=== PATIENT | female | born 1955 | race Caucasian/White ===

== ENCOUNTER 2021-01-21 19:01 | Inpatient (IN) | payer MEDICARE, MEDICAID, SELFPAY ==
[2021-01-21] VITALS (11 sets, daily range): BP systolic 120–163; BP diastolic 56–76; PULSE 72–86; RESP 22; TEMP 36.7; O2SAT 95–99; BMI 39.9; BMI 48.0
[2021-01-21 19:16] LABS: Microscopic, Urine URINE MICROSCOPIC (MICROSCOPIC)
[2021-01-21 19:20] LABS: Basophils # 0.1 K/mm3 (0-0.2); Basophils % 0.6 % (0.1-2.0); Eosinophils # 0.1 K/mm3 (0.0-0.4); Eosinophils % 0.6 % (0.1-12.0); Hematocrit 26.1 % (37.0-47.0); Lymphocytes # 1.5 K/mm3 (0.7-4.5); Lymphocytes % 16.3 % (10-50); Mean Corpuscular HGB Conc 30.7 g/dL (31.8-35.4); Mean Corpuscular Hemoglobin 25.5 pg (27.0-31.2); Mean Platelet Volume 7.2 fl (7.4-10.4); Monocytes # 0.5 K/mm3 (0.1-1.0); Monocytes % 5.4 % (1.7-9.3); Neutrophils # 6.9 K/mm3 (1.8-7.8); Neutrophils % 77.1 % (37.0-80.0); Platelet Count 696 K/mm3 (142-424); Red Blood Count 3.14 M/mm3 (4.20-5.40); White Blood Count 8.9 K/mm3 (4.8-10.8)
[2021-01-21 19:21] LABS: Appearance,Urine CLEAR (Clear); Bilirubin,Urine Negative (Negative); Blood, Urine Negative (Negative); Color,Urine YELLOW (Yellow); Glucose,Urine (UA) Negative (Negative); Ketones,Urine Negative (Negative); Leukocyte Esterase,Urine Negative (Negative); Nitrate,Urine Negative (Negative); PH,Urine 6.5 (5.0-8.5); Protein,Urine Negative (Negative); Urobilinogen,Urine 0.2 EU/dl (0.2)
--- NOTE | 2021-01-21 19:26 | PC.NURSE ---
report of critical h/h to .
[2021-01-21 19:38] LABS: Alanine Aminotransferase 21 U/L (12-78); Albumin Level 4.5 g/dl (3.5-5.0); Albumin/Globulin Ratio 1.7 (1.1-1.8); Alkaline Phosphatase 69 U/L (38-126); Anion Gap 17.1 mEq/L (5-15); Aspartate Amino Transferase 36 U/L (14-36); Bilirubin,Total 0.9 mg/dl (0.2-1.3); Blood Urea Nitrogen 10 mg/dl (7-17); Calcium 8.7 mg/dl (8.4-10.2); Carbon Dioxide 28 mmol/L (22.0-30.0); Creatinine Clearance Estimated 95 mL/min (50-200); Estimated Glomerular Filt Rate 84 ml/min (>60); GFR (African American) 101 ML/MIN (>60); Globulin 2.6 g/dL (1.3-3.2); Glucose 130 mg/dl (74-100); Potassium 4.1 mmoL/L (3.5-5.1); Sodium 120 mmol/L (136-145); Total Protein,Serum 7.1 g/dl (6.3-8.2)
[2021-01-21 19:41] LABS: Chloride 79 mmol/L (98-107)
--- NOTE | 2021-01-21 19:51 | XR_ITS ---
PROCEDURE INFORMATION: Exam: XR Right Shoulder Exam date and time: 01/21/2021 7:51 PM Age: 65 years old Clinical indication: Injury or trauma; Fall; Blunt trauma (contusions or hematomas); Shoulder; Right; Additional info: Fall, hematoma TECHNIQUE: Imaging protocol: XR Right shoulder. Views: 2 or more views. COMPARISON: No relevant prior studies available. FINDINGS: Displaced fracture dislocation of the proximal right humerus with the shaft projecting approximately 3.5 cm medial. Multifocal high-density rounded foci within these overlying soft tissues. AC joint arthrosis. IMPRESSION: Displaced fracture dislocation of the proximal right humerus of unknown chronicity but potentially chronic. Multifocal high-density rounded foci within these overlying soft tissues which may retained foreign bodies. Correlation recommended.
--- NOTE | 2021-01-21 19:51 | XR_ITS ---
PROCEDURE INFORMATION: Exam: XR Right Humerus Exam date and time: 01/21/2021 7:51 PM Age: 65 years old Clinical indication: Injury or trauma; Fall; Blunt trauma (contusions or hematomas); Arm, upper; Right; Additional info: Fall, hematoma TECHNIQUE: Imaging protocol: XR Right humerus. Views: 2 or more views. COMPARISON: No relevant prior studies available. FINDINGS: Bones/joints: Displaced fracture dislocation of the proximal right humerus with the proximal humeral shaft projecting medially approximately 3.5 cm. Soft tissues: Multifocal rounded hyperdense foci projecting over the upper chest and shoulder region. IMPRESSION: 1. Displaced fracture dislocation of the proximal right humerus of unknown chronicity but potentially chronic. 2. Multifocal rounded hyperdense foci projecting over the upper chest and shoulder region which may be retained foreign bodies. Clinical correlation recommended.
--- NOTE | 2021-01-21 19:51 | XR_ITS ---
PROCEDURE INFORMATION: Exam: XR Right Elbow Exam date and time: 01/21/2021 7:51 PM Age: 65 years old Clinical indication: Injury or trauma; Fall; Blunt trauma (contusions or hematomas); Elbow; Right; Additional info: Fall, hematoma TECHNIQUE: Imaging protocol: XR Right elbow. Views: 1 or 2 views. COMPARISON: CR XR SHOULDER RT MIN 2V 01/21/2021 8:05 PM FINDINGS: Bones/joints: Bones appear osteopenic. No visualized fracture or dislocation. Soft tissues: Normal. IMPRESSION: No acute findings.
--- NOTE | 2021-01-21 19:52 | HMH.EDGENADL ---
ED Disposition Clinical Impression: Hyponatremia Hematoma of arm Qualifiers: Encounter type: initial encounter Laterality: right Qualified Code(s): S40.021A - Contusion of right upper arm, initial encounter Anemia Qualifiers: Anemia type: unspecified type Qualified Code(s): D64.9 - Anemia, unspecified Disposition: Still a Patient Condition on Discharge: Good Referrals: Fabiola Moreno [Primary Care Provider] - - Critical Care Critical Care Time: No Attestation: On 01/21/21, the high probability of a clinically significant, sudden or life threatening deterioration of the following system(s) required my full and direct attention, intervention and personal management. The time I documented below is in addition to time spent performing reported procedures but includes the following listed in this critical care notation. Medical Decision Making - Khalif Inquiry Pt receiving controlled substance: No Vital Signs: 01/21/21 18:42 Temperature 98.1 F Temperature Source Oral Pulse Rate [Right] 77 Respiratory Rate 22 Blood Pressure [Right Arm] 154/63 H Blood Pressure Mean [Right Arm] 93 02 Sat by Pulse Oximetry 98 Oxygen Delivery Method Room Air - Lab Data Lab results reviewed: Yes: I reviewed the patient's lab results. Lab Results 01/21/21 18:49: Urine Color Yellow, Urine Appearance Clear, Urine pH 6.5, Ur Specific [place] 1.010, Urine Protein Negative, Urine Glucose (UA) Negative, Urine Ketones Negative, Urine Blood Negative, Urine Nitrate Negative, Urine Bilirubin Negative, Urine Urobilinogen 0.2, Ur Leukocyte Esterase Negative, Urine RBC None, Urine WBC None, Ur Squamous Epith Cells None, Urine Bacteria None 01/21/21 18:49: WBC 8.9, RBC 3.14 L, Hgb 8.0 L, Hct 26.1 L, MCV 83.0, MCH 25.5 L, MCHC 30.7 L, RDW 15.0, Plt Count 696 H, MPV 7.2 L, Neut % (Auto) 77.1, Lymph % (Auto) 16.3, [place] % (Auto) 5.4, Eos % (Auto) 0.6, Baso % (Auto) 0.6, Neut # (Auto) 6.9, Lymph # (Auto) 1.5, [place] # (Auto) 0.5, Eos # (Auto) 0.1, Baso # (Auto) 0.1 08/04/21 18:49: Sodium 120 L, Potassium 4.1, Chloride 79 L, Carbon Dioxide 28, Anion Gap 17.1 H, BUN 10, Creatinine 0.70, Estimated Creat Clear 95, Estimated GFR 84, Est GFR ( Amer) 101, Glucose 130 H, Calcium 8.7, Total Bilirubin 0.9, AST 36, ALT 21, Alkaline Phosphatase 69, Total Protein 7.1, Albumin 4.5, Globulin 2.6, Albumin/Globulin Ratio 1.7 Result diagrams: 01/21/21 18:49 01/21/21 18:49 Orders (Tests/Meds): ED MEDICATIONS Generic Name Dose Route Start Last Admin Trade Name Freq PRN Reason Stop Dose Admin Sodium Chloride 1,000 mls @ 999 mls/hr 01/21/21 19:45 Sod Chlor 0.9% 1000ml Bag IV 01/21/21 20:45 .Q1H1M WILLY ORDERS Category Date Time Status XR elbow RT 2V Stat Exams 01/21/21 19:51 Ordered XR humerus RT Stat Exams 01/21/21 19:51 Ordered XR shoulder RT min 2V Stat Exams 01/21/21 19:51 Ordered Medical Decision Narrative: 65yo F evaluated for hyponatremia. Patient is in no acute distress initial evaluation. Exam is limited both by body habitus and the fact that she is a poor historian. Physical exam is most remarkable for a large, firm, tender to palpate hematoma to the patient's medial upper arm. She reports she fell off the shower chair at the senior care but is uncertain when it happened. She states no x-rays were obtained afterward. Given the size of the hematoma and the fact that she has pain with passive range of motion and palpation, x-rays have been ordered. Have asked for records from [facility]. Sodium is 120, with a mild anion gap of 17. Metabolic panel otherwise unremarkable. H/H is low at 8/26 with no previous study for comparison. Signed over to tandem mill roller. General Adult HPI - General Chief complaint: Recheck/Abnormal Lab/Rx Stated complaint: abnormal labs Time Seen by Provider: 01/21/21 19:45 Mode of Arrival: EMS Limitations: No Limitations Description of Symptoms (Recalled from ER Triage Doc. by
--- NOTE | 2021-01-21 20:16 | XR_ITS ---
PROCEDURE INFORMATION: Exam: XR Chest Exam date and time: 01/21/2021 8:16 PM Age: 65 years old Clinical indication: Injury or trauma; Fall; Blunt trauma (contusions or hematomas); Additional info: SOB TECHNIQUE: Imaging protocol: XR of the chest. Views: 4 or more views. COMPARISON: CR XR HUMERUS RT 01/21/2021 8:07 PM FINDINGS: Lungs: Hazy opacities at bilateral lung bases. Pleural spaces: See above. No pneumothorax. Heart/Mediastinum: Unremarkable. No cardiomegaly. Bones/joints: Displaced fracture dislocation of the proximal right humerus. IMPRESSION: 1. Hazy opacities at bilateral lung bases which can be seen with overlapping soft tissues, layering pleural effusions, and or atelectasis or pneumonia. 2. Displaced fracture dislocation of the proximal right humerus.
--- NOTE | 2021-01-21 20:19 | PC.NURSE ---
pt in radiology at this time
[2021-01-21 20:30] LABS: C-Reactive Protein 13.8 mg/L (0-4)
--- NOTE | 2021-01-21 20:30 | PC.NURSE ---
pt back in room from radiology.
[2021-01-21 20:40] LABS: Erythrocyte Sedimentation Rate 26 mm/hr (0-30)
[2021-01-21 20:44] LABS: Procalcitonin 0.039 ng/mL (0.0-2.0)
[2021-01-21 20:45] LABS: T4 (Thyroxine) 10.2 ug/dl (5.53-11.0)
[2021-01-21 20:59] LABS: Thyroid Stimulating Hormone 3.66 uIU/mL (0.465-4.68)
[2021-01-21 22:49] LABS: Coronavirus 19, PCR Not Detected (NotDetected); Influenza A, PCR Not Detected (NotDetected); Influenza B, PCR Not Detected (NotDetected)
--- NOTE | 2021-01-21 23:25 | PC.NURSE ---
PT ARRIVED TO FLOOR VIA W/C FROM ED W/STAFF AT [id number]
--- NOTE | 2021-01-21 23:55 | PC.NURSE ---
assist x2 to bathroom
[2021-01-22] VITALS (23 sets, daily range): BP systolic 118–180; BP diastolic 50–89; PULSE 63–87; RESP 18–24; TEMP 36.5–36.9; O2SAT 88–100; BMI 48.0
--- NOTE | 2021-01-22 00:45 | PC.NURSE ---
assisted pt up to bathroom at this time
--- NOTE | 2021-01-22 03:37 | PC.NURSE ---
A&OX4. TOLERATING RA WELL. PT HAS HAD NO C/O PAIN/NA/VO SINCE ARRIVAL TO FLOOR. PT DOES WELL AMBULATING WITH X1 ASSIST. PT SLEEPING MAJORITY OF SHIFT. NO C/O THUS FAR. VSS WILL CONTINUE TO MONITOR.
[2021-01-22 06:57] LABS: Chloride 84 mmol/L (98-107); Sodium 119 mmol/L (136-145)
[2021-01-22 06:58] LABS: Potassium 4.7 mmoL/L (3.5-5.1)
[2021-01-22 07:00] LABS: Anion Gap 11.7 mEq/L (5-15); Blood Urea Nitrogen 6 mg/dl (7-17); Calcium 8.4 mg/dl (8.4-10.2); Carbon Dioxide 28 mmol/L (22.0-30.0); Creatinine Clearance Estimated 48 mL/min (50-200); Estimated Glomerular Filt Rate 123 ml/min (>60); GFR (African American) 149 ML/MIN (>60); Glucose 104 mg/dl (74-100)
[2021-01-22 07:01] LABS: Magnesium 1.5 mg/dl (1.6-2.3)
[2021-01-22 07:42] LABS: Basophils # 0.1 K/mm3 (0-0.2); Basophils % 0.9 % (0.1-2.0); Eosinophils # 0.1 K/mm3 (0.0-0.4); Eosinophils % 1.4 % (0.1-12.0); Lymphocytes # 1.3 K/mm3 (0.7-4.5); Lymphocytes % 22.6 % (10-50); Mean Corpuscular HGB Conc 31.3 g/dL (31.8-35.4); Mean Corpuscular Hemoglobin 25.7 pg (27.0-31.2); Monocytes # 0.4 K/mm3 (0.1-1.0); Monocytes % 6.5 % (1.7-9.3); Neutrophils # 4.1 K/mm3 (1.8-7.8); Neutrophils % 68.5 % (37.0-80.0); Platelet Count 610 K/mm3 (142-424); Red Blood Count 2.87 M/mm3 (4.20-5.40); Red Cell Distribution Width 15.1 % (11.5-17.5); White Blood Count 5.9 K/mm3 (4.8-10.8)
[2021-01-22 07:45] LABS: Hematocrit 23.5 % (37.0-47.0); Hemoglobin 7.4 g/dL (12.2-16.2)
--- NOTE | 2021-01-22 07:55 | PC.NURSE ---
Paged Dr. Hutchinson @ [phone], information resources director for Dr. Little in RE to H&H of 7.4 and 23.5. Awaiting return call at this time.
--- NOTE | 2021-01-22 08:08 | HMH.PHAVTE ---
[facility] Pharmacy VTE Monitoring - Patient Demographics Admission date: 01/21/21 Report Date: 01/22/21 Time: 08:08 Allergies/Adverse Reactions: Patient Allergies bupropion Allergy (Verified 01/21/21 18:51) prednisone Allergy (Verified 01/21/21 18:51) rosuvastatin [From Crestor] Allergy (Verified 01/21/21 18:51) Height: 1.65 m Weight: 130.9 kg Patient Problems: Current Active Problems Hyponatremia (Acute) Hematoma of arm (Acute) Anemia (Acute) - VTE Risk Labs: VTE Related Lab Results Hgb 7.4 g/dL (12.2-16.2) L* 01/22/21 07:22 Hct 23.5 % (37.0-47.0) L* 01/22/21 07:22 Plt Count 610 K/mm3 (142-424) H 01/22/21 07:22 BUN 6 mg/dl (7-17) L D 01/22/21 06:28 Creatinine 0.50 mg/dl (0.52-1.04) L D 01/22/21 06:28 Estimated Creat Clear 48 mL/min (50-200) 01/22/21 06:28 VTE Score: 4 VTE Risk Level: Low Risk - Prophylaxis VTE Prophylaxis Ordered?: Yes Types of VTE Prophylaxis: TEDS Knee High Location of Applied Device: Bilateral Lower Extremeties
--- NOTE | 2021-01-22 08:30 | HMH.HP ---
*Admission Date: 01/21/21 *Chief complaint: Headache, right arm pain *History of present illness: 65yo F sent [facility] secondary to hyponatremia. Patient is a poor historian and states her sodium has been low in the past. She reports seeing a watch parts grinder in the past but is uncertain what the report was. She does not know any additional work-up that has been completed. She is uncertain what her baseline sodium level is. Her only complaint currently is headache. She is uncertain how long the headache has been going on. She denies any abdominal pain, nausea/vomiting/diarrhea. Denies any fever. Patient is in no acute distress initial evaluation. Exam is limited both by body habitus and the fact that she is a poor historian. Physical exam is most remarkable for a large, firm, tender to palpate hematoma to the patient's medial upper arm. She reports she fell off the [facility] at the [facility] but is uncertain when it happened. She states no x-rays were obtained afterward. Given the size of the hematoma and the fact that she has pain with passive range of motion and palpation, x-rays have been ordered. Have asked for records from [facility]. Sodium is 120, with a mild anion gap of 17. Metabolic panel otherwise unremarkable. H/H is low at 8/26 with no previous study for comparison. Signed over to procedures nurse. (above as per ER physician) The patient's x-ray showed a displaced fracture dislocation of the proximal right humerus of unknown chronicity but potentially chronic. There were multifocal rounded hyperdense foci projecting over the upper chest and shoulder region which could be due to retained foreign bodies. The patient's chest x-ray showed hazy opacities at the bilateral lung bases which could be overlapping soft tissues, layering pleural effusions, or atelectasis versus pneumonia. This also showed a displaced fracture dislocation of the proximal right humerus. The patient was admitted for further evaluation and treatment. [facility] History I have reviewed the patient's past medical history: Yes Medical History: Reports:: Dementia, Hyperlipidemia, Hypertension Denies:: Cancer, Diabetes Mellitus Type 1, Diabetes Mellitus Type 2, MRSA *Have you ever received a pneumonia vaccine?: Yes *Have you received a flu vaccine this season?: Yes Other Medical History: Reports: Other (Hyponatremia) Other Surgeries: Yes: Tubal Ligation Amputation: No Fractures: No - *Social History Last grade of school completed: GED Smoking Status: Never smoker Alcohol Intake: never *Occupational Status:: retired, disabled Housing: [facility] Household Members: other *Travel in the last 8 weeks: None Family Hx:: Hyperlipidemia, Hypertension, Kidney Disease Review of Systems - Constitutional Reports weakness, Denies fatigue - Eyes Denies blurry vision, Denies double vision - ENT Reports nasal congestion, Denies sore throat - *Cardiovascular Reports shortness of breath, Denies chest pain - *Respiratory Reports cough, Reports shortness of breath - *Gastrointestinal Denies abdominal pain, Denies loose stools, Denies nausea, Denies vomiting - *Genitourinary Denies difficulty urinating, Denies painful urination - *Musculoskeletal Reports joint pain (right shoulder) - *Neurologic Reports headache(s), Reports weakness, Denies dizziness Meds Home Medications Medication Instructions Recorded Confirmed Type Cholecalciferol (Vitamin D3) 1,000 unit PO DAILY 01/21/21 01/21/21 History [Vitamin D3 1,000 Unit Cap] Fluoxetine HCl [Prozac 20mg 60 mg PO HS 01/21/21 01/21/21 History Capsule] Furosemide [Lasix 40mg tab] 40 mg PO DAILY 01/21/21 01/21/21 History Loratadine [Claritin 10mg 10 mg PO DAILY 01/21/21 01/22/21 History Tablet] Losartan Potassium [Cozaar 50mg 50 mg PO DAILY 01/21/21 01/21/21 History Tablets] Nortriptyline HCl 10 mg PO DAILY 01/21/21
--- NOTE | 2021-01-22 14:39 | PC.NURSE ---
This RN called and spoke with Nancie Little's in RE to prednisone order. This RN held prednisone, because pt has an allergy to it and states she breaks out in a rash when taking it. Awaiting cb at this time.
--- NOTE | 2021-01-22 14:41 | HMH.PHAINT ---
MEDICATION RECONCILIATION COMPLETE USING LIST FROM MD OFFICE AND EXTERNAL PHARMACY FILL HISTORY.
--- NOTE | 2021-01-22 17:01 | PC.NURSE ---
Called and apoke with Nancie again in RE to questioning what MD wanted to do with prednisone. Also, made her aware that pts BP is elevated with SBP 170's / 180's. Awaiting return call at this time.
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
--- NOTE | 2021-01-22 19:35 | PC.NURSE ---
This RN spoke with Dr. Lugo and stated to d/c prednisone, decrease IVF's to 50 ml/hr, and ordered 40 mg IV lasix after 2 units of blood. Pt tolerated well. CB in reach. PRN zofran given per mar and prn tylenol r/t headache. BP improved at this time. VSS. Report given.
[2021-01-22 21:15] LABS: Hematocrit 30.7 % (37.0-47.0)
[2021-01-22 21:30] LABS: Hemoglobin 10.1 g/dL (12.2-16.2)
[2021-01-23 03:32] VITALS: BP 151/73; PULSE 74; RESP 20; TEMP 36.9; O2SAT 98
--- NOTE | 2021-01-23 03:37 | PC.NURSE ---
Pt has been restless during this shift. Pt oriented to name and birthdate, Pt confused with directions. BLT with some fine crackles noted. bowel sounds present in all 4 quadrants. Pt denies SOA, headache, or N/V. Pt has +3 pitting edemea to BLE and +3 in RUE with bruising
[2021-01-23 05:14] VITALS: BMI 48.0
[2021-01-23 06:09] LABS: MANUAL DIFFERENTIAL MANUAL DIFFERENTIAL (MANUAL DIFF)
[2021-01-23 06:16] LABS: Basophils % 0.4 % (0.1-2.0); Eosinophils # 0.1 K/mm3 (0.0-0.4); Eosinophils % 1.6 % (0.1-12.0); Hematocrit 28.3 % (37.0-47.0); Hemoglobin 9.4 g/dL (12.2-16.2); Lymphocytes # 1.1 K/mm3 (0.7-4.5); Lymphocytes % 15.3 % (10-50); Mean Corpuscular HGB Conc 33.2 g/dL (31.8-35.4); Mean Corpuscular Hemoglobin 26.7 pg (27.0-31.2); Mean Corpuscular Volume 80.3 fl (81-99); Mean Platelet Volume 7.2 fl (7.4-10.4); Monocytes # 0.5 K/mm3 (0.1-1.0); Monocytes % 6.5 % (1.7-9.3); Neutrophils # 5.5 K/mm3 (1.8-7.8); Neutrophils % 76.2 % (37.0-80.0); Platelet Count 574 K/mm3 (142-424); Red Blood Count 3.52 M/mm3 (4.20-5.40); Red Cell Distribution Width 15.2 % (11.5-17.5); White Blood Count 7.2 K/mm3 (4.8-10.8)
[2021-01-23 06:28] LABS: Chloride 86 mmol/L (98-107)
[2021-01-23 06:29] LABS: Potassium 4.4 mmoL/L (3.5-5.1); Sodium 120 mmol/L (136-145)
[2021-01-23 06:31] LABS: Alanine Aminotransferase 16 U/L (12-78); Albumin Level 3.9 g/dl (3.5-5.0); Albumin/Globulin Ratio 1.5 (1.1-1.8); Alkaline Phosphatase 68 U/L (38-126); Anion Gap 12.4 mEq/L (5-15); Aspartate Amino Transferase 41 U/L (14-36); Bilirubin,Total 1.5 mg/dl (0.2-1.3); Blood Urea Nitrogen 11 mg/dl (7-17); Carbon Dioxide 26 mmol/L (22.0-30.0); Creatinine Clearance Estimated 48 mL/min (50-200); Estimated Glomerular Filt Rate 100 ml/min (>60); GFR (African American) 121 ML/MIN (>60); Globulin 2.6 g/dL (1.3-3.2); Total Protein,Serum 6.5 g/dl (6.3-8.2)
[2021-01-23 06:32] LABS: Calcium 8.7 mg/dl (8.4-10.2); Glucose 116 mg/dl (74-100)
[2021-01-23 06:46] LABS: Lymphocytes % 10 % (10-50); Monocytes % 4 % (2-9); Neutrophils % 86 % (42-76); Platelet Estimate Moderate Increase; RBC Morphology Normal; Total Cells Counted 100
[2021-01-23 08:00] VITALS: BP 162/78; PULSE 76; RESP 24; TEMP 36.6; O2SAT 92
--- NOTE | 2021-01-23 08:23 | HMH.ACPN2 ---
<Desirae Carlson - Last Filed: 01/23/21 08:23> Internal Medicine - PN: Subj *Date: 01/23/21 *Time: 08:23 Interval history: Patient states she is very confused this morning. She did not know she was at the hospital. She states she does feel slightly nauseated this morning. She thinks she slept well but cannot really remember. She is trying to eat some breakfast. Exam Vital signs and Labs for Last 24 Hours: Temp Pulse Resp BP Pulse Ox 98.4 F 74 20 151/73 H 98 01/23/21 03:32 01/23/21 03:32 01/23/21 03:32 01/23/21 03:32 01/23/21 03:32 Laboratory Results - last 24 hr 01/22/21 07:22: Blood Type Confirm O Positive 01/22/21 09:22: Blood Type O Positive, Antibody Screen Negative, Crossmatch (AHG) See Detail 01/22/21 21:11: Hgb 10.1 L D, Hct 30.7 L 01/23/21 06:03: WBC 7.2, RBC 3.52 L, Hgb 9.4 L, Hct 28.3 L, MCV 80.3 L, MCH 26.7 L, MCHC 33.2, RDW 15.2, Plt Count 574 H, MPV 7.2 L, Neut % (Auto) 76.2, Lymph % (Auto) 15.3, [place] % (Auto) 6.5, Eos % (Auto) 1.6, Baso % (Auto) 0.4, Neut # (Auto) 5.5, Lymph # (Auto) 1.1, [place] # (Auto) 0.5, Eos # (Auto) 0.1, Baso # (Auto) 0.0, Total Counted 100, Neutrophils % (Manual) 86 H, Lymphocytes % (Manual) 10, Monocytes % (Manual) 4, Platelet Estimate Moderate increase, RBC Morphology Normal 01/23/21 06:03: Sodium 120 L, Potassium 4.4, Chloride 86 L, Carbon Dioxide 26, Anion Gap 12.4, BUN 11 D, Creatinine 0.60, Estimated Creat Clear 48, Estimated GFR 100, Est GFR ( Amer) 121, Glucose 116 H, Calcium 8.7, Total Bilirubin 1.5 H, AST 41 H, ALT 16, Alkaline Phosphatase 68, Total Protein 6.5, Albumin 3.9 D, Globulin 2.6, Albumin/Globulin Ratio 1.5 I & O for Last 24 hours: Intake & Output 01/20/21 01/21/21 01/22/21 01/23/21 11:59 11:59 11:59 11:59 Intake Total 1683 / 1683 970 / 970 Output Total 0 / 0 650 / 650 Balance 1683 / 1683 320 / 320 Weight 288 lb 9.361 oz 288 lb 5 oz - Constitutional no acute distress - *Routine Respiratory Exam Present: CTA bilaterally - *Routine Cardiovascular Exam Present: RRR - *Routine Abdominal Exam Present: soft, normoactive bowel sounds. Absent: tenderness - *Routine Extremities Exam Present: edema (bilateral LE's) - *Routine Skin Exam Present: warm. Absent: rash - *Routine Neurological Exam Present: alert, oriented X3 Assessment and Plan (1) Hyponatremia Status: Acute Category: Medical Code(s): E87.1 - Hypo-osmolality and hyponatremia (2) Hematoma of arm Status: Acute Qualifiers: Encounter type: initial encounter Laterality: right Qualified Code(s): S40.021A - Contusion of right upper arm, initial encounter Category: Medical Code(s): S40.029A - Contusion of unspecified upper arm, initial encounter (3) Anemia Status: Acute Qualifiers: Anemia type: unspecified type Qualified Code(s): D64.9 - Anemia, unspecified Category: Medical Code(s): D64.9 - Anemia, unspecified (4) Humerus fracture Status: Acute Category: Medical Code(s): S42.309A - Unspecified fracture of shaft of humerus, unspecified arm, initial encounter for closed fracture (5) Hypertension Status: Chronic Category: Medical Code(s): I10 - Essential (primary) hypertension (6) Hyperlipidemia Status: Chronic Category: Medical Code(s): E78.5 - Hyperlipidemia, unspecified (7) Dementia Status: Chronic Category: Medical Code(s): F03.90 - Unspecified dementia without behavioral disturbance - Assessment and plan all Dx Assessment and Plan for all problems:: We will start on Lasix twice daily and get a stool for blood along with a urine sodium. Ortho note is appreciated and Dr. Jones does not feel surgery is an option at this time. <Pawel Lugo - Last Filed: 01/23/21 12:42> Internal Medicine - PN: Subj *Date: 01/23/21 *Time: 12:41 Exam Vital signs and Labs for Last 24 Hours: Temp Pulse Resp BP Pulse Ox 97.9 F 76 24 162/78 H 92 L 01/23/21 08:00 01/23/21
--- NOTE | 2021-01-23 10:04 | SW/DCPLANNER ---
Addendum entered by Jessy Centeno 01/27/21 09:16: This patient will discharge back to [facility] today. I have informed Mae with [facility] and she has requested another COVID swab prior to returning: I informed Dr Lugo. Original Note: This patient currently resides at [facility]. Per Mae with [facility] patient resides under [facility] level of care. I will continue to follow up with Mae until patient is medically stable for discharge.
[2021-01-23 11:25] VITALS: BMI 48.1
[2021-01-23 16:00] VITALS: BP 154/75; PULSE 80; RESP 20; TEMP 37; O2SAT 96
[2021-01-23 20:00] VITALS: BP 113/56; PULSE 82; RESP 19; TEMP 37; O2SAT 97
--- NOTE | 2021-01-24 03:37 | PC.NURSE ---
pt has rested off and on throughout shift, pt has had periods of confusion where directions have to be reinforced, lungs remain clear, heart rate regular, bilateral lower extremity noted and remains at +3, pt guarding right arm when ambulating and swelling and bruising noted to that arm as well, pt has had good urine output, no distress noted at this time, will continue to monitor
[2021-01-24 04:00] VITALS: BP 148/85; PULSE 81; RESP 18; TEMP 36.9; O2SAT 96
[2021-01-24 04:56] VITALS: BMI 47.8
[2021-01-24 07:14] LABS: Basophils % 0.4 % (0.1-2.0); Eosinophils # 0.1 K/mm3 (0.0-0.4); Eosinophils % 0.6 % (0.1-12.0); Hemoglobin 8.8 g/dL (12.2-16.2); Lymphocytes # 1.5 K/mm3 (0.7-4.5); Lymphocytes % 19.3 % (10-50); Mean Corpuscular HGB Conc 31.9 g/dL (31.8-35.4); Mean Corpuscular Hemoglobin 26.1 pg (27.0-31.2); Mean Platelet Volume 7.4 fl (7.4-10.4); Monocytes # 0.5 K/mm3 (0.1-1.0); Monocytes % 6.5 % (1.7-9.3); Neutrophils # 5.8 K/mm3 (1.8-7.8); Neutrophils % 73.2 % (37.0-80.0); Red Blood Count 3.37 M/mm3 (4.20-5.40); Red Cell Distribution Width 15.6 % (11.5-17.5)
[2021-01-24 07:15] LABS: Hematocrit 27.6 % (37.0-47.0); Platelet Count 628 K/mm3 (142-424)
[2021-01-24 07:42] LABS: Chloride 84 mmol/L (98-107); Potassium 4.2 mmoL/L (3.5-5.1); Sodium 119 mmol/L (136-145)
[2021-01-24 07:45] LABS: Alanine Aminotransferase 16 U/L (12-78); Albumin Level 3.9 g/dl (3.5-5.0); Albumin/Globulin Ratio 1.6 (1.1-1.8); Alkaline Phosphatase 67 U/L (38-126); Anion Gap 12.2 mEq/L (5-15); Aspartate Amino Transferase 41 U/L (14-36); Bilirubin,Total 1.3 mg/dl (0.2-1.3); Blood Urea Nitrogen 10 mg/dl (7-17); Calcium 8.6 mg/dl (8.4-10.2); Carbon Dioxide 27 mmol/L (22.0-30.0); Creatinine Clearance Estimated 48 mL/min (50-200); Estimated Glomerular Filt Rate 123 ml/min (>60); GFR (African American) 149 ML/MIN (>60); Globulin 2.5 g/dL (1.3-3.2); Glucose 107 mg/dl (74-100); Total Protein,Serum 6.4 g/dl (6.3-8.2)
[2021-01-24 08:00] VITALS: BP 154/77; PULSE 80; RESP 19; TEMP 36.6; O2SAT 98
--- NOTE | 2021-01-24 09:25 | HMH.ACPN2 ---
<Desirae Carlson - Last Filed: 01/24/21 09:25> Internal Medicine - PN: Subj *Date: 01/24/21 *Time: 09:25 Interval history: Patient is a bit more confused this morning. She states she is nauseated and her stomach hurts but she did eat all of her breakfast. She is unsure if she slept well last night. She says her arm hurts as well. Exam Vital signs and Labs for Last 24 Hours: Temp Pulse Resp BP Pulse Ox 97.8 F 80 19 154/77 H 98 01/24/21 08:00 01/24/21 08:00 01/24/21 08:00 01/24/21 08:00 01/24/21 08:00 Laboratory Results - last 24 hr 01/24/21 06:43: WBC 8.0, RBC 3.37 L, Hgb 8.8 L, Hct 27.6 L, MCV 82.0, MCH 26.1 L, MCHC 31.9, RDW 15.6, Plt Count 628 H, MPV 7.4, Neut % (Auto) 73.2, Lymph % (Auto) 19.3, [place] % (Auto) 6.5, Eos % (Auto) 0.6, Baso % (Auto) 0.4, Neut # (Auto) 5.8, Lymph # (Auto) 1.5, [place] # (Auto) 0.5, Eos # (Auto) 0.1, Baso # (Auto) 0.0 01/24/21 06:43: Sodium 119 L, Potassium 4.2, Chloride 84 L, Carbon Dioxide 27, Anion Gap 12.2, BUN 10, Creatinine 0.50 L, Estimated Creat Clear 48, Estimated GFR 123, Est GFR ( Amer) 149 D, Glucose 107 H, Calcium 8.6, Total Bilirubin 1.3, AST 41 H, ALT 16, Alkaline Phosphatase 67, Total Protein 6.4, Albumin 3.9, Globulin 2.5, Albumin/Globulin Ratio 1.6 I & O for Last 24 hours: Intake & Output 01/21/21 01/22/21 01/23/21 01/24/21 11:59 11:59 11:59 11:59 Intake Total 1683 / 1683 1330 / 1330 960 / 960 Output Total 0 / 0 650 / 650 4000 / 4000 Balance 1683 / 1683 680 / 680 -3040 / -3040 Weight 288 lb 9.361 oz 288 lb 12.889 oz 287 lb 1 oz - Constitutional no acute distress (confused) - *Routine Respiratory Exam Present: CTA bilaterally - *Routine Cardiovascular Exam Present: RRR - *Routine Abdominal Exam Present: soft, normoactive bowel sounds, tenderness (diffuse) - *Routine Extremities Exam Present: edema (bilateral LE's). Absent: cyanosis, clubbing - *Routine Skin Exam Present: pallor - *Routine Neurological Exam Present: altered mental status Assessment and Plan (1) Hyponatremia Status: Acute Category: Medical Code(s): E87.1 - Hypo-osmolality and hyponatremia (2) Hematoma of arm Status: Acute Qualifiers: Encounter type: initial encounter Laterality: right Qualified Code(s): S40.021A - Contusion of right upper arm, initial encounter Category: Medical Code(s): S40.029A - Contusion of unspecified upper arm, initial encounter (3) Anemia Status: Acute Qualifiers: Anemia type: unspecified type Qualified Code(s): D64.9 - Anemia, unspecified Category: Medical Code(s): D64.9 - Anemia, unspecified (4) Humerus fracture Status: Acute Category: Medical Code(s): S42.309A - Unspecified fracture of shaft of humerus, unspecified arm, initial encounter for closed fracture (5) Hypertension Status: Chronic Category: Medical Code(s): I10 - Essential (primary) hypertension (6) Hyperlipidemia Status: Chronic Category: Medical Code(s): E78.5 - Hyperlipidemia, unspecified (7) Dementia Status: Chronic Category: Medical Code(s): F03.90 - Unspecified dementia without behavioral disturbance - Assessment and plan all Dx Assessment and Plan for all problems:: Sodium has not improved. H&H continues to decrease. Stool for blood is still pending. Will discuss further care with Dr. Lugo. <Pawel Lugo - Last Filed: 01/24/21 14:41> Internal Medicine - PN: Subj *Date: 01/24/21 *Time: 14:41 Exam Vital signs and Labs for Last 24 Hours: Temp Pulse Resp BP Pulse Ox 97.8 F 80 19 154/77 H 98 01/24/21 08:00 01/24/21 08:00 01/24/21 08:00 01/24/21 08:00 01/24/21 08:00 Laboratory Results - last 24 hr 01/23/21 10:05: Urine Sodium 125 01/24/21 06:43: WBC 8.0, RBC 3.37 L, Hgb 8.8 L, Hct 27.6 L, MCV 82.0, MCH 26.1 L, MCHC 31.9, RDW 15.6, Plt Count 628 H, MPV 7.4, Neut % (Auto) 73.2, Lymph % (Auto) 19.3, [place] % (Auto) 6.5, Eos % (Auto) 0.6, Baso % (Auto
[2021-01-24 10:05] LABS: Occult Blood,Stool Negative (Negative)
[2021-01-24 10:45] LABS: Sodium, Urine 125 mmol/L (Not Estab.)
[2021-01-24 15:37] VITALS: BP 138/60; PULSE 83; RESP 20; TEMP 36.9; O2SAT 99
--- NOTE | 2021-01-24 18:27 | PC.NURSE ---
Pt has been up to the chair most of this shift. Pt has yelled out majority of the later part of this shift shouting obscenities and has not been easily redirected. +3 pitting edema noted to BLE. Lung sounds diminished. Active bowel sounds in all 4 quads, will continue to monitor.
[2021-01-24 20:00] VITALS: BP 99/47; PULSE 82; RESP 24; TEMP 36.7; O2SAT 97
--- NOTE | 2021-01-25 03:19 | PC.NURSE ---
Addendum entered by Genny Izaguirre RN 01/25/21 05:52: Patient would not keep messing/pulling at her IV put fluids on stand by, pt remains very confused attempted to redirect many times. Original Note: Pt is A/O x3 but also pleasantly confused. Continued to yell out throughout the shift. Was restless and did not get much sleep all shift. VSS, admin meds per MAR. Pt has remained most of shift in chair, and has chair alarm in place for safety. call light within reach, will continue to monitor.
[2021-01-25 04:00] VITALS: BP 132/73; PULSE 77; RESP 16; TEMP 36.6; O2SAT 99
[2021-01-25 07:53] LABS: Chloride 82 mmol/L (98-107); Potassium 4.2 mmoL/L (3.5-5.1); Sodium 122 mmol/L (136-145)
[2021-01-25 07:56] LABS: Anion Gap 15.2 mEq/L (5-15); Blood Urea Nitrogen 13 mg/dl (7-17); Carbon Dioxide 29 mmol/L (22.0-30.0); Creatinine Clearance Estimated 48 mL/min (50-200); Estimated Glomerular Filt Rate 100 ml/min (>60); GFR (African American) 121 ML/MIN (>60); Glucose 100 mg/dl (74-100)
[2021-01-25 08:00] VITALS: BP 147/77; PULSE 77; RESP 17; TEMP 37.1; O2SAT 100
[2021-01-25 08:05] LABS: NT Pro Brain Natriuretic Pep. 125 pg/mL (0-125)
[2021-01-25 08:32] LABS: Basophils # 0.1 K/mm3 (0-0.2); Basophils % 0.8 % (0.1-2.0); Eosinophils # 0.1 K/mm3 (0.0-0.4); Eosinophils % 0.9 % (0.1-12.0); Hematocrit 34.6 % (37.0-47.0); Lymphocytes # 1.7 K/mm3 (0.7-4.5); Lymphocytes % 19.2 % (10-50); Mean Corpuscular HGB Conc 32.6 g/dL (31.8-35.4); Mean Corpuscular Volume 82.8 fl (81-99); Mean Platelet Volume 7.7 fl (7.4-10.4); Monocytes # 0.7 K/mm3 (0.1-1.0); Monocytes % 8.3 % (1.7-9.3); Neutrophils # 6.3 K/mm3 (1.8-7.8); Neutrophils % 70.8 % (37.0-80.0); Platelet Count 732 K/mm3 (142-424); Red Blood Count 4.18 M/mm3 (4.20-5.40); Red Cell Distribution Width 15.7 % (11.5-17.5); White Blood Count 8.9 K/mm3 (4.8-10.8)
--- NOTE | 2021-01-25 08:39 | P.PN_ITS ---
Internal Medicine - PN: Subj *Date: 01/25/21 *Time: 09:40 Interval history: She was restless through the night, frequently hollering out and pulling at her IVs. She is alert and calm this morning. No complaints. Exam Vital signs and Labs for Last 24 Hours: Temp Pulse Resp BP Pulse Ox 98.7 F 77 17 147/77 H 100 01/25/21 08:00 01/25/21 08:00 01/25/21 08:00 01/25/21 08:00 01/25/21 08:00 Laboratory Results - last 24 hr 01/23/21 10:05: Urine Sodium 125 01/24/21 08:09: Stool Occult Blood Negative 01/25/21 06:43: WBC 8.9, RBC 4.18 L, Hct 34.6 L, MCV 82.8, MCH 27.0, MCHC 32.6, RDW 15.7, Plt Count 732 H, MPV 7.7, Neut % (Auto) 70.8, Lymph % (Auto) 19.2, [place] % (Auto) 8.3, Eos % (Auto) 0.9, Baso % (Auto) 0.8, Neut # (Auto) 6.3, Lymph # (Auto) 1.7, [place] # (Auto) 0.7, Eos # (Auto) 0.1, Baso # (Auto) 0.1 01/25/21 06:43: Sodium 122 L, Potassium 4.2, Chloride 82 L, Carbon Dioxide 29, Anion Gap 15.2 H, BUN 13 D, Creatinine 0.60, Estimated Creat Clear 48, Estimated GFR 100, Est GFR ( Amer) 121, Glucose 100, NT-Pro-B Natriuret Pep 125 I & O for Last 24 hours: Intake & Output 01/22/21 01/23/21 01/24/21 01/25/21 11:59 11:59 11:59 11:59 Intake Total 1683 / 1683 1330 / 1330 960 / 960 410 / 410 Output Total 0 / 0 650 / 650 4000 / 4000 1700 / 1700 Balance 1683 / 1683 680 / 680 -3040 / -3040 -1290 / -1290 Weight 288 lb 9.361 oz 288 lb 12.889 oz 287 lb 1 oz Narrative: She is sitting up in the chair. Lungs are clear to auscultation. Heart is distant but regular. Extremities continue to show 2-3+ edema but not as tight. She diuresed an additional 4000 mL yesterday. Assessment and Plan (1) Hyponatremia Status: Acute Category: Medical Code(s): E87.1 - Hypo-osmolality and hyponatremia (2) Hematoma of arm Status: Acute Qualifiers: Encounter type: initial encounter Laterality: right Qualified Code(s): S40.021A - Contusion of right upper arm, initial encounter Category: Medical Code(s): S40.029A - Contusion of unspecified upper arm, initial encounter (3) Anemia Status: Acute Qualifiers: Anemia type: unspecified type Qualified Code(s): D64.9 - Anemia, unspecified Category: Medical Code(s): D64.9 - Anemia, unspecified (4) Humerus fracture Status: Acute Category: Medical Code(s): S42.309A - Unspecified fracture of shaft of humerus, unspecified arm, initial encounter for closed fracture (5) Hypertension Status: Chronic Category: Medical Code(s): I10 - Essential (primary) hypertension (6) Hyperlipidemia Status: Chronic Category: Medical Code(s): E78.5 - Hyperlipidemia, unspecified (7) Dementia Status: Chronic Category: Medical Code(s): F03.90 - Unspecified dementia without behavioral disturbance - Assessment and plan all Dx Assessment and Plan for all problems:: She is diuresing well. Sodium marginally improved to 122. Renal function and electrolytes are stable. Continue diuresis. Check echocardiogram tomorrow.
[2021-01-25 12:24] LABS: Calcium 9.6 mg/dl (8.4-10.2); Hemoglobin 11.3 g/dL (12.2-16.2)
[2021-01-25 15:54] VITALS: BP 146/76; PULSE 71; RESP 17; TEMP 36.6; O2SAT 97
[2021-01-25 17:15] VITALS: BMI 45.1
[2021-01-25 17:23] LABS: Osmolality, Urine 445 mOsmol/kg (.)
--- NOTE | 2021-01-25 18:08 | PC.NURSE ---
Pt has rested most of this shift. +2 and +3 pitting edema noted to all extremities. Expiratory wheezing noted at times this shift. No other acute changes or complaints at this time, will continue to monitor.
[2021-01-25 20:00] VITALS: BP 106/57; PULSE 79; RESP 20; TEMP 36.8; O2SAT 98
--- NOTE | 2021-01-26 03:54 | PC.NURSE ---
Pt has been pleasant this shift. A/O x4, will still occasionally be confused but can be easily redirected. Pt rested well. Pure wick in place draining clear, yellow urine. +2, +3 pitting edema noted in extremities. Pt had x1 BM this shift. Bed alarm on for safety, call light within reach. will continue to monitor.
[2021-01-26 06:00] VITALS: BP 138/72; PULSE 88; RESP 20; TEMP 37.4; O2SAT 94
[2021-01-26 06:37] LABS: Basophils # 0.1 K/mm3 (0-0.2); Basophils % 0.8 % (0.1-2.0); Eosinophils # 0.1 K/mm3 (0.0-0.4); Eosinophils % 1.3 % (0.1-12.0); Hematocrit 30.1 % (37.0-47.0); Lymphocytes # 1.5 K/mm3 (0.7-4.5); Lymphocytes % 19.3 % (10-50); Mean Corpuscular HGB Conc 31.8 g/dL (31.8-35.4); Mean Corpuscular Hemoglobin 26.5 pg (27.0-31.2); Mean Corpuscular Volume 83.3 fl (81-99); Mean Platelet Volume 6.9 fl (7.4-10.4); Monocytes # 0.6 K/mm3 (0.1-1.0); Monocytes % 7.4 % (1.7-9.3); Neutrophils # 5.5 K/mm3 (1.8-7.8); Neutrophils % 71.2 % (37.0-80.0); Red Blood Count 3.62 M/mm3 (4.20-5.40); Red Cell Distribution Width 15.8 % (11.5-17.5); White Blood Count 7.7 K/mm3 (4.8-10.8)
[2021-01-26 06:38] LABS: Hemoglobin 9.6 g/dL (12.2-16.2); Platelet Count 655 K/mm3 (142-424)
[2021-01-26 06:45] LABS: Chloride 86 mmol/L (98-107); Potassium 4.6 mmoL/L (3.5-5.1); Sodium 121 mmol/L (136-145)
[2021-01-26 06:48] LABS: Anion Gap 8.6 mEq/L (5-15); Blood Urea Nitrogen 19 mg/dl (7-17); Carbon Dioxide 31 mmol/L (22.0-30.0); Creatinine Clearance Estimated 48 mL/min (50-200); Estimated Glomerular Filt Rate 84 ml/min (>60); GFR (African American) 101 ML/MIN (>60); Glucose 103 mg/dl (74-100)
[2021-01-26 06:49] LABS: Calcium 8.6 mg/dl (8.4-10.2)
[2021-01-26 06:50] VITALS: BMI 45.3
[2021-01-26 08:00] VITALS: BP 130/59; PULSE 87; RESP 19; TEMP 36.8; O2SAT 94
--- NOTE | 2021-01-26 08:00 | CA_ITS ---
APPROVED REPORT EXAM: Comprehensive 2D, Doppler, and color-flow Echocardiogram [employer] Patroller: Vivien Pat RVT Ht: 5 ft 4 in Wt: 287lbs BSA: 2.28 BP: 110/72 mmHg Indications: CHF,DEMENTIA,HTN,HLD TDS-PT FLAT ON BACK IN BED-PT HAS DEMENTIA 2D Dimensions LVOT 2.02 cm (M/F) 1.5-2.5 LA Volume 35.70 mL LA Volume Index 15.65 mL/m2 (M/F) 16-34 M-Mode Dimensions RVDd 2.78 cm (0.9-2.6) LA Diam 4.01 cm (1.9-4.0) LVDd 5.72 cm (3.5-5.7) Ao Diam 2.74 cm (2.0-3.7) LVDs 3.79 cm (3.5-5.7) IVSd 1.45 cm (0.6-1.1) PWd 0.77 cm (0.6-1.1) EF (Teich) 61.80% FS 33.70% EDV (Teich) 161.30 mL TAPSE 2.17 (<1.7) ESV (Teich) 61.60 mL LV Diastology E Decel Time 200.00 (160-240 msec) E/A Ratio 1.6 MED E' 7.80 (< 7 cm/sec) E'/MED E' Ratio 11.01 (>14) LAT E' 11.00 (<10 cm/sec) E/LAT E' Ratio 7.81 (>14) Aortic Valve AO Peak GR. 7.50 mmHg Mitral Valve MV E Max Jaxon. 86.00 (40-130 cm/s) MV A Velocity 53.00 (40-130 cm/s) E/A Ratio 1.62 MV Decel. Time 200.00 (160-240 ms) MV PHT 59.00 ms Pulmonary Valve PV Peak Velocity 110.00 (50-150 cm/s) Tricuspid Valve TR P. Velocity 254.00 cm/s RAP Estimate 10.00 mmHg RVSP 35.80 mmHg Left Ventricle Technically difficult study because of the patient factors and poor acoustic windows. Left atrium is mildly enlarged, left ventricle is normal size, mild concentric left ventricular hypertrophy, visually estimated ejection fraction 55% with no regional wall motion abnormality, grade 1 diastolic dysfunction seen without tissue Doppler evidence of raise left atrial pressure. Right Ventricle Right atrium and right ventricle are mildly enlarged with normal contractility. Aortic Valve Aortic valve is minimally thickened and fibrosed, there is no aortic stenosis or aortic insufficiency. Mitral Valve Mitral valve leaflets are grossly normal, there is mild mitral regurgitation. Tricuspid Valve Tricuspid valve grossly normal, there is mild tricuspid regurgitation tricuspid regurgitation jet velocity is inadequate for calculation of the right ventricular systolic pressure. Pulmonic Valve Pulmonic valve is poorly visualized. Great Vessels Aortic root is normal size. Pericardium No significant pericardial effusion noted. Conclusion 1. Technically difficult study because of the patient factors and poor acoustic windows. 2. Mild biatrial enlargement, normal left ventricular size, mild concentric left ventricular hypertrophy, visually estimated ejection fraction 55% with no regional wall motion abnormality, grade 1 diastolic dysfunction seen without tissue Doppler evidence of raise left atrial pressure. 3. Mildly enlarged right ventricle with normal contractility. 4. Mild mitral and tricuspid regurgitation. 5. No significant pericardial effusion noted. Electronically signed by : Marcelino Schultz MD 01/26/2021 21:14:09
--- NOTE | 2021-01-26 08:22 | HMH.ACPN2 ---
<Jamaica Moreno - Last Filed: 01/26/21 08:22> Internal Medicine - PN: Subj *Date: 01/26/21 *Time: 07:45 Interval history: Pt is sitting up in the chair eating breakfast. She is pleasantly confused, denies pain, and has no complaint this morning. Exam Vital signs and Labs for Last 24 Hours: Temp Pulse Resp BP Pulse Ox 99.3 F 88 20 138/72 94 L 01/26/21 06:00 01/26/21 06:00 01/26/21 06:00 01/26/21 06:00 01/26/21 06:00 Laboratory Results - last 24 hr 01/23/21 10:05: Urine Osmolality 445 01/25/21 06:43: WBC 8.9, RBC 4.18 L, Hgb 11.3 L D, Hct 34.6 L, MCV 82.8, MCH 27.0, MCHC 32.6, RDW 15.7, Plt Count 732 H, MPV 7.7, Neut % (Auto) 70.8, Lymph % (Auto) 19.2, [place] % (Auto) 8.3, Eos % (Auto) 0.9, Baso % (Auto) 0.8, Neut # (Auto) 6.3, Lymph # (Auto) 1.7, [place] # (Auto) 0.7, Eos # (Auto) 0.1, Baso # (Auto) 0.1 01/25/21 06:43: Calcium 9.6 D 01/26/21 06:28: WBC 7.7, RBC 3.62 L, Hgb 9.6 L D, Hct 30.1 L, MCV 83.3, MCH 26.5 L, MCHC 31.8, RDW 15.8, Plt Count 655 H, MPV 6.9 L, Neut % (Auto) 71.2, Lymph % (Auto) 19.3, [place] % (Auto) 7.4, Eos % (Auto) 1.3, Baso % (Auto) 0.8, Neut # (Auto) 5.5, Lymph # (Auto) 1.5, [place] # (Auto) 0.6, Eos # (Auto) 0.1, Baso # (Auto) 0.1 01/26/21 06:28: Sodium 121 L, Potassium 4.6, Chloride 86 L, Carbon Dioxide 31 H, Anion Gap 8.6, BUN 19 H D, Creatinine 0.70, Estimated Creat Clear 48, Estimated GFR 84, Est GFR ( Amer) 101, Glucose 103 H, Calcium 8.6 D I & O for Last 24 hours: Intake & Output 01/23/21 01/24/21 01/25/21 01/26/21 11:59 11:59 11:59 11:59 Intake Total 1330 / 1330 960 / 960 410 / 410 570 / 570 Output Total 650 / 650 4000 / 4000 1700 / 1700 750 / 750 Balance 680 / 680 -3040 / -3040 -1290 / -1290 -180 / -180 Weight 288 lb 12.889 oz 287 lb 1 oz 272 lb 9 oz - Constitutional no acute distress - *Routine HEENT Exam Head: Present: normocephalic, atraumatic ENT: Present: mucous membranes moist - *Routine Respiratory Exam Present: CTA bilaterally - *Routine Cardiovascular Exam Present: RRR - *Routine Abdominal Exam Present: soft, normoactive bowel sounds, obese. Absent: tenderness, distended - *Routine Extremities Exam Present: pulses intact. Absent: calf tenderness, extremity cold to touch Comments: 2+ BLE edema Assessment and Plan (1) Hyponatremia Status: Acute Category: Medical Code(s): E87.1 - Hypo-osmolality and hyponatremia (2) Hematoma of arm Status: Acute Qualifiers: Encounter type: initial encounter Laterality: right Qualified Code(s): S40.021A - Contusion of right upper arm, initial encounter Category: Medical Code(s): S40.029A - Contusion of unspecified upper arm, initial encounter (3) Anemia Status: Acute Qualifiers: Anemia type: unspecified type Qualified Code(s): D64.9 - Anemia, unspecified Category: Medical Code(s): D64.9 - Anemia, unspecified (4) Humerus fracture Status: Acute Category: Medical Code(s): S42.309A - Unspecified fracture of shaft of humerus, unspecified arm, initial encounter for closed fracture (5) Hypertension Status: Chronic Category: Medical Code(s): I10 - Essential (primary) hypertension (6) Hyperlipidemia Status: Chronic Category: Medical Code(s): E78.5 - Hyperlipidemia, unspecified (7) Dementia Status: Chronic Category: Medical Code(s): F03.90 - Unspecified dementia without behavioral disturbance - Assessment and plan all Dx Assessment and Plan for all problems:: Per Dr. Lugo. <Pawel Lugo - Last Filed: 01/26/21 10:13> Internal Medicine - PN: Subj *Date: 01/26/21 *Time: 10:11 Exam Vital signs and Labs for Last 24 Hours: Temp Pulse Resp BP Pulse Ox 98.2 F 87 19 130/59 L 94 L 01/26/21 08:00 01/26/21 08:00 01/26/21 08:00 01/26/21 08:00 01/26/21 08:00 Laboratory Results - last 24 hr 01/23/21 10:05: Urine Osmolality 445 01/25/21 06:43: Hgb 11.3 L D 01/25/21 06:43: Calcium 9.6 D 01/26/21 06:28:
--- NOTE | 2021-01-26 13:30 | DIET.NUTRFU ---
PO intakes 25-50%. Pt diuresed well, weight down 17#, she does remain with 3+ edema. Na remains stable but low. Daily light protein shake and daily gatorade added to diet order. Continuing to monitor/alter nutritional care plan as indicated.
[2021-01-26 16:00] VITALS: BP 166/79; PULSE 79; RESP 18; TEMP 36.4; O2SAT 98
[2021-01-26 19:49] VITALS: BP 139/76; PULSE 92; RESP 18; TEMP 36.9; O2SAT 96
--- NOTE | 2021-01-26 19:49 | PC.NURSE ---
SHE HAS REMAINED PLEASANTLY CONFUSED T/O SHIFT, HER VITAL SIGNS HAVE REMAINED STABLE, SHE IS ABLE TO MAKE NEEDS KNOWN TO STAFF BUT SHE REFUSES TO USE THE CALL LIGHT AND INSTEAD YELLS AT STAFF. SHE DENIES PAIN NO N/V/D NOTED THIS SHIFT.
[2021-01-27 04:00] VITALS: BP 151/85; PULSE 84; RESP 18; TEMP 36.9; O2SAT 95
[2021-01-27 05:17] VITALS: BMI 44.4
[2021-01-27 07:06] LABS: Chloride 88 mmol/L (98-107); Potassium 4.4 mmoL/L (3.5-5.1); Sodium 126 mmol/L (136-145)
[2021-01-27 07:09] LABS: Anion Gap 13.4 mEq/L (5-15); Blood Urea Nitrogen 14 mg/dl (7-17); Carbon Dioxide 29 mmol/L (22.0-30.0); Creatinine Clearance Estimated 48 mL/min (50-200); Estimated Glomerular Filt Rate 100 ml/min (>60); GFR (African American) 121 ML/MIN (>60)
[2021-01-27 07:10] LABS: Glucose 111 mg/dl (74-100)
[2021-01-27 07:17] VITALS: BP 162/74; PULSE 94; RESP 17; TEMP 37; O2SAT 95
--- NOTE | 2021-01-27 08:14 | HMH.ACPN2 ---
<Lulu Lei - Last Filed: 01/27/21 09:19> Internal Medicine - PN: Subj *Date: 01/27/21 *Time: 09:19 Interval history: States she is not doing well this morning but cannot give any specifics. She denies chest pain, shortness of breath, and nausea. She states she did sleep last night and had a pretty good day yesterday. Laboratory data this morning show sodium improved to 126 with a potassium of 4.4. Renal function is normal. Hemoglobin this morning is 9.6 with hematocrit of 31. White count is normal. Platelet count is high at 655. Exam Vital signs and Labs for Last 24 Hours: Temp Pulse Resp BP Pulse Ox 98.6 F 94 H 17 162/74 H 95 01/27/21 07:17 01/27/21 07:17 01/27/21 07:17 01/27/21 07:17 01/27/21 07:17 Laboratory Results - last 24 hr 01/25/21 06:43: Cortisol 23.5 01/27/21 06:28: Sodium 126 L, Potassium 4.4, Chloride 88 L, Carbon Dioxide 29, Anion Gap 13.4, BUN 14 D, Creatinine 0.60, Estimated Creat Clear 48, Estimated GFR 100, Est GFR ( Amer) 121, Glucose 111 H, Calcium 9.0 I & O for Last 24 hours: Intake & Output 01/24/21 01/25/21 01/26/21 01/27/21 11:59 11:59 11:59 11:59 Intake Total 960 / 960 410 / 410 630 / 630 828 / 828 Output Total 4000 / 4000 1700 / 1700 750 / 750 1600 / 1600 Balance -3040 / -3040 -1290 / -1290 -120 / -120 -772 / -772 Weight 287 lb 1 oz 272 lb 9 oz 266 lb 9 oz - Constitutional no acute distress Comments: Sitting up in her chair at bedside eating her breakfast. Appears comfortable. Breathing is easy and unlabored. - *Routine Respiratory Exam Present: CTA bilaterally (Yearly and posteriorly) - *Routine Cardiovascular Exam Present: RRR - *Routine Abdominal Exam Present: soft, normoactive bowel sounds - *Routine Extremities Exam Present: edema (Bilateral ankle/leg edema) - *Routine Neurological Exam Present: oriented X3 Assessment and Plan (1) Hyponatremia Status: Acute Category: Medical Code(s): E87.1 - Hypo-osmolality and hyponatremia (2) Hematoma of arm Status: Acute Qualifiers: Encounter type: initial encounter Laterality: right Qualified Code(s): S40.021A - Contusion of right upper arm, initial encounter Category: Medical Code(s): S40.029A - Contusion of unspecified upper arm, initial encounter (3) Anemia Status: Acute Qualifiers: Anemia type: unspecified type Qualified Code(s): D64.9 - Anemia, unspecified Category: Medical Code(s): D64.9 - Anemia, unspecified (4) Humerus fracture Status: Acute Category: Medical Code(s): S42.309A - Unspecified fracture of shaft of humerus, unspecified arm, initial encounter for closed fracture (5) Hypertension Status: Chronic Category: Medical Code(s): I10 - Essential (primary) hypertension (6) Hyperlipidemia Status: Chronic Category: Medical Code(s): E78.5 - Hyperlipidemia, unspecified (7) Dementia Status: Chronic Category: Medical Code(s): F03.90 - Unspecified dementia without behavioral disturbance - Assessment and plan all Dx Assessment and Plan for all problems:: Stable to return to [facility]. See discharge summary and orders. <Pawel Lugo - Last Filed: 01/27/21 13:27> Internal Medicine - PN: Subj *Date: 01/27/21 *Time: 13:25 Exam Vital signs and Labs for Last 24 Hours: Temp Pulse Resp BP Pulse Ox 98.6 F 94 H 17 162/74 H 95 01/27/21 07:17 01/27/21 07:17 01/27/21 07:17 01/27/21 07:17 01/27/21 07:17 Laboratory Results - last 24 hr 01/27/21 06:28: Sodium 126 L, Potassium 4.4, Chloride 88 L, Carbon Dioxide 29, Anion Gap 13.4, BUN 14 D, Creatinine 0.60, Estimated Creat Clear 48, Estimated GFR 100, Est GFR ( Amer) 121, Glucose 111 H, Calcium 9.0 01/27/21 08:55: SARS-CoV-2 (PCR) Not detected, Influenza A Untype (PCR) Not detected, Influenza Type B (PCR) Not detected I & O for Last 24 hours: Intake & Output 01/25/21 01/26/21 01/27/21 01/28/21 11:59 11:59 11:59 1
--- NOTE | 2021-01-27 08:17 | PC.NURSE ---
pt alert and oriented but does answer inappropriately at times. yelled out throughout night. new iv placed and infusing per order. periwick in place and output around 1000 ml. bed alarm is set. call light in reach. vss. will continue to monitor
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
[2021-01-27 09:59] LABS: Coronavirus 19, PCR Not Detected (NotDetected); Influenza A, PCR Not Detected (NotDetected); Influenza B, PCR Not Detected (NotDetected)
--- NOTE | 2021-01-27 11:04 | PC.NURSE ---
Have called report to Chante at [facility] and also called [place] [facility] for transport back to [facility].
--- NOTE | 2021-01-27 13:31 | PC.NURSE ---
Called [facility] EMS again @ [phone], they stated they would be here shortly for transport. Still waiting at this time.
== END 2021-01-27 13:39 | DRG 640 ==
LOC: ER 21:32 → 2ND 01-22 07:50
PROVIDERS: Family Medicine; Physician Assistant; Admitting Provider Family Medicine; Emergency Provider Emergency Medicine; PCP Nurse Practitioner; Visit Provider Family Medicine
DX: E87.1 Hypo-osmolality and hyponatremia (principal); I50.31 Acute diastolic (congestive) heart failure; Z20.822 Contact with and (suspected) exposure to COVID-19; F03.90 Unspecified dementia, unspecified severity, without behavioral disturbance, psychotic disturbance, mood disturbance, and anxiety; E78.5 Hyperlipidemia, unspecified; D47.3 Essential (hemorrhagic) thrombocythemia; D64.9 Anemia, unspecified; S40.021A Contusion of right upper arm, initial encounter; W07.XXXA Fall from chair, initial encounter; I11.0 Hypertensive heart disease with heart failure
CPT/HCPCS: 36415; 71045; 73030; 73060; 73070; 80048; 80053; 81001; 82272; 82533; 83735; 83880; 83935; 84145; 84300; 84436; 84443; 85007; 85014; 85018; 85025; 85048; 85049; 85651; 86140; 86850; 93306; 96365; 99283; G0328; J2405; P9016; U0003

== ENCOUNTER 2021-08-11 13:53 | Emergency (ER) | payer MEDICARE, MEDICAID, SELFPAY ==
[2021-08-11 13:41] VITALS: BP 143/70; PULSE 74; RESP 18; TEMP 37; O2SAT 98; BMI 32.8
--- NOTE | 2021-08-11 13:50 | XR_ITS ---
FINAL REPORT CLINICAL HISTORY: fall, best images possible FINDINGS: AP and lateral views were obtained. There is severe osteopenia. There is 50% compression of L1. There is 40% compression of L3, L4 and L5. The disc spaces are preserved. Alignment is normal. IMPRESSION: Age indeterminate compression of multiple lumbar vertebrae. MRI would be necessary to assess for marrow edema. Reviewed, Interpreted and Dictated by Arsenio Aguilar MD Transcribed by Yousuf Cameron Authenticated by Arsenio Aguilar MD on 08/11/2021 03:40:[address] [facility]
--- NOTE | 2021-08-11 13:50 | XR_ITS ---
FINAL REPORT CLINICAL HISTORY: fall FINDINGS: BILATERAL HIPS Five images were obtained. There are fractures of the lateral superior left pubic ramus and medial inferior left pubic ramus the demonstrate callus formation are favored to be chronic. There is mild narrowing of the hip joint spaces. There is no soft tissue abnormality. IMPRESSION: Fractures of the left superior and inferior pubic rami are favored to be chronic. Reviewed, Interpreted and Dictated by Arsenio Aguilar MD Transcribed by Yousuf Cameron Authenticated by Arsenio Aguilar MD on 08/11/2021 03:40:44 PM [facility]
--- NOTE | 2021-08-11 14:00 | PC.NURSE ---
Patient to radiology
--- NOTE | 2021-08-11 14:22 | PC.NURSE ---
Patient back from radiology
--- NOTE | 2021-08-11 14:40 | XR_ITS ---
FINAL REPORT CLINICAL HISTORY: pain COMPARISON: January 21, 2021 FINDINGS: 3 views of the right shoulder were obtained. There is chronic fracture dislocation of the right shoulder. The distal fracture fragment is significantly medially displaced approximately 2 shaft widths. There is abnormal rotation of the humeral head adjacent to the bony glenoid. No acute bony abnormality is identified. IMPRESSION: Chronic fracture dislocation of the right shoulder. Reviewed, Interpreted and Dictated by Arsenio Aguilar MD Transcribed by Yousuf Cameron Authenticated by Arsenio Aguilar MD on 08/11/2021 03:40:44 PM [facility]
--- NOTE | 2021-08-11 14:40 | XR_ITS ---
FINAL REPORT CLINICAL HISTORY: pain FINDINGS: RIGHT ELBOW Four views were obtained. The bones are osteopenic. There is no acute fracture or dislocation. There is no joint effusion. The joint spaces are intact. There is no soft tissue abnormality. IMPRESSION: No acute process. Reviewed, Interpreted and Dictated by Arsenio Aguilar MD Transcribed by Yousuf Cameron Authenticated by Arsenio Aguilar MD on 08/11/2021 03:40:49 PM [facility]
--- NOTE | 2021-08-11 15:22 | HMH.EDFALL ---
ED Disposition Clinical Impression: Compression fracture Closed fracture of inferior pubic ramus Qualifiers: Encounter type: subsequent encounter Laterality: left Fracture healing: with delayed healing Qualified Code(s): S32.592G - Other specified fracture of left pubis, subsequent encounter for fracture with delayed healing Disposition: Home, Self-Care Condition on Discharge: Good Instructions: How to Prevent Falls Referrals: Raji Varghese [Primary Care Provider] - Jeffery Toledo [Referring] - - Critical Care Critical Care Time: No Attestation: On 08/11/21, the high probability of a clinically significant, sudden or life threatening deterioration of the following system(s) required my full and direct attention, intervention and personal management. The time I documented below is in addition to time spent performing reported procedures but includes the following listed in this critical care notation. Medical Decision Making - Medical Records Medical records reviewed: Yes: I reviewed the patient's medical records. - Khalif Inquiry Pt receiving controlled substance: No Vital Signs: 08/11/21 13:41 Temperature 98.6 F Temperature Source Oral Pulse Rate [Left Radial] 74 Respiratory Rate 18 Blood Pressure [Right Arm] 143/70 H Blood Pressure Mean [Right Arm] 94 02 Sat by Pulse Oximetry 98 - Radiology Data #1 Image(s): L-Spine, Shoulder, Elbow, Pelvis Image Reviewed: Yes I reviewed the patient's radiology results, Yes I reviewed the patient's radiology image, Yes I have reviewed radiologist's interpretation IMPRESSION: Chronic fracture dislocation of the right shoulder. IMPRESSION: No acute process. IMPRESSION: Age indeterminate compression of multiple lumbar vertebrae. MRI would be necessary to assess for marrow edema. IMPRESSION: Fractures of the left superior and inferior pubic rami are favored to be chronic. - Reevaluation(s) Time: 16:07 Reevaluation #1: Patient does have evidence of multiple fractures, however these appear to be old in nature. I did explain to the patient and she has had multiple falls in the past and has had back fractures that she is notified about. Patient is to follow-up with orthopedic surgery. Given strict return precautions. Verbalized understanding. Medical Decision Narrative: 65-year-old female presenting after accidental fall. Patient claims right arm pain. Imaging will be obtained. Fall HPI - General Chief Complaint: Fall Stated Complaint: Fall Time Seen by Provider: 08/11/21 13:55 Mode of Arrival: EMS Limitations: No Limitations Description of Symptoms (Recalled from ER Triage Doc. by RN): pt to ed per ems c/o fall. per ems, pt fell at 0300 and 0900. pt states she lost her balance both times and fell on her bottom. pt denies hitting her head. pt states -LOC. pt is c/o lower back pain. - History of Present Illness HPI Narrative: 65-year-old female presented to the emergency department with an accidental fall. Patient states that she lost her balance and tripped earlier today. She landed on her backside. She is complaining of some back pain as well as some right arm pain. Patient did not hit her head during the event. There is no loss of consciousness. States the pain is dull in nature in her right arm. She is still able to move it, however elicits some pain. She denies any chest pain or shortness of breath. No headache or change in vision. No focal weakness. No abdominal pain or vomiting. No diarrhea. - Related Data Home Medications Medication Instructions Recorded Confirmed Cholecalciferol (Vitamin D3) 1,000 unit PO DAILY 01/21/21 01/21/21 [Vitamin D3 1,000 Unit Cap] Fluoxetine HCl [Prozac 20mg 60 mg PO HS 01/21/21 01/21/21 Capsule] Loratadine [Claritin 10mg 10 mg PO DAILY 01/21/21 01/22/21 Tablet] Losartan Potassium [Cozaar 50mg 50 mg PO DAILY 01/21/21 01/21/21 Tablets] [place]-3 Fatty Acids/Fish Oil [Fish 1 each P
[2021-08-11 17:36] VITALS: BP 181/80; PULSE 91; RESP 17; TEMP 37; O2SAT 98
== END 2021-08-11 17:37 | disposition home or self-care (01) ==
PROVIDERS: Emergency Provider Emergency Medicine; PCP Family Medicine
DX: S32.019A Unspecified fracture of first lumbar vertebra, initial encounter for closed fracture (principal); S32.039A Unspecified fracture of third lumbar vertebra, initial encounter for closed fracture; S32.048A Other fracture of fourth lumbar vertebra, initial encounter for closed fracture; S32.059A Unspecified fracture of fifth lumbar vertebra, initial encounter for closed fracture; W01.0XXA Fall on same level from slipping, tripping and stumbling without subsequent striking against object, initial encounter; Y92.129 Unspecified place in nursing home as the place of occurrence of the external cause; F03.90 Unspecified dementia, unspecified severity, without behavioral disturbance, psychotic disturbance, mood disturbance, and anxiety; I10 Essential (primary) hypertension; E78.5 Hyperlipidemia, unspecified; M85.89 Other specified disorders of bone density and structure, multiple sites
CPT/HCPCS: 72100; 73030; 73080; 73521; 99283

== ENCOUNTER 2021-08-23 10:06 | Inpatient (IN) | payer MEDICARE, MEDICAID, SELFPAY ==
[2021-08-23] VITALS (11 sets, daily range): BP systolic 105–171; BP diastolic 23–94; PULSE 61–88; RESP 16–26; TEMP 36.6–37.1; O2SAT 95–100; BMI 45.1; BMI 38.6
--- NOTE | 2021-08-23 10:16 | HMH.EDGENADL ---
ED Disposition Clinical Impression: Hyponatremia Altered mental status Qualifiers: Altered mental status type: disorientation Qualified Code(s): R41.0 - Disorientation, unspecified Urinary tract infection Qualifiers: Urinary tract infection type: site unspecified Hematuria presence: without hematuria Qualified Code(s): N39.0 - Urinary tract infection, site not specified Disposition: Admitted as Observation Condition on Discharge: Fair - Critical Care Critical Care Time: No Attestation: On , the high probability of a clinically significant, sudden or life threatening deterioration of the following system(s) required my full and direct attention, intervention and personal management. The time I documented below is in addition to time spent performing reported procedures but includes the following listed in this critical care notation. Medical Decision Making - Medical Records Medical records reviewed: Yes: I reviewed the patient's medical records. Comment: Admitted here in January of last year for hyponatremia. Discharge summary reviewed. - Khalif Inquiry Pt receiving controlled substance: No Vital Signs: 08/23/21 10:33 08/23/21 11:17 08/23/21 11:31 Temperature 98.8 F Temperature Source Oral Pulse Rate 68 67 Pulse Rate [Left Radial] 64 Respiratory Rate 18 18 18 Blood Pressure 139/65 139/68 Blood Pressure [Right Arm] 117/57 L Blood Pressure Mean 79 81 Blood Pressure Mean [Right Arm] 77 02 Sat by Pulse Oximetry 97 96 96 Oxygen Delivery Method Room Air 08/23/21 12:03 Temperature Temperature Source Pulse Rate 65 Pulse Rate [Left Radial] Respiratory Rate 18 Blood Pressure 105/23 L Blood Pressure [Right Arm] Blood Pressure Mean 50 Blood Pressure Mean [Right Arm] 02 Sat by Pulse Oximetry 95 Oxygen Delivery Method - Lab Data Lab Results 08/23/21 10:28: Urine Color Yellow, Urine Appearance Turbid, Urine pH 7.0, Ur Specific [place] 1.010, Urine Protein Negative, Urine Glucose (UA) Negative, Urine Ketones Negative, Urine Blood Negative, Urine Nitrate Positive, Urine Bilirubin Negative, Urine Urobilinogen 1.0, Ur Leukocyte Esterase 3+ A, Urine WBC Tntc, Ur Squamous Epith Cells 10-20, Amorphous Sediment 1+, Urine Bacteria 4+ 08/23/21 10:30: WBC 9.8, RBC 4.12 L, Hgb 11.7 L, Hct 36.1 L, MCV 87.8, MCH 28.4, MCHC 32.4, RDW 15.4, Plt Count 592 H, MPV 7.4, Neut % (Auto) 82.4 H, Lymph % (Auto) 11.1, [place] % (Auto) 5.4, Eos % (Auto) 0.3, Baso % (Auto) 0.7, Neut # (Auto) 8.1 H, Lymph # (Auto) 1.1, [place] # (Auto) 0.5, Eos # (Auto) 0.0, Baso # (Auto) 0.1 08/23/21 10:30: Sodium 119 L, Potassium 3.5, Chloride 79 L, Carbon Dioxide 30, Anion Gap 13.5, BUN 12, Creatinine 0.80, Estimated Creat Clear 40, Estimated GFR 72, Est GFR ( Amer) 87, Glucose 103 H, Calcium 8.4, Total Bilirubin 1.2, AST 51 H, ALT 29, Alkaline Phosphatase 82, Total Protein 6.6, Albumin 4.1, Globulin 2.5, Albumin/Globulin Ratio 1.6 08/23/21 10:30: Troponin I < 0.01 08/23/21 11:46: Lactate 0.6 L Result diagrams: 08/23/21 10:30 08/23/21 10:30 Orders (Tests/Meds): ED MEDICATIONS Generic Name Dose Route Start Last Admin Trade Name Freq PRN Reason Stop Dose Admin Ceftriaxone Sodium 1 gm/ 50 mls @ 100 mls/hr 08/23/21 11:30 08/23/21 11:36 Sodium Chloride IV 09/06/21 11:29 100 mls/hr Q24H WILLY Administration ORDERS Category Date Time Status Troponin I Q3H Lab 08/23/21 13:45 Ordered Troponin I Q3H Lab 08/23/21 16:45 Ordered Blood Culture Stat Micro 08/23/21 11:43 Received Urine Culture Stat Micro 08/23/21 10:28 Received - Radiology Data #1 Image(s): Chest Image Reviewed: Yes I reviewed the patient's radiology image, Yes I have reviewed radiologist's interpretation PROCEDURE INFORMATION: Exam: XR Chest Exam date and time: 08/23/2021 10:42 AM Age: 65 years old Clinical indication: Other: AMS TECHNIQUE: Imaging protocol: XR of the chest. Views: 1 view. COMPARISON: CR XR CH
--- NOTE | 2021-08-23 10:41 | CT_ITS ---
PROCEDURE INFORMATION: Exam: CT Head Without Contrast Exam date and time: 08/23/2021 10:41 AM Age: 65 years old Clinical indication: Altered mental status/memory loss; Confusion or disorientation; Additional info: AMS TECHNIQUE: Imaging protocol: Computed tomography of the head without contrast. Radiation optimization: All CT scans at this facility use at least one of these dose optimization techniques: automated exposure control; mA and/or kV adjustment per patient size (includes targeted exams where dose is matched to clinical indication); or iterative reconstruction. COMPARISON: No relevant prior studies available. FINDINGS: Brain: Mild non-specific hypoattenuation in the subcortical and periventricular white matter, which is most often the sequela of chronic small vessel ischemic disease. No evidence of intracranial hemorrhage or acute cortical infarct. Mild generalized cerebral and cerebellar atrophy. Cerebral ventricles: No ventriculomegaly. Paranasal sinuses: Visualized sinuses are unremarkable. No fluid levels. Mastoid air cells: Visualized mastoid air cells are well aerated. Bones/joints: Hyperostosis frontalis internus and dense calcification along the falx. No evidence of an acute fracture. Soft tissues: Unremarkable. IMPRESSION: No evidence of acute intracranial process. Otherwise, as above.
--- NOTE | 2021-08-23 10:42 | XR_ITS ---
PROCEDURE INFORMATION: Exam: XR Chest Exam date and time: 08/23/2021 10:42 AM Age: 65 years old Clinical indication: Other: AMS TECHNIQUE: Imaging protocol: XR of the chest. Views: 1 view. COMPARISON: CR XR CHEST AP 01/21/2021 8:20 PM FINDINGS: Lungs: There appears to be a large retrocardiac opacity, which is also seen previously. Findings are most often seen with the hiatal hernia. Correlate with CT as clinically indicated. Mild pulmonary vascular congestion. No new focal lung consolidation. Pleural spaces: No pneumothorax. Heart/Mediastinum: Cardiomegaly, accentuated by the AP projection. Bones/joints: Unremarkable. IMPRESSION: 1. No definite active pulmonary process. 2. Cardiomegaly and pulmonary vascular congestion. 3. There appears to be a large retrocardiac opacity, which is also seen previously. Findings are most often seen with the hiatal hernia. Correlate with CT as clinically indicated.
[2021-08-23 10:43] LABS: Basophils # 0.1 K/mm3 (0-0.2); Basophils % 0.7 % (0.1-2.0); Eosinophils % 0.3 % (0.1-12.0); Hematocrit 36.1 % (37.0-47.0); Hemoglobin 11.7 g/dL (12.2-16.2); Lymphocytes # 1.1 K/mm3 (0.7-4.5); Lymphocytes % 11.1 % (10-50); Mean Corpuscular HGB Conc 32.4 g/dL (31.8-35.4); Mean Corpuscular Hemoglobin 28.4 pg (27.0-31.2); Mean Corpuscular Volume 87.8 fl (81-99); Mean Platelet Volume 7.4 fl (7.4-10.4); Monocytes # 0.5 K/mm3 (0.1-1.0); Monocytes % 5.4 % (1.7-9.3); Neutrophils # 8.1 K/mm3 (1.8-7.8); Neutrophils % 82.4 % (37.0-80.0); Platelet Count 592 K/mm3 (142-424); Red Blood Count 4.12 M/mm3 (4.20-5.40); Red Cell Distribution Width 15.4 % (11.5-17.5); White Blood Count 9.8 K/mm3 (4.8-10.8)
[2021-08-23 10:44] LABS: Chloride 79 mmol/L (98-107); Potassium 3.5 mmoL/L (3.5-5.1); Sodium 119 mmol/L (136-145)
[2021-08-23 10:46] LABS: Alanine Aminotransferase 29 U/L (12-78); Aspartate Amino Transferase 51 U/L (14-36); Blood Urea Nitrogen 12 mg/dl (7-17); Creatinine Clearance Estimated 40 mL/min (50-200); Estimated Glomerular Filt Rate 72 ml/min (>60); GFR (African American) 87 ML/MIN (>60)
[2021-08-23 10:47] LABS: Albumin Level 4.1 g/dl (3.5-5.0); Albumin/Globulin Ratio 1.6 (1.1-1.8); Alkaline Phosphatase 82 U/L (38-126); Anion Gap 13.5 mEq/L (5-15); Bilirubin,Total 1.2 mg/dl (0.2-1.3); Calcium 8.4 mg/dl (8.4-10.2); Carbon Dioxide 30 mmol/L (22.0-30.0); Globulin 2.5 g/dL (1.3-3.2); Glucose 103 mg/dl (74-100); Total Protein,Serum 6.6 g/dl (6.3-8.2)
[2021-08-23 10:48] LABS: Microscopic, Urine URINE MICROSCOPIC (MICROSCOPIC)
--- NOTE | 2021-08-23 10:50 | ECG_ITS ---
APPROVED REPORT Exam: Resting ECG HR:69 bpm ECG Measurements Heart Rate 69 AXES LA 170 P 49 QRSd 100 QRS 69 QT 419 T 44 QTc 438 Conclusion SINUS RHYTHM NORMAL ECG UNCONFIRMED REPORT Electronically signed by : Mikal Valentine MD 08/24/2021 19:52:08
[2021-08-23 10:52] LABS: Appearance,Urine TURBID (Clear); Bilirubin,Urine Negative (Negative); Blood, Urine Negative (Negative); Color,Urine YELLOW (Yellow); Glucose,Urine (UA) Negative (Negative); Ketones,Urine Negative (Negative); Leukocyte Esterase,Urine 3+ (Negative); Nitrate,Urine POSITIVE (Negative); Protein,Urine Negative (Negative)
--- NOTE | 2021-08-23 10:52 | PC.NURSE ---
pt to rad
[2021-08-23 11:08] LABS: Bacteria,Urine 4+ /lpf; WBC,Urine TNTC #/hpf (0-3)
[2021-08-23 11:09] LABS: Amorphous Sediment,Urine 1+ /lpf
[2021-08-23 11:18] LABS: Troponin I < 0.01 ng/ml (0.00-0.034)
[2021-08-23 12:03] LABS: Lactic Acid 0.6 mmol/L (0.7-2.1)
--- NOTE | 2021-08-23 12:04 | PC.NURSE ---
Pt is assisted to restroom x2. Pt had no output at this time.
--- NOTE | 2021-08-23 12:18 | PC.NURSE ---
Service Dr zaidi, Dr. Paige.
--- NOTE | 2021-08-23 12:19 | PC.NURSE ---
Dr Paige returned
[2021-08-23 12:38] LABS: Coronavirus 19, PCR Not Detected (NotDetected); Influenza A, PCR Not Detected (NotDetected); Influenza B, PCR Not Detected (NotDetected)
--- NOTE | 2021-08-23 13:09 | P.CONPHA_ITS ---
[facility] Pharmacy VTE Monitoring - Patient Demographics Admission date: 08/23/21 Report Date: 08/23/21 Time: 13:09 Allergies/Adverse Reactions: Patient Allergies bupropion Allergy (Verified 01/21/21 18:51) prednisone Allergy (Verified 01/21/21 18:51) rosuvastatin [From Crestor] Allergy (Verified 01/21/21 18:51) Height: 1.52 m Weight: 104.78 kg Patient Problems: Current Active Problems Hyponatremia (Acute) Altered mental status (Acute) Urinary tract infection (Acute) - VTE Risk Labs: VTE Related Lab Results Hgb 11.7 g/dL (12.2-16.2) L 08/23/21 10:30 Hct 36.1 % (37.0-47.0) L 08/23/21 10:30 Plt Count 592 K/mm3 (142-424) H 08/23/21 10:30 BUN 12 mg/dl (7-17) 08/23/21 10:30 Creatinine 0.80 mg/dl (0.52-1.04) 08/23/21 10:30 Estimated Creat Clear 40 mL/min (50-200) 08/23/21 10:30 - Prophylaxis VTE Prophylaxis Ordered?: Yes Types of VTE Prophylaxis: TEDS Knee High Location of Applied Device: Bilateral Lower Extremeties
--- NOTE | 2021-08-23 14:03 | HMH.PHAINT ---
MEDICATION RECONCILIATION COMPLETED ON PATIENT USING MAR FROM [facility]. -ELMA NUNEZ, ENRIQUED
--- NOTE | 2021-08-23 14:42 | PC.NURSE ---
pt is alert but disoriented. history of dementia which has recently worsened so i obtained most information from her sister which is her guardian. paperwork put on the chart. pt is a sba with ambulation due to weakness and pain. recently started being incontinent and has had multiple falls at the correction. Severe scatered bruising through out the pts body. She is alert to self and the general place but that is it. she is a poor historian.
[2021-08-24] VITALS (10 sets, daily range): BP systolic 122–146; BP diastolic 60–87; PULSE 61–87; RESP 18–20; TEMP 36.6–36.9; O2SAT 95–100; BMI 38.0
--- NOTE | 2021-08-24 04:11 | PC.NURSE ---
Pt remains confused this shift. Can state name and . Pt has a pure wick in place, and can use [facility] x2 assist. Output has been 800ML thus far in shift. Pt is on 1500ML fluid restriction. Pt has scattered bruising all over pt's body when asked where the bruises come from she states recently falls at the residential.
[2021-08-24 07:08] LABS: Anion Gap 11.2 mEq/L (5-15); Blood Urea Nitrogen 11 mg/dl (7-17); Calcium 8.8 mg/dl (8.4-10.2); Carbon Dioxide 32 mmol/L (22.0-30.0); Chloride 82 mmol/L (98-107); Creatinine Clearance Estimated 91 mL/min (50-200); Estimated Glomerular Filt Rate 84 ml/min (>60); GFR (African American) 101 ML/MIN (>60); Glucose 110 mg/dl (74-100); Potassium 3.2 mmoL/L (3.5-5.1); Sodium 122 mmol/L (136-145)
--- NOTE | 2021-08-24 09:13 | SW/DCPLANNER ---
Addendum entered by Jessy Centeno 08/25/21 09:48: I have informed Mae w/ [facility] that this patient will return today: COVID swab is NOT needed prior to discharge. Original Note: This patient currently resides at [facility]. I spoke w/ Mae from [facility] to confirm that patient is ICF level of care. I will continue to follow up with [facility] until medically stable for discharge.
--- NOTE | 2021-08-24 09:23 | HMH.HP ---
*Admission Date: 08/23/21 *Chief complaint: ams *History of present illness: 65 yr old female presents to ed with c/o ams. Brought in by ambulance. She is a resident of [facility] jail and staff reports change in mental status. Hx dementia. Increased confusion reported, incontinent of urine when walking in the hallway. 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 pt was found to have 3+ jose and admitted for uti and low na. [facility] History I have reviewed the patient's past medical history: Yes Medical History: Reports:: Dementia, Hyperlipidemia, Hypertension Denies:: Cancer, Diabetes Mellitus Type 1, Diabetes Mellitus Type 2, MRSA *Have you ever received a pneumonia vaccine?: Yes *Have you received a flu vaccine this season?: Yes Other Medical History: Reports: Other (Hyponatremia) Other Surgeries: Yes: Tubal Ligation Amputation: No Fractures: No - *Social History Smoking Status: Never smoker Alcohol Intake: never *Occupational Status:: disabled Housing: jail Household Members: other *Travel in the last 8 weeks: None Family Hx:: No significant family history Review of Systems - Review of Systems Review of systems:: pertinent systems reviewed and negative unless documented below - Constitutional Denies body ache(s), Denies fatigue - Eyes Denies blurry vision - ENT Denies abnormal hearing - *Cardiovascular Denies chest pain, Denies chest pain at rest - *Respiratory Denies chest congestion - *Gastrointestinal Denies abdominal pain - *Genitourinary Reports urinary incontinence - *Musculoskeletal Denies joint pain - Integumentary/Breasts Denies bleeding lesions - *Neurologic Denies abnormal hearing - Psychiatric Denies lack of enjoyment - Endocrine Denies excessive sweating - Hematologic/Lymphatic Denies easy bruising - Allergic/Immunologic Denies itchy eyes Meds Home Medications Medication Instructions Recorded Confirmed Type Cholecalciferol (Vitamin D3) 1,000 unit PO DAILY 01/21/21 08/23/21 History [Vitamin D3 1,000 Unit Cap] Fluoxetine HCl [Prozac 20mg 60 mg PO HS 01/21/21 08/23/21 History Capsule] Loratadine [Claritin 10mg 10 mg PO DAILY 01/21/21 08/23/21 History Tablet] Losartan Potassium [Cozaar 50mg 50 mg PO DAILY 01/21/21 08/23/21 History Tablets] [place]-3 Fatty Acids/Fish Oil [Fish 1 each PO BID 01/21/21 08/23/21 History Oil 1,000 mg Capsule] Omeprazole [Omeprazole 20mg 20 mg PO DAILY 01/21/21 08/23/21 History Capsule] Raloxifene HCl 60 mg PO DAILY 01/21/21 08/23/21 History Acetaminophen 500 mg PO Q6HP PRN 01/22/21 08/23/21 History Amlodipine Besylate [Norvasc 5mg 10 mg PO DAILY 01/22/21 08/23/21 History tablet] Aspirin [Aspirin 81mg EC Tab] 81 mg PO DAILY 01/22/21 08/23/21 History Diclofenac Sodium [Diclofenac 75mg 75 mg PO BID 01/22/21 08/23/21 History Tab] Donepezil HCl [Aricept 10mg 10 mg PO HS 01/22/21 08/23/21 History tablet] Hydralazine HCl [Hydralazine HCl 25 mg PO BID 01/22/21 08/23/21 History 25mg Tablet] LORazepam [Lorazepam 1mg Tablet] 1 mg PO TID 01/22/21 08/23/21 History Nebivolol HCl [Bystolic] 30 mg PO DAILY 01/22/21 08/23/21 History Furosemide [Lasix 40mg tablet] 40 mg PO BID #0 01/27/21 08/23/21 Rx Acetaminophen [Acetaminophen Extra 500 mg PO TID 08/23/21 08/23/21 History Strength] Albuterol Sulfate [Albuterol 1.25 mg IH Q6HP PRN 08/23/21 08/23/21 History 0.042% 1.25mg/3mL neb] Calcium Carbonate/Vitamin D3 600 mg PO DAILY 08/23/21 08/23/21 History [Caltrate 600 + D Soft Chew Tab] Allergies Allergy/AdvReac Type Severity Reaction Status Date / Time bupropion Allergy Verified 01/21/21 18:51 prednisone Allergy Verified 01/21/21 18:51 rosuvastatin [From Crestor] Allergy Verified 01/21/21 18:51 Exam Vital signs and Labs for Last 24 Hours: Temp Pulse Resp BP Pulse Ox 98.5 F 74
--- NOTE | 2021-08-24 11:36 | HMH.PTEV ---
Physical Therapy Evaluation Rehab PT IP Evaluation Start: 08/24/21 09:37 Freq: ONCE Status: Active Protocol: Document 08/24/21 11:33 PHORNE (Rec: 08/24/21 11:36 PHORNE [id number]) Subjective/History History History 65 yowf adm to [facility] from [facility] with UTI and AMS. She required assist with all aspects of care prior to adm and was using cane for ambulation. Subjective Subjective Pt reports feeling good today, c/o pain in her back with obvious contusion S/P fall. Rehab PT IP Eval Objective Appearance Patient Behavior Appropriate Patient Orientation Person Difficulty following instructions none Speech Pattern Clear Ambulation Patient Able to Ambulate Yes Ambulation Observation IP General Gait Pattern Observation Shuffling Step Ambulation Distance (feet) 5 Ambulation Assistive Device None Ambulation Ability Minimal x 1 (25% assist) Balance Ability to Arise Able, uses arms to help Sitting Balance Steady, safe Standing Balance Steady, wide stance Dynamic Sitting Balance Ability Good Dynamic Standing Balance Ability Fair Transfers Bed Transfer Ability Minimal x 1 (25% assist) Chair Transfer Ability Minimal x 1 (25% assist) Sit to Stand Bed Transfer Ability Minimal x 1 (25% assist) Sit to Stand Chair Transfer Ability Minimal x 1 (25% assist) ROM All Extremities PT ROM Status WFL MMT All Extremities PT MMT WFL Rehab PT IP prob,goals,plan Problems Date of Evaluation: 08/24/21 PT IP Problems Bed Mobility,Transfers,Gait Rehab Potential Rehab Potential Good Plan PT Intervention Plan Bed Mobility,Transfers,Gait, Therapeutic Exercise PT Plan Frequency BID Duration LOS Discharge Goals Bed Transfer Ability Contact Guard/Hand Hold Sit to Stand Chair Transfer Ability Contact Guard/Hand Hold Ambulation Assistive Device Rolling Walker Ambulation Distance (feet) 20 Discharge Plan PT Discharge Plan Pt is currently most appropriate to return to [facility] once medically stable. G -code Required No Eval Complexity Eval Charge Codes 13336 - Moderate Complexity PHYSICIAN CERTIFICATION: I certify the specified therapy services [facility] are required, authorized, and reviewed every 30 days.
--- NOTE | 2021-08-24 12:02 | HMH.OTEV ---
OT Inpatient Evaluation Rehab OT IP Evaluation Start: 08/24/21 09:37 Freq: ONCE Status: Complete Protocol: Document 08/24/21 11:[address] [facility] (Rec: 08/24/21 12:[address] [facility] [id number]) Rehab OT IP Assessment Subjective History Pt oriented x 2 on arrival. Pt agreeable to engage in therapy evaluation. Pt was admitted via ED on 08/23/21 due to AMS. The following information was copied from history and physical report: 65 yr old female presents to ed with c/o ams. Brought in by ambulance. She is a resident of [facility] group home and staff reports change in mental status. Hx dementia. Increased confusion reported, incontinent of urine when walking in the hallway. 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 pt was found to have 3+ jose and admitted for uti and low na. Pt reports prior to being in the hosptial she lived at group home. Pt claims she required assistance with all ADLs, except feeding. She did complete small transfers with rolling walker. She was dependent upon staff to complete all IADLS. Subjective I needed help before. Pt resting in bed. Pt completed bed mobility with min assist to go from supine to sitting at eob. Pt stood from eob with cga. Pt was able to stand for ~1 minute with good static standing balance with cga and rolling walker. Pt sat back down at eob with cga. Pt required mod assist to complete bed mobility and go from sitting to supine. Pt was left with call urbina and all other needs
--- NOTE | 2021-08-24 18:02 | PC.NURSE ---
Pt has slept majority of this shift. Pt has voided per radha. Urine noted to be clear and dark yellow. Pt has had x1 large BM this shift per [facility]. Pt has been x1 assist to get to [facility]. No other acute changes or complaints, will continue to monitor.
[2021-08-25 04:00] VITALS: BP 136/78; PULSE 74; RESP 16; TEMP 36.7; O2SAT 97
[2021-08-25 05:26] VITALS: BMI 39.0
[2021-08-25 06:08] VITALS: PULSE 62; PULSE 68
[2021-08-25 06:14] LABS: Basophils % 0.4 % (0.1-2.0); Eosinophils # 0.1 K/mm3 (0.0-0.4); Eosinophils % 0.6 % (0.1-12.0); Hematocrit 33.5 % (37.0-47.0); Hemoglobin 10.4 g/dL (12.2-16.2); Lymphocytes # 1.4 K/mm3 (0.7-4.5); Lymphocytes % 19.2 % (10-50); Mean Corpuscular Hemoglobin 28.5 pg (27.0-31.2); Mean Corpuscular Volume 91.9 fl (81-99); Mean Platelet Volume 7.2 fl (7.4-10.4); Monocytes # 0.5 K/mm3 (0.1-1.0); Monocytes % 6.2 % (1.7-9.3); Neutrophils # 5.5 K/mm3 (1.8-7.8); Neutrophils % 73.6 % (37.0-80.0); Platelet Count 467 K/mm3 (142-424); Red Blood Count 3.64 M/mm3 (4.20-5.40); Red Cell Distribution Width 15.7 % (11.5-17.5); White Blood Count 7.4 K/mm3 (4.8-10.8)
[2021-08-25 06:23] LABS: Anion Gap 8.3 mEq/L (5-15); Blood Urea Nitrogen 13 mg/dl (7-17); Calcium 8.2 mg/dl (8.4-10.2); Carbon Dioxide 31 mmol/L (22.0-30.0); Chloride 89 mmol/L (98-107); Creatinine Clearance Estimated 93 mL/min (50-200); Estimated Glomerular Filt Rate 100 ml/min (>60); GFR (African American) 121 ML/MIN (>60); Glucose 104 mg/dl (74-100); Potassium 3.3 mmoL/L (3.5-5.1); Sodium 125 mmol/L (136-145)
[2021-08-25 08:00] VITALS: BP 120/66; PULSE 80; RESP 16; TEMP 36.3; O2SAT 96
--- NOTE | 2021-08-25 09:15 | PC.NURSE ---
Spoke with Dr. Paige about Pt's + urine culture, and blood culture.
--- NOTE | 2021-08-25 09:33 | HMH.DCSUM ---
General - General Admission date:: 08/23/21 Discharge date: 08/25/21 HPI HPI: 65 yr old female presents to ed with c/o ams. Brought in by ambulance. She is a resident of [facility] alf and staff reports change in mental status. Hx dementia. Increased confusion reported, incontinent of urine when walking in the hallway. 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 pt was found to have 3+ jose and admitted for uti and low na. Hospital Course Hospital Course: 65 yr old female presents to ed with c/o ams. Brought in by ambulance. She is a resident of [facility] and staff reports change in mental status. Hx dementia. Increased confusion reported, incontinent of urine when walking in the hallway. 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 pt was found to have 3+ jose and admitted for uti and low na. CXR: FINDINGS: Lungs: There appears to be a large retrocardiac opacity, which is also seen previously. Findings are most often seen with the hiatal hernia. Correlate with CT as clinically indicated. Mild pulmonary vascular congestion. No new focal lung consolidation. Pleural spaces: No pneumothorax. Heart/Mediastinum: Cardiomegaly, accentuated by the AP projection. Bones/joints: Unremarkable. IMPRESSION: 1. No definite active pulmonary process. 2. Cardiomegaly and pulmonary vascular congestion. 3. There appears to be a large retrocardiac opacity, which is also seen previously. Findings are most often seen with the hiatal hernia. Correlate with CT as clinically indicated. Electronically signed by Avila Santiago MD 08/23/[address]: FINDINGS: Brain: Mild non-specific hypoattenuation in the subcortical and periventricular white matter, which is most often the sequela of chronic small vessel ischemic disease. No evidence of intracranial hemorrhage or acute cortical infarct. Mild generalized cerebral and cerebellar atrophy. Cerebral ventricles: No ventriculomegaly. Paranasal sinuses: Visualized sinuses are unremarkable. No fluid levels. Mastoid air cells: Visualized mastoid air cells are well aerated. Bones/joints: Hyperostosis frontalis internus and dense calcification along the falx. No evidence of an acute fracture. Soft tissues: Unremarkable. IMPRESSION: No evidence of acute intracranial process. Otherwise, as above. Electronically signed by Avila Santiago MD UA culture has resulted E. coli and during her stay she has received ceftriaxone IV. Today her sodium is 125 and we have discussed decrease drinking water, she verbalizes understanding. She has been evaluated by PT and OT and has been up out of bed. 65-year-old female patient resting quietly in bed respirations easy/even, she denies any respiratory distress or chest pain during the night. Discussed discharge back to [facility] today she is in agreement with this and denies any further questions/comments/complaints. PLAN: 1. We will discharge to [facility] today 2. Cefdinir 300 mg twice daily x5 days 3. Will be seen by PCP in 1 week. Objective Vital signs: Temp Pulse Resp BP Pulse Ox 97.4 F L 80 16 120/66 96 08/25/21 08:00 08/25/21 08:00 08/25/21 08:00 08/25/21 08:00 08/25/21 08:00 no acute distress - *Routine HEENT Exam Head: Present: normocephalic Eye: Present: EOMI ENT: Present: mucous membranes moist - *Routine Neck Exam Present: supple, trachea midline. Absent: tracheal deviation - *Routine Respiratory Exam Present: CTA bilaterally. Absent: accessory muscle use - *Routine Cardiovascular Exam Present: RRR - *Routine Abdominal Exam Present: soft, normoactive bowel sounds. Absent: tenderness, firm - *Routine Extremities Exam Present: edema, pulses intact. Absent: cyanosis, clubbing - *R
--- NOTE | 2021-08-25 10:38 | PC.NURSE ---
Called sister to inform her of pt being D/C'd back to assisted. D/C in process.
--- NOTE | 2021-08-25 10:39 | PC.NURSE ---
Called pharmacy to try and fix med rec with discharge Ayan he stated that DR has to finish. Once done will proceed with discharge.
--- NOTE | 2021-08-25 11:43 | PC.NURSE ---
Called report to RN for transport back to [facility], and spoke cecily boyd
--- NOTE | 2021-08-25 12:10 | PC.NURSE ---
Spoke with EMS for transport stated that they will be up shortly.
--- NOTE | 2021-08-27 13:13 | CARE MANAGER ---
Called and spoke with nurse at [facility] and she states patient is doing well. No needs at this time.
== END 2021-08-25 12:40 | disposition home or self-care (01) | DRG 690 ==
LOC: ER 12:24 → 2ND 08-24 07:18
PROVIDERS: Nurse Practitioner Family; Admitting Provider Emergency Medicine; Emergency Provider Emergency Medicine; PCP Family Medicine; Visit Provider Emergency Medicine
DX: N39.0 Urinary tract infection, site not specified (principal); E87.1 Hypo-osmolality and hyponatremia; F03.90 Unspecified dementia, unspecified severity, without behavioral disturbance, psychotic disturbance, mood disturbance, and anxiety; E78.5 Hyperlipidemia, unspecified; I10 Essential (primary) hypertension; B96.20 Unspecified Escherichia coli [E. coli] as the cause of diseases classified elsewhere; Z20.822 Contact with and (suspected) exposure to COVID-19
CPT/HCPCS: 36415; 70450; 71045; 80048; 80053; 81001; 83605; 84484; 85025; 87040; 87077; 87086; 87088; 87186; 93005; 94640; 96365; 97110; 97162; 97166; 97530; C9803; J0696; U0003; U0005

== ENCOUNTER → 2021-09-02 13:48 | Outpatient (CLI) | payer MEDICARE, MEDICAID, SELFPAY ==
--- NOTE | 2021-09-02 13:57 | MR_ITS ---
FINAL REPORT CLINICAL HISTORY: COMPRESSION FX, LUMBAR SPINE, fall pt unsure when FINDINGS: Multiplanar MR imaging of the lumbar spine was performed without contrast. On the sagittal T2-weighted images, disc degeneration is seen at multiple levels. The vertebral alignment is normal. There are multiple chronic compression fractures of the lower thoracic spine and the lumbar spine. There is a moderate to severe T12 compression fracture favored to be subacute with 60% loss of height. The conus has an unremarkable appearance. T11-T12: There is an annular bulge present. There is facet arthropathy. There are vertebral osteophytes. There is moderate bilateral neuroforaminal narrowing. There is no significant canal stenosis. T12-L1: There is an annular bulge present. There is facet arthropathy. There are vertebral osteophytes. There is moderate bilateral neuroforaminal narrowing. There is no significant canal stenosis. L1-2: There is an annular bulge present. There is facet arthropathy. There are vertebral osteophytes. There is moderate bilateral neuroforaminal narrowing. There is no significant canal stenosis. L2-3: There is an annular bulge present. There is facet arthropathy. There are vertebral osteophytes. There is mild left neuroforaminal narrowing. There is no significant canal stenosis. L3-4: There is an annular bulge present. There is facet arthropathy. There is mild bilateral neuroforaminal narrowing. There is no significant canal stenosis. L4-5: There is an annular bulge present. There is facet arthropathy. There are vertebral osteophytes. There is moderate right and severe left neuroforaminal narrowing. There is no significant canal stenosis. L5-S1: There is an annular bulge present. There is facet arthropathy. There is mild bilateral neuroforaminal narrowing. There is no significant canal stenosis. IMPRESSION: Multilevel degenerative disc disease as described above. Multiple chronic lower thoracic spine and lumbar spine compression fractures with a likely subacute compression fracture of T12 with 60% loss of height. Reviewed, Interpreted and Dictated by Chemo Forrest III, MD Transcribed by Bebe Mercedes Authenticated by Chemo Forrest III, MD on 09/02/2021 03:57:[address] [facility]
== END ==
PROVIDERS: PCP Family Medicine; Visit Provider Family Medicine
DX: S32.000A Wedge compression fracture of unspecified lumbar vertebra, initial encounter for closed fracture (principal)
CPT/HCPCS: 72148; 76376

== ENCOUNTER 2022-02-22 11:52 | Emergency (ER) | payer MEDICARE, MEDICAID, SELFPAY ==
[2022-02-22] VITALS (9 sets, daily range): BP systolic 133–181; BP diastolic 65–88; PULSE 66–76; RESP 16–22; TEMP 37.1; O2SAT 94–99; BMI 32.8
--- NOTE | 2022-02-22 12:00 | HMH.EDGENADL ---
Discharge Plan Disposition Patient Disposition: Xfer Other Condition: Critical Prescriptions Prescriptions: No Action losartan 50 MG tablet 50 mg PO DAILY omeprazole 20 MG capsule,delayed release(DR/EC) 20 mg PO DAILY raloxifene 60 MG tablet 60 mg PO DAILY fluoxetine 20 MG capsule 60 mg PO HS loratadine 10 MG tablet 10 mg PO DAILY cholecalciferol (vitamin D3) 1,000 UNIT capsule 1,000 unit PO DAILY omega-3 fatty acids-fish oil 1 EACH capsule 1 each PO BID hydralazine 25 MG tablet 25 mg PO BID acetaminophen 500 MG tablet 500 mg PO Q6HP PRN (Reason: Mild Pain,Fever,Headache) diclofenac sodium 75 MG tablet,delayed release (DR/EC) 75 mg PO BID lorazepam 1 MG tablet 1 mg PO TID donepezil 10 MG tablet 10 mg PO HS amlodipine 5 MG tablet 10 mg PO DAILY aspirin 81 MG tablet,delayed release (DR/EC) 81 mg PO DAILY nebivolol 10 MG tablet 30 mg PO DAILY furosemide 40 MG tablet 40 mg PO BID Qty: 0 0RF albuterol sulfate 1.25 MG/3 ML solution for nebulization 1.25 mg IH Q6HP PRN (Reason: Shortness Of Breath) calcium carbonate-vitamin D3 1 EACH tablet,chewable 600 mg PO DAILY acetaminophen 500 MG tablet 500 mg PO TID cefdinir 300 MG capsule 300 mg PO BID 5 Days Qty: 10 0RF Referrals Follow up/Referrals: Raji Varghese [Primary Care Provider] - See instructions Clinical Impressions Clinical Impression: Hyponatremia, Acute alteration in mental status, Acute metabolic encephalopathy Discharge ED Provider: John Coffey General Adult HPI General Chief complaint: Weakness Stated complaint: ams Time Seen by Provider: 02/22/22 12:00 Mode of Arrival: EMS Limitations: Altered Mental Status History of Present Illness HPI narrative: 66-year-old female with history of hypertension, hyperlipidemia, dementia, hyponatremia, previous UTI with altered mental status, she presents with altered mental status today via EMS. History is otherwise limited as she is oriented to person only, unable to relay year or exact location. She does not appear to have slurred speech or focal neurologic deficit but appears somewhat encephalopathic at arrival she denies any pain and does not appear to exhibit any pain response on exam. While confused, she is alert and not lethargic or obtunded Related Data Home Medications Medication Instructions Recorded Confirmed cholecalciferol (vitamin D3) 25 1,000 unit PO DAILY Supplement 01/21/21 08/23/21 mcg (1,000 unit) capsule fluoxetine 20 mg capsule 60 mg PO HS Depression 01/21/21 08/23/21 loratadine 10 mg tablet 10 mg PO DAILY Allergy symptoms 01/21/21 08/23/21 losartan 50 mg tablet 50 mg PO DAILY Hypertension 01/21/21 08/23/21 omega-3 fatty acids-fish oil 340 1 each PO BID Supplement 01/21/21 08/23/21 mg-1,000 mg capsule omeprazole 20 mg capsule,delayed 20 mg PO DAILY GERD 01/21/21 08/23/21 release raloxifene 60 mg tablet 60 mg PO DAILY Bone loss 01/21/21 08/23/21 acetaminophen 500 mg tablet 500 mg PO Q6HP PRN Mild 01/22/21 08/23/21 Pain,Fever,Headache amlodipine 5 mg tablet 10 mg PO DAILY Hypertension 01/22/21 08/23/21 aspirin 81 mg tablet,delayed 81 mg PO DAILY CAD 01/22/21 08/23/21 release diclofenac sodium 75 mg 75 mg PO BID Pain 01/22/21 08/23/21 tablet,delayed release donepezil 10 mg tablet 10 mg PO HS MEMORY 01/22/21 08/23/21 hydralazine 25 mg tablet 25 mg PO BID Hypertension 01/22/21 08/23/21 lorazepam 1 mg tablet 1 mg PO TID Anxiety 01/22/21 08/23/21 nebivolol 10 mg tablet 30 mg PO DAILY Hypertension 01/22/21 08/23/21 acetaminophen 500 mg tablet 500 mg PO TID Pain 08/23/21 08/23/21 albuterol sulfate 1.25 mg/3 mL 1.25 mg IH Q6HP PRN Shortness Of 08/23/21 08/23/21 solution for nebulization Breath calcium carbonate 600 mg-vitamin 600 mg PO DAILY Supplement 08/23/21 08/23/21 D3 20 mcg (800 unit) chewable tablet Previous Rx's Medication Inst
--- NOTE | 2022-02-22 12:16 | XR_ITS ---
PROCEDURE INFORMATION: Exam: XR Chest Exam date and time: 02/22/2022 12:47 PM Age: 66 years old Clinical indication: Cough and shortness of breath; Patient HX: long term patient unable to stand or sit up well; Additional info: Sob/cp- TECHNIQUE: Imaging protocol: Radiologic exam of the chest. Views: 1 view. COMPARISON: CR XR CHEST PORTABLE 08/23/2021 11:03 AM FINDINGS: Lungs: Atelectasis and/or early infiltrative changes noted within the left lung base. Atelectatic changes also present within the right lung base. Pleural spaces: Unremarkable. No pleural effusion. No pneumothorax. Heart/Mediastinum: Heart demonstrates mild diffuse enlargement. Vasculature: The vasculature demonstrates diffuse mild atherosclerotic calcification. Diaphragm: There is nonspecific elevation of the right hemidiaphragm. Bones/joints: The thoracic spine demonstrates mild degenerative changes at multiple levels. Chronic changes of the right shoulder. IMPRESSION: 1. Mild cardiomegaly. 2. Atelectasis and/or early infiltrative changes noted within the left lung base.
[2022-02-22 12:23] LABS: Coronavirus 19, PCR Not Detected (NotDetected); Influenza A, PCR Not Detected (NotDetected); Influenza B, PCR Not Detected (NotDetected)
[2022-02-22 12:52] LABS: Alanine Aminotransferase 22 U/L (12-78); Albumin Level 4.1 g/dl (3.5-5.0); Albumin/Globulin Ratio 1.6 (1.1-1.8); Alkaline Phosphatase 94 U/L (38-126); Anion Gap 11.2 mEq/L (5-15); Aspartate Amino Transferase 34 U/L (14-36); Basophils % 0.2 % (0.1-2.0); Blood Urea Nitrogen 7 mg/dl (7-17); Calcium 9.2 mg/dl (8.4-10.2); Carbon Dioxide 27 mmol/L (22.0-30.0); Creatinine Clearance Estimated 82 mL/min (50-200); Estimated Glomerular Filt Rate 100 ml/min (>60); GFR (African American) 121 ML/MIN (>60); Globulin 2.6 g/dL (1.3-3.2); Glucose 132 mg/dl (74-100); Hematocrit 37.1 % (37.0-47.0); Hemoglobin 12.1 g/dL (12.2-16.2); Lymphocytes # 1.1 K/mm3 (0.7-4.5); Mean Corpuscular HGB Conc 32.5 g/dL (31.8-35.4); Mean Corpuscular Hemoglobin 29.1 pg (27.0-31.2); Mean Corpuscular Volume 89.4 fl (81-99); Mean Platelet Volume 7.1 fl (7.4-10.4); Monocytes # 0.7 K/mm3 (0.1-1.0); Monocytes % 6.4 % (1.7-9.3); Neutrophils # 8.4 K/mm3 (1.8-7.8); Neutrophils % 82.4 % (37.0-80.0); Platelet Count 569 K/mm3 (142-424); Potassium 4.2 mmoL/L (3.5-5.1); Red Blood Count 4.15 M/mm3 (4.20-5.40); Red Cell Distribution Width 13.8 % (11.5-17.5); Total Protein,Serum 6.7 g/dl (6.3-8.2); White Blood Count 10.2 K/mm3 (4.8-10.8)
[2022-02-22 12:58] LABS: Sodium 107 mmol/L (136-145)
[2022-02-22 12:59] LABS: Chloride 73 mmol/L (98-107)
[2022-02-22 13:04] LABS: Troponin I < 0.01 ng/ml (0.00-0.034)
--- NOTE | 2022-02-22 13:13 | PC.NURSE ---
Pt moved to room 2 to be placed on monitoring specialist r/t critically low sodium
--- NOTE | 2022-02-22 13:30 | ECG_ITS ---
APPROVED REPORT Exam: Resting ECG HR:73 bpm ECG Measurements Heart Rate 73 AXES WI 181 P 67 QRSd 102 QRS 77 QT 416 T 53 QTc 442 Conclusion SINUS RHYTHM NORMAL ECG UNCONFIRMED REPORT Electronically signed by : Mikal Valentine MD 02/22/2022 17:15:08
--- NOTE | 2022-02-22 13:42 | PC.NURSE ---
contacted radiology for disc of pt images, spoke with marco antonio
[2022-02-22 13:44] LABS: VBG Base Excess 1.8 mmol/L (-2.4-2.3); VBG HCO3 25.9 mmol/L (23-30); VBG Oxygen Saturation 81.1 % (50-70); VBG PCO2 38.9 mmol/L (35-51); VBG PH 7.44 mmol/L (7.31-7.41); VBG PO2 44.6 mmol/L (28-40); VBG Total CO2 27.1 mmol/L (23-27)
--- NOTE | 2022-02-22 13:45 | PC.NURSE ---
placed call to [facility] transfer service for transfer
--- NOTE | 2022-02-22 13:48 | PC.NURSE ---
assisted RN with jane catheter
[2022-02-22 13:51] LABS: Microscopic, Urine URINE MICROSCOPIC (MICROSCOPIC)
[2022-02-22 13:52] LABS: Appearance,Urine SL CLOUDY (Clear); Bilirubin,Urine Negative (Negative); Blood, Urine 3+ (Negative); Color,Urine YELLOW (Yellow); Glucose,Urine (UA) Negative (Negative); Ketones,Urine Negative (Negative); Leukocyte Esterase,Urine TRACE (Negative); Nitrate,Urine Negative (Negative); PH,Urine 6.5 (5.0-8.5); Protein,Urine Negative (Negative); Specific Gravity, Urine <= 1.005 (1.005-1.030); Urobilinogen,Urine 0.2 EU/dl (0.2)
--- NOTE | 2022-02-22 14:00 | PC.NURSE ---
staff from [facility] called to check on pt and ask about POC. Notified her we are attempting to transfer pt r/t critical sodium level. Staff reports pt sodium was critical at 113 last week at their facility, states pt Sodium chloride PO was increased to BID. Notified ER MD of recent critical sodium level per [facility] staff.
[2022-02-22 14:05] LABS: WBC,Urine Occasional #/hpf (0-3)
[2022-02-22 14:05] LABS: Ammonia < 9 umol/L (9-30)
[2022-02-22 14:06] LABS: Bacteria,Urine 2+ /lpf; Squamous Epithelial Cell,Urine Occasional #/hpf (0-5)
--- NOTE | 2022-02-22 14:11 | CT_ITS ---
PROCEDURE INFORMATION: Exam: CT Head Without Contrast Exam date and time: 02/22/2022 2:51 PM Age: 66 years old Clinical indication: Altered mental status/memory loss; Additional info: AMS TECHNIQUE: Imaging protocol: Computed tomography of the head without contrast. Radiation optimization: All CT scans at this facility use at least one of these dose optimization techniques: automated exposure control; mA and/or kV adjustment per patient size (includes targeted exams where dose is matched to clinical indication); or iterative reconstruction. COMPARISON: CT HEAD/BRAIN WO CON 08/23/2021 10:56 AM FINDINGS: Brain: Age-related atrophy and chronic white matter ischemic changes, with no evidence of an acute intracranial abnormality. No hemorrhage, mass effect or midline shift. Cerebral ventricles: No ventriculomegaly. Paranasal sinuses: Visualized sinuses are unremarkable. No fluid levels. Mastoid air cells: Visualized mastoid air cells are well aerated. Bones/joints: Hyperostosis frontalis is again noted. Soft tissues: No acute changes IMPRESSION: 1. Age-related atrophy and chronic white matter ischemic changes, with no evidence of an acute intracranial abnormality. 2. No hemorrhage, mass effect or midline shift.
--- NOTE | 2022-02-22 14:11 | PC.NURSE ---
calling [facility] for transfer
--- NOTE | 2022-02-22 14:16 | PC.NURSE ---
awaiting [place] call back
--- NOTE | 2022-02-22 14:41 | PC.NURSE ---
DIANA BROWNLEE speaking with [facility] at this time. Pt accepted per dr. cuadra.
--- NOTE | 2022-02-22 14:44 | PC.NURSE ---
transfer center called back from [facility] at this time, requesting a face sheet be faxed to [phone]
--- NOTE | 2022-02-22 14:48 | PC.NURSE ---
faxing face sheet at this time
--- NOTE | 2022-02-22 15:02 | PC.NURSE ---
[facility] transfer [facility] called back at this time with bed assignment pt assigned to [facility] ICU bed 3 and gave number for report.
--- NOTE | 2022-02-22 15:14 | PC.NURSE ---
pt sister back into the room
--- NOTE | 2022-02-22 15:32 | PC.NURSE ---
Spoke with Lona in ICU at [facility]. Attempted to call report. She advised that she needed to call us back in a few minutes. Waiting for return call.
--- NOTE | 2022-02-22 16:00 | PC.NURSE ---
Called report to Lona in ICU at [place]
--- NOTE | 2022-02-22 16:09 | PC.NURSE ---
Emptied 1500mL from F/C prior to departure with EMS.
[2022-02-22 16:12] LABS: Anion Gap 12.2 mEq/L (5-15); Blood Urea Nitrogen 7 mg/dl (7-17); Calcium 9.2 mg/dl (8.4-10.2); Carbon Dioxide 27 mmol/L (22.0-30.0); Creatinine Clearance Estimated 82 mL/min (50-200); Estimated Glomerular Filt Rate 123 ml/min (>60); GFR (African American) 149 ML/MIN (>60); Glucose 125 mg/dl (74-100); Potassium 4.2 mmoL/L (3.5-5.1)
[2022-02-22 16:17] LABS: Chloride 72 mmol/L (98-107); Sodium 107 mmol/L (136-145)
--- NOTE | 2022-02-22 16:17 | PC.NURSE ---
notified ER of critical sodium and chloride
[2022-02-22 16:21] LABS: Sodium 110 mmol/L (136-145)
--- NOTE | 2022-02-22 16:24 | PC.NURSE ---
Pt leaving via EMS en route to [place] at this time.
== END 2022-02-22 16:32 | disposition other institution (70) ==
PROVIDERS: Emergency Provider Emergency Medicine; PCP Family Medicine
DX: E87.1 Hypo-osmolality and hyponatremia (principal); R41.82 Altered mental status, unspecified; G93.41 Metabolic encephalopathy; N39.0 Urinary tract infection, site not specified
CPT/HCPCS: 70450; 71045; 80048; 80053; 81001; 82140; 82803; 83930; 84295; 84484; 85025; 87086; 87088; 87186; 93005; 96365; 99291; C9803; U0003; U0005

== ENCOUNTER 2022-04-06 10:16 | Observation (INO) | payer MEDICARE, MEDICAID, SELFPAY ==
[2022-04-06] VITALS (17 sets, daily range): BP systolic 98–165; BP diastolic 47–90; PULSE 75–110; RESP 17–26; TEMP 36.6–39.4; O2SAT 90–99; BMI 37.3; BMI 40.4
--- NOTE | 2022-04-06 10:17 | HMH.EDGENADL ---
Discharge Plan Disposition Patient Disposition: Home, Self-Care Condition: Fair Prescriptions Prescriptions: New ondansetron [ondansetron] 4 mg tablet,disintegrating 4 mg PO TIDP PRN (Reason: Nausea) Qty: 10 0RF amoxicillin-pot clavulanate 875-125 mg tablet 1 tab PO BID 7 Days Qty: 14 0RF No Action losartan 50 MG tablet 50 mg PO DAILY omeprazole 20 MG capsule,delayed release(DR/EC) 20 mg PO DAILY raloxifene 60 MG tablet 60 mg PO DAILY fluoxetine 20 MG capsule 60 mg PO HS loratadine 10 MG tablet 10 mg PO DAILY cholecalciferol (vitamin D3) 1,000 UNIT capsule 1,000 unit PO DAILY omega-3 fatty acids-fish oil 1 EACH capsule 1 each PO BID hydralazine 25 MG tablet 25 mg PO BID acetaminophen 500 MG tablet 500 mg PO Q6HP PRN (Reason: Mild Pain,Fever,Headache) diclofenac sodium 75 MG tablet,delayed release (DR/EC) 75 mg PO BID lorazepam 1 MG tablet 1 mg PO TID donepezil 10 MG tablet 10 mg PO HS amlodipine 5 MG tablet 10 mg PO DAILY aspirin 81 MG tablet,delayed release (DR/EC) 81 mg PO DAILY nebivolol 10 MG tablet 30 mg PO DAILY furosemide 40 MG tablet 40 mg PO BID Qty: 0 0RF albuterol sulfate 1.25 MG/3 ML solution for nebulization 1.25 mg IH Q6HP PRN (Reason: Shortness Of Breath) calcium carbonate-vitamin D3 1 EACH tablet,chewable 600 mg PO DAILY acetaminophen 500 MG tablet 500 mg PO TID cefdinir 300 MG capsule 300 mg PO BID 5 Days Qty: 10 0RF Referrals Follow up/Referrals: Provider,Referral, MD [Primary Care Provider] - See instructions Activity Restrictions/Add. Instructions Additional Instructions/Restrictions: Please stop taking the cefdinir that you were previously prescribed with him start taking the Augmentin. Clinical Impressions Clinical Impression: Diverticulitis Instructions Patient Instructions: DI for Diverticulitis Discharge ED Provider: Armando Anna General Adult HPI General Chief complaint: Shortness of Breath/Dyspnea Stated complaint: fever Time Seen by Provider: 04/06/22 10:16 Mode of Arrival: EMS Limitations: No Limitations Description of Symptoms (Recalled from ER Triage Doc. by RN): Arrived ems per [facility] in c/o soa, fever, and weakness. Denies pain. History of Present Illness HPI narrative: Patient is a 66-year-old female with a past medical history of hypertension, hyperlipidemia, anemia, dementia who presents from a nursing facility with concern for shortness of breath and fever. It is reported that over the last couple of days she has had worsening shortness of breath. She does not normally wear oxygen but was placed on oxygen yesterday. She reported that she had a fever today of 102. She was given some Tylenol and then transported for evaluation. Upon arrival here she complains of shortness of breath. She also complains of some orthopnea as well as some chest pain when she takes a deep breath. She says that her legs have been swollen as well and more red than they normally are. She denies any abdominal pain. Denies any dysuria or frequency. Denies any nausea or diaphoresis. Related Data Home Medications Medication Instructions Recorded Confirmed cholecalciferol (vitamin D3) 25 1,000 unit PO DAILY Supplement 01/21/21 08/23/21 mcg (1,000 unit) capsule fluoxetine 20 mg capsule 60 mg PO HS Depression 01/21/21 08/23/21 loratadine 10 mg tablet 10 mg PO DAILY Allergy symptoms 01/21/21 08/23/21 losartan 50 mg tablet 50 mg PO DAILY Hypertension 01/21/21 08/23/21 omega-3 fatty acids-fish oil 340 1 each PO BID Supplement 01/21/21 08/23/21 mg-1,000 mg capsule omeprazole 20 mg capsule,delayed 20 mg PO DAILY GERD 01/21/21 08/23/21 release raloxifene 60 mg tablet 60 mg PO DAILY Bone loss 01/21/21 08/23/21 acetaminophen 500 mg tablet 500 mg PO Q6HP PRN Mild 01/22/21 08/23/21 Pain,Fever,Headache amlodipine
--- NOTE | 2022-04-06 10:25 | XR_ITS ---
FINAL REPORT CLINICAL HISTORY: soa COMPARISON: February 2022 FINDINGS: The heart size is normal. The mediastinum is within normal limits. There are mild bibasilar opacities favoring atelectasis. There is no pleural effusion. There is no pneumothorax. There is severe degenerative change of the right shoulder with fragmentation of the humeral head. There is questionable postoperative change of the distal left clavicle. IMPRESSION: Mild bibasilar opacities favoring atelectasis. Reviewed, Interpreted and Dictated by Chemo Forrest III, MD Transcribed by Yousuf Cameron Authenticated and . [facility]
--- NOTE | 2022-04-06 10:27 | PC.NURSE ---
Notified of pt jihan and that per report from assisted she received a dose of tylenol at 0830
[2022-04-06 10:34] LABS: Coronavirus 19, PCR Not Detected (NotDetected); Influenza A, PCR Not Detected (NotDetected); Influenza B, PCR Not Detected (NotDetected)
[2022-04-06 10:37] LABS: Basophils # 0.1 K/mm3 (0-0.2); Basophils % 0.3 % (0.1-2.0); Eosinophils # 0.1 K/mm3 (0.0-0.4); Eosinophils % 0.4 % (0.1-12.0); Hematocrit 32.7 % (37.0-47.0); Hemoglobin 10.4 g/dL (12.2-16.2); Lymphocytes # 0.4 K/mm3 (0.7-4.5); Lymphocytes % 1.5 % (10-50); Mean Corpuscular HGB Conc 31.7 g/dL (31.8-35.4); Mean Corpuscular Hemoglobin 29.1 pg (27.0-31.2); Mean Corpuscular Volume 91.7 fl (81-99); Mean Platelet Volume 8.1 fl (7.4-10.4); Monocytes # 0.5 K/mm3 (0.1-1.0); Monocytes % 1.8 % (1.7-9.3); Neutrophils # 26.1 K/mm3 (1.8-7.8); Platelet Count 376 K/mm3 (142-424); Red Blood Count 3.57 M/mm3 (4.20-5.40); Red Cell Distribution Width 14.8 % (11.5-17.5); White Blood Count 27.2 K/mm3 (4.8-10.8)
--- NOTE | 2022-04-06 10:37 | INFXCTL.NOTE ---
XR AT BEDSIDE
[2022-04-06 10:38] LABS: MANUAL DIFFERENTIAL MANUAL DIFFERENTIAL (MANUAL DIFF)
--- NOTE | 2022-04-06 10:38 | PC.NURSE ---
RESPIRATORY NOTIFIED OF [facility] ORDER
--- NOTE | 2022-04-06 10:39 | PC.NURSE ---
Notified MD of pt trigger for sepsis and notified pt has hx of CHF and legs are very edematous, MD stated he does not wish to give fluid bolus for sepsis protocol.
[2022-04-06 10:44] LABS: Alanine Aminotransferase 22 U/L (12-78); Albumin Level 3.7 g/dl (3.5-5.0); Albumin/Globulin Ratio 1.2 (1.1-1.8); Alkaline Phosphatase 103 U/L (38-126); Anion Gap 12.9 mEq/L (5-15); Aspartate Amino Transferase 40 U/L (14-36); Bilirubin,Total 0.8 mg/dl (0.2-1.3); Blood Urea Nitrogen 15 mg/dl (7-17); Calcium 8.3 mg/dl (8.4-10.2); Carbon Dioxide 33 mmol/L (22.0-30.0); Chloride 94 mmol/L (98-107); Creatinine Clearance Estimated 88 mL/min (50-200); Estimated Glomerular Filt Rate 83 ml/min (>60); GFR (African American) 101 ML/MIN (>60); Glucose 112 mg/dl (74-100); Potassium 3.9 mmoL/L (3.5-5.1); Sodium 136 mmol/L (136-145); Total Protein,Serum 6.7 g/dl (6.3-8.2)
[2022-04-06 10:49] LABS: C-Reactive Protein 47.4 mg/L (0-4)
[2022-04-06 10:50] LABS: VBG Oxygen Saturation 80.6 % (50-70); VBG PCO2 47.3 mmol/L (35-51); VBG PH 7.39 mmol/L (7.31-7.41); VBG PO2 46.2 mmol/L (28-40); VBG Total CO2 29.4 mmol/L (23-27)
--- NOTE | 2022-04-06 10:54 | EXP.PHA.CONS ---
Pharmacy Consult Date: 04/06/22 Time: 10:54 Referring provider: DR PEREZ Reason for Consult:: VANCOMYCIN DOSING CONSULT Allergies Allergy/AdvReac Type Severity Reaction Status Date / Time bupropion Allergy Verified 01/21/21 18:51 prednisone Allergy Verified 01/21/21 18:51 rosuvastatin [From Crestor] Allergy Verified 01/21/21 18:51 Home Medications Medication Instructions Recorded Confirmed Type cholecalciferol (vitamin D3) 25 1,000 unit PO DAILY Supplement 01/21/21 08/23/21 History mcg (1,000 unit) capsule fluoxetine 20 mg capsule 60 mg PO HS Depression 01/21/21 08/23/21 History loratadine 10 mg tablet 10 mg PO DAILY Allergy symptoms 01/21/21 08/23/21 History losartan 50 mg tablet 50 mg PO DAILY Hypertension 01/21/21 08/23/21 History omega-3 fatty acids-fish oil 340 1 each PO BID Supplement 01/21/21 08/23/21 History mg-1,000 mg capsule omeprazole 20 mg capsule,delayed 20 mg PO DAILY GERD 01/21/21 08/23/21 History release raloxifene 60 mg tablet 60 mg PO DAILY Bone loss 01/21/21 08/23/21 History acetaminophen 500 mg tablet 500 mg PO Q6HP PRN Mild 01/22/21 08/23/21 History Pain,Fever,Headache amlodipine 5 mg tablet 10 mg PO DAILY Hypertension 01/22/21 08/23/21 History aspirin 81 mg tablet,delayed 81 mg PO DAILY CAD 01/22/21 08/23/21 History release diclofenac sodium 75 mg 75 mg PO BID Pain 01/22/21 08/23/21 History tablet,delayed release donepezil 10 mg tablet 10 mg PO HS MEMORY 01/22/21 08/23/21 History hydralazine 25 mg tablet 25 mg PO BID Hypertension 01/22/21 08/23/21 History lorazepam 1 mg tablet 1 mg PO TID Anxiety 01/22/21 08/23/21 History nebivolol 10 mg tablet 30 mg PO DAILY Hypertension 01/22/21 08/23/21 History furosemide 40 mg tablet 40 mg PO BID diuretic ##0 01/27/21 08/23/21 Rx acetaminophen 500 mg tablet 500 mg PO TID Pain 08/23/21 08/23/21 History albuterol sulfate 1.25 mg/3 mL 1.25 mg IH Q6HP PRN Shortness Of 08/23/21 08/23/21 History solution for nebulization Breath calcium carbonate 600 mg-vitamin 600 mg PO DAILY Supplement 08/23/21 08/23/21 History D3 20 mcg (800 unit) chewable tablet cefdinir 300 mg capsule 300 mg PO BID 5 days #10 caps 08/25/21 Rx New Prescriptions to Start Prescriptions: Height: 1.65 m Weight: 101.605 kg Laboratory Results:: Laboratory Results - last 24 hr 04/06/22 10:05: WBC 27.2 H*, RBC 3.57 L, Hgb 10.4 L, Hct 32.7 L, MCV 91.7, MCH 29.1, MCHC 31.7 L, RDW 14.8, Plt Count 376, MPV 8.1, Neut % (Auto) 96.0 H, Lymph % (Auto) 1.5 L, [place] % (Auto) 1.8, Eos % (Auto) 0.4, Baso % (Auto) 0.3, Neut # (Auto) 26.1 H, Lymph # (Auto) 0.4 L, [place] # (Auto) 0.5, Eos # (Auto) 0.1, Baso # (Auto) 0.1 04/06/22 10:05: Sodium 136, Potassium 3.9, Chloride 94 L, Carbon Dioxide 33 H, Anion Gap 12.9, BUN 15, Creatinine 0.70, Estimated Creat Clear 88, Estimated GFR 83, Est GFR ( Amer) 101, Glucose 112 H, Calcium 8.3 L, Total Bilirubin 0.8, AST 40 H, ALT 22, Alkaline Phosphatase 103, C-Reactive Protein 47.4 H, Total Protein 6.7, Albumin 3.7, Globulin 3.0, Albumin/Globulin Ratio 1.2 04/06/22 10:25: VBG pH 7.39, VBG pCO2 47.3, VBG pO2 46.2 H, VBG HCO3 28.0, VBG Total CO2 29.4 H, VBG O2 Saturation 80.6 H, VBG Base Excess 3.0 H Assessment and Plan Assessment and plan all Dx Assessment and Plan for all problems:: Pharmacokinetic dosing service Objective: Age: 66 yo Serum creatinine: 1.0 mg/dL Height: 65.0 Inches Weight (kg): 101.605 Diagnosis: SEPSIS Assessment: IBW (kg): 57.00 Dosing wt(kg): 101.605 Estimated Creatinine clearance (ml/min): 49.1 CRCL method: Cockcroft and Gault using ibw(default). Drug selected: Vancomycin Loading dose (mg): 2000 MG Vd (liters): 71.1 (factor used: 0.7 L/kg) Chris (hr-1): 0.045 Half life (hrs): 15.40 CLvanco=?? 3.199 L/hr Recommended dose: 1750 mg Interval: 24 hrs Infusion time (hrs): 2.0
[2022-04-06 10:56] LABS: Lymphocytes % 4 % (10-50); Monocytes % 2 % (2-9); Neutrophils % 94 % (42-76); Total Cells Counted 100
[2022-04-06 10:57] LABS: Platelet Estimate Normal; RBC Morphology Normal
[2022-04-06 10:58] LABS: Troponin I 0.14 ng/ml (0.00-0.034)
[2022-04-06 11:03] LABS: Procalcitonin 10.2 ng/mL (0.0-2.0)
[2022-04-06 11:12] LABS: Lactic Acid 0.9 mmol/L (0.7-2.1)
--- NOTE | 2022-04-06 11:32 | CT_ITS ---
FINAL REPORT TECHNIQUE: Axial images were obtained from the lung apex to the mid abdomen by computed tomography. Coronal reformatted images were obtained. This study was performed with techniques to keep radiation doses as low as reasonably achievable, (ALARA). Individualized dose reduction techniques using automated exposure control or adjustment of mA and/or kV according to the patient''s size were employed. 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 There is a moderate hiatal hernia. Fluid is seen in the thoracic esophagus, may represent reflux. There is no axillary adenopathy. There is no hilar or mediastinal adenopathy. Heart size is normal. There is mild bibasilar atelectasis or scar. There is small right effusion or pleural thickening. There is no pericardial effusion Limited images of the upper abdomen are unremarkable. No suspicious infiltrate or nodule is identified. There is severe chronic deformity of the right shoulder of uncertain etiology, could represent prior injury. Multiple chronic thoracic spine fractures are identified IMPRESSION: Findings may represent reflux. Small right effusion or pleural thickening. Reviewed, Interpreted and Dictated by Chemo Forrest III, MD Transcribed by Lulu Castaneda Authenticated and [facility]
[2022-04-06 12:00] LABS: Erythrocyte Sedimentation Rate 20 mm/hr (0-30)
--- NOTE | 2022-04-06 12:08 | PC.NURSE ---
[facility] called to check on status of pt. Advised they will call back around 2pm.
[2022-04-06 14:37] LABS: Troponin I 0.12 ng/ml (0.00-0.034)
[2022-04-06 15:04] LABS: Microscopic, Urine URINE MICROSCOPIC (MICROSCOPIC)
[2022-04-06 15:05] LABS: Appearance,Urine CLOUDY (Clear); Bilirubin,Urine Negative (Negative); Blood, Urine Negative (Negative); Color,Urine YELLOW (Yellow); Glucose,Urine (UA) Negative (Negative); Ketones,Urine Negative (Negative); Leukocyte Esterase,Urine 1+ (Negative); Nitrate,Urine Negative (Negative); Protein,Urine Negative (Negative); Specific Gravity, Urine 1.015 (1.005-1.030); Urobilinogen,Urine 0.2 EU/dl (0.2)
--- NOTE | 2022-04-06 15:06 | PC.NURSE ---
While doing an i/o cath, quarter sized boil noted to left labia of the vagina, notified
--- NOTE | 2022-04-06 15:07 | CT_ITS ---
FINAL REPORT CLINICAL HISTORY: concern for vaginal nec fasc per er Dr Anna FINDINGS: CT OF THE ABDOMEN AND PELVIS WITH CONTRAST Axial CT images of the abdomen and pelvis were obtained after the administration of IV contrast. Coronal reformatted images were also obtained and reviewed.This study was performed with techniques to keep radiation doses as low as reasonably achievable (ALARA). Individualized dose reduction techniques using automated exposure control or adjustment of mA and/or kV according to the patient's size were employed. Abdomen: There is bibasilar atelectasis or scarring.. The heart is normal in size. There is a moderate hiatal hernia. There is a possible cyst in the liver adjacent to the gallbladder fossa that measures 22 mm. The gallbladder is present. The spleen is unremarkable. No adrenal mass is present. The pancreas has an unremarkable appearance. The kidneys are normal, without evidence of mass or hydronephrosis. The aorta is normal in caliber. No mass or abnormal fluid collection is seen. There are moderate vascular calcifications. There is mild anasarca. There is an umbilical hernia containing fat. The hernia sac measures 42 mm transverse. Pelvis: The appendix normal. The urinary bladder is unremarkable. There is no evidence of bowel obstruction. There is a large amount of stool in the rectum which is distended with wall thickening and adjacent inflammation which is consistent with stercoral colitis. There is a small amount of air in the vagina, nonspecific. There is a moderate-large amount of stool in the more proximal colon. There are chronic left superior and inferior pubic rami fractures and a right parasymphyseal fracture. There is bilateral inguinal adenopathy with the largest on the left measuring 28 mm. IMPRESSION: Findings consistent with stercoral colitis. Small amount of air in the vagina of uncertain significance, colovaginal fistula not entirely excluded. Bilateral inguinal adenopathy, reactive or neoplastic. Reviewed, Interpreted and Dictated by Chemo Forrest III, MD Transcribed by Celi Hahn Authenticated and [facility]
[2022-04-06 15:22] LABS: Bacteria,Urine Trace /lpf; Squamous Epithelial Cell,Urine Occasional #/hpf (0-5); WBC,Urine Occasional #/hpf (0-3)
--- NOTE | 2022-04-06 16:34 | PC.NURSE ---
TROP DRAWN AND SENT TO LAB, WARM BLANKET PROVIDED
[2022-04-06 17:03] LABS: Troponin I 0.08 ng/ml (0.00-0.034)
--- NOTE | 2022-04-06 17:07 | PC.NURSE ---
Notified house for admission
--- NOTE | 2022-04-06 17:18 | EXP.HP ---
History of Present Illness *Admission Date: 04/06/22 *Reason for visit:: sepsis, fever *History of present illness: Ms. Dickson is a 66-year-old female who lives at [facility] due to early onset dementia. Past medical history of hypertension, hyperlipidemia, anemia, and hyponatremia. Presented to ER with concern for shortness of breath and fever.? Sister is at bedside, gives history. She reports that over the weekend, the patient was doing well. Over the past day or 2 however concern at the halfway for worsening shortness of breath.? She does not normally wear oxygen but was placed on oxygen yesterday.? She reported that she had a fever today of 102.? She was given some Tylenol and then transported for evaluation.? Upon arrival in the ER she was noted to have shortness of breath, fever, tachycardia, and redness of her left lower extremity. Sepsis work-up initiated. Cultures obtained, broad-spectrum antibiotics initiated. No clear source at this time. Patient denied any dysuria, nausea, vomiting, diarrhea. Sister reports that she was having difficulty voiding over the past day or 2. ER reports a labial boil/abscess on their exam. Unable to obtain any review of systems from patient. 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 Review of Systems Review of Systems Review of systems:: other (obtained from patient sister and chart) Review of systems (narrative): 14 point review of systems performed, pertinent positives and negatives as per HPI Meds Home Medications and Allergies Home Medications Medication Instructions Recorded Confirmed Type cholecalciferol (vitamin D3) 25 1,000 unit PO DAILY Supplement 01/21/21 08/23/21 History mcg (1,000 unit) capsule fluoxetine 20 mg capsule 60 mg PO HS Depression 01/21/21 08/23/21 History loratadine 10 mg tablet 10 mg PO DAILY Allergy symptoms 01/21/21 08/23/21 History losartan 50 mg tablet 50 mg PO DAILY Hypertension 01/21/21 08/23/21 History omega-3 fatty acids-fish oil 340 1 each PO BID Supplement 01/21/21 08/23/21 History mg-1,000 mg capsule omeprazole 20 mg capsule,delayed 20 mg PO DAILY GERD 01/21/21 08/23/21 History release raloxifene 60 mg tablet 60 mg PO DAILY Bone loss 01/21/21 08/23/21 History acetaminophen 500 mg tablet 500 mg PO Q6HP PRN Mild 01/22/21 08/23/21 History Pain,Fever,Headache amlodipine 5 mg tablet 10 mg PO DAILY Hypertension 01/22/21 08/23/21 History aspirin 81 mg tablet,delayed 81 mg PO DAILY CAD 01/22/21 08/23/21 History release diclofenac sodium 75 mg 75 mg PO BID Pain 01/22/21 08/23/21 History tablet,delayed release donepezil 10 mg tablet 10 mg PO HS MEMORY 01/22/21 08/23/21 History hydralazine 25 mg tablet 25 mg PO BID Hypertension 01/22/21 08/23/21 History lorazepam 1 mg tablet 1 mg PO TID Anxiety 01/22/21 08/23/21 History nebivolol 10 mg tablet 30 mg PO DAILY Hypertension 01/22/21 08/23/21 History furosemide 40 mg tablet 40 mg PO BID diuretic ##0 01/27/21 08/23/21 Rx acetaminophen 500 mg tablet 500 mg PO TID Pain 08/23/21 08/23/21 History albuterol sulfate 1.25 mg/3 mL 1.25 mg IH Q6HP PRN Shortness Of 08/23/21 08/23/21 History solution for nebulization Breath calcium carbonate 600 mg-vitamin 600 mg PO DAILY Supplement 08/23/21 08/23/21 History D3 20 mcg (800 unit) chewable tablet cefdinir 300 mg capsule 300 mg PO BID 5 days #10 caps 08/25/21 Rx amoxicillin 875 mg-potassium 1 tab PO BID 7 days #14 tabs 04/06/22 Rx clavulanate 125 mg tablet ondansetron 4 mg dis
--- NOTE | 2022-04-06 17:50 | PC.NURSE ---
REPORT GIVEN TO KALLIE HERNANDEZ RN
--- NOTE | 2022-04-06 18:34 | PC.NURSE ---
Pt arrived to the floor at this time
--- NOTE | 2022-04-06 21:09 | PC.NURSE ---
contacted [facility] at this time to clarify whether vancomycin consult was done, also discussed the dose of flagyl and cefepime that were due at 184 being discontinued and not given, [facility] to retime these doses for 2099, [facility] not aware of vanc consult due to it being during dayshift hours
[2022-04-07] VITALS (9 sets, daily range): BP systolic 104–130; BP diastolic 57–80; PULSE 78–100; RESP 18–20; TEMP 36.7–38.3; O2SAT 94–99; BMI 39.9; BMI 39.8
--- NOTE | 2022-04-07 05:22 | PC.NURSE ---
Addendum entered by Kaylin Magana RN 04/07/22 05:42: remains on 2L NC with O2 sats 90-98% Original Note: at beginning of shift pt very fatigued, difficult to wake up, not A&O, MAP was 64, around 0000 pt woke up and was alert and oriented X 4, was able to converse and think logically, SBP have improved as shift has progressed, SBP 123 at 0000, 130 at 0400, MAP 85 and 90, has not had any complaints of pain this shift, jane draining at bedside with 500 mL out so far this shift, pitting edema to BLE
[2022-04-07 07:05] LABS: Chloride 98 mmol/L (98-107)
[2022-04-07 07:06] LABS: Potassium 3.7 mmoL/L (3.5-5.1); Sodium 133 mmol/L (136-145)
[2022-04-07 07:09] LABS: Alanine Aminotransferase 27 U/L (12-78); Albumin/Globulin Ratio 1.1 (1.1-1.8); Alkaline Phosphatase 75 U/L (38-126); Anion Gap 7.7 mEq/L (5-15); Aspartate Amino Transferase 50 U/L (14-36); Bilirubin,Total 0.3 mg/dl (0.2-1.3); Blood Urea Nitrogen 17 mg/dl (7-17); Calcium 7.4 mg/dl (8.4-10.2); Carbon Dioxide 31 mmol/L (22.0-30.0); Creatinine Clearance Estimated 94 mL/min (50-200); Estimated Glomerular Filt Rate 83 ml/min (>60); GFR (African American) 101 ML/MIN (>60); Globulin 2.7 g/dL (1.3-3.2); Glucose 137 mg/dl (74-100); Magnesium 1.7 mg/dl (1.6-2.3); Total Protein,Serum 5.7 g/dl (6.3-8.2)
[2022-04-07 07:26] LABS: Basophils % 0.1 % (0.1-2.0); Hematocrit 29.1 % (37.0-47.0); Lymphocytes # 0.5 K/mm3 (0.7-4.5); Lymphocytes % 3.4 % (10-50); Mean Corpuscular HGB Conc 31.6 g/dL (31.8-35.4); Mean Corpuscular Volume 91.6 fl (81-99); Mean Platelet Volume 8.4 fl (7.4-10.4); Monocytes # 0.2 K/mm3 (0.1-1.0); Monocytes % 1.6 % (1.7-9.3); Neutrophils # 13.1 K/mm3 (1.8-7.8); Neutrophils % 94.9 % (37.0-80.0); Platelet Count 289 K/mm3 (142-424); Red Blood Count 3.18 M/mm3 (4.20-5.40); Red Cell Distribution Width 14.6 % (11.5-17.5); White Blood Count 13.8 K/mm3 (4.8-10.8)
[2022-04-07 07:30] LABS: Hemoglobin 9.3 g/dL (12.2-16.2)
[2022-04-07 07:31] LABS: MANUAL DIFFERENTIAL MANUAL DIFFERENTIAL (MANUAL DIFF)
--- NOTE | 2022-04-07 08:16 | SW/DCPLANNER ---
This patient currently resides at [facility] level of care. I will continue to follow up with Mae until patient is medically stable for discharge. Discharge date is unknown at this time.
[2022-04-07 08:25] LABS: Lymphocytes % 4 % (10-50); Neutrophils % 96 % (42-76); Total Cells Counted 100
[2022-04-07 08:26] LABS: Platelet Estimate Normal; RBC Morphology Normal
--- NOTE | 2022-04-07 09:10 | HMH.OTEV ---
OT Inpatient Evaluation Rehab OT IP Evaluation Start: 04/07/22 07:44 Freq: ONCE Status: Complete Protocol: Document 04/07/22 09:00 ENOC (Rec: 04/07/22 09:09 [id number] Rehab OT IP Assessment Subjective History Pt oriented x 3 on arrival. Pt agreeable to engage in therapy evaluation. Pt was admitted via ED on 04/06/22 due to sepsis and fever. Pt reports prior to being in the hospital she was residing at [facility]. Prior to becoming ill, pt claims she was able to feed herself and dress herself. She did require assistance from staff when bathing. She was dependent upon staff to complete all IADLs. Pt used a cane during ambulation. Pt has a past medical history of: Dementia Hyperlipidemia Hypertension Hyponatremia Subjective I can try. Pt resting in bed on arrival. Pt completed bed mobiltiy and went from supine to sitting at eob with supervision. Pt stood from bed with cga. Pt transferred from bed to chair with rolling walker and cga ( stand step transfer). Pt sat down in chair with cga. Pt was left in chair with call urbina and all other needs in reach. Objective Patient Orientation Person,Place,Birthday Upper Extremity Gross ROM Min Limitation <25% Shoulder ROM Limitations Muscle Weakness Elbow ROM Limitations Muscle Weakness Wrist Limitations of Range of Motion Muscle Weakness Bed Mobility bed mobility-scooting,bed mobility - supine/sit,bed mobility - rolling Assist Level Supervision/Stand by Transfer Training Sit/Stand/Step Transfer Assist Level Contact Guard/Hand Hold Chair Transfer Ability Contact Guard/Hand Hold Chair Transfer Technique Stand Step Pivot Chair Transfer Assistive D
--- NOTE | 2022-04-07 09:47 | HMH.PTEV ---
Physical Therapy Evaluation Rehab PT IP Evaluation Start: 04/07/22 07:44 Freq: ONCE Status: Active Protocol: Document 04/07/22 09:42 PAIGE (Rec: 04/07/22 09:47 PAIGE [id number]) Subjective/History History History This is the initial IP PT evaluation for [place]. Pt is a 66 y/o female admitted to [facility] from SNF due to Sepsis and cellulitis. Pt is a resident at [facility]. Subjective Subjective Pt rpeorts no complaints. States she uses SPC for ambulation at [facility] and is modified I w/ ADL's and IADL's Rehab PT IP Eval Objective Appearance Patient Behavior Cooperative Patient Orientation Place,Name,Birthday,Year Difficulty following instructions none Speech Pattern Appropriate Ambulation Patient Able to Ambulate Yes Ambulation Observation IP General Gait Pattern Observation Shuffling Step Ambulation Distance (feet) 10 Ambulation Assistive Device Rolling Walker Ambulation Ability Supervision/Stand by,Contact Guard/Hand Hold Balance Ability to Arise Able, uses arms to help Sitting Balance Steady, safe Standing Balance Steady, wide stance Dynamic Sitting Balance Ability Normal Dynamic Standing Balance Ability Good Transfers Bed Transfer Ability Independent Chair Transfer Ability Independent Sit to Stand Bed Transfer Ability Supervision/Stand by,Contact Guard/Hand Hold Sit to Stand Chair Transfer Ability Supervision/Stand by,Contact Guard/Hand Hold Rehab PT IP prob,goals,plan Problems Date of Evaluation: 04/07/22 PT IP Problems Gait,Self care,Safety Rehab Potential Rehab Potential Good Equipment Needs Assistive Devices Rolling / Wheeled Walker Plan PT Intervention Plan Transfers,Gait,Self care, Safety,Therapeutic Exercise PT Plan Frequency BID Duration LOS Discharge Goals Sit to Stand Chair Transfer Ability Supervision/Stand by Ambulation Assistive Device Rolling Walker Ambulation Distance (feet) 40 Discharge Plan PT Discharge Plan Pt will benefit from skilled therapy while in [facility]. Once medically stable pt can return to SNF w/ skilled therapy to allow return to PLOF. Wit
--- NOTE | 2022-04-07 10:26 | HMH.PHAINT1 ---
Pharmacy Intervention Comments: Home medication reconciliation completed using outpatient pharmacy medication fill list.
--- NOTE | 2022-04-07 13:06 | EXP.ACUTE.PN ---
Subjective *Date: 04/07/22 *Time: 16:51 Interval history: Patient is more interactive this morning. Still complains of some mild shortness of breath. Complains of some abdominal pain that is better after a large bowel movement this morning prior to rounds. Additional history from patient this morning, states she has had some difficulty urinating over the past week. Has noticed a lesion on her left labia. Mild tenderness. New per her report over the past days to week. Medical Exam Vital signs and Labs for Last 24 Hours: Vital Signs Temp Pulse Pulse Resp BP BP Pulse Ox 04/07/22 11:54 98.0 F 92 H 18 114/80 94 L 04/07/22 08:00 98.9 F 98 H 18 104/57 L 95 04/07/22 06:43 90 04/07/22 04:00 99.5 F 90 18 130/70 97 04/07/22 00:00 90 04/07/22 03:39 80 04/07/22 00:00 99.1 F 78 18 123/66 98 04/06/22 20:00 75 90 L 04/06/22 20:00 97.9 F 75 18 100/47 L 90 L 04/06/22 18:39 98.6 F 76 17 98/48 L 96 04/06/22 18:00 85 18 123/62 95 04/06/22 17:30 83 18 150/79 H 97 04/06/22 17:00 82 17 165/90 H 99 04/06/22 16:30 83 18 150/87 H 96 04/06/22 16:00 84 18 153/89 H 98 04/06/22 15:30 85 18 127/77 98 04/06/22 18:33 99 F 80 17 140/75 04/06/22 15:00 100.5 F H 97 H 22 149/90 H 97 04/06/22 14:30 87 149/90 H 98 04/06/22 14:00 87 154/87 H 98 04/06/22 13:31 89 137/82 98 Intake and Output 04/06/22 04/07/22 04/07/22 23:59 07:59 15:59 Intake Total 1500 / 1500 1169 / 1649 480 / 1649 Output Total 800 / 800 500 / 500 0 / 500 Balance 700 / 700 669 / 1149 480 / 1149 Intake: Intake, Oral Amount 480 / 480 Intake, Total IV Amount 1500 / 1500 1169 / 1169 Cefepime HCl 2 gm In 0.9 % 200 / 200 Sodium Chloride 100 ml @ 200 mls/hr IV Q8H WILLY Rx#:[id number] Metronidaz/Sod Chl 500 mg In 200 / 200 100 ml @ 100 mls/hr IV Q8H WILLY Rx#:[id number] Ringers Solution,Lactated 1,000 769 / 769 ml @ 100 mls/hr IV .Q10H WILLY Rx#:[id number] Output: Output, Urine Amount 500 / 500 0 / 500 Output, Urine Amount (Catheter) 800 / 800 Dickey 800 / 800 Other: Number of Unmeasured Voids 0 0 Weight 110.223 kg 108.545 kg 108.5 kg Patient Weight 04/07/22 23:59 Weight 108.5 kg Laboratory Results - last 24 hr 04/06/22 13:28: Troponin I 0.12 H 04/06/22 15:00: Urine Color Yellow, Urine Appearance Cloudy, Urine pH 7.0, Ur Specific [place] 1.015, Urine Protein Negative, Urine Glucose (UA) Negative, Urine Ketones Negative, Urine Blood Negative, Urine Nitrate Negative, Urine Bilirubin Negative, Urine Urobilinogen 0.2, Ur Leukocyte Esterase 1+ A, Urine RBC None, Urine WBC Occasional, Ur Squamous Epith Cells Occasional, Urine Bacteria Trace 04/06/22 16:31: Troponin I 0.08 H 04/07/22 06:30: WBC 13.8 H D, RBC 3.18 L, Hgb 9.3 L D, Hct 29.1 L, MCV 91.6, MCH 29.0, MCHC 31.6 L, RDW 14.6, Plt Count 289, MPV 8.4, Neut % (Auto) 94.9 H, Lymph % (Auto) 3.4 L, [place] % (Auto) 1.6 L, Eos % (Auto) 0.0 L, Baso % (Auto) 0.1, Neut # (Auto) 13.1 H, Lymph # (Auto) 0.5 L, [place] # (Auto) 0.2, Eos # (Auto) 0.0, Baso # (Auto) 0.0, Total Counted 100, Neutrophils % (Manual) 96 H, Lymphocytes % (Manual) 4 L, Platelet Estimate Normal, RBC Morphology Normal 04/07/22 06:30: Sodium 133 L, Potassium 3.7, Chloride 98, Carbon Dioxide 31 H, Anion Gap 7.7, BUN 17, Creatinine 0.70, Estimated Creat Clear 94, Estimated GFR 83, Est GFR ( Amer) 101, Glucose 137 H D, Calcium 7.4 L, Magnesium 1.7, Total Bilirubin 0.3, AST 50 H, ALT 27, Alkaline Phosphatase 75, Total Protein 5.7 L, Albumin 3.0 L D, Globulin 2.7, Albumin/Globulin Ratio 1.1 I & O for Labs for Last 24 Hours: Intake & Output 04/04/22 04/05/22 04/06/22 04/07/22 23:59 23:59 23:59 23:59 Intake Total 1500 / 1500 1649 / 1649 Output Total 800 / 800 500 / 500 Balance 700 / 700 1149 / 1149 Weight 110.223 kg 108.5 kg Microb
--- NOTE | 2022-04-07 18:00 | PC.NURSE ---
VS stable. Patient remains alert and oriented but forgetful. Patient remains on 2LNC with no complaints. IV antibiotics given. Redness on bilateral extremities improved from yesterday although swelling in bilateral extremities have increased. Dieuresed with lasix, patient had over 2Liters of output.
[2022-04-08] VITALS (7 sets, daily range): BP systolic 106–156; BP diastolic 68–81; PULSE 86–100; RESP 16–20; TEMP 36.7–37.4; O2SAT 95–100; BMI 41.0
--- NOTE | 2022-04-08 04:21 | PC.NURSE ---
Pt has been confused at times, especially after sleeping. Pt forgets she has a catheter. Continues to be tachycardic at times. Currently on 2L O2 NC. Medication administered per mar. Erythema continues to BLE. More on the right. Pt turned and repositioned. F/C draining to bedside. No BM. Call light at bedside. Safety measures in place.
--- NOTE | 2022-04-08 05:19 | PC.NURSE ---
Pt c/o itching all over. Boris notified. New orders placed.
--- NOTE | 2022-04-08 06:30 | CA_ITS ---
FINAL REPORT CLINICAL HISTORY: Sepsis, redness, swelling, DVT? morbid obesity. FINDINGS: Color Doppler, duplex Doppler and compression sonography of the bilateral lower extremities was performed. There is no evidence of deep venous thrombosis from the level of the groin to the calf. The deep veins are patent and compressible. There are several large left inguinal nodes which are nonspecific and may be reactive. IMPRESSION: No evidence of deep venous thrombosis bilateral lower extremities. Large left inguinal nodes, nonspecific, may be reactive. Reviewed, Interpreted and Dictated by Chemo Forrest III, MD Transcribed by Bebe Mercedes Authenticated and [facility]
[2022-04-08 07:03] LABS: Basophils % 0.4 % (0.1-2.0); Eosinophils # 0.1 K/mm3 (0.0-0.4); Eosinophils % 0.6 % (0.1-12.0); Hematocrit 29.1 % (37.0-47.0); Lymphocytes # 1.2 K/mm3 (0.7-4.5); Lymphocytes % 11.8 % (10-50); Mean Corpuscular HGB Conc 30.9 g/dL (31.8-35.4); Mean Corpuscular Hemoglobin 28.4 pg (27.0-31.2); Monocytes # 0.4 K/mm3 (0.1-1.0); Monocytes % 3.8 % (1.7-9.3); Neutrophils # 8.5 K/mm3 (1.8-7.8); Neutrophils % 83.4 % (37.0-80.0); Platelet Count 268 K/mm3 (142-424); Red Blood Count 3.16 M/mm3 (4.20-5.40); Red Cell Distribution Width 14.7 % (11.5-17.5); White Blood Count 10.2 K/mm3 (4.8-10.8)
[2022-04-08 07:12] LABS: Chloride 95 mmol/L (98-107); Potassium 3.6 mmoL/L (3.5-5.1); Sodium 133 mmol/L (136-145)
[2022-04-08 07:14] LABS: Alanine Aminotransferase 23 U/L (12-78); Aspartate Amino Transferase 41 U/L (14-36); Blood Urea Nitrogen 13 mg/dl (7-17); Creatinine Clearance Estimated 47 mL/min (50-200); Estimated Glomerular Filt Rate 100 ml/min (>60); GFR (African American) 121 ML/MIN (>60)
[2022-04-08 07:15] LABS: Albumin Level 2.9 g/dl (3.5-5.0); Alkaline Phosphatase 77 U/L (38-126); Anion Gap 8.6 mEq/L (5-15); Bilirubin,Total 0.2 mg/dl (0.2-1.3); Calcium 7.6 mg/dl (8.4-10.2); Carbon Dioxide 33 mmol/L (22.0-30.0); Globulin 2.8 g/dL (1.3-3.2); Glucose 105 mg/dl (74-100); Magnesium 1.7 mg/dl (1.6-2.3); Total Protein,Serum 5.7 g/dl (6.3-8.2)
--- NOTE | 2022-04-08 08:05 | XR_ITS ---
FINAL REPORT CLINICAL HISTORY: continued O2 requirement, r/o pneumonia COMPARISON: April 06, 2022 FINDINGS: A single portable view of the chest was obtained. There is cardiomegaly. The mediastinum is within normal limits. There are worsening bibasilar opacities which may represent pneumonia or atelectasis. The bony thorax is intact. IMPRESSION: Worsening bibasilar pneumonia or atelectasis. Reviewed, Interpreted and Dictated by Chemo Forrest III, MD Transcribed by Celi Hahn Authenticated and [facility]
[2022-04-08 10:27] LABS: Coronavirus 19, PCR Not Detected (NotDetected); Influenza A, PCR Not Detected (NotDetected); Influenza B, PCR Not Detected (NotDetected)
[2022-04-08 11:08] LABS: Vancomycin,Trough 6.2 ug/mL (5.0-10.0)
--- NOTE | 2022-04-08 13:15 | EXP.DC.SUM ---
General Admission date:: 04/06/22 HPI HPI HPI: Ms. Dickson is a 66-year-old female who lives at [facility] due to early onset dementia. Past medical history of hypertension, hyperlipidemia, anemia, and hyponatremia. Presented to ER with concern for shortness of breath and fever.? Sister is at bedside, gives history. She reports that over the weekend, the patient was doing well. Over the past day or 2 however concern at the [place] [facility] for worsening shortness of breath.? She does not normally wear oxygen but was placed on oxygen yesterday.? She reported that she had a fever today of 102.? She was given some Tylenol and then transported for evaluation.? Upon arrival in the ER she was noted to have shortness of breath, fever, tachycardia, and redness of her left lower extremity. Sepsis work-up initiated. Cultures obtained, broad-spectrum antibiotics initiated. No clear source at this time. Patient denied any dysuria, nausea, vomiting, diarrhea. Sister reports that she was having difficulty voiding over the past day or 2. ER reports a labial boil/abscess on their exam. Unable to obtain any review of systems from patient. Hospital Course Hospital Course Hospital Course: 66-year-old female who is a long-term care resident at [facility].? Presented with sepsis.? Tachycardia, fever, leukocytosis.? Suspected secondary to cellulitis of her leg.? Broad-spectrum work-up initiated with no other specific etiology identified. She did have some atelectasis on chest imaging but findings more concerning for pulmonary edema and atelectasis given her volume overload and peripheral edema then pneumonia. Patient's urine culture was negative. Blood cultures remain negative. Medically stable for discharge back to the [place] [facility] to continue oral antibiotics and to continue to convalesce from current illness. Problems addressed as follows: Sepsis Cellulitis -Initiated on broad-spectrum antibiotics with vancomycin, cefepime, Flagyl. Tolerated treatment well with defervescent's of sepsis and improvement in mentation by second day of admission. Improved redness in her left lower extremity. Cultures remain negative. Did require oxygen during admission however per her report this is intermittent for her and not new. We will continue antibiotics with de-escalation to Bactrim for her cellulitis. Continue double strength Bactrim for 8 more days (total of 10 days of antibiotics). -Of note, labial lesion evaluated during hospitalization. Do not think this is the source of her infection but the presence of this lesion and her lymphadenopathy in inguinal region is of unclear significance and warrants continued monitoring/follow-up as an outpatient. Essential hypertension. Given sepsis, held medications during admission. Recommend continuing to hold until reevaluating at the [place] [facility]. Resumed nighttime mirtazapine.? Held other antipsychotic, mood associated meds at this time History of hyponatremia, continued sodium tablets/supplementation. Patient does appear to have volume overload and significant peripheral edema. Initiated Lasix 40 mg daily. Would recommend continuing this in the outpatient setting. Medically stable for transfer back to her nursing facility. Exam Data for Last 24 hours Vital signs and Labs for Last 24 Hours: Temp Pulse Resp BP Pulse Ox 98.1 F 88 16 106/70 L 100 04/08/22 11:41 04/08/22 11:41 04/08/22 11:41 04/08/22 11:41 04/08/22 11:41 Laboratory Results - last 24 hr 04/06/22 15:00: Urine Color Yellow, Urine Appearance Cloudy, Urine pH 7.0, Ur Specific [place] 1.015, Urine Protein Negative, Urine Glucose (UA) Negative, Urine Ketones Negative, Urine Blood Negative, Urine Nitrate Negative, Urine Bilirubin Negative, Urine Urobilinogen 0.2, Ur Leukocyte Esterase 1+ A, Urine RBC None, Urine WBC Occasional, Ur Squamous Epith Cells Occasional, Urine Bacteria Trace 04/08/22 06:21: WBC 10.2
--- NOTE | 2022-04-08 14:35 | PC.NURSE ---
Called report to Maira @ [phone] to [facility].
--- NOTE | 2022-04-08 18:34 | PC.NURSE ---
Still awaiting ems at this time for transport to [facility].
--- NOTE | 2022-04-08 19:18 | PC.NURSE ---
PT LEFT FLOOR VIA STRETCHER AT THIS TIME TO [facility].
== END 2022-04-08 19:15 ==
LOC: ER 12:30 → 2ND 17:55
PROVIDERS: Admitting Provider Internal Medicine Adolescent Medicine; Emergency Provider Student in an Organized Health Care Education/Training Program; Visit Provider Internal Medicine Adolescent Medicine
DX: L03.115 Cellulitis of right lower limb (principal); N76.4 Abscess of vulva; I10 Essential (primary) hypertension; E78.5 Hyperlipidemia, unspecified; D64.9 Anemia, unspecified; L03.116 Cellulitis of left lower limb; Z20.822 Contact with and (suspected) exposure to COVID-19; B95.2 Enterococcus as the cause of diseases classified elsewhere; Z79.899 Other long term (current) drug therapy; F03.90 Unspecified dementia, unspecified severity, without behavioral disturbance, psychotic disturbance, mood disturbance, and anxiety
CPT/HCPCS: G0378; 36415; 51702; 71045; 71250; 74177; 80053; 80202; 81001; 82803; 83605; 83735; 84145; 84484; 85007; 85025; 85651; 86140; 87040; 87086; 87088; 87186; 93970; 97110; 97116; 97162; 97166; 97530; 99291; C9803; J3370; Q9967; U0003; U0005

== ENCOUNTER 2022-04-19 17:14 | Observation (INO) | payer MEDICARE, MEDICAID, SELFPAY ==
[2022-04-19] VITALS (13 sets, daily range): BP systolic 104–164; BP diastolic 52–102; PULSE 63–76; RESP 16–27; TEMP 36.4–36.6; O2SAT 94–100; BMI 41.9; BMI 38.5
--- NOTE | 2022-04-19 17:23 | XR_ITS ---
PROCEDURE INFORMATION: Exam: XR Chest Exam date and time: 04/19/2022 5:54 PM Age: 66 years old Clinical indication: Dyspnea TECHNIQUE: Imaging protocol: Radiologic exam of the chest. Views: 1 view. COMPARISON: CR XR CHEST PORTABLE 04/08/2022 8:09 AM FINDINGS: Lungs: Pulmonary vascular congestion. Increased interstitial lung markings. No focal airspace consolidation. Chronic atelectasis at the left lung base. Pleural spaces: Unremarkable. No pleural effusion. No pneumothorax. Heart/Mediastinum: Cardiomegaly. Vasculature: Atherosclerotic calcification of the tortuous thoracic aorta. Bones/joints: Unremarkable. IMPRESSION: Cardiomegaly and CHF pattern.
--- NOTE | 2022-04-19 17:23 | HMH.EDSOB ---
Discharge Plan Disposition Patient Disposition: Home, Self-Care Condition: Fair Prescriptions Prescriptions: No Action multivitamin Tablet 1 tab PO DAILY sodium chloride 1 gram Tablet 1,000 mg PO BID mirtazapine 45 mg tablet 45 mg PO HS hydrocortisone 2.5 % Cream 1 applic TOPICAL DAILY sennosides-docusate sodium [Stool Softener-Stimulant Laxat] 8.6-50 mg Tablet 1 tab PO DAILY 30 Days Qty: 30 0RF sulfamethoxazole-trimethoprim 800-160 mg Tablet 1 ea PO BID 8 Days Qty: 16 0RF furosemide [Lasix] 40 mg tablet 40 mg PO DAILY 30 Days Qty: 30 0RF omeprazole 20 MG capsule,delayed release(DR/EC) 20 mg PO DAILY raloxifene 60 MG tablet 60 mg PO DAILY loratadine 10 MG tablet 10 mg PO DAILY diclofenac sodium 75 MG tablet,delayed release (DR/EC) 75 mg PO BID lorazepam 1 MG tablet 1 mg PO TID aspirin 81 MG tablet,delayed release (DR/EC) 81 mg PO DAILY calcium carbonate-vitamin D3 1 EACH tablet,chewable 600 mg PO DAILY acetaminophen 500 MG tablet 500 mg PO Q8H PRN (Reason: Mild Pain (Scale Score 1-4)) Referrals Follow up/Referrals: Raji Varghese [Primary Care Provider] - See instructions Clinical Impressions Clinical Impression: Acute hypercapnic respiratory failure, Chronic anemia, CHF (congestive heart failure) Discharge ED Provider: Michael Melchor Resp/SOB HPI General Chief Complaint: Weakness Stated Complaint: weakness Time Seen by Provider: 04/19/22 17:22 History of Present Illness 66-year-old female sent from jail for complaint of worsening lethargy. She does have a history of baseline dementia so it is hard to differentiate change in her mental status. She is alert and oriented but is very somnolent. She is reportedly been treated for pneumonia recently as well as a UTI had been on of Augmentin and was switched to Bactrim. She is on 3 L nasal cannula which she has been on at the facility. Does not typically wear oxygen at baseline. Related Data Home Medications Medication Instructions Recorded Confirmed loratadine 10 mg tablet 10 mg PO DAILY Allergy symptoms 01/21/21 04/07/22 omeprazole 20 mg capsule,delayed 20 mg PO DAILY acid reflux 01/21/21 04/07/22 release raloxifene 60 mg tablet 60 mg PO DAILY Osteoporosis 01/21/21 04/07/22 aspirin 81 mg tablet,delayed 81 mg PO DAILY CAD 01/22/21 04/07/22 release diclofenac sodium 75 mg 75 mg PO BID Arthritis 01/22/21 04/07/22 tablet,delayed release lorazepam 1 mg tablet 1 mg PO TID Anxiety 01/22/21 04/07/22 acetaminophen 500 mg tablet 500 mg PO Q8H PRN Mild Pain (Scale 08/23/21 04/07/22 Score 1-4) calcium carbonate 600 mg-vitamin 600 mg PO DAILY Supplement 08/23/21 04/07/22 D3 20 mcg (800 unit) chewable tablet hydrocortisone 2.5 % topical cream 1 applic topical DAILY rash 04/07/22 04/07/22 mirtazapine 45 mg tablet 45 mg PO HS Anxiety 04/07/22 04/07/22 multivitamin 1 tab PO DAILY Supplement 04/07/22 04/07/22 sodium chloride 1 gram tablet 1,000 mg PO BID hyponatremia 04/07/22 04/07/22 Previous Rx's Medication Instructions Recorded sennosides 8.6 mg-docusate sodium 1 tab PO DAILY 30 days #30 tabs 04/07/22 50 mg tablet (Stool Softener-Stimulant Laxative) furosemide 40 mg tablet (Lasix) 40 mg PO DAILY 30 days #30 tabs 04/08/22 sulfamethoxazole 800 1 ea PO BID 8 days #16 tabs 04/08/22 mg-trimethoprim 160 mg tablet Allergies Allergy/AdvReac Type Severity Reaction Status Date / Time bupropion Allergy Verified 01/21/21 18:51 prednisone Allergy Verified 01/21/21 18:51 rosuvastatin [From Crestor] Allergy Verified 01/21/21 18:51 [facility] Medical History Dementia Hyperlipidemia Hypertension Hyponatremia Family History Other No significant family history Social History (Reviewed 04/19/22 @ 18:59 by Mihcael Melchor
[2022-04-19 17:48] LABS: Basophils # 0.1 K/mm3 (0-0.2); Basophils % 0.8 % (0.1-2.0); Eosinophils # 0.3 K/mm3 (0.0-0.4); Eosinophils % 3.6 % (0.1-12.0); Hematocrit 25.2 % (37.0-47.0); Hemoglobin 7.6 g/dL (12.2-16.2); Lymphocytes # 1.6 K/mm3 (0.7-4.5); Lymphocytes % 19.9 % (10-50); Mean Corpuscular HGB Conc 30.3 g/dL (31.8-35.4); Mean Corpuscular Hemoglobin 27.3 pg (27.0-31.2); Mean Corpuscular Volume 90.2 fl (81-99); Mean Platelet Volume 8.4 fl (7.4-10.4); Monocytes # 0.5 K/mm3 (0.1-1.0); Monocytes % 5.9 % (1.7-9.3); Neutrophils # 5.7 K/mm3 (1.8-7.8); Neutrophils % 69.8 % (37.0-80.0); Platelet Count 529 K/mm3 (142-424); Red Cell Distribution Width 15.4 % (11.5-17.5); White Blood Count 8.1 K/mm3 (4.8-10.8)
[2022-04-19 17:50] LABS: Chloride 91 mmol/L (98-107); Potassium 4.4 mmoL/L (3.5-5.1); Sodium 133 mmol/L (136-145)
[2022-04-19 17:53] LABS: Alanine Aminotransferase 14 U/L (12-78); Albumin/Globulin Ratio 0.9 (1.1-1.8); Alkaline Phosphatase 90 U/L (38-126); Anion Gap 8.4 mEq/L (5-15); Aspartate Amino Transferase 20 U/L (14-36); Bilirubin,Total 0.3 mg/dl (0.2-1.3); Blood Urea Nitrogen 13 mg/dl (7-17); Calcium 8.4 mg/dl (8.4-10.2); Carbon Dioxide 38 mmol/L (22.0-30.0); Creatinine Clearance Estimated 51 mL/min (50-200); Estimated Glomerular Filt Rate 83 ml/min (>60); GFR (African American) 101 ML/MIN (>60); Globulin 3.5 g/dL (1.3-3.2); Glucose 122 mg/dl (74-100); Total Protein,Serum 6.5 g/dl (6.3-8.2)
[2022-04-19 17:57] LABS: VBG Base Excess 8.3 mmol/L (-2.4-2.3); VBG HCO3 33.8 mmol/L (23-30); VBG Oxygen Saturation 99.7 % (50-70); VBG PH 7.36 mmol/L (7.31-7.41); VBG PO2 171.4 mmol/L (28-40); VBG Total CO2 35.7 mmol/L (23-27)
[2022-04-19 17:58] LABS: Microscopic, Urine URINE MICROSCOPIC (MICROSCOPIC)
[2022-04-19 17:59] LABS: C-Reactive Protein 30.8 mg/L (0-4)
[2022-04-19 18:00] LABS: VBG PCO2 61.2 mmol/L (35-51)
[2022-04-19 18:04] LABS: Appearance,Urine SL CLOUDY (Clear); Bilirubin,Urine Negative (Negative); Blood, Urine Negative (Negative); Color,Urine YELLOW (Yellow); Glucose,Urine (UA) Negative (Negative); Ketones,Urine Negative (Negative); Leukocyte Esterase,Urine Negative (Negative); Nitrate,Urine Negative (Negative); PH,Urine 6.5 (5.0-8.5); Protein,Urine Negative (Negative); Urobilinogen,Urine 0.2 EU/dl (0.2)
[2022-04-19 18:05] LABS: NT Pro Brain Natriuretic Pep. 1720 pg/mL (0-125)
[2022-04-19 18:16] LABS: Bacteria,Urine Trace /lpf; RBC,Urine Occasional #/hpf (0-3); Squamous Epithelial Cell,Urine TNTC #/hpf (0-5); WBC,Urine Occasional #/hpf (0-3)
[2022-04-19 18:35] LABS: Procalcitonin 0.063 ng/mL (0.0-2.0)
--- NOTE | 2022-04-19 19:00 | PC.NURSE ---
Addendum entered by Sherri Ramirez, EMT 04/19/22 19:01: [id number] time called Original Note: Respiratory called for bipap
--- NOTE | 2022-04-19 19:00 | PC.NURSE ---
called respiratory to place on bipap
--- NOTE | 2022-04-19 19:00 | PC.NURSE ---
Respiratory called again for bipap
--- NOTE | 2022-04-19 19:11 | PC.NURSE ---
pt placed on bipap per RT
[2022-04-19 19:20] LABS: Coronavirus 19, PCR Not Detected (NotDetected); Influenza A, PCR Not Detected (NotDetected); Influenza B, PCR Not Detected (NotDetected)
--- NOTE | 2022-04-19 19:35 | PC.NURSE ---
Dr. Melchor s/w hospitalist regarding pt for admission.
--- NOTE | 2022-04-19 20:54 | EXP.HP ---
History of Present Illness *Admission Date: 04/19/22 *Reason for visit:: SOA, Worsening AMS *History of present illness: History and physical for admission I saw and examined this patient in the emergency department for admission to the [facility] unit. Upon examination of this patient she appeared to be in no acute distress and nontoxic in nature. This is a 66-year-old female who was sent from the retirement with complaint of worsening lethargy earlier today. Patient does have a history of dementia but during the examination in the emergency department she had been placed on a BiPAP but would awaken on arousal and the emergency room staff had identified that she was oriented upon arrival. She does have a significant medical history of chronic anemia, CHF, dementia, hyperlipidemia and hypertension. She is accompanied by her sister for whom I have been discussing the plan of care with and she is at the bedside of the patient here in the room. Patient was recently treated for pneumonia and a urinary tract infection with Augmentin and then changed to Bactrim. Evaluation here in our emergency department has determined that she is retaining some CO2 and is hypercapnic therefore she was placed on a BiPAP to relieve some of the CO2. Also her laboratory values revealed that she is acute on chronic with her anemia status which may be attributing to some of the lethargic behavior. She also has evidence of fluid retention and the lower extremities with 2+ pitting edema bilaterally. Measures taken in the emergency department or stabilization of her respiratory efforts with the BiPAP as well as evidence of a urinary tract infection. We will continue current treatment plan with additional measures for the floor. 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 Review of Systems Review of Systems Review of systems:: unable to obtain Review of systems (narrative): Information obtained from the sister and nursing records Constitutional Constitutional: Reports system reviewed and no additional complaints, except as documented, Reports as per HPI, Denies frequent falls, Denies headache(s), Reports lethargy, Reports malaise, Reports snoring and Reports weakness Eyes Eyes: Reports system reviewed and no additional complaints, except as documented, Reports as per HPI and Denies blurry vision ENT Ears, Nose, Mouth, and Throat: Reports system reviewed and no additional complaints, except as documented, Reports as per HPI, Denies dental pain, Denies otalgia and Denies headache(s) *Cardiovascular Cardiovascular: Reports system reviewed and no additional complaints, except as documented, Reports as per HPI, Denies chest pain, Denies chest pain at rest, Denies chest pain with activity, Reports dyspnea, Reports dyspnea on exertion, Reports leg edema and Denies lightheadedness *Respiratory Respiratory: Reports system reviewed and no additional complaints, except as documented, Reports as per HPI, Denies cough, Reports dyspnea, Reports dyspnea on exertion and Reports snoring *Gastrointestinal Gastrointestinal: Reports system reviewed and no additional complaints, except as documented, Reports as per HPI, Denies abdominal pain, Denies nausea and Denies vomiting *Genitourinary Genitourinary: Reports system reviewed and no additional complaints, except as documented, Reports as per HPI and Denies difficulty voiding *Musculoskeletal Musculoskeletal: Reports system reviewed and no additional co
--- NOTE | 2022-04-19 21:07 | PC.NURSE ---
PT ARRIVED TO FLOOR VIA STRETCHER AT THIS TIME
--- NOTE | 2022-04-19 23:31 | PC.NURSE ---
ADMISSION COMPLETED TO THE BEST OF MY ABILITY. PT IS A POOR HISTORIAN.
[2022-04-20] VITALS (23 sets, daily range): BP systolic 96–158; BP diastolic 62–84; PULSE 70–90; RESP 16–22; TEMP 36.4–38.8; O2SAT 94–100; BMI 38.2
--- NOTE | 2022-04-20 03:53 | PC.NURSE ---
AT 0300 THIS RN WENT INTO PT ROOM TO GET 0300 BLOOD VITALS. PT FELT WARM TO TOUCH. AXILLARY TEMP WAS 100.3. PT WAS BUNDLED UP IN BLANKETS SO BLANKETS WERE REMOVED AND CHARGE NOTIFIED. CHARGE STATED TO RECHECK IN 15 MINUTES. PT TEMP WENT UP TO 101.6. RECTAL TEMP OBTAINED OF 101.8. BLOOD STOPPED AT THIS TIME AND TRANSFUSION REACTION PROTOCOL STARTED. BLOOD AND TUBING WAS BAGGED UP AND TAKEN TO LAB PER PROTOCOL. GREEN TOP AND PURPLE TOP WAS DRAWN AND SENT TO LAB WELL REACTION FORM. VITALS ARE STABLE OTHER THAN TEMP AND ARE BEING TAKEN Q15 MINUETS. HOSPITALIST NOTIFIED AT APPROXIMATELY 0330. 125MG OF SOLU-MEDROL, 25MG BENADRYL IV PUSH, AND AN EPI NEB TREATMENT WAS ORDERED AND GIVEN. PT IS CURRENTLY SITTING UP IN BED AND IS STABLE.
--- NOTE | 2022-04-20 04:55 | PC.NURSE ---
SPOKE WITH HOSPITALIST SOFIA AND ASKED BOUT GETTING A LACTIC AND BLOOD CULTURES ON PT. HOSPITALIST STATED THAT SHE DID NOT WANT A LACTIC OR BLOOD CULTURES. SHE DID ORDER A FLUID BOLUS.
--- NOTE | 2022-04-20 06:00 | XR_ITS ---
PROCEDURE INFORMATION: Exam: XR Chest Exam date and time: 04/20/2022 5:23 AM Age: 66 years old Clinical indication: Fever TECHNIQUE: Imaging protocol: Radiologic exam of the chest. Views: 1 view. COMPARISON: CR XR CHEST PORTABLE 04/19/2022 5:54 PM FINDINGS: Lungs: Hypoventilatory changes of the lungs, with perihilar vascular crowding and a diffuse increase in pulmonary parenchymal density. Linear atelectasis again noted in the left lung base. Pleural spaces: Thickening of the right minor fissure, no pneumothorax. Heart/Mediastinum: Stable cardiomegaly. Moderate hiatal hernia again noted. Vasculature: The aorta demonstrates mild atherosclerotic calcification. Bones/joints: Chronic right shoulder deformity. Chronic deformity left distal clavicle. IMPRESSION: No significant change from prior exam except for increased thickening of the right minor fissure likely due to small effusion.
--- NOTE | 2022-04-20 06:02 | PC.NURSE ---
PT CURRENTLY RESTING IN BED COMFORTABLY. FEVER IS NOW 100.8 RECTALLY. LUNG SOUNDS CLEAR.
[2022-04-20 06:06] LABS: Alanine Aminotransferase 16 U/L (12-78); Albumin Level 3.2 g/dl (3.5-5.0); Albumin/Globulin Ratio 0.8 (1.1-1.8); Alkaline Phosphatase 118 U/L (38-126); Anion Gap 10.8 mEq/L (5-15); Aspartate Amino Transferase 22 U/L (14-36); Bilirubin,Total 0.9 mg/dl (0.2-1.3); Blood Urea Nitrogen 11 mg/dl (7-17); Calcium 7.8 mg/dl (8.4-10.2); Carbon Dioxide 38 mmol/L (22.0-30.0); Chloride 89 mmol/L (98-107); Creatinine Clearance Estimated 93 mL/min (50-200); Estimated Glomerular Filt Rate 83 ml/min (>60); GFR (African American) 101 ML/MIN (>60); Globulin 3.9 g/dL (1.3-3.2); Glucose 113 mg/dl (74-100); Magnesium 1.6 mg/dl (1.6-2.3); Phosphorous 3.4 mg/dl (2.5-4.5); Potassium 3.8 mmoL/L (3.5-5.1); Sodium 134 mmol/L (136-145); Total Protein,Serum 7.1 g/dl (6.3-8.2)
[2022-04-20 06:14] LABS: NT Pro Brain Natriuretic Pep. 1090 pg/mL (0-125)
[2022-04-20 06:27] LABS: Lactic Acid < 0.5 mmol/L (0.7-2.1)
[2022-04-20 06:30] LABS: Basophils # 0.1 K/mm3 (0-0.2); Basophils % 0.8 % (0.1-2.0); Eosinophils # 0.3 K/mm3 (0.0-0.4); Hematocrit 25.9 % (37.0-47.0); Lymphocytes # 0.7 K/mm3 (0.7-4.5); Lymphocytes % 8.4 % (10-50); Mean Corpuscular HGB Conc 32.1 g/dL (31.8-35.4); Mean Corpuscular Hemoglobin 27.6 pg (27.0-31.2); Monocytes # 0.2 K/mm3 (0.1-1.0); Monocytes % 2.4 % (1.7-9.3); Neutrophils # 7.4 K/mm3 (1.8-7.8); Neutrophils % 85.5 % (37.0-80.0); Platelet Count 559 K/mm3 (142-424); Red Blood Count 3.01 M/mm3 (4.20-5.40); White Blood Count 8.7 K/mm3 (4.8-10.8)
[2022-04-20 06:31] LABS: Hemoglobin 8.4 g/dL (12.2-16.2); MANUAL DIFFERENTIAL MANUAL DIFFERENTIAL (MANUAL DIFF)
[2022-04-20 06:49] LABS: ABG Base Excess 7.3 mmol/L (-2.4-2.3); ABG Oxygen Saturation 97 % (90-100); ABG PH 7.41 mmol/L (7.35-7.45); ABG PO2 92.3 mmhg (80-100); ABG TCO2 33.6 mmhg (23-27)
[2022-04-20 06:51] LABS: Allen's Test Acceptable; Oxygen 30% %; PEEP 14/6; Source Left Radial; Vent Rate 16
[2022-04-20 06:53] LABS: ABG PCO2 52.3 mmhg (35.0-45.0)
[2022-04-20 07:19] LABS: Eosinophils % 2 % (0-3); Lymphocytes % 4 % (10-50); Monocytes % 4 % (2-9); Neutrophils % 90 % (42-76); Total Cells Counted 100
[2022-04-20 07:20] LABS: Platelet Estimate Moderate Increase; RBC Morphology Normal
--- NOTE | 2022-04-20 07:45 | P.CONPHA_ITS ---
Pharmacy Intervention Comments: MEDICATION RECONCILIATION COMPLETED ON PATIENT USING MAR FROM [facility]. -ELMA NUNEZ, ENRIQUED
--- NOTE | 2022-04-20 07:45 | HMH.PHAINT1 ---
Pharmacy Intervention Comments: MEDICATION RECONCILIATION COMPLETED ON PATIENT USING MAR FROM [facility]. -ELMA NUNEZ, ENRIQUED
--- NOTE | 2022-04-20 09:08 | SW/DCPLANNER ---
Addendum entered by Jessy Centeno 04/21/22 09:05: The plan for this patient is to return to [facility] today ICF level of care. COVID swab will be collected prior to discharge. I have updated Mae w/ [facility]. Original Note: This patient currently resides at [facility] ICF level of care. [facility] until patient is medically stable for discharge. Discharge date is unknown at this time. Patient will require a COVID swab prior to returning.
[2022-04-20 10:36] LABS: Microscopic,Cath URINE MICROSCOPIC (MICROSCOPIC)
[2022-04-20 10:53] LABS: Appearance,Urine/Cath CLEAR (Clear); Bilirubin,Cath Negative (Negative); Blood, Urine/Cath TRACE-I (Negative); Color,Urine/Cath YELLOW (Yellow); Glucose,Urine/Cath (UA) Negative (Negative); Ketones,Urine/Cath Negative (Negative); Leukocyte Esterase,Cath Negative (Negative); Nitrate,Cath Negative (Negative); Protein,Urine/Cath Negative (Negative); Specific Gravity, Urine/Cath <= 1.005 (1.005-1.030); Urobilinogen,Cath 0.2 EU/dl (0.2)
[2022-04-20 11:06] LABS: RBC,Urine/Cath Occasional # /hpf (0-3); WBC,Urine/Cath Occasional #/hpf (0-3)
--- NOTE | 2022-04-20 11:27 | EXP.ACUTE.PN ---
Subjective *Date: 04/20/22 *Time: 17:17 Interval history: Ms. Dickson has no complaints upon entering her room this morning. She recognized me immediately and recalled my name. Sister is at bedside, recounts that patient appears to be at baseline at this time. States she got a call yesterday midmorning from her prison that the nurse was concerned that Ms. Dickson was confused. Upon evaluation this morning, she is on her baseline oxygen. No longer on BiPAP. Is answering questions appropriately. Denies any shortness of breath, chest pain, nausea or vomiting. Is noted to have some significant swelling in her legs however the redness from previous admission is better. Was resumed on mirtazapine and Ativan scheduled at her prison after last discharge. Medical Exam Vital signs and Labs for Last 24 Hours: Vital Signs Temp Pulse Pulse Pulse Resp BP BP 04/20/22 07:49 99.0 F 70 18 148/78 H 04/20/22 05:15 77 18 141/69 H 04/20/22 06:43 04/20/22 04:00 100.9 F H 85 22 129/81 04/20/22 05:00 100.8 F H 82 22 131/72 04/20/22 04:45 81 22 158/84 H 04/20/22 04:30 87 22 150/70 H 04/20/22 04:15 80 22 113/63 04/20/22 04:00 100.9 F H 85 22 129/81 04/20/22 03:45 84 20 125/65 04/20/22 03:30 88 20 112/70 04/20/22 03:15 101.8 F H 85 18 96/71 L 04/20/22 03:45 04/20/22 03:51 81 04/20/22 03:51 82 04/20/22 02:45 97.6 F 90 18 120/69 04/20/22 02:30 97.8 F 89 18 132/71 04/20/22 02:15 97.7 F 89 18 142/67 H 04/20/22 02:10 97.7 F 90 18 139/74 04/20/22 02:05 97.8 F 90 20 134/68 04/20/22 02:00 97.6 F 90 18 120/72 04/20/22 01:50 97.6 F 89 18 131/65 04/20/22 00:00 97.7 F 70 18 135/62 04/19/22 23:14 04/19/22 21:07 97.8 F 71 18 124/57 L 04/19/22 20:46 98 F 71 18 162/80 H 04/19/22 20:31 73 18 164/102 H 04/19/22 20:01 69 18 146/76 H 04/19/22 19:30 63 18 124/63 04/19/22 19:01 72 18 109/57 L 04/19/22 18:30 72 18 129/73 04/19/22 18:00 68 18 105/57 L 04/19/22 17:31 70 18 104/52 L 04/19/22 19:13 04/19/22 18:52 70 04/19/22 18:52 71 04/19/22 18:52 04/19/22 17:17 97.6 F 76 18 122/58 L Pulse Ox FiO2 04/20/22 07:49 100 04/20/22 05:15 04/20/22 06:43 30 04/20/22 04:00 95 04/20/22 05:00 97 04/20/22 04:45 04/20/22 04:30 04/20/22 04:15 97 04/20/22 04:00 95 04/20/22 03:45 04/20/22 03:30 04/20/22 03:15 04/20/22 03:45 30 04/20/22 03:51 04/20/22 03:51 04/20/22 02:45 94 L 04/20/22 02:30 96 04/20/22 02:15 97 04/20/22 02:10 96 04/20/22 02:05 95 04/20/22 02:00 96 04/20/22 01:50 95 04/20/22 00:00 99 04/19/22 23:14 30 04/19/22 21:07 99 04/19/22 20:46 04/19/22 20:31 99 04/19/22 20:01 99 04/19/22 19:30 100 04/19/22 19:01 99 04/19/22 18:30 98 04/19/22 18:00 97 04/19/22 17:31 97 04/19/22 19:13 30 04/19/22 18:52 04/19/22 18:52 04/19/22 18:52 94 L 04/19/22 17:17 97 Intake and Output 04/19/22 04/20/22 04/20/22 23:59 07:59 15:59 Intake Total 100 / 340 240 / 340 Output Total 2350 / 2350 2600 / 3900 1300 / 3900 Balance -2350 / -2350 -2500 / -3560 -1060 / -3560 Intake: Intake, Oral Amount 240 / 240 Intake (Blood Product) Amt 100 / 100 Red Blood Cells Unit 100 / 100 [id number] Output: Output, Urine Amount 950 / 950 1200 / 1200 Output, Urine Amount (Catheter) 1400 / 1400 1400 / 2700 1300 / 2700 Dickey 1400 / 1400 1400 / 2700 1300 / 2700 Other: Number of Unmeasured Voids 0 0 0 Weight 108.607 kg 108.112 kg Patient Weight 04/20/22 23:59 Weight 108.112 kg Laboratory Results - last 24 hr 04/19/22 17:23: VBG pH 7.36, VBG pCO2 61.2 H, VBG pO2 171.4 H, VBG HCO3 33.8 H, VBG Total CO2 35.7 H, VBG O2 Saturation
--- NOTE | 2022-04-20 18:22 | PC.NURSE ---
No acute changes since prior assessment. Has diuresised well this shift, jane in place. Has been up to chair most of shift. VSS. CB in reach. No fevers this shift.
[2022-04-21 04:00] VITALS: BP 132/68; PULSE 20; RESP 18; TEMP 36.6; O2SAT 94
--- NOTE | 2022-04-21 04:35 | PC.NURSE ---
pt has had no complaints this shift. there have been no changes since previous assessment. +2 pitting edema in BLE. expiratory rhonchi auscultated in BUL.
[2022-04-21 04:59] VITALS: BMI 38.2
--- NOTE | 2022-04-21 06:50 | PC.NURSE ---
pt diuresed 1400 ml clear/dark yellow urine this shift
[2022-04-21 07:09] LABS: Basophils # 0.1 K/mm3 (0-0.2); Basophils % 0.8 % (0.1-2.0); Eosinophils # 0.1 K/mm3 (0.0-0.4); Eosinophils % 1.3 % (0.1-12.0); Hematocrit 30.1 % (37.0-47.0); Hemoglobin 9.2 g/dL (12.2-16.2); Lymphocytes # 2.4 K/mm3 (0.7-4.5); Lymphocytes % 32.1 % (10-50); Mean Corpuscular HGB Conc 30.5 g/dL (31.8-35.4); Mean Corpuscular Hemoglobin 27.1 pg (27.0-31.2); Mean Corpuscular Volume 88.9 fl (81-99); Mean Platelet Volume 7.9 fl (7.4-10.4); Monocytes # 0.5 K/mm3 (0.1-1.0); Monocytes % 6.3 % (1.7-9.3); Neutrophils # 4.4 K/mm3 (1.8-7.8); Neutrophils % 59.5 % (37.0-80.0); Platelet Count 604 K/mm3 (142-424); Red Blood Count 3.38 M/mm3 (4.20-5.40); White Blood Count 7.5 K/mm3 (4.8-10.8)
[2022-04-21 07:56] LABS: Alanine Aminotransferase 18 U/L (12-78); Albumin Level 3.4 g/dl (3.5-5.0); Aspartate Amino Transferase 32 U/L (14-36); Bilirubin,Total 0.3 mg/dl (0.2-1.3); Blood Urea Nitrogen 13 mg/dl (7-17); Calcium 8.6 mg/dl (8.4-10.2); Chloride 86 mmol/L (98-107); Creatinine Clearance Estimated 93 mL/min (50-200); Estimated Glomerular Filt Rate 83 ml/min (>60); GFR (African American) 101 ML/MIN (>60); Glucose 83 mg/dl (74-100); Potassium 3.8 mmoL/L (3.5-5.1); Sodium 134 mmol/L (136-145); Total Protein,Serum 7.4 g/dl (6.3-8.2)
[2022-04-21 07:57] LABS: Albumin/Globulin Ratio 0.9 (1.1-1.8); Alkaline Phosphatase 114 U/L (38-126)
[2022-04-21 07:58] VITALS: BP 137/73; PULSE 80; RESP 17; TEMP 36.8; O2SAT 97
[2022-04-21 08:03] LABS: Anion Gap 12.8 mEq/L (5-15); Carbon Dioxide 39 mmol/L (22.0-30.0); NT Pro Brain Natriuretic Pep. 828 pg/mL (0-125)
--- NOTE | 2022-04-21 08:45 | PC.NURSE ---
Pt unable to produce sputum; specimen cup at bedside
[2022-04-21 09:09] LABS: Coronavirus 19, PCR Not Detected (NotDetected); Influenza A, PCR Not Detected (NotDetected); Influenza B, PCR Not Detected (NotDetected)
--- NOTE | 2022-04-21 10:06 | EXP.DC.SUM ---
General Admission date:: 04/20/22 Discharge date: 04/21/22 HPI HPI HPI: History and physical for admission I saw and examined this patient in the emergency department for admission to the Medr unit. Upon examination of this patient she appeared to be in no acute distress and nontoxic in nature. This is a 66-year-old female who was sent from the skilled nursing with complaint of worsening lethargy earlier today. Patient does have a history of dementia but during the examination in the emergency department she had been placed on a BiPAP but would awaken on arousal and the emergency room staff had identified that she was oriented upon arrival. She does have a significant medical history of chronic anemia, CHF, dementia, hyperlipidemia and hypertension. She is accompanied by her sister for whom I have been discussing the plan of care with and she is at the bedside of the patient here in the room. Patient was recently treated for pneumonia and a urinary tract infection with Augmentin and then changed to Bactrim. Evaluation here in our emergency department has determined that she is retaining some CO2 and is hypercapnic therefore she was placed on a BiPAP to relieve some of the CO2. Also her laboratory values revealed that she is acute on chronic with her anemia status which may be attributing to some of the lethargic behavior. She also has evidence of fluid retention and the lower extremities with 2+ pitting edema bilaterally. Measures taken in the emergency department or stabilization of her respiratory efforts with the BiPAP as well as evidence of a urinary tract infection. We will continue current treatment plan with additional measures for the floor. Hospital Course Hospital Course Hospital Course: 66-year-old female, long-term resident of skilled nursing.? Presented with acute confusion.? Differential diagnosis includes medication side effect, hypercarbia, dementia.? Given her pH being normal, I feel her hypercarbia is compensated.? Review of medication list concerning for numerous meds not recommended based on Beers criteria for patient her age with her underlying diagnoses.? And was held during admission and her lorazepam dose was decreased to 0.5 mg 3 times daily. She is remained alert and oriented. No other episodes of confusion. Strong concern this is related to medication and would recommend adhering to changes once back at the skilled nursing. She is back to baseline this morning and has been stable with normal mentation for the past 24 hours. Medically stable for discharge back to her skilled nursing. Problems addressed as follows: Encephalopathy, acute Dementia, chronic -Held medications that might cause worsening confusion. Responded well. Continue lorazepam 0.5 mg 3 times daily. Recommend holding mirtazapine. Patient back to baseline mentation. Continued home medications for dementia. CHF peripheral edema -Continued supplemental oxygen at 2 to 3 L during admission. Diuresed with Bumex. Responded well. Have increased her loop diuretic dose and transitioned to Bumex 2 mg daily. Reevaluate in the outpatient setting. Recommend labs in a week to monitor kidney function and electrolytes. Chronic Anemia -Transfuse to half unit, she developed a reaction. Hemoglobin continue to improve with diuresis and hemoconcentration. Exam Data for Last 24 hours Vital signs and Labs for Last 24 Hours: Temp Pulse Resp BP Pulse Ox FiO2 98.2 F 80 17 137/73 97 32 04/21/22 07:58 04/21/22 07:58 04/21/22 07:58 04/21/22 07:58 04/21/22 07:58 04/20/22 18:58 Laboratory Results - last 24 hr 04/20/22 10:00: Urine Color Yellow, Urine Appearance Clear, Urine pH 6.0, Ur Specific [place] <= 1.005, Urine Protein Negative, Urine Glucose (UA) Negative, Urine Ketones Negative, Urine Blood Trace-i, Urine Nitrate Negative, Urine Bilirubin Negative, Urine Urobilinogen 0.2, Ur Leukocyte Esterase Negative, Urine RBC Occasional, Urine WBC Occasion
--- NOTE | 2022-04-21 10:56 | PC.NURSE ---
Report called to MAHAMED Flores at [facility]
--- NOTE | 2022-04-21 11:04 | PC.NURSE ---
notified ems of need for transport
--- NOTE | 2022-04-22 14:56 | CARE MANAGER ---
Called to follow up on post discharge status of Ms. Dickson. Unfortunately, I was unable to talk to anyone at this time.
== END 2022-04-21 11:28 ==
LOC: ER 19:07 → 2ND 19:57
PROVIDERS: Nurse Practitioner Family; Admitting Provider Family Medicine; Emergency Provider Student in an Organized Health Care Education/Training Program; PCP Family Medicine; Visit Provider Internal Medicine Adolescent Medicine
DX: J96.02 Acute respiratory failure with hypercapnia (principal); G93.40 Encephalopathy, unspecified; Z79.899 Other long term (current) drug therapy; D64.9 Anemia, unspecified; F03.90 Unspecified dementia, unspecified severity, without behavioral disturbance, psychotic disturbance, mood disturbance, and anxiety; R60.9 Edema, unspecified; I11.0 Hypertensive heart disease with heart failure; I50.9 Heart failure, unspecified; Z20.822 Contact with and (suspected) exposure to COVID-19
CPT/HCPCS: G0378; 36415; 51702; 71045; 80053; 81001; 82803; 83605; 83735; 83880; 84100; 84145; 85007; 85025; 86140; 86850; 87040; 94640; 99285; C9803; P9016; U0003; U0005

== ENCOUNTER 2023-05-08 12:53 | Inpatient (IN) | payer MEDICARE, SELFPAY ==
[2023-05-08 12:54] VITALS: BP 142/85; PULSE 75; RESP 22; TEMP 37; O2SAT 98; BMI 47.5
--- NOTE | 2023-05-08 13:06 | XR_ITS ---
PROCEDURE INFORMATION: Exam: XR Chest Exam date and time: 05/08/2023 1:24 PM Age: 67 years old Clinical indication: Shortness of breath; Additional info: SOA, hypoxemia TECHNIQUE: Imaging protocol: Radiologic exam of the chest. Views: 1 view. COMPARISON: CR XR CHEST PORTABLE 04/20/2022 5:23 AM FINDINGS: Lungs: Lung volumes are decreased. No infiltrates or overt CHF detected. Pleural spaces: Unremarkable. No pleural effusion. No pneumothorax. Heart/Mediastinum: Heart is moderately enlarged. Bones/joints: Unremarkable for age. IMPRESSION: Cardiomegaly. Decreased lung volumes otherwise negative chest.
--- NOTE | 2023-05-08 13:12 | HMH.EDGENADL ---
Discharge Plan Disposition Patient Disposition: Admitted Chief Complaint: Shortness of Breath/Dyspnea Prescriptions Prescriptions: No Action multivitamin Tablet 1 tab PO DAILY sodium chloride 1 gram Tablet 1,000 mg PO BID hydrocortisone 2.5 % Cream 1 applic TOPICAL DAILY sennosides-docusate sodium [Stool Softener-Stimulant Laxat] 8.6-50 mg Tablet 1 tab PO DAILY 30 Days Qty: 30 0RF albuterol sulfate 2.5 mg /3 mL (0.083 %) solution for nebulization 2.5 mg inhalation QID bisoprolol fumarate 10 mg tablet 10 mg PO DAILY hydralazine 100 mg tablet 100 mg PO BID bumetanide 1 mg Tablet 2 mg PO DAILY 30 Days Qty: 0 0RF lorazepam 1 mg Tablet 0.5 mg PO TID 30 Days Qty: 45 0RF omeprazole 20 MG capsule,delayed release(DR/EC) 20 mg PO DAILY raloxifene 60 MG tablet 60 mg PO DAILY loratadine 10 MG tablet 10 mg PO DAILY diclofenac sodium 75 MG tablet,delayed release (DR/EC) 75 mg PO BID aspirin 81 MG tablet,delayed release (DR/EC) 81 mg PO DAILY calcium carbonate-vitamin D3 1 EACH tablet,chewable 600 mg PO DAILY acetaminophen 500 MG tablet 500 mg PO Q8HP PRN (Reason: Mild Pain (Scale Score 1-4)) Referrals Follow up/Referrals: Raji Varghese [Primary Care Provider] - See instructions Clinical Impressions Clinical Impression: Acute hypoxemic respiratory failure, Non-ST elevation PR (NSTEMI) CHF exacerbation Qualifiers: Heart failure type: systolic Qualified Code(s): I50.23 - Acute on chronic systolic (congestive) heart failure Discharge ED Provider: Larry Green General Adult HPI General Chief complaint: Shortness of Breath/Dyspnea Stated complaint: soa Time Seen by Provider: 05/08/23 12:57 Mode of Arrival: EMS Source of Information: Patient and EMS Limitations: No Limitations Description of Symptoms (Recalled from ER Triage Doc. by RN): Per Ems patient began to have SOB and extremity swelling in bilateral lower extremities. Patient requiring oxygen when she normally doesn't. Per longterm the patient has gained 8 pounds. History of Present Illness HPI narrative: 67-year-old female history of hypertension, hyperlipidemia, CHF, mild cognitive impairment presenting with swelling and weight gain. Patient states that she has been having weight gain over the past couple days and feeling short of breath. custodial states that she has been up 8 pounds over the past 3 days. Patient states that she is also swelling in her lower extremities. Denies chest pain, nausea or vomiting, diaphoresis, neurologic deficits. She is also having lower abdominal pain made worse with pressure. Denies dysuria, hematuria. Related Data Home Medications Medication Instructions Recorded Confirmed loratadine 10 mg tablet 10 mg PO DAILY Allergy symptoms 01/21/21 04/19/22 omeprazole 20 mg capsule,delayed 20 mg PO DAILY acid reflux 01/21/21 04/19/22 release raloxifene 60 mg tablet 60 mg PO DAILY Osteoporosis 01/21/21 04/19/22 aspirin 81 mg tablet,delayed 81 mg PO DAILY CAD 01/22/21 04/19/22 release diclofenac sodium 75 mg 75 mg PO BID Arthritis 01/22/21 04/19/22 tablet,delayed release acetaminophen 500 mg tablet 500 mg PO Q8HP PRN Mild Pain 08/23/21 04/20/22 (Scale Score 1-4) calcium carbonate 600 mg-vitamin 600 mg PO DAILY Supplement 08/23/21 04/19/22 D3 20 mcg (800 unit) chewable tablet hydrocortisone 2.5 % topical cream 1 applic topical DAILY rash 04/07/22 04/19/22 multivitamin 1 tab PO DAILY Supplement 04/07/22 04/19/22 sodium chloride 1 gram tablet 1,000 mg PO BID hyponatremia 04/07/22 04/19/22 albuterol sulfate 2.5 mg/3 mL 2.5 mg inhalation QID Breathing 04/20/22 04/20/22 (0.083 %) solution for nebulization problems bisoprolol fumarate 10 mg tablet 10 mg PO DAILY Hypertension 04/20/22 04/20/22 hydralazine 100 mg tablet 100 mg PO BID Hypertension 04/20/22 04/20/22 Previous Rx's Medication Instructions Recorded s
[2023-05-08 13:17] LABS: Microscopic, Urine URINE MICROSCOPIC (MICROSCOPIC)
[2023-05-08 13:19] LABS: Appearance,Urine CLEAR (Clear); Bilirubin,Urine Negative (Negative); Blood, Urine Negative (Negative); Color,Urine YELLOW (Yellow); Glucose,Urine (UA) Negative (Negative); Ketones,Urine Negative (Negative); Leukocyte Esterase,Urine Negative (Negative); Nitrate,Urine Negative (Negative); Protein,Urine TRACE (Negative); Specific Gravity, Urine 1.015 (1.005-1.030); Urobilinogen,Urine 0.2 EU/dl (0.2)
[2023-05-08 13:19] LABS: Basophils % 0.7 % (0.1-2.0); Eosinophils % 0.7 % (0.1-12.0); Hematocrit 34.5 % (37.0-47.0); Hemoglobin 10.9 g/dL (12.2-16.2); Lymphocytes # 1.2 K/mm3 (0.7-4.5); Lymphocytes % 21.6 % (10-50); Mean Corpuscular HGB Conc 31.6 g/dL (31.8-35.4); Mean Corpuscular Hemoglobin 25.4 pg (27.0-31.2); Mean Corpuscular Volume 80.5 fl (81-99); Monocytes # 0.4 K/mm3 (0.1-1.0); Monocytes % 8.4 % (1.7-9.3); Neutrophils # 3.6 K/mm3 (1.8-7.8); Neutrophils % 68.6 % (37.0-80.0); Platelet Count 404 K/mm3 (142-424); Red Blood Count 4.28 M/mm3 (4.20-5.40); Red Cell Distribution Width 16.4 % (11.5-17.5); White Blood Count 5.3 K/mm3 (4.8-10.8)
[2023-05-08 13:24] LABS: VBG Base Excess 8.5 mmol/L (-2.4-2.3); VBG HCO3 33.7 mmol/L (23-30); VBG Oxygen Saturation 73.6 % (50-70); VBG PH 7.37 mmol/L (7.31-7.41); VBG PO2 40.5 mmol/L (28-40); VBG Total CO2 35.6 mmol/L (23-27)
[2023-05-08 13:26] LABS: VBG PCO2 59.3 mmol/L (35-51)
[2023-05-08 13:27] LABS: Lactic Acid 0.8 mmol/L (0.7-2.1)
--- NOTE | 2023-05-08 13:29 | ECG_ITS ---
APPROVED REPORT Exam: Resting ECG HR:73 bpm ECG Measurements Heart Rate 73 AXES NH 146 P 58 QRSd 106 QRS 99 QT 416 T -33 QTc 442 Conclusion SINUS RHYTHM BORDERLINE RIGHT AXIS DEVIATION [QRS AXIS > 90] ST DEVIATION AND MODERATE T-WAVE ABNORMALITY, CONSIDER ANTEROLATERAL ISCHEMIA [-0.1+ mV T-WAVE IN V3-V6] ST DEVIATION AND MODERATE T-WAVE ABNORMALITY, CONSIDER INFERIOR ISCHEMIA [-0.1+ mV T-WAVE IN II/aVF] ABNORMAL ECG UNCONFIRMED REPORT Electronically signed by : Mikal Valentine MD 05/09/2023 17:30:32
--- NOTE | 2023-05-08 13:29 | PC.NURSE ---
RAD at for CXR
[2023-05-08 13:31] VITALS: BP 116/61; PULSE 76; RESP 18; O2SAT 96
[2023-05-08 13:42] LABS: Bacteria,Urine Trace /lpf; Squamous Epithelial Cell,Urine Occasional #/hpf (0-5)
--- NOTE | 2023-05-08 14:04 | PC.NURSE ---
LAB at to collect blood cx
[2023-05-08 14:30] LABS: Chloride 82 mmol/L (98-107); Sodium 128 mmol/L (136-145)
[2023-05-08 14:31] VITALS: BP 152/93; PULSE 72; RESP 15; O2SAT 94
[2023-05-08 14:31] LABS: Potassium 3.2 mmoL/L (3.5-5.1)
[2023-05-08 14:33] LABS: Alanine Aminotransferase 25 U/L (12-78); Albumin Level 3.9 g/dl (3.5-5.0); Albumin/Globulin Ratio 1.4 (1.1-1.8); Alkaline Phosphatase 53 U/L (38-126); Aspartate Amino Transferase 70 U/L (14-36); Bilirubin,Total 0.7 mg/dl (0.2-1.3); Blood Urea Nitrogen 14 mg/dl (7-17); Creatinine Clearance Estimated 48 mL/min (50-200); Estimated Glomerular Filt Rate 62 ml/min (>60); GFR (African American) 75 ML/MIN (>60); Globulin 2.8 g/dL (1.3-3.2); Total Protein,Serum 6.7 g/dl (6.3-8.2)
[2023-05-08 14:34] LABS: Calcium 7.9 mg/dl (8.4-10.2); Glucose 93 mg/dl (74-100); Lipase 16 U/L (23-300)
[2023-05-08 14:36] LABS: INR 1.18 (0.9-1.1); Prothrombin Time 12.6 seconds (10.1-12.5)
[2023-05-08 14:39] LABS: Activated Partial Thrombo Time 27.6 seconds (22.8-30.6)
[2023-05-08 14:40] LABS: Anion Gap 9.2 mEq/L (5-15); Carbon Dioxide 40 mmol/L (22.0-30.0)
[2023-05-08 14:43] LABS: NT Pro Brain Natriuretic Pep. 4790 pg/mL (0-125)
[2023-05-08 14:44] LABS: D-Dimer 1.03 ug/mL (0.0-0.5)
[2023-05-08 14:45] LABS: Troponin I 0.07 ng/ml (0.00-0.034)
[2023-05-08 14:49] LABS: Acetone, Serum (Rapid) None Detected (None Detect)
--- NOTE | 2023-05-08 14:49 | CT_ITS ---
PROCEDURE INFORMATION: Exam: CTA Chest With Contrast Exam date and time: 05/08/2023 3:23 PM Age: 67 years old Clinical indication: Other: Hypoxemia; Additional info: Hypoxemia, dimer TECHNIQUE: Imaging protocol: Computed tomographic angiography of the chest with contrast. Exam focused on the arteries. 3D rendering (Not supervised by radiologist): MIP and/or 3D reconstructed images were created by the technologist. Radiation optimization: All CT scans at this facility use at least one of these dose optimization techniques: automated exposure control; mA and/or kV adjustment per patient size (includes targeted exams where dose is matched to clinical indication); or iterative reconstruction. Contrast material: ISOVUE 370; Contrast volume: 70 ml; Contrast route: INTRAVENOUS (IV); REPORTING DATA: Count of CT and Cardiac NM exams in prior 12 months: This patient has received 0 known CTs and 0 known cardiac nuclear medicine studies in the 12 months prior to the current study. COMPARISON: CT CHEST WO CON 04/06/2022 11:42 AM FINDINGS: Pulmonary arteries: Main pulmonary trunk, right and left pulmonary arteries, interlobar branches and 1st order segmental branches are adequately opacified without filling defects or other evidence of acute pulmonary embolism. However more distal subsegmental branches cannot be adequately assessed due to technical limitations of the study. Aorta: Unremarkable. No aortic aneurysm. No aortic dissection. Lungs: Lung volumes are decreased. Small bibasilar pleural effusions with mild adjacent subsegmental atelectasis. Additional subsegmental atelectasis both mid lung zones. Pleural spaces: See Lungs finding. Heart: Heart is moderately enlarged. Mild calcification of coronary arteries. No significant pericardial effusion. Lymph nodes: Unremarkable. No enlarged lymph nodes. Diaphragm: Moderate size hiatal hernia. Bones/joints: Unremarkable. No acute fracture. Soft tissues: Unremarkable. IMPRESSION: Technically limited but negative CT angiogram of the chest. No evidence of acute pulmonary embolism to major branches of the pulmonary vascular tree.
--- NOTE | 2023-05-08 15:29 | PC.NURSE ---
Pt returned from RAD
--- NOTE | 2023-05-08 16:15 | PC.NURSE ---
emptied 1100 of urine
--- NOTE | 2023-05-08 16:15 | PC.NURSE ---
notified household personal assistant of admission
--- NOTE | 2023-05-08 16:36 | PC.NURSE ---
Pt repositioned in bed for comfort. Pt provided with warm blanket, sandwich, and drink. No other needs voiced at this time. Sister remains at BS. Call light within reach.
--- NOTE | 2023-05-08 16:36 | PC.NURSE ---
Report given to MAHAMED Lanza on Med Surg.
--- NOTE | 2023-05-08 16:47 | PC.NURSE ---
emptied 4000 total of urine. changed a full bed x2
[2023-05-08 16:52] VITALS: BP 152/93; PULSE 72; RESP 15; TEMP 37; O2SAT 94
[2023-05-08 17:26] VITALS: BP 134/60; PULSE 75; RESP 20; TEMP 37; O2SAT 92; BMI 45.8
--- NOTE | 2023-05-08 18:09 | EXP.HP ---
History of Present Illness *Admission Date: 05/08/23 *Reason for visit:: SOB *History of present illness: Patient is a 67-year-old female with past medical history of CHF, hypertension hyperlipidemia who presented to hospital with due to shortness of breath. Patient was noted to have weight gain, hypoxia. Patient currently lives at longterm facility. Patient denied diarrhea constipation dysuria fevers chills. [facility] Disclaimer: The information contained in this section may have been updated after the patient was seen, as this information can be updated by other users. 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 Review of Systems Review of Systems Review of systems:: pertinent systems reviewed and negative unless documented below Meds Home Medications and Allergies Home Medications Medication Instructions Recorded Confirmed Type loratadine 10 mg tablet 10 mg PO DAILY Allergy symptoms 01/21/21 05/08/23 History omeprazole 20 mg capsule,delayed 20 mg PO DAILY acid reflux 01/21/21 05/08/23 History release raloxifene 60 mg tablet 60 mg PO DAILY Osteoporosis 01/21/21 05/08/23 History aspirin 81 mg tablet,delayed 81 mg PO DAILY CAD 01/22/21 05/08/23 History release diclofenac sodium 75 mg 75 mg PO BID Arthritis 01/22/21 05/08/23 History tablet,delayed release acetaminophen 500 mg tablet 500 mg PO Q8HP PRN Mild Pain 08/23/21 05/08/23 History (Scale Score 1-4) calcium carbonate 600 mg-vitamin 600 mg PO DAILY Supplement 08/23/21 05/08/23 History D3 20 mcg (800 unit) chewable tablet multivitamin 1 tab PO DAILY Supplement 04/07/22 05/08/23 History sennosides 8.6 mg-docusate sodium 1 tab PO DAILY 30 days #30 tabs 04/07/22 05/08/23 Rx 50 mg tablet (Stool Softener-Stimulant Laxative) sodium chloride 1 gram tablet 1,000 mg PO BID hyponatremia 04/07/22 05/08/23 History bisoprolol fumarate 10 mg tablet 10 mg PO DAILY Hypertension 04/20/22 05/08/23 History hydralazine 100 mg tablet 100 mg PO BID Hypertension 04/20/22 05/08/23 History bumetanide 1 mg tablet 2 mg PO DAILY 30 days #0 tabs 04/21/22 05/08/23 Rx alprazolam 0.5 mg tablet 0.5 mg PO TID 05/08/23 05/08/23 History ciprofloxacin HCl 500 mg tablet 500 mg PO BID 05/08/23 05/08/23 History doxazosin 4 mg tablet 4 mg PO HS 05/08/23 05/08/23 History furosemide 40 mg tablet 40 mg PO DAILY 05/08/23 05/08/23 History quetiapine 200 mg tablet 200 mg PO BID 05/08/23 05/08/23 History New Prescriptions to Start Prescriptions: Allergies Allergy/AdvReac Type Severity Reaction Status Date / Time bupropion Allergy Verified 05/08/23 17:29 prednisone Allergy Verified 05/08/23 17:29 rosuvastatin [From Crestor] Allergy Verified 05/08/23 17:29 Exam Data for Last 24 hours Vital signs and Labs for Last 24 Hours: Temp Pulse Resp BP Pulse Ox O2 Del Method O2 Flow Rate 98.6 F 75 20 134/60 92 L Room Air 3 05/08/23 17:26 05/08/23 17:26 05/08/23 17:26 05/08/23 17:26 05/08/23 17:26 05/08/23 17:26 05/08/23 12:54 Laboratory Results - last 24 hr 05/08/23 13:00: WBC 5.3, RBC 4.28, Hgb 10.9 L, Hct 34.5 L, MCV 80.5 L, MCH 25.4 L, MCHC 31.6 L, RDW 16.4, Plt Count 404, MPV 8.0, Neut % (Auto) 68.6, Lymph % (Auto) 21.6, [place] % (Auto) 8.4, Eos % (Auto) 0.7, Baso % (Auto) 0.7, Neut # (Auto) 3.6, Lymph # (Auto) 1.2, [place] # (Auto) 0.4, Eos # (Auto) 0.0, Baso # (Auto) 0.0, Lactate
[2023-05-08 18:26] LABS: Troponin I 0.08 ng/ml (0.00-0.034)
--- NOTE | 2023-05-08 18:41 | PC.NURSE ---
A&OX4, BUT DOES HAVE SOME INTERMITTENT CONFUSION AT TIMES. BED ALARM ON. PURE WICK IN PLACE DRAINING LIGHT YELLOW URINE. ADEQUATE U/O, PT IS STRICT I&OS. +3 PITTING EDEMA TO BLE. PT IS TOLERATING RA. NO NEEDS OR C/O NOTED SINCE ARRIVAL TO FLOOR. VSS.
[2023-05-08 19:55] LABS: Troponin I 0.07 ng/ml (0.00-0.034)
[2023-05-08 20:00] VITALS: BP 94/54; PULSE 70; PULSE 80; RESP 18; TEMP 36.9; O2SAT 96
[2023-05-08 20:47] LABS: POC Glucose,Bedside 92 (70-110)
[2023-05-09] VITALS (16 sets, daily range): BP systolic 81–161; BP diastolic 51–86; PULSE 61–100; RESP 17–30; TEMP 36.6–37.4; O2SAT 93–100; BMI 46.8; BMI 46.6
--- NOTE | 2023-05-09 01:25 | PC.NURSE ---
Pt O2 sats in low 80s applied 2L NC while pt awake O2 sats went to high 90s, pt O2 sats dropping to 80s when asleep, Pt is a mouth breather while sleeping, called [facility] for orders: venturi mask and 6L @28%. Pt remains in range of 88-91%. Respiratory in contact will notify of changes
[2023-05-09 02:42] LABS: POC Glucose,Bedside 121 (70-110)
--- NOTE | 2023-05-09 04:26 | PC.NURSE ---
Pt is alert to self and has moderate confusion, Pt remains on venturi mask and is on 6L of O2 @50% and sating in the mid to high 90s, Maciej, TRUANT OFFICER and respiratory therapist are aware. Pt hasn't complained of any pain and remains NPO for possible procedure this afternoon. Pt denies needs at this time.
[2023-05-09 05:05] LABS: POC Glucose,Bedside 127 (70-110)
--- NOTE | 2023-05-09 05:49 | PC.NURSE ---
Pt is alert to self and has moderate confusion, Pt remains on venturi mask and is on 9L of O2 @35% and sating in the mid to high 90s, Maciej, AIR POLLUTION CONTROL ENGINEER and respiratory therapist are aware. Pt hasn't complained of any pain and remains NPO for possible procedure this afternoon. Pt denies needs at this time.
--- NOTE | 2023-05-09 07:38 | HMH.PHAINT1 ---
Pharmacy Intervention Comments: Med reconciliation completed using list from [facility]
--- NOTE | 2023-05-09 07:45 | SW/DCPLANNER ---
Addendum entered by Destinee Soliz RN 05/13/23 12:31: Daria from [facility] called and requested therapy notes. Addendum entered by Jessy Centeno 05/11/23 09:00: Per Mae tnoy [facility] patient can return today and BiPap will be delivered at noon. Addendum entered by Jessy Centeno 05/10/23 11:11: I have updated Mae / [facility] that patient may return soon but will need a bipap once returning. I have faxed updated patient information regarding bipap to [facility]. Original Note: This patient currently resides at [facility] level of care. Updated patient information has been faxed to Mae diana/ [facility]. I will continue to update Mae until patient is medically stable for discharge. Discharge date is unknown at this time.
[2023-05-09 08:23] LABS: Basophils % 0.4 % (0.1-2.0); Eosinophils % 0.6 % (0.1-12.0); Hematocrit 35.8 % (37.0-47.0); Hemoglobin 11.1 g/dL (12.2-16.2); Lymphocytes % 16.3 % (10-50); Mean Corpuscular HGB Conc 31.1 g/dL (31.8-35.4); Mean Corpuscular Hemoglobin 25.5 pg (27.0-31.2); Mean Corpuscular Volume 82.1 fl (81-99); Mean Platelet Volume 7.5 fl (7.4-10.4); Monocytes # 0.4 K/mm3 (0.1-1.0); Monocytes % 6.3 % (1.7-9.3); Neutrophils # 4.7 K/mm3 (1.8-7.8); Neutrophils % 76.4 % (37.0-80.0); Platelet Count 393 K/mm3 (142-424); Red Blood Count 4.36 M/mm3 (4.20-5.40); Red Cell Distribution Width 16.5 % (11.5-17.5); White Blood Count 6.2 K/mm3 (4.8-10.8)
--- NOTE | 2023-05-09 08:27 | CA_ITS ---
APPROVED REPORT EXAM: Comprehensive 2D, Doppler, and color-flow Echocardiogram Screen Printing Machine Operator: Bessy Vega RT(R) Ht: 5 ft 5 in Wt: 281lbs BSA: 2.29 BP: 134/60 mmHg Indications: limited scan secondary to limited cooperation and body habitus. Patient has dementia and unable to roll for positioning. CHF, GERD, elevated troponins, edema, weight gain, HTN, hyperlipidemia, obesity. 2D Dimensions IVSd 1.08 cm F: 0.6-1.0 LVEF (Visual) 42.30 % PWd 0.83 cm F: 0.6 - 1.0 LVDd 3.92 cm F: 3.9 - 5.3 LVDs 3.12 cm F: 2.2 - 3.5 LVOT 1.84 cm (M/F) 1.5-2.5 M-Mode Dimensions RVDd 3.23 cm (0.9-2.6) LA Diam 4.57 cm (1.9-4.0) LVDd 3.46 cm (3.5-5.7) Ao Diam 2.86 cm (2.0-3.7) LVDs 2.85 cm (3.5-5.7) IVSd 1.03 cm (0.6-1.1) PWd 0.80 cm (0.6-1.1) EF (Teich) 37.60% FS 17.60% EDV (Teich) 49.50 mL ESV (Teich) 30.90 mL LV Diastology E Decel Time 183.00 (160-240 msec) E/A Ratio 1.2 MED E' 5.20 (< 7 cm/sec) E'/MED E' Ratio 14.02 (>14) LAT E' 10.10 (<10 cm/sec) E/LAT E' Ratio 7.22 (>14) Mitral Valve MV E Max Jaxon. 73.00 (40-130 cm/s) MV A Velocity 59.00 (40-130 cm/s) E/A Ratio 1.23 MV Decel. Time 183.00 (160-240 ms) MV PHT 54.00 ms Left Ventricle The left ventricle is normal size. The left ventricular systolic function is normal. The left ventricular ejection fraction is within the normal range. There is marked increase in LV wall thickness (IVSd 1.5 cm). There is normal LV segmental wall motion. Diastolic function is indeterminate. LVEF is 55%. Right Ventricle The right ventricle free wall is not very well visualized, but grossly appears mildly dilated. The right ventricular systolic function is normal. Atria The left atrium is normal in size. The right atrium is not well visualized. Aortic Valve The aortic valve is mildly thickened. The aortic valve opens well. There is no aortic valvular stenosis. Mitral Valve The mitral valve leaflets are mildly thickened. No evidence of mitral valve stenosis. Tricuspid Valve The tricuspid valve leaflets are not well visualized. Mild tricuspid regurgitation. RVSP is 15-20 mmHg. Pulmonic Valve The pulmonic valve leaflets are not well visualized. Mild pulmonic regurgitation. Great Vessels The aortic root is normal in size. The ascending aorta is normal in size. IVC is normal in size and collapses >50% with inspiration. Pericardium There is no pericardial effusion. Other Information Study Quality: Technically Difficult. Technically limited study due to body habitus. Conclusion Technically difficult and limited study due to poor acoustic windows and body habitus. Normal biventricular systolic function. Mild RV dilation. No significant valvular stenosis or regurgitation. Electronically signed by : Jessica Reed MD 05/09/2023 10:49:10
[2023-05-09 08:32] LABS: Alanine Aminotransferase 21 U/L (12-78); Albumin Level 3.6 g/dl (3.5-5.0); Albumin/Globulin Ratio 1.2 (1.1-1.8); Alkaline Phosphatase 47 U/L (38-126); Aspartate Amino Transferase 37 U/L (14-36); Bilirubin,Total 0.5 mg/dl (0.2-1.3); Blood Urea Nitrogen 17 mg/dl (7-17); Calcium 7.9 mg/dl (8.4-10.2); Chloride 80 mmol/L (98-107); Creatinine Clearance Estimated 46 mL/min (50-200); Estimated Glomerular Filt Rate 62 ml/min (>60); GFR (African American) 75 ML/MIN (>60); Globulin 2.9 g/dL (1.3-3.2); Glucose 126 mg/dl (74-100); Magnesium 1.4 mg/dl (1.6-2.3); Potassium 3.5 mmoL/L (3.5-5.1); Sodium 129 mmol/L (136-145); Total Protein,Serum 6.5 g/dl (6.3-8.2)
[2023-05-09 08:33] LABS: Anion Gap 12.5 mEq/L (5-15)
[2023-05-09 08:41] LABS: Carbon Dioxide 41 mmol/L (22.0-30.0)
--- NOTE | 2023-05-09 09:01 | EXP.CARD.HP ---
History of Present Illness *Admission Date: 05/08/23 *Reason for visit:: Wt gain, hypoxia *History of present illness: Patient is a 67-year-old female with past medical history of CHF, hypertension hyperlipidemia who presented to hospital with due to shortness of breath. Patient was noted to have weight gain, hypoxia. [facility] Patient denied diarrhea constipation dysuria fevers chills. The above per Dr. Wall, Hospitalist Pt gives her name as the answer for questions. Unable to get any meaningful information. Will get echo and adjust medical therapy as indicated. Review of Systems Review of Systems Review of systems:: unable to obtain Meds Home Medications and Allergies Home Medications Medication Instructions Recorded Confirmed Type omeprazole 20 mg capsule,delayed 20 mg PO DAILY acid reflux 01/21/21 05/08/23 History release raloxifene 60 mg tablet 60 mg PO DAILY Osteoporosis 01/21/21 05/08/23 History aspirin 81 mg tablet,delayed 81 mg PO DAILY Heart Health 01/22/21 05/08/23 History release acetaminophen 500 mg tablet 500 mg PO Q8HP PRN Mild Pain 08/23/21 05/08/23 History (Scale Score 1-4) calcium carbonate 600 mg-vitamin 600 mg PO DAILY Supplement 08/23/21 05/08/23 History D3 20 mcg (800 unit) chewable tablet multivitamin 1 tab PO DAILY Supplement 04/07/22 05/08/23 History sodium chloride 1 gram tablet 1,000 mg PO BID hyponatremia 04/07/22 05/08/23 History bisoprolol fumarate 10 mg tablet 10 mg PO DAILY High Blood Pressure 04/20/22 05/08/23 History hydralazine 100 mg tablet 100 mg PO BID High Blood Pressure 04/20/22 05/08/23 History alprazolam 0.5 mg tablet 0.5 mg PO TID 05/08/23 05/08/23 History ciprofloxacin HCl 500 mg tablet 500 mg PO BID Infection 05/08/23 05/08/23 History doxazosin 4 mg tablet 4 mg PO HS High Blood Pressure 05/08/23 05/08/23 History furosemide 40 mg tablet 40 mg PO DAILY Fluid 05/08/23 05/08/23 History quetiapine 200 mg tablet 200 mg PO BID Mood 05/08/23 05/08/23 History bumetanide 1 mg tablet 2 mg PO DAILY Fluid 05/09/23 05/08/23 History cetirizine 10 mg tablet 10 mg PO DAILY Allergy Symptoms 05/09/23 05/09/23 History sennosides 8.6 mg tablet (senna) 8.6 mg PO DAILY Constipation 05/09/23 05/09/23 History New Prescriptions to Start Prescriptions: Allergies Allergy/AdvReac Type Severity Reaction Status Date / Time bupropion Allergy Verified 05/08/23 17:29 prednisone Allergy Verified 05/08/23 17:29 rosuvastatin [From Crestor] Allergy Verified 05/08/23 17:29 Exam Data for Last 24 hours Vital signs and Labs for Last 24 Hours: Temp Pulse Resp BP Pulse Ox O2 Del Method O2 Flow Rate 97.9 F 72 17 118/63 94 L Venturi Mask 6 05/09/23 08:00 05/09/23 08:00 05/09/23 08:00 05/09/23 08:00 05/09/23 08:00 05/09/23 08:00 05/09/23 08:00 FiO2 35 05/09/23 07:55 Laboratory Results - last 24 hr 05/08/23 13:00: WBC 5.3, RBC 4.28, Hgb 10.9 L, Hct 34.5 L, MCV 80.5 L, MCH 25.4 L, MCHC 31.6 L, RDW 16.4, Plt Count 404, MPV 8.0, Neut % (Auto) 68.6, Lymph % (Auto) 21.6, [place] % (Auto) 8.4, Eos % (Auto) 0.7, Baso % (Auto) 0.7, Neut # (Auto) 3.6, Lymph # (Auto) 1.2, [place] # (Auto) 0.4, Eos # (Auto) 0.0, Baso # (Auto) 0.0, Lactate 0.8 05/08/23 13:09: VBG pH 7.37, VBG pCO2 59.3 H, VBG pO2 40.5 H, VBG HCO3 33.7 H, VBG Total CO2 35.6 H, VBG O2 Saturation 73.6 H, VBG Base Excess 8.5 H 05/08/23 13:15: Urine Color Yellow, Urine Appearance Clear, Urine pH 6.0, Ur Specific [place] 1.015, Urine Protein Trace, Urine Glucose (UA) Negative, Urine Ketones Negative, Urine Blood Negative, Urine Nitrate Negative, Urine Bilirubin Negative, Urine Urobilinogen 0.2, Ur Leukocyte Esterase Negative, Urine RBC None, Urine WBC None, Ur Squamous Epith Cells Occasional, Urine Bacteria Trace 05/08/23 14:05: PT 12.6 H, INR 1.18 H, APTT 27.6, D-Dimer 1.03 H, Sodium 128 L, Potassium 3.2 L, Chloride 82 L, Carbon Dioxide 40 H, Anion Gap 9.2, BUN 14, Creatinine 0.90, Estimate
--- NOTE | 2023-05-09 09:26 | EXP.CARD.CON ---
History of Present Illness History of Present Illness Consult date: 05/09/23 Requesting physician: Jethro Dubose Consult reason: congestive heart failure Chief complaint: SOA Additional Medical History:: 1. Hypertension A. Echocardiogram, 2020, technically difficult study. Normal LV size with mild concentric LVH, EF 55%. No regional WMA. Grade 1 DD. Mild MR and TR. 2. History of hyperlipidemia 3. group home resident 4. History of hyponatremia with sodium around 130 5. Morbid obesity/pickwickian syndrome/hypoventilation syndrome with chronic oxygen use A. Chest CTA, 05/08/2023, negative for pulmonary embolus. Mild calcification of the coronary arteries noted. 6. History of dementia A. Head CT, 02/22/2022, age-related atrophy and chronic white matter ischemic changes with no evidence of acute intracranial abnormality. 7. Chronic anemia with hemoglobin around 9-10 8. Elevated troponins with new EKG changes compared to 2021 tracing, 05/08/2023 A. Coronary artery calcification noted on chest CTA, 05/08/2023 History of present illness: Patient is a 67-year-old female with past medical history of CHF, hypertension hyperlipidemia who presented to hospital with due to shortness of breath. Patient was noted to have weight gain, hypoxia. Patient currently lives at intermediate facility. Patient denied diarrhea constipation dysuria fevers chills. The above per Dr. Wall, Hospitalist Pt gives her name as the answer for questions. Unable to get any meaningful information. Will get echo and adjust medical therapy as indicated. Sister relates pt has been diagnosed with early onset dementia and has been in NH for 3 yrs because of difficulty in caring for her at home. Pt could walk unassisted (although not well) and carry on a conversation as recently as 2 wks ago per sister. Reportedly given antibiotics for UTI 3 days prior to admission. [facility] Disclaimer: The information contained in this section may have been updated after the patient was seen, as this information can be updated by other users. 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 Review of Systems Review of Systems Review of systems:: unable to obtain Exam Data for Last 24 hours Vital signs and Labs for Last 24 Hours: Temp Pulse Resp BP Pulse Ox O2 Del Method O2 Flow Rate 97.9 F 72 17 118/63 94 L Venturi Mask 6 05/09/23 08:00 05/09/23 08:00 05/09/23 08:00 05/09/23 08:00 05/09/23 08:00 05/09/23 09:00 05/09/23 08:00 FiO2 35 05/09/23 07:55 Laboratory Results - last 24 hr 05/08/23 13:00: WBC 5.3, RBC 4.28, Hgb 10.9 L, Hct 34.5 L, MCV 80.5 L, MCH 25.4 L, MCHC 31.6 L, RDW 16.4, Plt Count 404, MPV 8.0, Neut % (Auto) 68.6, Lymph % (Auto) 21.6, [place] % (Auto) 8.4, Eos % (Auto) 0.7, Baso % (Auto) 0.7, Neut # (Auto) 3.6, Lymph # (Auto) 1.2, [place] # (Auto) 0.4, Eos # (Auto) 0.0, Baso # (Auto) 0.0, Lactate 0.8 05/08/23 13:09: VBG pH 7.37, VBG pCO2 59.3 H, VBG pO2 40.5 H, VBG HCO3 33.7 H, VBG Total CO2 35.6 H, VBG O2 Saturation 73.6 H, VBG Base Excess 8.5 H 05/08/23 13:15: Urine Color Yellow, Urine Appearance Clear, Urine pH 6.0, Ur Specific [place] 1.015, Urine Protein Trace, Urine Glucose (UA) Negative, Urine Ketones Negative, Urine Blood Negative, Urine Nitrate Negative, Urine Bilirubin Negative, Urine Urobilinogen 0.2, Ur Leukocyte Esterase Negative, Urine RBC None, Urine WBC None, Ur Squ
[2023-05-09 09:48] LABS: Chol/HDL Ratio 5.1 (1-3.5); Cholesterol 172 mg/dl (140-200); HDL Cholesterol 34 mg/dl (40-60); Triglycerides 60 mg/dl (30-150); VLDL Cholesterol 12 mg/dL (0-40)
[2023-05-09 09:59] LABS: Direct LDL Cholesterol 104.79 mg/dL (100-129)
--- NOTE | 2023-05-09 10:40 | DIET.NUTRFU ---
Chart Review, patient is on CCD, LEOLA FR1.5L, small portions at detention. Currently NPO with increased confusion. Will follow alertness to determine when safe to advance diet.
[2023-05-09 13:34] LABS: Allen's Test Patient Unable; Source Right Radial
[2023-05-09 13:35] LABS: ABG Base Excess 15.2 mmol/L (-2.4-2.3); ABG HCO3 47.8 mmhg (22.0-26.0); ABG Oxygen Saturation 93 % (90-100); ABG PCO2 123.1 mmhg (35.0-45.0); ABG PH 7.21 mmol/L (7.35-7.45); ABG PO2 79.6 mmhg (80-100); ABG TCO2 51.5 mmhg (23-27)
--- NOTE | 2023-05-09 13:36 | EXP.ACUTE.PN ---
Subjective *Date: 05/09/23 *Time: 13:41 Interval history: Patient somnolent on morning exam. Necessitating increasing oxygen overnight to Ventimask. Currently 40% on venti. Minimal response to painful stimuli. Blood pressure and heart rate within normal range. Diuresing well, -2 L since admission. Medical Exam Vital signs and Labs for Last 24 Hours: Vital Signs Temp Pulse Pulse Resp BP BP Pulse Ox 05/09/23 12:00 80 05/09/23 12:56 05/09/23 11:15 98.0 F 74 17 103/57 L 93 L 05/09/23 11:00 05/09/23 08:00 80 05/09/23 09:00 05/09/23 08:00 97.9 F 72 17 118/63 94 L 05/09/23 07:55 05/09/23 07:00 05/09/23 04:00 90 05/09/23 04:00 99.3 F 82 24 111/67 94 L 05/09/23 04:32 05/09/23 03:00 05/09/23 00:00 80 05/09/23 01:00 05/09/23 00:00 98.6 F 61 18 81/51 L 95 05/08/23 23:00 05/08/23 21:00 05/08/23 20:00 96 05/08/23 20:00 70 05/08/23 20:00 98.4 F 80 18 94/54 L 96 05/08/23 18:40 05/08/23 17:26 98.6 F 75 20 134/60 92 L 05/08/23 17:24 05/08/23 17:18 05/08/23 16:52 98.6 F 72 15 152/93 H 05/08/23 14:31 72 15 152/93 H 94 L O2 Del Method O2 Flow Rate FiO2 05/09/23 12:00 05/09/23 12:56 Venturi Mask 12 05/09/23 11:15 Venturi Mask 05/09/23 11:00 Venturi Mask 12 05/09/23 08:00 05/09/23 09:00 Venturi Mask 05/09/23 08:00 Venturi Mask 6 05/09/23 07:55 Venturi Mask 9 35 05/09/23 07:00 Venturi Mask 9 05/09/23 04:00 05/09/23 04:00 Venturi Mask 6 05/09/23 04:32 Venturi Mask 9 05/09/23 03:00 Venturi Mask 6 05/09/23 00:00 05/09/23 01:00 Venturi Mask 6 05/09/23 00:00 Nasal Cannula 2 05/08/23 23:00 Room Air 05/08/23 21:00 Room Air 05/08/23 20:00 Room Air 05/08/23 20:00 05/08/23 20:00 Room Air 05/08/23 18:40 Room Air 05/08/23 17:26 Room Air 05/08/23 17:24 Room Air 05/08/23 17:18 Room Air 05/08/23 16:52 Room Air 05/08/23 14:31 Room Air Intake and Output 05/08/23 05/09/23 05/09/23 23:59 07:59 15:59 Intake Total 420 / 420 0 / 0 0 / 0 Output Total 2000 / 2600 600 / 600 Balance -1580 / -2180 -600 / -600 0 / -600 Intake: Intake, Oral Amount 420 / 420 0 / 0 0 / 0 Output: Output, Urine Amount 2000 / 2600 600 / 600 Other: Weight 124.851 kg 127.488 kg 127 kg Patient Weight 05/09/23 23:59 Weight 127 kg Laboratory Results - last 24 hr 05/08/23 13:00: Lactate 0.8 05/08/23 13:15: Urine Color Yellow, Urine Appearance Clear, Urine pH 6.0, Ur Specific [place] 1.015, Urine Protein Trace, Urine Glucose (UA) Negative, Urine Ketones Negative, Urine Blood Negative, Urine Nitrate Negative, Urine Bilirubin Negative, Urine Urobilinogen 0.2, Ur Leukocyte Esterase Negative, Urine RBC None, Urine WBC None, Ur Squamous Epith Cells Occasional, Urine Bacteria Trace 05/08/23 14:05: PT 12.6 H, INR 1.18 H, APTT 27.6, D-Dimer 1.03 H, Sodium 128 L, Potassium 3.2 L, Chloride 82 L, Carbon Dioxide 40 H, Anion Gap 9.2, BUN 14, Creatinine 0.90, Estimated Creat Clear 48, Estimated GFR 62, Est GFR ( Amer) 75, Glucose 93, Calcium 7.9 L, Total Bilirubin 0.7, AST 70 H, ALT 25, Alkaline Phosphatase 53, Troponin I 0.07 H, NT-Pro-B Natriuret Pep 4790 H, Total Protein 6.7, Albumin 3.9, Globulin 2.8, Albumin/Globulin Ratio 1.4, Lipase 16 L, Acetone Level None detected 05/08/23 17:30: Troponin I 0.08 H 05/08/23 19:13: Troponin I 0.07 H 05/08/23 19:52: POC Glucose 92 05/09/23 02:30: POC Glucose 121 H 05/09/23 04:57: POC Glucose 127 H 05/09/23 08:06: WBC 6.2, RBC 4.36, Hgb 11.1 L, Hct 35.8 L, MCV 82.1, MCH 25.5 L, MCHC 31.1 L, RDW 16.5, Plt Count 393, MPV 7.5, Neut % (Auto) 76.4, Lymph % (Auto) 16.3, [place] % (Auto) 6.3, Eos % (Auto) 0.6, Baso % (Auto) 0.4, Neut # (Auto) 4.7, Lymph # (Auto) 1.0, [place] # (Auto) 0.4, Eos # (Auto) 0.0, Baso # (Auto) 0.0, Sodium 129 L, [place]
--- NOTE | 2023-05-09 14:14 | EXP.PULM.CON ---
History of Present Illness History of present illness: Ms. Dickson is a 67-year-old morbidly obese female [facility] resident with reported history of CHF, hypertension, dyslipidemia presented to the hospital with worsening respiratory distress and hypoxic respiratory failure being managed for CHF exacerbation with diuretics continue progressively worsening altered mentation and blood gas today showed worsening hypercarbic respiratory failure needing noninvasive ventilator therapy and pulmonary was called for further evaluation and management. [facility] Disclaimer: The information contained in this section may have been updated after the patient was seen, as this information can be updated by other users. 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 Review of Systems Review of Systems Review of systems:: unable to obtain Review of systems (narrative): Patient lethargic, not responding to verbal stimuli Pulmonology Exam Inpatient Vital signs and Labs for Last 24 Hours: Temp Pulse Resp BP Pulse Ox O2 Del Method O2 Flow Rate 98.0 F 80 17 103/57 L 93 L Venturi Mask 12 05/09/23 11:15 05/09/23 12:00 05/09/23 11:15 05/09/23 11:15 05/09/23 11:15 05/09/23 12:56 05/09/23 12:56 FiO2 30 05/09/23 13:47 Laboratory Results - last 24 hr 05/08/23 14:05: PT 12.6 H, INR 1.18 H, APTT 27.6, D-Dimer 1.03 H, Sodium 128 L, Potassium 3.2 L, Chloride 82 L, Carbon Dioxide 40 H, Anion Gap 9.2, BUN 14, Creatinine 0.90, Estimated Creat Clear 48, Estimated GFR 62, Est GFR ( Amer) 75, Glucose 93, Calcium 7.9 L, Total Bilirubin 0.7, AST 70 H, ALT 25, Alkaline Phosphatase 53, Troponin I 0.07 H, NT-Pro-B Natriuret Pep 4790 H, Total Protein 6.7, Albumin 3.9, Globulin 2.8, Albumin/Globulin Ratio 1.4, Lipase 16 L, Acetone Level None detected 05/08/23 17:30: Troponin I 0.08 H 05/08/23 19:13: Troponin I 0.07 H 05/08/23 19:52: POC Glucose 92 05/09/23 02:30: POC Glucose 121 H 05/09/23 04:57: POC Glucose 127 H 05/09/23 08:06: WBC 6.2, RBC 4.36, Hgb 11.1 L, Hct 35.8 L, MCV 82.1, MCH 25.5 L, MCHC 31.1 L, RDW 16.5, Plt Count 393, MPV 7.5, Neut % (Auto) 76.4, Lymph % (Auto) 16.3, [place] % (Auto) 6.3, Eos % (Auto) 0.6, Baso % (Auto) 0.4, Neut # (Auto) 4.7, Lymph # (Auto) 1.0, [place] # (Auto) 0.4, Eos # (Auto) 0.0, Baso # (Auto) 0.0, Sodium 129 L, Potassium 3.5, Chloride 80 L, Carbon Dioxide 41 H*, Anion Gap 12.5, BUN 17, Creatinine 0.90, Estimated Creat Clear 46, Estimated GFR 62, Est GFR ( Amer) 75, Glucose 126 H D, Calcium 7.9 L, Magnesium 1.4 L, Total Bilirubin 0.5, AST 37 H D, ALT 21, Alkaline Phosphatase 47, Total Protein 6.5, Albumin 3.6, Globulin 2.9, Albumin/Globulin Ratio 1.2, Triglycerides 60, Cholesterol 172, LDL Cholesterol Direct 104.79, VLDL Cholesterol 12, HDL Cholesterol 34 L, Cholesterol/HDL Ratio 5.1 H 05/09/23 13:03: Specimen Source Right radial, O2 % 40% vmask, ABG pH 7.21 L*, ABG pCO2 123.1 H, ABG pO2 79.6 L, ABG HCO3 47.8 H, ABG Total CO2 51.5 H, ABG O2 Saturation 93, ABG Base Excess 15.2 H, Juan J Test Patient unable I & O for Labs for Last 24 Hours: Intake & Output 05/06/23 05/07/23 05/08/23 05/09/23 23:59 23:59 23:59 23:59 Intake Total 420 / 420 0 / 0 Output Total 1999 / 2600 600 / 600 Balance -1580 / -2180 -600 / -600 Weight 275 lb 4 oz 279 lb 15.793 oz Constitutional: Present severe distress Head: Present normocephalic and atraumatic ENT: Prese
--- NOTE | 2023-05-09 14:18 | PC.NURSE ---
PT IS RESTING IN BED WITH FAMILY AT BEDSIDE. ALERT TO NAME ONLY. PT HAS BEEN VERY DROWSY THIS SHIFT. PT DID WAKE UP ENOUGH THIS MORNING TO TAKE HER MEDS. NO XANAX WAS GIVEN THIS MORNING. ABG WAS DONE AT 1300. PT IS NOW ON BIPAP. LUNG SOUNDS DIMINISHED WITH BILATERAL CRACKLES (BASES). ABDOMEN SOFT/LARGE WITH HYPOACTIVE BOWEL SOUNDS. 3-4+ PITTING EDEMA NOTED TO BLE. DIURESING WELL. WILL CONTINUE TO MONITOR.
[2023-05-09 16:32] LABS: ABG Base Excess 21.2 mmol/L (-2.4-2.3); ABG HCO3 45.4 mmhg (22.0-26.0); ABG Oxygen Saturation 97 % (90-100); ABG PH 7.44 mmol/L (7.35-7.45); ABG PO2 83.2 mmhg (80-100); ABG TCO2 47.5 mmhg (23-27)
[2023-05-09 16:33] LABS: Allen's Test Acceptable; Oxygen 25% %; PEEP 24/14; Source Left Radial; Tidal Volume BIPAP; Vent Rate 22
[2023-05-09 16:34] LABS: ABG PCO2 68.8 mmhg (35.0-45.0)
--- NOTE | 2023-05-09 19:25 | PC.NURSE ---
Spoke with sister Emre regarding current pt status. Answered all questions at this time.
[2023-05-10] VITALS (20 sets, daily range): BP systolic 97–157; BP diastolic 37–76; PULSE 70–94; RESP 16–36; TEMP 37.2–38.2; O2SAT 93–100; BMI 44.6
--- NOTE | 2023-05-10 05:29 | PC.NURSE ---
Pt mostly asleep throughout shift, easily arousable to voice at beginning of shift then more drowsy towards end of shift. Pt able to tolerate BiPAP 25% FiO2 throughout shift, SpO2 94-99%. In beginning of shift, pt desatted to 86-89% SpO2 while sleeping despite being on BiPAP and required waking to increase SpO2. RT informed, pt increased in SpO2 later without further intervention. Pt found to be under multiple blankets at beginning of shift, and axillary temperature max 100.7. Blankets removed and room cooled, axillary temperature 99.9. Pt experienced periods of hypotension overnight. No other acute events or issues overnight. Bed alarm on and call light within reach. Pt encouraged to promote independence, e.g., using call light instead of yelling and reaching for water without RN assistance.
--- NOTE | 2023-05-10 06:16 | PC.NURSE ---
Pt bathed this a.m. Pt found tachypneic after bath, requiring multiple cues to slow breathing down. RR 36-40, SpO2 99-100%.
[2023-05-10 07:11] LABS: Basophils % 0.4 % (0.1-2.0); Eosinophils % 0.2 % (0.1-12.0); Hematocrit 32.9 % (37.0-47.0); Hemoglobin 10.6 g/dL (12.2-16.2); Lymphocytes # 1.4 K/mm3 (0.7-4.5); Lymphocytes % 17.4 % (10-50); Mean Corpuscular HGB Conc 32.3 g/dL (31.8-35.4); Mean Corpuscular Hemoglobin 25.4 pg (27.0-31.2); Mean Corpuscular Volume 78.6 fl (81-99); Mean Platelet Volume 7.9 fl (7.4-10.4); Monocytes # 0.8 K/mm3 (0.1-1.0); Monocytes % 10.4 % (1.7-9.3); Neutrophils # 5.7 K/mm3 (1.8-7.8); Neutrophils % 71.7 % (37.0-80.0); Platelet Count 407 K/mm3 (142-424); Red Blood Count 4.18 M/mm3 (4.20-5.40); Red Cell Distribution Width 16.4 % (11.5-17.5)
[2023-05-10 08:19] LABS: Alanine Aminotransferase 27 U/L (12-78); Albumin Level 3.4 g/dl (3.5-5.0); Albumin/Globulin Ratio 1.2 (1.1-1.8); Alkaline Phosphatase 45 U/L (38-126); Aspartate Amino Transferase 43 U/L (14-36); Bilirubin,Total 1.5 mg/dl (0.2-1.3); Blood Urea Nitrogen 23 mg/dl (7-17); Calcium 8.3 mg/dl (8.4-10.2); Chloride 78 mmol/L (98-107); Creatinine Clearance Estimated 46 mL/min (50-200); Estimated Glomerular Filt Rate 55 ml/min (>60); GFR (African American) 67 ML/MIN (>60); Globulin 2.8 g/dL (1.3-3.2); Glucose 95 mg/dl (74-100); Magnesium 1.6 mg/dl (1.6-2.3); Potassium 3.2 mmoL/L (3.5-5.1); Sodium 128 mmol/L (136-145); Total Protein,Serum 6.2 g/dl (6.3-8.2)
[2023-05-10 08:21] LABS: Anion Gap 13.2 mEq/L (5-15)
[2023-05-10 08:26] LABS: Carbon Dioxide 40 mmol/L (22.0-30.0)
--- NOTE | 2023-05-10 09:10 | EXP.CARD.PN ---
Subjective Subjective Date: 05/10/23 Time: 09:10 Principal diagnosis: CHF Interval history: 67-year-old white female in bed on BiPAP therapy. Compared to yesterday patient is more alert and talkative. She has diuresed about 4 L during this admission. Exam Data for Last 24 hours Vital signs and Labs for Last 24 Hours: Temp Pulse Resp BP Pulse Ox O2 Del Method O2 Flow Rate 100.4 F H 79 36 H 131/76 100 Nasal Cannula 3 05/10/23 07:50 05/10/23 06:35 05/10/23 06:05 05/10/23 06:05 05/10/23 06:05 05/10/23 07:00 05/10/23 07:00 FiO2 25 05/10/23 06:34 Laboratory Results - last 24 hr 05/09/23 08:06: Triglycerides 60, Cholesterol 172, LDL Cholesterol Direct 104.79, VLDL Cholesterol 12, HDL Cholesterol 34 L, Cholesterol/HDL Ratio 5.1 H 05/09/23 13:03: Specimen Source Right radial, O2 % 40% vmask, ABG pH 7.21 L*, ABG pCO2 123.1 H, ABG pO2 79.6 L, ABG HCO3 47.8 H, ABG Total CO2 51.5 H, ABG O2 Saturation 93, ABG Base Excess 15.2 H, Juan J Test Patient unable 05/09/23 16:30: Specimen Source Left radial, O2 % 25%, ABG pH 7.44, ABG pCO2 68.8 H, ABG pO2 83.2, ABG HCO3 45.4 H, ABG Total CO2 47.5 H, ABG O2 Saturation 97, ABG Base Excess 21.2 H, Juan J Test Acceptable, Vent Rate 22, Tidal Volume Bipap, PEEP 24/14 05/10/23 06:21: WBC 8.0 D, RBC 4.18 L, Hgb 10.6 L, Hct 32.9 L, MCV 78.6 L, MCH 25.4 L, MCHC 32.3, RDW 16.4, Plt Count 407, MPV 7.9, Neut % (Auto) 71.7, Lymph % (Auto) 17.4, [place] % (Auto) 10.4 H, Eos % (Auto) 0.2, Baso % (Auto) 0.4, Neut # (Auto) 5.7, Lymph # (Auto) 1.4, [place] # (Auto) 0.8, Eos # (Auto) 0.0, Baso # (Auto) 0.0, Sodium 128 L, Potassium 3.2 L, Chloride 78 L, Carbon Dioxide 40 H, Anion Gap 13.2, BUN 23 H D, Creatinine 1.00, Estimated Creat Clear 46, Estimated GFR 55 L, Est GFR ( Amer) 67, Glucose 95 D, Calcium 8.3 L, Magnesium 1.6 D, Total Bilirubin 1.5 H, AST 43 H, ALT 27 D, Alkaline Phosphatase 45, Total Protein 6.2 L, Albumin 3.4 L, Globulin 2.8, Albumin/Globulin Ratio 1.2 I & O for Last 24 hours: Intake & Output 05/07/23 05/08/23 05/09/23 05/10/23 11:59 11:59 11:59 11:59 Intake Total 420 / 420 290 / 290 Output Total 2600 / 2600 2150 / 2150 Balance -2180 / -2180 -1860 / -1860 Weight 279 lb 15.793 oz 268 lb 4.841 oz Constitutional Constitutional: no acute distress *Routine Respiratory Exam Respiratory: Present decreased breath sounds *Routine Cardiovascular Exam Cardiovascular: Present RRR *Routine Extremities Exam Extremities: Present edema *Routine Neurological Exam Neurological: Present alert Progress Note: A&P Assessment and plan (1) Hypercapnic respiratory failure: Status: Acute (2) Altered mental status: Status: Resolved (3) Dementia: Status: Chronic (4) Hypertension: Status: Chronic (5) Hyperlipidemia: Status: Chronic (6) Morbid obesity with BMI of 45.0-49.9, adult: Status: Acute (7) Chronic anemia: Status: Chronic (8) CHF (congestive heart failure): Status: Acute Assessment and Plan Assessment and Plan for All Diagnoses:: 1. Dementia -chronic per sister -more alert today after BiPAP therapy last night -Pt is on seroquel and xanax (adjusted down this admission) 2. Elevated troponins and abnormal EKG compared to 2021 tracing -Likely related to respiratory issues (no PE on CTA of chest) -Echo shows normal biventricular systolic function with mild RV dilatation. No significant valve disease -continue diuresis -Continue aspirin 3. Acute hypoxic respiratory failure -management per Respiratory and Hospitalist -No evidence of PE on CTA 4. Elevated BNP with exacerbation of CHF/HFpEF -Continue diuresis -diastolic parameters indeterminate on echo but marked increase in LV wall thickness noted (1.5 cm) with RVSP 15-20 mm Hg 5. Hyponatremia, acute on chronic -Sodium 128 today 6. Hypertension, controlled -Continue bisoprolol and Cardura. Will adjust hydralazine down due to borderline low BP at times. 7. Mor
--- NOTE | 2023-05-10 09:47 | EXP.PULM.PN ---
Subjective *Date: 05/10/23 *Time: 11:30 Interval history: No acute respiratory vents overnight. Pulmonology Exam Inpatient Vital signs and Labs for Last 24 Hours: Temp Pulse Resp BP Pulse Ox O2 Del Method O2 Flow Rate 100.4 F H 79 36 H 131/76 100 Nasal Cannula 3 05/10/23 07:50 05/10/23 06:35 05/10/23 06:05 05/10/23 06:05 05/10/23 06:05 05/10/23 07:00 05/10/23 07:00 FiO2 25 05/10/23 06:34 Laboratory Results - last 24 hr 05/09/23 08:06: Triglycerides 60, Cholesterol 172, LDL Cholesterol Direct 104.79, VLDL Cholesterol 12, HDL Cholesterol 34 L, Cholesterol/HDL Ratio 5.1 H 05/09/23 13:03: Specimen Source Right radial, O2 % 40% vmask, ABG pH 7.21 L*, ABG pCO2 123.1 H, ABG pO2 79.6 L, ABG HCO3 47.8 H, ABG Total CO2 51.5 H, ABG O2 Saturation 93, ABG Base Excess 15.2 H, Juan J Test Patient unable 05/09/23 16:30: Specimen Source Left radial, O2 % 25%, ABG pH 7.44, ABG pCO2 68.8 H, ABG pO2 83.2, ABG HCO3 45.4 H, ABG Total CO2 47.5 H, ABG O2 Saturation 97, ABG Base Excess 21.2 H, Juan J Test Acceptable, Vent Rate 22, Tidal Volume Bipap, PEEP 24/14 05/10/23 06:21: WBC 8.0 D, RBC 4.18 L, Hgb 10.6 L, Hct 32.9 L, MCV 78.6 L, MCH 25.4 L, MCHC 32.3, RDW 16.4, Plt Count 407, MPV 7.9, Neut % (Auto) 71.7, Lymph % (Auto) 17.4, [place] % (Auto) 10.4 H, Eos % (Auto) 0.2, Baso % (Auto) 0.4, Neut # (Auto) 5.7, Lymph # (Auto) 1.4, [place] # (Auto) 0.8, Eos # (Auto) 0.0, Baso # (Auto) 0.0, Sodium 128 L, Potassium 3.2 L, Chloride 78 L, Carbon Dioxide 40 H, Anion Gap 13.2, BUN 23 H D, Creatinine 1.00, Estimated Creat Clear 46, Estimated GFR 55 L, Est GFR ( Amer) 67, Glucose 95 D, Calcium 8.3 L, Magnesium 1.6 D, Total Bilirubin 1.5 H, AST 43 H, ALT 27 D, Alkaline Phosphatase 45, Total Protein 6.2 L, Albumin 3.4 L, Globulin 2.8, Albumin/Globulin Ratio 1.2 I & O for Labs for Last 24 Hours: Intake & Output 05/07/23 05/08/23 05/09/23 05/10/23 23:59 23:59 23:59 23:59 Intake Total 420 / 420 50 / 50 240 / 240 Output Total 2000 / 2600 2700 / 2700 50 / 50 Balance -1580 / -2180 -2650 / -2650 190 / 190 Weight 275 lb 4 oz 279 lb 15.793 oz 268 lb 4.841 oz Constitutional: Present severe distress Head: Present normocephalic and atraumatic ENT: Present normal exam, normal oropharynx and mucous membranes moist Neck: Present normal inspection and full ROM Respiratory: Present prolonged expiratory phase, distant breath sounds, normal respiratory effort and able to speak in complete sentences; Absent wheezes Cardiac: Present S1/S2, Tachycardia and radial pulses present GI: Present soft and distention; Absent tenderness or guarding Rectal (female): Present deferred (female): Present deferred Skin: Present intact; Absent cyanosis or jaundice Neuro: Present awake; Absent alert or oriented x 3 Extremities: Present normal inspection; Absent clubbing or cyanosis Psychiatric: Present normal affect and cooperative Assessment and Plan *Assessment and plan (1) Hypercapnic respiratory failure: Status: Acute Qualifiers: Chronicity: acute on chronic Qualified Code(s): J96.22 - Acute and chronic respiratory failure with hypercapnia Category: Medical Code(s): J96.92 - Respiratory failure, unspecified with hypercapnia (2) Altered mental status: Status: Resolved Qualifiers: Altered mental status type: disorientation Qualified Code(s): R41.0 - Disorientation, unspecified Category: Medical Code(s): R41.82 - Altered mental status, unspecified (3) ELIANA (obstructive sleep apnea): Status: Acute Category: Medical Code(s): G47.33 - Obstructive sleep apnea (adult) (pediatric) Plan Ms. Dickson is a 67-year-old morbidly obese female detention resident with reported history of CHF, hypertension, dyslipidemia presented to the hospital with worsening respiratory distress and hypoxic respiratory failure being managed for CHF exacerbation with diuretics continue progressively worsening altered men
--- NOTE | 2023-05-10 11:49 | HMH.OTEV ---
OT Inpatient Evaluation Rehab OT IP Evaluation Start: 05/10/23 10:20 Freq: ONCE Status: Active Protocol: Document 05/10/23 11:45 [email or web address] (Rec: 05/10/23 11:49 [email or web address] [id number]) Rehab OT IP Assessment Subjective History Patient is a 67-year-old female with past medical history of CHF, hypertension hyperlipidemia who presented to hospital with due to shortness of breath. Patient was noted to have weight gain, hypoxia. Patient currently lives at [facility] facility . Patient denied diarrhea constipation dysuria fevers chills. Patient is a resident at [facility]. Resident is able to ambulate with AE/devices within facility. Patient able to feed herself and does require minimal assistance for ADLs. Subjective I can get up. Instructed Patient on proper hand and foot placement to complete bed mobility of supine->sit @ EOB->SPT to BSC- >SPT to recliner. Patient required Min A x2 to complete all transfers for safety. No LOB noted. Left Patient up in chair with needs met at end of session. Objective Patient Orientation Person,Place,Name,Age Right Upper Extremity Gross ROM WFL Left Upper Extremity Gross ROM WFL Bed Mobility bed mobility - supine/sit Assist Level Minimal x 2 (25% assist) Transfer Training Sit/Stand/Pivot Transfer Assist Level Minimal x 2 (25% assist) Chair Transfer Ability Minimal x 2 (25% assist) Chair Transfer Technique Sit to/from Ambulatory Chair Transfer Assistive Devices Rolling Walker Lower Body Dressing Ability Maximum Assistance Performing Toilet Hygiene Ability Maximum Assistance Overall Commode/Toilet Transfer Ability Minimal Assistance Commode/Toilet Transfer Technique Sit to/from Ambulatory Rehab OT IP prob,goals,plan Problems Date of Evaluation: 05/10/23 OT IP Problems Bed Mobility,Transfers,Balance ,Self care,Safety Rehab Potential Rehab Potential Good
--- NOTE | 2023-05-10 11:57 | HMH.PTEV ---
Physical Therapy Evaluation Rehab PT IP Evaluation Start: 05/10/23 10:20 Freq: ONCE Status: Active Protocol: Document 05/10/23 11:53 MER (Rec: 05/10/23 11:56 MER [id number]) Subjective/History History History 67 yowf with past medical history of CHF, hypertension hyperlipidemia who presented to hospital with due to shortness of breath. Patient was noted to have weight gain, hypoxia. Patient currently lives at residential facility . Patient denied diarrhea constipation dysuria fevers chills. Patient is a resident at [facility]. Resident is able to ambulate with AE/devices within facility. Patient able to feed herself and does require minimal assistance for ADLs. Subjective Subjective Pt reports feling some weakness, but agrees to mobility assessment. New diagnosis of cancer in past 12 No months? Rehab PT IP Eval Objective Appearance Patient Behavior Appropriate Patient Orientation Person,Place Difficulty following instructions none Speech Pattern Clear Ambulation Patient Able to Ambulate Yes Ambulation Observation IP General Gait Pattern Observation Wide Based Gait,Shuffling Step Ambulation Distance (feet) 5 Ambulation Assistive Device None Ambulation Ability Minimal x 2 (25% assist) Balance Ability to Arise Able, uses arms to help Sitting Balance Steady, safe Standing Balance Steady, wide stance Dynamic Sitting Balance Ability Fair Dynamic Standing Balance Ability Fair Transfers Bed Transfer Ability Minimal x 2 (25% assist) Chair Transfer Ability Minimal x 2 (25% assist) Sit to Stand Bed Transfer Ability Minimal x 2 (25% assist) Sit to Stand Chair Transfer Ability Minimal x 2 (25% assist) Rehab PT IP prob,goals,plan Problems Date of Evaluation: 05/10/23 PT IP Problems Bed Mobility,Transfers,Gait Rehab Potential Rehab Potential Good Plan PT Intervention Plan Bed Mobility,Transfers,Gait, Therapeutic Exercise PT Plan Frequency Daily Duration LOS Discharge Goals Bed Transfer Ability Min
[2023-05-10 13:50] LABS: ABG Base Excess 15.1 mmol/L (-2.4-2.3); ABG HCO3 38.1 mmhg (22.0-26.0); ABG Oxygen Saturation 95 % (90-100); ABG PCO2 48.9 mmhg (35.0-45.0); ABG PH 7.51 mmol/L (7.35-7.45); ABG PO2 71.5 mmhg (80-100); ABG TCO2 39.6 mmhg (23-27)
[2023-05-10 14:02] LABS: Allen's Test ACCEPTABLE; Oxygen ROOM AIR %; Source R RADIAL
--- OUTSIDE RECORDS SUMMARY | 2023-05-10 17:23 | XMS_ITS | Continuity of Care Document ---
Author Name Unknown Organization [address] [place] [address] [place] [address] Phone Care Team Providers Care Money Manager Name Role Phone Alexandr Riley DPM Unavailable Unavailable Allergies, Adverse Reactions, Alerts Substance Reaction Status Criticality prednisone Active No Information Medications Medication Instructions Dosage Effective Dates (start - stop) Status Comments bumetanide 2 mg tablet - Act johnny bisoprolol fumarate 10 mg tablet - Active quetiapine 200 mg tablet - A ctive hydrocortisone 2.5 % topical cream - Active albuterol sulfate 2.5 mg/3 mL (0.083 %) solution for nebulization - Active mirtazapine 15 mg tablet - A ctive mirtazapine 45 mg tablet - A ctive amoxicillin 875 mg-potassium clavulanate 125 mg tablet - Active sulfamethoxazole 400 mg-trimethoprim 80 mg tablet - Active sulfamethoxazole 800 mg-trimethoprim 160 mg tablet - Active ondansetron 4 mg disintegrating tablet - Active quetiapine 100 mg tablet - A ctive potassium chloride ER 10 mEq tablet,extended
--- NOTE | 2023-05-10 17:37 | PC.NURSE ---
Addendum entered by Musa Adam RN 05/10/23 18:05: PT ALSO RECEIVED PRN TYLENOL FOR FEVER THIS MORNING. Original Note: pt tolerating 3lnc well. has sat up to chair for most of shift. using bedside commode with assistance for elimination.
--- NOTE | 2023-05-10 20:02 | EXP.ACUTE.PN ---
Subjective *Date: 05/10/23 *Time: 21:48 Interval history: Patient more alert this morning. Oriented to self and place. On nasal cannula oxygen. Wore BiPAP all night. Appears to be at baseline mentation. Therapy getting her to bedside chair. Denies any chest pain or shortness of breath. Overall showing good improvement. Still quite edematous. But diuresing well. -4 L since admission Medical Exam Vital signs and Labs for Last 24 Hours: Vital Signs Temp Pulse Pulse Resp BP BP Pulse Ox 05/10/23 18:48 05/10/23 18:41 05/10/23 18:40 79 05/10/23 18:40 74 05/10/23 16:17 76 05/10/23 16:44 98.5 F 88 20 145/72 H 90 L 05/10/23 16:35 05/10/23 16:00 99.0 F 85 22 108/49 L 95 05/10/23 15:00 05/10/23 13:00 05/10/23 12:00 82 05/10/23 12:00 81 26 H 120/37 L 95 05/10/23 10:00 83 29 H 157/60 H 97 05/10/23 08:00 92 H 28 H 132/48 L 97 05/10/23 08:00 77 05/10/23 11:00 05/10/23 09:00 05/10/23 08:00 94 H 05/10/23 11:26 99.4 F 05/10/23 11:01 78 05/10/23 11:01 76 05/10/23 06:35 79 05/10/23 06:35 79 05/10/23 06:34 05/10/23 07:50 100.4 F H 05/10/23 07:00 05/10/23 06:05 81 36 H 131/76 100 05/10/23 04:00 80 05/10/23 04:59 05/10/23 04:29 99.9 F H 05/10/23 04:00 100.7 F H 05/10/23 04:00 83 18 94 L 05/10/23 04:00 83 17 101/60 L 94 L 05/10/23 02:58 05/10/23 02:00 86 16 97/50 L 93 L 05/10/23 01:53 86 05/10/23 01:53 86 05/10/23 01:53 05/10/23 00:00 93 L 05/10/23 01:00 05/10/23 00:00 90 05/10/23 00:00 99.5 F 86 26 H 97/53 L 93 L 05/09/23 23:00 05/09/23 22:05 88 28 H 100/52 L 96 05/09/23 22:03 88 05/09/23 22:03 88 05/09/23 21:00 O2 Del Method O2 Flow Rate FiO2 05/10/23 18:48 Nasal Cannula 3 05/10/23 18:41 Nasal Cannula 3 32 05/10/23 18:40 05/10/23 18:40 05/10/23 16:17 05/10/23 16:44 Room Air 05/10/23 16:35 Nasal Cannula 3 05/10/23 16:00 Nasal Cannula 2 05/10/23 15:00 Nasal Cannula 3 05/10/23 13:00 Nasal Cannula 3 05/10/23 12:00 05/10/23 12:00 Nasal Cannula 3 05/10/23 10:00 05/10/23 08:00 05/10/23 08:00 BiPAP 05/10/23 11:00 Nasal Cannula 3 05/10/23 09:00 Nasal Cannula 3 05/10/23 08:00 05/10/23 11:26 05/10/23 11:01 05/10/23 11:01 05/10/23 06:35 05/10/23 06:35 05/10/23 06:34 25 05/10/23 07:50 05/10/23 07:00 Nasal Cannula 3 05/10/23 06:05 BiPAP 25 05/10/23 04:00 05/10/23 04:59 BiPAP 05/10/23 04:29 05/10/23 04:00 05/10/23 04:00 BiPAP 25 05/10/23 04:00 BiPAP 05/10/23 02:58 BiPAP 05/10/23 02:00 BiPAP 25 05/10/23 01:53 05/10/23 01:53 05/10/23 01:53 25 05/10/23 00:00 BiPAP 25 05/10/23 01:00 BiPAP 05/10/23 00:00 05/10/23 00:00 BiPAP 05/09/23 23:00 BiPAP 05/09/23 22:05 BiPAP 25 05/09/23 22:03 05/09/23 22:03 05/09/23 21:00 BiPAP Intake and Output 05/10/23 05/10/23 05/10/23 07:59 15:59 23:59 Intake Total 240 / 900 240 / 900 420 / 900 Output Total 50 / 650 600 / 650 Balance 190 / 250 240 / 250 -180 / 250 Intake: Intake, Oral Amount 240 / 900 240 / 900 420 / 900 Output: Output, Urine Amount 50 / 650 600 / 650 Other: Number of Voids 1 Number of Unmeasured Voids 1 Weight 121.7 kg 0 g Patient Weight 05/10/23 23:59 Weight 0 g Laboratory Results - last 24 hr 05/10/23 06:21: WBC 8.0 D, RBC 4.18 L, Hgb 10.6 L, Hct 32.9 L, MCV 78.6 L, MCH 25.4 L, MCHC 32.3, RDW 16.4, Plt Count 407, MPV 7.9, Neut % (Auto) 71.7, Lymph % (Auto) 17.4, [place] % (Auto) 10.4 H, Eos % (Auto) 0.2, Baso % (Auto) 0.4, Neut # (Auto) 5.7, Lymph # (Auto) 1.4, [place] # (Auto) 0.8, Eos # (Auto) 0.0, Baso
[2023-05-11] VITALS (7 sets, daily range): BP systolic 112–134; BP diastolic 52–72; PULSE 70–94; RESP 19–22; TEMP 36.6–37.2; O2SAT 92–99; BMI 50.5
--- NOTE | 2023-05-11 03:58 | PC.NURSE ---
Pt was asleep in chair at beginning of shift and was on 4L NC. Pt has since been on Bi-pap and is resting in bed with feet and legs elevated. Pt is intolerant of Bi-pap and wants to remove mask at times. staff must reorient pt and reposition Bipap often. Pt bilateral lower extremities, ankles, and feet remain +3 pitting despite elevation for most of the shift. Pt denies pain and other needs at this time
[2023-05-11 06:22] LABS: Basophils % 0.3 % (0.1-2.0); Eosinophils % 0.2 % (0.1-12.0); Hematocrit 33.1 % (37.0-47.0); Hemoglobin 10.3 g/dL (12.2-16.2); Lymphocytes # 1.6 K/mm3 (0.7-4.5); Lymphocytes % 16.7 % (10-50); Mean Corpuscular HGB Conc 31.2 g/dL (31.8-35.4); Mean Corpuscular Hemoglobin 25.1 pg (27.0-31.2); Mean Corpuscular Volume 80.5 fl (81-99); Mean Platelet Volume 7.8 fl (7.4-10.4); Monocytes # 0.8 K/mm3 (0.1-1.0); Monocytes % 8.9 % (1.7-9.3); Neutrophils # 6.9 K/mm3 (1.8-7.8); Neutrophils % 73.8 % (37.0-80.0); Platelet Count 368 K/mm3 (142-424); Red Blood Count 4.11 M/mm3 (4.20-5.40); Red Cell Distribution Width 16.4 % (11.5-17.5); White Blood Count 9.4 K/mm3 (4.8-10.8)
[2023-05-11 06:35] LABS: Alanine Aminotransferase 21 U/L (12-78); Alkaline Phosphatase 75 U/L (38-126); Aspartate Amino Transferase 38 U/L (14-36); Bilirubin,Total 1.8 mg/dl (0.2-1.3); Blood Urea Nitrogen 21 mg/dl (7-17); Chloride 82 mmol/L (98-107); Creatinine Clearance Estimated 43 mL/min (50-200); Estimated Glomerular Filt Rate 62 ml/min (>60); GFR (African American) 75 ML/MIN (>60)
[2023-05-11 06:36] LABS: Albumin Level 3.6 g/dl (3.5-5.0); Albumin/Globulin Ratio 1.3 (1.1-1.8); Calcium 7.8 mg/dl (8.4-10.2); Globulin 2.8 g/dL (1.3-3.2); Glucose 104 mg/dl (74-100); Sodium 129 mmol/L (136-145); Total Protein,Serum 6.4 g/dl (6.3-8.2)
[2023-05-11 06:41] LABS: Carbon Dioxide 38 mmol/L (22.0-30.0)
[2023-05-11 07:39] LABS: Magnesium 1.5 mg/dl (1.6-2.3)
--- NOTE | 2023-05-11 07:41 | EXP.CARD.PN ---
Subjective Subjective Date: 05/11/23 Time: 07:41 Principal diagnosis: CHF Interval history: 67-year-old white female sitting in bedside chair in no acute distress. Much more alert and interactive today. Denies any chest pain. Exam Data for Last 24 hours Vital signs and Labs for Last 24 Hours: Temp Pulse Resp BP Pulse Ox O2 Del Method O2 Flow Rate 99.0 F 83 20 134/68 93 L Nasal Cannula 4 05/11/23 04:00 05/11/23 05:58 05/11/23 04:00 05/11/23 04:00 05/11/23 05:58 05/11/23 06:35 05/11/23 06:35 FiO2 25 05/10/23 23:25 Laboratory Results - last 24 hr 05/10/23 06:21: Sodium 128 L, Potassium 3.2 L, Chloride 78 L, Carbon Dioxide 40 H, Anion Gap 13.2, BUN 23 H D, Creatinine 1.00, Estimated Creat Clear 46, Estimated GFR 55 L, Est GFR ( Amer) 67, Glucose 95 D, Calcium 8.3 L, Magnesium 1.6 D, Total Bilirubin 1.5 H, AST 43 H, ALT 27 D, Alkaline Phosphatase 45, Total Protein 6.2 L, Albumin 3.4 L, Globulin 2.8, Albumin/Globulin Ratio 1.2 05/10/23 13:00: Specimen Source R radial, O2 % Room air, ABG pH 7.51 H, ABG pCO2 48.9 H, ABG pO2 71.5 L, ABG HCO3 38.1 H, ABG Total CO2 39.6 H, ABG O2 Saturation 95, ABG Base Excess 15.1 H, Juan J Test Acceptable 05/11/23 05:23: WBC 9.4, RBC 4.11 L, Hgb 10.3 L, Hct 33.1 L, MCV 80.5 L, MCH 25.1 L, MCHC 31.2 L, RDW 16.4, Plt Count 368, MPV 7.8, Neut % (Auto) 73.8, Lymph % (Auto) 16.7, Allen % (Auto) 8.9, Eos % (Auto) 0.2, Baso % (Auto) 0.3, Neut # (Auto) 6.9, Lymph # (Auto) 1.6, Allen # (Auto) 0.8, Eos # (Auto) 0.0, Baso # (Auto) 0.0 I & O for Last 24 hours: Intake & Output 05/08/23 05/09/23 05/10/23 05/11/23 11:59 11:59 11:59 11:59 Intake Total 420 / 420 290 / 290 900 / 900 Output Total 2600 / 2600 2150 / 2150 1500 / 1500 Balance -2180 / -2180 -1860 / -1860 -600 / -600 Weight 279 lb 15.793 oz 268 lb 4.841 oz 276 lb 9.6 oz Constitutional Constitutional: no acute distress *Routine Respiratory Exam Respiratory: Present diminished air movement *Routine Cardiovascular Exam Cardiovascular: Present RRR *Routine Extremities Exam Extremities: Present edema Progress Note: A&P Assessment and plan (1) Hypercapnic respiratory failure: Status: Acute (2) CHF (congestive heart failure): Status: Acute (3) Acute hypoxemic respiratory failure: Status: Acute (4) Hyperlipidemia: Status: Chronic (5) Hypertension: Status: Chronic (6) Peripheral edema: Status: Chronic (7) Morbid obesity with BMI of 45.0-49.9, adult: Status: Acute Assessment and Plan Assessment and Plan for All Diagnoses:: 1. Dementia -chronic per sister -more alert today after BiPAP therapy again last night -Pt is on seroquel and xanax (adjusted down this admission) 2. Elevated troponins and abnormal EKG compared to 2021 tracing -Likely related to respiratory issues (no PE on CTA of chest) -Echo shows normal biventricular systolic function with mild RV dilatation. No significant valve disease -continue diuresis -Continue aspirin 3. Acute hypoxic respiratory failure/hypercapneic respiratory failure -management per Respiratory and Hospitalist -No evidence of PE on CTA 4. Elevated BNP with exacerbation of CHF/HFpEF -Continue diuresis -diastolic parameters indeterminate on echo but marked increase in LV wall thickness noted (1.5 cm) with RVSP 15-20 mm Hg 5. Hyponatremia, acute on chronic -Sodium pending this AM 6. Hypertension, controlled -Continue bisoprolol and Cardura. -stop hydralazine -start lisinopril 2.5 mg BID 7. Morbid obesity/pickwickian syndrome/OHS -hypoventilation syndrome improved with BiPAP therapy -reportedly told she needed treatment in past but never complied -defer to Pulmonary 8. Chronic anemia, -10.6 today 9. History of hyperlipidemia -LDL 104 this admission 10. Hypokalemia -continue supplementation -Adding lisinopril and spironolactone which will help Continue diuresis with close monitoring of renal and electroly
[2023-05-11 08:27] LABS: Anion Gap 11.8 mEq/L (5-15); Potassium 2.8 mmoL/L (3.5-5.1)
--- NOTE | 2023-05-11 11:40 | EXP.DC.SUM ---
General Admission date:: 05/08/23 Discharge date: 05/11/23 HPI HPI HPI: Patient is a 67-year-old female with past medical history of CHF, hypertension hyperlipidemia who presented to hospital with due to shortness of breath. Patient was noted to have weight gain, hypoxia. Patient currently lives at [facility] facility. Patient denied diarrhea constipation dysuria fevers chills. Hospital Course Hospital Course Hospital Course: Patient is a 67-year-old female with past medical history of CHF, hypertension hyperlipidemia who presented to hospital with due to shortness of breath. Patient was noted to have weight gain, hypoxia. Patient currently lives at [facility] facility. Mentation improved with use of BiPAP. Pulmonology consulted along with cardiology and assisting with care. Patient has been diuresing well. Responded well to BiPAP overnight with improvement in mentation. At this point she is back to baseline mentation. Necessitating oxygen only when at rest, when active and mobile, O2 sats are appropriate. Stable for discharge back to nursing facility. Problems during hospitalization addressed as follows: Acute hypoxemic and hypercapnic respiratory failure Obesity hypoventilation syndrome -White cell count normal today at 9.4. Has been doing well with BiPAP overnight. Mentation back to baseline. Continue oxygen as needed for sats greater than 90%. Plan to continue BiPAP at night. Pulmonology was consulted with their recommendations as follows: Continue nasal oxygen supplementation to maintain O2 saturation above 90% and above. Continue BiPAP therapy at 20/14 with a rate of 18 FiO2 25% while asleep Nebs every 6 hours scheduled Acute on chronic CHF Hypertension Hyperlipidemia -Cardiology consulted, appreciate their rec's. Recommend continuing home diuresis. Patient is negative since admission. Still has volume to give however. Transition back to Bumex 2 mg daily. Initiate lisinopril 2.5 mg twice daily. Kidney function is done well with diuresis with creatinine 0.9 and BUN of 21. Having some electrolyte disturbances that we will continue to replace orally. Continue magnesium and potassium supplementation orally at discharge. Needs repeat CMP and magnesium level in 1 week. Echo obtained during admission: Normal BiV function. Preserved ejection fraction. Mildly dilated RV. - Spironolactone added to diuresis regimen. Continue bisoprolol. Stop hydralazine and Lasix. Dementia Acute encephalopathy, metabolic due to hypercarbia and toxic due to medications - Patient has been dealing with dementia for several years. Per family at bedside. Xanax held during admission. Recommend decreasing available dosage to twice daily only as needed for severe anxiety. Has done well on decreased dose of Seroquel 2. Continue 100 mg twice daily. Reevaluate need for adjustment in the outpatient setting. Morbid obesity complicates all aspects of her care Spent 30 minutes in discharge counseling, documentation, chart review, discussion with subspecialists, and direct care with patient. Exam Data for Last 24 hours Vital signs and Labs for Last 24 Hours: Temp Pulse Resp BP Pulse Ox O2 Del Method O2 Flow Rate 98.1 F 78 22 115/52 L 92 L Nasal Cannula 4 05/11/23 08:00 05/11/23 10:42 05/11/23 08:00 05/11/23 08:00 05/11/23 08:00 05/11/23 08:00 05/11/23 06:35 FiO2 25 05/10/23 23:25 Laboratory Results - last 24 hr 05/10/23 13:00: Specimen Source R radial, O2 % Room air, ABG pH 7.51 H, ABG pCO2 48.9 H, ABG pO2 71.5 L, ABG HCO3 38.1 H, ABG Total CO2 39.6 H, ABG O2 Saturation 95, ABG Base Excess 15.1 H, Juan J Test Acceptable 05/11/23 05:23: WBC 9.4, RBC 4.11 L, Hgb 10.3 L, Hct 33.1 L, MCV 80.5 L, MCH 25.1 L, MCHC 31.2 L, RDW 16.4, Plt Count 368, MPV 7.8, Neut % (Auto) 73.8, Lymph % (Auto) 16.7, [place]ady % (Auto) 8.9, Eos % (Auto) 0.2, Baso % (Auto) 0.3, Neut # (Auto) 6.9, Lymph # (Auto) 1.6, [place]ady # (Auto) 0.8, Eos # (Au
== END 2023-05-11 18:19 | DRG 291 ==
LOC: ER 15:41 → 2ND 16:29
PROVIDERS: Internal Medicine Adolescent Medicine; Internal Medicine Pulmonary Disease; Physician Assistant; Admitting Provider Internal Medicine; Emergency Provider Emergency Medicine; PCP Family Medicine; Visit Provider Internal Medicine
DX: I11.0 Hypertensive heart disease with heart failure; G92.8 Other toxic encephalopathy; J96.22 Acute and chronic respiratory failure with hypercapnia; J96.02 Acute respiratory failure with hypercapnia; J96.01 Acute respiratory failure with hypoxia; I50.33 Acute on chronic diastolic (congestive) heart failure; Z68.42 Body mass index [BMI] 45.0-49.9, adult; E87.1 Hypo-osmolality and hyponatremia; Z68.43 Body mass index [BMI] 50.0-59.9, adult; E66.2 Morbid (severe) obesity with alveolar hypoventilation; R41.0 Disorientation, unspecified; F03.90 Unspecified dementia, unspecified severity, without behavioral disturbance, psychotic disturbance, mood disturbance, and anxiety; D64.89 Other specified anemias
CPT/HCPCS: 36415; 71045; 71275; 80053; 80061; 81001; 82009; 82803; 82962; 83605; 83690; 83735; 83880; 84484; 85025; 85378; 85610; 85730; 87040; 93005; 93306; 94640; 94660; 97116; 97163; 97165; 97530; 97535; 99291; J3475; Q9967

== ENCOUNTER 2023-05-12 13:55 | Emergency (ER) | payer MEDICARE, SELFPAY ==
[2023-05-12 13:56] VITALS: BP 128/67; PULSE 73; RESP 20; TEMP 37; O2SAT 99; BMI 47.4
--- NOTE | 2023-05-12 13:58 | PC.NURSE ---
DR MOORE AT BEDSIDE
--- NOTE | 2023-05-12 14:06 | HMH.EDGENADL ---
Discharge Plan Disposition Patient Disposition: Xfer SNF Condition: Good Prescriptions Prescriptions: No Action multivitamin Tablet 1 tab PO DAILY sodium chloride 1 gram Tablet 1,000 mg PO BID bisoprolol fumarate 10 mg tablet 10 mg PO DAILY omeprazole 20 MG capsule,delayed release(DR/EC) 20 mg PO DAILY aspirin 81 MG tablet,delayed release (DR/EC) 81 mg PO DAILY calcium carbonate-vitamin D3 1 EACH tablet,chewable 600 mg PO DAILY acetaminophen 500 MG tablet 500 mg PO Q8HP PRN (Reason: Mild Pain (Scale Score 1-4)) doxazosin 4 mg tablet 4 mg PO HS sennosides [senna] 8.6 mg Tablet 8.6 mg PO DAILY cetirizine 10 mg Tablet 10 mg PO DAILY bumetanide 1 mg tablet 2 mg PO DAILY quetiapine 100 mg Tablet 100 mg PO BID 30 Days Qty: 60 0RF spironolactone 25 mg Tablet 25 mg PO DAILY 30 Days Qty: 30 0RF alprazolam 0.5 mg Tablet 0.5 mg PO BIDP PRN (Reason: anxiety) 30 Days Qty: 60 0RF potassium chloride [Klor-Con M20] 20 mEq Tablet,Er Particles/Crystals 20 meq PO BID 30 Days Qty: 60 0RF lisinopril 2.5 mg Tablet 2.5 mg PO BID 30 Days Qty: 60 0RF Activity Restrictions/Add. Instructions Additional Instructions/Restrictions: You were evaluated in the emergency department today. Please use your BiPAP while sleeping. Continue taking medications at home, including diuretics. Return to the emergency department for any new or worsening symptoms. Clinical Impressions Clinical Impression: ELIANA (obstructive sleep apnea), Chronic hypercapnic respiratory failure Instructions Patient Instructions: DI for Obstructive Sleep Apnea -- Adult Discharge ED Provider: Mae Farmer General Adult HPI General Chief complaint: Recheck/Abnormal Lab/Rx Stated complaint: sent from [place] for check Time Seen by Provider: 05/12/23 14:00 Mode of Arrival: EMS Source of Information: Patient and EMS Limitations: No Limitations Description of Symptoms (Recalled from ER Triage Doc. by RN): PT SENT FROM [facility], STAFF REPORTED THAT PT WAS DIFFICULT TO AROUSE AFTER LUNCH, PT WITHOUT NEEDS OR CONCERNS. REQUESTING TO EAT AT THIS TIME. PT ALERT AND ORIENTED AT BASELINE. History of Present Illness HPI narrative: This patient is a 67-year-old female with a history of ELIANA, morbid obesity, CHF, chronic respiratory failure on 2 L nasal cannula, NSTEMI, hypertension, hyperlipidemia, and obesity presenting to the emergency department for evaluation with concern for somnolence after lunch today. According to EMS, they were called to the nursing facility with concern for somnolence after lunch. The nursing facility reported that the patient was difficult to arouse. Upon EMS arrival, they noted the patient was alert and oriented without complaints. Here, the patient denies any concerns or complaints. States that she feels like she is actually doing better since discharge. She states that she feels like she is less swollen and is doing well. She currently states that she is hungry and is ready to eat again. Related Data Home Medications Medication Instructions Recorded Confirmed omeprazole 20 mg capsule,delayed 20 mg PO DAILY acid reflux 01/21/21 05/08/23 release aspirin 81 mg tablet,delayed 81 mg PO DAILY Heart Health 01/22/21 05/08/23 release acetaminophen 500 mg tablet 500 mg PO Q8HP PRN Mild Pain 08/23/21 05/08/23 (Scale Score 1-4) calcium carbonate 600 mg-vitamin 600 mg PO DAILY Supplement 08/23/21 05/08/23 D3 20 mcg (800 unit) chewable tablet multivitamin 1 tab PO DAILY Supplement 04/07/22 05/08/23 sodium chloride 1 gram tablet 1,000 mg PO BID hyponatremia 04/07/22 05/08/23 bisoprolol fumarate 10 mg tablet 10 mg PO DAILY High Blood Pressure 04/20/22 05/08/23 doxazosin 4 mg tablet 4 mg PO HS High Blood Pressure 05/08/23 05/08/23 bumetanide 1 mg tablet 2 mg PO DAILY Fluid 05/09/23 05/08/23 cetirizine 10 mg tablet 10 mg PO DAILY Allergy Symptoms 05/09
--- NOTE | 2023-05-12 14:12 | XR_ITS ---
PROCEDURE INFORMATION: Exam: XR Chest Exam date and time: 05/12/2023 2:13 PM Age: 67 years old Clinical indication: Shortness of breath; Additional info: SOA TECHNIQUE: Imaging protocol: Radiologic exam of the chest. Views: 1 view. COMPARISON: CT ANGIO CHEST PE PROTOCOL 05/08/2023 3:23 PM FINDINGS: Lungs: Curvilinear opacities in the left lung base. No airspace consolidation or nodules. Pleural spaces: No pleural effusion. No pneumothorax. Heart/Mediastinum: Moderately large hiatal hernia. Mild cardiomegaly. Bones/joints: No fractures or bone lesions. IMPRESSION: 1. No acute airspace consolidation. Left lower lobe atelectasis. 2. Cardiomegaly. 3. Hiatal hernia.
--- NOTE | 2023-05-12 14:27 | ECG_ITS ---
APPROVED REPORT Exam: Resting ECG HR:66 bpm ECG Measurements Heart Rate 66 AXES AL 155 P 48 QRSd 108 QRS 76 QT 406 T 8 QTc 419 Conclusion SINUS RHYTHM NONSPECIFIC T-WAVE ABNORMALITY BORDERLINE ECG UNCONFIRMED REPORT Electronically signed by : Mikla Valentine MD 05/13/2023 08:53:04
[2023-05-12 14:47] LABS: Basophils % 0.6 % (0.1-2.0); Eosinophils # 0.2 K/mm3 (0.0-0.4); Hematocrit 33.1 % (37.0-47.0); Lymphocytes # 1.4 K/mm3 (0.7-4.5); Lymphocytes % 21.2 % (10-50); Mean Corpuscular HGB Conc 30.4 g/dL (31.8-35.4); Mean Corpuscular Hemoglobin 24.7 pg (27.0-31.2); Mean Corpuscular Volume 81.4 fl (81-99); Mean Platelet Volume 7.6 fl (7.4-10.4); Monocytes # 0.6 K/mm3 (0.1-1.0); Monocytes % 8.8 % (1.7-9.3); Neutrophils # 4.4 K/mm3 (1.8-7.8); Neutrophils % 66.4 % (37.0-80.0); Platelet Count 340 K/mm3 (142-424); Red Blood Count 4.07 M/mm3 (4.20-5.40); Red Cell Distribution Width 16.3 % (11.5-17.5); White Blood Count 6.7 K/mm3 (4.8-10.8)
[2023-05-12 14:48] LABS: VBG Base Excess 16.2 mmol/L (-2.4-2.3); VBG Oxygen Saturation 63.8 % (50-70); VBG PH 7.34 mmol/L (7.31-7.41); VBG PO2 34.9 mmol/L (28-40); VBG Total CO2 44.4 mmol/L (23-27)
[2023-05-12 14:52] LABS: Chloride 84 mmol/L (98-107); Potassium 3.6 mmoL/L (3.5-5.1); Sodium 134 mmol/L (136-145)
--- NOTE | 2023-05-12 14:52 | PC.NURSE ---
Dr. Farmer notified of critical VBG results
[2023-05-12 14:55] LABS: Alanine Aminotransferase 23 U/L (12-78); Albumin Level 3.7 g/dl (3.5-5.0); Albumin/Globulin Ratio 1.2 (1.1-1.8); Alkaline Phosphatase 47 U/L (38-126); Aspartate Amino Transferase 38 U/L (14-36); Bilirubin,Total 0.8 mg/dl (0.2-1.3); Blood Urea Nitrogen 17 mg/dl (7-17); Creatinine Clearance Estimated 48 mL/min (50-200); Estimated Glomerular Filt Rate 71 ml/min (>60); GFR (African American) 86 ML/MIN (>60); Globulin 3.1 g/dL (1.3-3.2); Total Protein,Serum 6.8 g/dl (6.3-8.2)
[2023-05-12 14:56] LABS: Calcium 7.9 mg/dl (8.4-10.2); Glucose 99 mg/dl (74-100)
[2023-05-12 15:00] VITALS: BP 117/59; PULSE 64; RESP 17; TEMP 37; O2SAT 98
--- NOTE | 2023-05-12 15:01 | PC.NURSE ---
[facility]
[2023-05-12 15:02] LABS: Carbon Dioxide 47 mmol/L (22.0-30.0)
[2023-05-12 15:03] LABS: Anion Gap 6.6 mEq/L (5-15)
--- NOTE | 2023-05-12 15:04 | PC.NURSE ---
[facility] notified that pt is ready for transport to [facility]
== END 2023-05-12 16:15 ==
PROVIDERS: Emergency Provider Emergency Medicine; PCP Family Medicine
DX: G47.33 Obstructive sleep apnea (adult) (pediatric) (principal); J96.12 Chronic respiratory failure with hypercapnia; I10 Essential (primary) hypertension; E87.1 Hypo-osmolality and hyponatremia
CPT/HCPCS: 71045; 80053; 82803; 85025; 93005; 99284; 99285

== ENCOUNTER 2023-06-29 08:57 | Emergency (ER) | payer MEDICARE, SELFPAY ==
[2023-06-29] VITALS (18 sets, daily range): BP systolic 89–139; BP diastolic 44–116; PULSE 61–78; RESP 13–27; TEMP 36.6; O2SAT 94–100; BMI 36.6
--- NOTE | 2023-06-29 08:51 | ECG_ITS ---
APPROVED REPORT Exam: Resting ECG HR:75 bpm ECG Measurements Heart Rate 75 AXES OH 162 P 53 QRSd 104 QRS 92 QT 359 T 33 QTc 387 Conclusion SINUS RHYTHM BORDERLINE RIGHT AXIS DEVIATION [QRS AXIS > 90] MODERATE ST DEPRESSION [0.05+ mV ST DEPRESSION] ABNORMAL ECG UNCONFIRMED REPORT Electronically signed by : Mikal Valentine MD 06/30/2023 20:13:29
--- NOTE | 2023-06-29 09:04 | HMH.EDCP ---
Discharge Plan Disposition Patient Disposition: Home, Self-Care Prescriptions Prescriptions: New cefdinir 300 mg capsule 300 mg PO BID 7 Days Qty: 14 0RF No Action multivitamin Tablet 1 tab PO DAILY sodium chloride 1 gram Tablet 1,000 mg PO BID bisoprolol fumarate 10 mg tablet 10 mg PO DAILY omeprazole 20 MG capsule,delayed release(DR/EC) 20 mg PO DAILY aspirin 81 MG tablet,delayed release (DR/EC) 81 mg PO DAILY calcium carbonate-vitamin D3 1 EACH tablet,chewable 600 mg PO DAILY acetaminophen 500 MG tablet 500 mg PO Q8HP PRN (Reason: Mild Pain (Scale Score 1-4)) doxazosin 4 mg tablet 4 mg PO HS sennosides [senna] 8.6 mg Tablet 8.6 mg PO DAILY cetirizine 10 mg Tablet 10 mg PO DAILY bumetanide 1 mg tablet 2 mg PO DAILY quetiapine 100 mg Tablet 100 mg PO BID 30 Days Qty: 60 0RF spironolactone 25 mg Tablet 25 mg PO DAILY 30 Days Qty: 30 0RF alprazolam 0.5 mg Tablet 0.5 mg PO BIDP PRN (Reason: anxiety) 30 Days Qty: 60 0RF potassium chloride [Klor-Con M20] 20 mEq Tablet,Er Particles/Crystals 20 meq PO BID 30 Days Qty: 60 0RF lisinopril 2.5 mg Tablet 2.5 mg PO BID 30 Days Qty: 60 0RF Referrals Follow up/Referrals: Raji Varghese [Primary Care Provider] - See instructions Activity Restrictions/Add. Instructions Additional Instructions/Restrictions: Because patient at baseline without signs or symptoms of clinical decompensation, deemed appropriate for discharge. Results were relayed to patient[] who voiced understanding and were agreeable to outpatient management and follow up. At the time of discharge the patient was hemodynamically stable, tolerating PO, and mobilizing appropriately. Clinical Impressions Clinical Impression: Acute UTI, Hypercarbia, Acute confusion Discharge ED Provider: Larry Green HPI General Chief Complaint: Shortness of Breath/Dyspnea Stated Complaint: Syncopy Time Seen by Provider: 06/29/23 08:58 History of Present Illness HPI narrative: 67-year-old history of hypertension, hyperlipidemia, CHF on 2L NC intermittenyly, ELIANA presenting with confusion. Per EMS and residential staff, patient has been progressively confused intermittently for the past couple of days. Usually up and at breakfast by the time it opens, today, patient did not show up to breakfast. When they were able to transport her down to get breakfast, she was falling asleep eating and was intermittently confused, so EMS was called. Patient was brought to the emergency department. Patient states she used to wear a mask at night when she sleeps, but has not been wearing it recently. She denies chest pain, shortness of breath at this time, cough, fevers or chills, urinary symptoms, abdominal pain, back pain, headache, or any other concerns. She states that she was brought in for her blood pressure. Related Data Home Medications Medication Instructions Recorded Confirmed omeprazole 20 mg capsule,delayed 20 mg PO DAILY acid reflux 01/21/21 05/08/23 release aspirin 81 mg tablet,delayed 81 mg PO DAILY Heart Health 01/22/21 05/08/23 release acetaminophen 500 mg tablet 500 mg PO Q8HP PRN Mild Pain 08/23/21 05/08/23 (Scale Score 1-4) calcium carbonate 600 mg-vitamin 600 mg PO DAILY Supplement 08/23/21 05/08/23 D3 20 mcg (800 unit) chewable tablet multivitamin 1 tab PO DAILY Supplement 04/07/22 05/08/23 sodium chloride 1 gram tablet 1,000 mg PO BID hyponatremia 04/07/22 05/08/23 bisoprolol fumarate 10 mg tablet 10 mg PO DAILY High Blood Pressure 04/20/22 05/08/23 doxazosin 4 mg tablet 4 mg PO HS High Blood Pressure 05/08/23 05/08/23 bumetanide 1 mg tablet 2 mg PO DAILY Fluid 05/09/23 05/08/23 cetirizine 10 mg tablet 10 mg PO DAILY Allergy Symptoms 05/09/23 05/09/23 sennosides 8.6 mg tablet (senna) 8.6 mg PO DAILY Constipation 05/09/23 05/09/23 Previous Rx's Medication Instructions Recorded alprazolam 0.5 mg tablet 0.5 mg PO BIDP PRN anxiety 30 days 05/11/23 #60 tabs lisinopril 2.5 mg tablet 2.5 mg PO BID 30 days #60 tabs 05/11/23 potassium chloride 20 mEq 20 meq PO BID 30 days #60 tabs 11/22/23 tablet,extended release(part/cryst) (Klor-Con M) quetiapine 100 mg tablet 100 mg PO BID 30 days #60 tabs 05/11/23 spironolactone 25 mg tablet 25 mg PO DAILY 30 days #30 tabs 05/11/23 cefdinir 300 mg capsule 300 mg PO BID 7 days #14 caps 06/29/23 Allergies Allergy/AdvReac Type Severity Reaction Status Date / Time bupropion Allergy Verified 05/08/23 17:29 prednisone Allergy Verified 05/08/23 17:29 rosuvastatin [From Crestor] Allergy Verified 05/08/23 17:29 [facility] Disclaimer: The information contained in this section may have been updated after the patient was seen, as this information can be updated by other users. 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 Obtained: Yes All systems reviewed & no additional complaints except as documented Physical Exam General General appearance: alert Neck Neck exam: Present trachea midline Chest Chest inspection: Present normal inspection and symmetric chest wall rise Respiratory Respiratory exam: Present normal lung sounds bilaterally and other (2 L nasal cannula in place); Absent respiratory distress, wheezes, stridor, accessory muscle use or prolonged expiratory phase Cardiovascular Cardiovascular exam: Present regular rate and normal rhythm Extremities Exam Extremities exam: Absent edema Neurological Exam Neurological exam: Present alert, oriented X3 and CN II-XII intact Skin Skin exam: Present warm and dry; Absent cyanosis, diaphoresis or pallor HEART Score HEART Score HEART Score assessment performed?: Yes History (anamnesis): Slightly suspicious ECG: Normal Age: >65 years Risk factors: 1-2 risk factors Troponin: </= normal limit HEART Score: 3 Critical Care Critical Care Time Critical Care Time: No Medical Decision Making Medical Records Medical records reviewed: Yes I reviewed the patient's medical records. Khalif Inquiry Pt receiving controlled substance: No Khalif was queried for this patient: No Vital Signs Vital Signs: 06/29/23 08:57 06/29/23 08:52 06/29/23 09:19 Temperature 97.9 F Temperature Source Oral Pulse Rate 78 72 Pulse Rate [Left Radial] 77 Respiratory Rate 20 24 13 Blood Pressure 116/63 102/52 L Blood Pressure [Right Arm] 116/63 Blood Pressure Mean 71 Blood Pressure Mean [Right Arm] 80 02 Sat by Pulse Oximetry 95 95 96 Oxygen Delivery Method Nasal Cannula Nasal Cannula BiPAP Oxygen Flow Rate (LPM) 2 2 06/29/23 09:30 06/29/23 10:01 06/29/23 10:30 Temperature Temperature Source Pulse Rate 74 76 73 Pulse Rate [Left Radial] Respiratory Rate 14 21 15 Blood Pressure 107/60 L 112/55 L 107/59 L Blood Pressure [Right Arm] Blood Pressure Mean Blood Pressure Mean [Right Arm] 02 Sat by Pulse Oximetry 95 97 94 L Oxygen Delivery Method BiPAP BiPAP BiPAP Oxygen Flow Rate (LPM) 06/29/23 11:00 06/29/23 11:30 06/29/23 12:00 Temperature Temperature Source Pulse Rate 71 74 73 Pulse Rate [Left Radial] Respiratory Rate 18 27 H Blood Pressure 89/48 L 106/52 L 109/66 L Blood Pressure [Right Arm] Blood Pressure Mean 75 Blood Pressure Mean [Right Arm] 02 Sat by Pulse Oximetry 97 97 100 Oxygen Delivery Method BiPAP BiPAP BiPAP Oxygen Flow Rate (LPM) Lab Data Labs: Lab Results 06/29/23 09:12: VBG pH 7.29 L, VBG pCO2 61.5 H, VBG pO2 33.3, VBG HCO3 28.8, VBG Total CO2 30.7 H, VBG O2 Saturation 52.7, VBG Base Excess 2.2 06/29/23 09:13: WBC 10.4, RBC 4.37, Hgb 11.6 L, Hct 37.1, MCV 84.9, MCH 26.7 L, MCHC 31.4 L, RDW 19.4 H, Plt Count 247, MPV 8.5, Neut % (Auto) 77.9, Lymph % (Auto) 15.2, [place] % (Auto) 6.4, Eos % (Auto) 0.3, Baso % (Auto) 0.2, Neut # (Auto) 8.1 H, Lymph # (Auto) 1.6, [place] # (Auto) 0.7, Eos # (Auto) 0.0, Baso # (Auto) 0.0, Sodium 128 L, Potassium 4.3, Chloride 90 L, Carbon Dioxide 37 H, Anion Gap 5.3, BUN 15, Creatinine 0.90, Estimated Creat Clear 85, Estimated GFR 62, Est GFR ( Amer) 75, Glucose 112 H, Lactate 1.8, Calcium 8.6, Total Bilirubin 0.9, AST 36, ALT 19, Alkaline Phosphatase 70, Troponin I < 0.01, NT-Pro-B Natriuret Pep 797 H, Total Protein 7.2, Albumin 3.7, Globulin 3.5 H, Albumin/Globulin Ratio 1.1 06/29/23 12:04: Urine Color Yellow, Urine Appearance Clear, Urine pH 6.0, Ur Specific [place] 1.025, Urine Protein Negative, Urine Glucose (UA) Negative, Urine Ketones Negative, Urine Blood Negative, Urine Nitrate Negative, Urine Bilirubin Negative, Urine Urobilinogen 0.2, Ur Leukocyte Esterase 2+ A, Urine RBC None, Urine WBC 20-50, Ur Squamous Epith Cells Occasional, Amorphous Sediment Trace, Urine Bacteria None 06/29/23 12:30: Troponin I 0.01 06/29/23 09:13 06/29/23 09:13 Response Orders (Tests/Meds): ED MEDICATIONS Generic Name Dose Route Start Last Admin Trade Name Freq PRN Reason Stop Dose Admin Sodium Chloride 10 ml 06/29/23 09:09 Sodium Chloride 0.9% 10ml Flush Syringe IV 07/29/23 09:08 NEEDED PRN Maintain IV Site Discontinued Medications Generic Name Dose Route Start Last Admin Trade Name Freq PRN Reason Stop Dose Admin Albuterol/Ipratropium 6 ml 06/29/23 09:12 06/29/23 09:24 Ipratropium/Albuterol 3 Ml Neb IH 06/29/23 09:13 6 ml ONCE ONE Administration Ceftriaxone Sodium 1 gm/ 50 mls @ 100 mls/hr 06/29/23 12:33 06/29/23 12:47 Sodium Chloride IV 06/29/23 13:02 100 mls/hr ONCE ONE Administration ORDERS Category Date Time Status XR chest portable Stat Exams 06/29/23 09:13 Completed Brain Natriuretic Peptide Stat Lab 06/29/23 09:13 Completed Complete Blood Count Auto Diff Stat Lab 06/29/23 09:13 Completed Comprehensive Metabolic Panel Stat Lab 06/29/23 09:13 Completed Lactic Acid Stat Lab 06/29/23 09:13 Completed Troponin I Q3H Lab 06/29/23 12:30 Completed Troponin I Q3H Lab 06/29/23 15:15 Ordered Troponin I Stat Lab 06/29/23 09:13 Completed Urinalysis and Microscopic Stat Lab 06/29/23 12:04 Completed Blood Culture Stat Micro 06/29/23 09:13 Received Urine Culture Stat Micro 06/29/23 12:04 Received VBG [Venous Blood Gas] Stat RT 06/29/23 09:12 Completed MDM Narrative Medical Decision Narrative: 67-year-old history of hypertension, hyperlipidemia, CHF on 2L NC intermittenyly, ELIANA presenting with confusion. Per EMS and residential staff, patient has been progressively confused intermittently for the past couple of days. Usually up and at breakfast by the time it opens, today, patient did not show up to breakfast. When they were able to transport her down to get breakfast, she was falling asleep eating and was intermittently confused, so EMS was called. Patient was brought to the emergency department. Patient states she used to wear a mask at night when she sleeps, but has not been wearing it recently. She denies chest pain, shortness of breath at this time, cough, fevers or chills, urinary symptoms, abdominal pain, back pain, headache, or any other concerns. She states that she was brought in for her blood pressure. It should be noted that patient also has dementia and poor recollection of medical history, complicating care. Also not wearing home CPAP or BiPAP at night. History was obtained via conversation with patient, EMS, chart review, residential staff. On arrival, patient hemodynamically stable, alert, oriented x4, appropriate, GCS 15, moving all extremities spontaneously, pupils equal and reactive to light. Full physical exam performed and significant for [address] in [address]. Patient's lungs are clear to auscultation bilaterally, but quiet overall. Cardiac exam within normal limits. Morbidly obese, mildly tachypneic, but no acute distress. Differential includes COPD exacerbation, CO2 narcosis, CHF exacerbation, [place], pneumothorax, pneumonia, UTI, among others. Patient was given DuoNeb for symptomatic management and correction of underlying abnormalities. Workup independently interpreted and significant for nonactionable CBC or chemistry. VBG with mild respiratory acidosis. Nonactionable chemistry. Negative delta troponin. Nonactionable BMP. Urinalysis with concern for UTI on catheterization. Chest x-ray without acute cardiopulmonary airspace disease. See radiology read for full review of final results. Independent interpretation of EKG shows sinus rhythm 75 beats a minute. TX interval mildly elongated, QRS, QT intervals within normal limits. No ST or T wave changes concerning for acute ischemia. [place] mildly rightward Heart score 3. Patient was placed in observation beginning at 9 AM in order to rule out delta troponin and need for admission and determine need for admission versus home-going. The patient was provided cardiac monitoring while awaiting results. Independent interpretation of results demonstrated negative delta troponin. Patient also had you TI, so received ceftriaxone during this.. On reevaluation, patient resting comfortably in bed tolerating being off CPAP. At this time, I feel patient is appropriate for discharge. Total observation time 4 hours.
--- NOTE | 2023-06-29 09:13 | XR_ITS ---
FINAL REPORT CLINICAL HISTORY: Shortness of breath and confusion COMPARISON: 05/12/2023 FINDINGS: A single portable view of the chest was obtained. The heart size and pulmonary vascularity are within normal limits. The mediastinum is within normal limits. Mild bibasilar opacities are favored to represent atelectasis.. The bony thorax is intact. IMPRESSION: Mild bibasilar opacities favor atelectasis Reviewed, Interpreted and Dictated by Chemo Forrest III, MD Transcribed by Janna Paredes Authenticated and [facility]
--- NOTE | 2023-06-29 09:15 | PC.NURSE ---
called lab to hold a green top for resp for a vbg
--- NOTE | 2023-06-29 09:15 | PC.NURSE ---
notified resp of vbg needed for pt and green tube was at lab
[2023-06-29] MEDS: IPRATROPIUM/ALBUTEROL 3 ML NEB 6 ML IH (09:24)
[2023-06-29 09:28] LABS: VBG Base Excess 2.2 mmol/L (-2.4-2.3); VBG HCO3 28.8 mmol/L (23-30); VBG Oxygen Saturation 52.7 % (50-70); VBG PH 7.29 mmol/L (7.31-7.41); VBG PO2 33.3 mmol/L (28-40); VBG Total CO2 30.7 mmol/L (23-27)
[2023-06-29 09:31] LABS: Basophils % 0.2 % (0.1-2.0); Eosinophils % 0.3 % (0.1-12.0); Hematocrit 37.1 % (37.0-47.0); Hemoglobin 11.6 g/dL (12.2-16.2); Lymphocytes # 1.6 K/mm3 (0.7-4.5); Lymphocytes % 15.2 % (10-50); Mean Corpuscular HGB Conc 31.4 g/dL (31.8-35.4); Mean Corpuscular Hemoglobin 26.7 pg (27.0-31.2); Mean Corpuscular Volume 84.9 fl (81-99); Mean Platelet Volume 8.5 fl (7.4-10.4); Monocytes # 0.7 K/mm3 (0.1-1.0); Monocytes % 6.4 % (1.7-9.3); Neutrophils # 8.1 K/mm3 (1.8-7.8); Neutrophils % 77.9 % (37.0-80.0); Platelet Count 247 K/mm3 (142-424); Red Blood Count 4.37 M/mm3 (4.20-5.40); Red Cell Distribution Width 19.4 % (11.5-17.5); White Blood Count 10.4 K/mm3 (4.8-10.8)
[2023-06-29 09:35] LABS: VBG PCO2 61.5 mmol/L (35-51)
[2023-06-29 10:01] LABS: Alanine Aminotransferase 19 U/L (12-78); Albumin Level 3.7 g/dl (3.5-5.0); Albumin/Globulin Ratio 1.1 (1.1-1.8); Alkaline Phosphatase 70 U/L (38-126); Anion Gap 5.3 mEq/L (5-15); Aspartate Amino Transferase 36 U/L (14-36); Bilirubin,Total 0.9 mg/dl (0.2-1.3); Blood Urea Nitrogen 15 mg/dl (7-17); Calcium 8.6 mg/dl (8.4-10.2); Carbon Dioxide 37 mmol/L (22.0-30.0); Chloride 90 mmol/L (98-107); Creatinine Clearance Estimated 85 mL/min (50-200); Estimated Glomerular Filt Rate 62 ml/min (>60); GFR (African American) 75 ML/MIN (>60); Globulin 3.5 g/dL (1.3-3.2); Glucose 112 mg/dl (74-100); Lactic Acid 1.8 mmol/L (0.7-2.1); Potassium 4.3 mmoL/L (3.5-5.1); Sodium 128 mmol/L (136-145); Total Protein,Serum 7.2 g/dl (6.3-8.2)
[2023-06-29 10:09] LABS: NT Pro Brain Natriuretic Pep. 797 pg/mL (0-125)
[2023-06-29 10:16] LABS: Troponin I < 0.01 ng/ml (0.00-0.034)
[2023-06-29 12:10] LABS: Appearance,Urine CLEAR (Clear); Bilirubin,Urine Negative (Negative); Blood, Urine Negative (Negative); Color,Urine YELLOW (Yellow); Glucose,Urine (UA) Negative (Negative); Ketones,Urine Negative (Negative); Leukocyte Esterase,Urine 2+ (Negative); Microscopic, Urine URINE MICROSCOPIC (MICROSCOPIC); Nitrate,Urine Negative (Negative); Protein,Urine Negative (Negative); Specific Gravity, Urine 1.025 (1.005-1.030); Urobilinogen,Urine 0.2 EU/dl (0.2)
[2023-06-29] MEDS: CEFTRIAXONE SODIUM 1 GM in 0.9 % SODIUM CHLORIDE 50 ML IV (12:47)
[2023-06-29 13:04] LABS: Amorphous Sediment,Urine Trace /lpf; Squamous Epithelial Cell,Urine Occasional #/hpf (0-5); WBC,Urine 20-50 #/hpf (0-3)
[2023-06-29 13:09] LABS: Troponin I 0.01 ng/ml (0.00-0.034)
--- NOTE | 2023-06-29 14:08 | PC.NURSE ---
[facility]
--- NOTE | 2023-06-29 14:12 | PC.NURSE ---
[facility] NOTIFIED OF TRANSFER BACK TO [facility]
--- NOTE | 2023-07-02 11:14 | PC.NURSE ---
Addendum entered by Monet Alas RN 07/04/23 15:22: SPOKE WITH DR KYLE R/T CONTINUED BLOOD CULTURE RESULTS. LIKELY CONTAMINATED, NO NEW ORDERS Original Note: 09 PRELIMINARY BLOOD CULTURE RESULTS RECEIVED FROM [facility] IN LAB, PT NAME AND R/V. [id number] VIRAMONTES, NO NEW ORDERS FOR MEDICATION CHANGE. INSTRUCTED TO CALL [facility] AND CHECK STATUS OF PT. IF AT BASELINE. CONTINUE TREATMENT THAT WAS GIVEN AT DISCHARGE. ATTEMPTED MULTIPLE TIME TO REACH [facility]. [id number] SPOKE WITH SHERIE NURSE AT [facility] CARING FOR PT, REPORTS PT IS AT BASELINE. CONTINUES TO NOT WEAR BI-PAP AT NIGHT. DR VIRAMONTES NOTIFIED, NO NEW ORDERS
--- NOTE | 2023-07-05 12:47 | PC.NURSE ---
final blood culture final reports showed to , no new orders at this time
== END 2023-06-29 15:18 | disposition home or self-care (01) ==
PROVIDERS: Emergency Provider Emergency Medicine; PCP Family Medicine
DX: N39.0 Urinary tract infection, site not specified (principal); R41.0 Disorientation, unspecified; I11.0 Hypertensive heart disease with heart failure; I50.9 Heart failure, unspecified; G47.33 Obstructive sleep apnea (adult) (pediatric); E78.5 Hyperlipidemia, unspecified
CPT/HCPCS: 36415; 71045; 80053; 81001; 82803; 83605; 83880; 84484; 85025; 87040; 87086; 93005; 96365; 99285; J0696

== ENCOUNTER 2023-08-03 06:22 | Inpatient (IN) | payer MEDICARE, SELFPAY ==
[2023-08-03] VITALS (55 sets, daily range): BP systolic 72–139; BP diastolic 31–83; PULSE 64–92; RESP 13–24; TEMP 36.4–38.3; O2SAT 91–100; BMI 48.9; BMI 42.7
--- NOTE | 2023-08-03 06:25 | XR_ITS ---
FINAL REPORT CLINICAL HISTORY: fever, cough COMPARISON: 06/29/2023 FINDINGS: A single portable view of the chest was obtained. The heart size and pulmonary vascularity are within normal limits. The mediastinum is within normal limits. Mild bibasilar opacities likely represent atelectasis or pneumonia. The bony thorax is intact. IMPRESSION: Mild bibasilar opacities, likely atelectasis or pneumonia. Reviewed, Interpreted and Dictated by Chemo Forrest III, MD Transcribed by Janna Paredes Authenticated and [facility]
--- NOTE | 2023-08-03 06:29 | ED_ITS ---
Discharge Plan Disposition Patient Disposition: Admitted Condition: Fair Prescriptions Prescriptions: No Action multivitamin Tablet 1 tab PO DAILY sodium chloride 1 gram Tablet 1,000 mg PO BID bisoprolol fumarate 10 mg tablet 10 mg PO DAILY lorazepam 1 mg tablet 0.5 mg PO TIDP PRN (Reason: Anxiety) magnesium oxide [MagOx] 400 mg (241.3 mg magnesium) Tablet 400 mg PO DAILY cephalexin 500 mg Tablet 500 mg PO TID omeprazole 20 MG capsule,delayed release(DR/EC) 20 mg PO DAILY aspirin 81 MG tablet,delayed release (DR/EC) 81 mg PO DAILY calcium carbonate-vitamin D3 1 EACH tablet,chewable 600 mg PO DAILY acetaminophen 500 MG tablet 500 mg PO Q8HP PRN (Reason: Mild Pain (Scale Score 1-4)) doxazosin 4 mg tablet 4 mg PO HS sennosides [senna] 8.6 mg Tablet 8.6 mg PO DAILY cetirizine 10 mg Tablet 10 mg PO DAILY bumetanide 1 mg tablet 2 mg PO DAILY quetiapine 100 mg Tablet 100 mg PO BID 30 Days Qty: 60 0RF spironolactone 25 mg Tablet 25 mg PO DAILY 30 Days Qty: 30 0RF alprazolam 0.5 mg Tablet 0.5 mg PO BIDP PRN (Reason: anxiety) 30 Days Qty: 60 0RF potassium chloride [Klor-Con M20] 20 mEq Tablet,Er Particles/Crystals 20 meq PO BID 30 Days Qty: 60 0RF lisinopril 2.5 mg Tablet 2.5 mg PO BID 30 Days Qty: 60 0RF Clinical Impressions Clinical Impression: Fever, AMS (altered mental status), Sepsis, Pneumonia, Influenza A, Hypotension Discharge ED Provider: Mae Farmer General Adult HPI <Mae Farmer DO - Last Filed: 08/03/23 06:57> General Chief complaint: Fever Stated complaint: fever Time Seen by Provider: 08/03/23 06:25 History of Present Illness HPI narrative: This patient is a 67-year-old female with a history of morbid obesity, chronic respiratory failure on 2 to 3 L nasal cannula, COPD, CHF, ELIANA with BiPAP noncompliance, hypertension, hyperlipidemia, dementia, and NSTEMI presenting to the emergency department for evaluation with concern for fever, altered mental status, and low blood pressure readings at her nursing facility. According to EMS, the patient has had fever for 2 days and reported soft blood pressures. blood pressure stable en route. patient was stable on her home 3 l nasal cannula per ems. i called nursing facility to get report, and they noted that the patient initially spiked a fever yesterday. they note that initially she was not have any other symptoms or concerns, however today her blood pressure was lower than usual and she also seemed to be more confused. she typically takes her soft breakfast and takes herself to the bathroom, however she did not do that this morning and was taking her close left use the bathroom in the middle of her bedroom floor. no other concerns, such as vomiting, changes bowel movements, or other issues. of note, the patient has been on keflex since 07/28 for ingrown toenail on record review. Related Data Home Medications Medication Instructions Recorded Confirmed omeprazole 20 mg capsule,delayed 20 mg PO DAILY acid reflux 01/21/21 08/03/23 release aspirin 81 mg tablet,delayed 81 mg PO DAILY Heart Health 01/22/21 08/03/23 release acetaminophen 500 mg tablet 500 mg PO Q8HP PRN Mild Pain 08/23/21 08/03/23 (Scale Score 1-4) calcium carbonate 600 mg-vitamin 600 mg PO DAILY Supplement 08/23/21 08/03/23 D3 20 mcg (800 unit) chewable tablet multivitamin 1 tab PO DAILY Supplement 04/07/22 08/03/23 sodium chloride 1 gram tablet 1,000 mg PO BID hyponatremia 04/07/22 08/03/23 bisoprolol fumarate 10 mg tablet 10 mg PO DAILY High Blood Pressure 04/20/22 08/03/23 doxazosin 4 mg tablet 4 mg PO HS High Blood Pressure 05/08/23 08/03/23 bumetanide 1 mg tablet 2 mg PO DAILY Fluid 05/09/23 08/03/23 cetirizine 10 mg tablet 10 mg PO DAILY Allergy Symptoms 05/09/23 08/03/23 sennosides 8.6 mg tablet (senna) 8.6 mg PO DAILY Constipation 05/09/23 08/03/23 cephalexin 500 mg tablet 500 mg PO TID ingrown toenail 08/03/23 08/03/23 lorazepam 1 mg tablet 0.5 mg PO TIDP PRN Anxiety 08/03/23 08/03/23 magnesium oxide 400 mg (241.3 mg 400 mg PO DAILY 08/03/23 08/03/23 magnesium) tablet (MagOx) Previous Rx's Medication Instructions Recorded alprazolam 0.5 mg tablet 0.5 mg PO BIDP PRN anxiety 30 days 05/11/23 #60 tabs lisinopril 2.5 mg tablet 2.5 mg PO BID 30 days #60 tabs 05/11/23 potassium chloride 20 mEq 20 meq PO BID 30 days #60 tabs 05/11/23 tablet,extended release(part/cryst) (Klor-Con M) quetiapine 100 mg tablet 100 mg PO BID 30 days #60 tabs 05/11/23 spironolactone 25 mg tablet 25 mg PO DAILY 30 days #30 tabs 05/11/23 Allergies Allergy/AdvReac Type Severity Reaction Status Date / Time bupropion Allergy Verified 05/08/23 17:29 prednisone Allergy Verified 05/08/23 17:29 rosuvastatin [From Crestor] Allergy Verified 05/08/23 17:29 PFS <Mae Farmer DO - Last Filed: 08/03/23 06:57> [facility] Disclaimer: The information contained in this section may have been updated after the patient was seen, as this information can be updated by other users. 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 <Mae Farmer DO - Last Filed: 08/03/23 06:57> ROS Obtained: Yes All systems reviewed & no additional complaints except as documented Physical Exam <Mae Farmer DO - Last Filed: 08/03/23 06:57> General General appearance: alert, in no apparent distress and obese Head Head exam: atraumatic and normocephalic Eye Eye exam: Present normal appearance, PERRL and EOMI ENT ENT exam: Present normal exam, normal oropharynx, mucous membranes moist and normal external ear exam Neck Neck exam: Present normal inspection, full ROM and trachea midline; Absent tenderness Chest Chest inspection: Present normal inspection and symmetric chest wall rise; Absent tenderness Respiratory Respiratory exam: Present normal lung sounds bilaterally; Absent respiratory distress, wheezes, stridor or accessory muscle use Cardiovascular Cardiovascular exam: Present regular rate and normal rhythm Abdominal Exam Abdominal exam: Present soft; Absent distention, tenderness or guarding Extremities Exam Extremities exam: Present full ROM, normal capillary refill, edema (1+ BLE edema) and other (no concerns for acute infection of any toes); Absent tenderness Back Exam Back exam: Present normal inspection and full ROM; Absent tenderness Neurological Exam Neurological exam: Present alert, CN II-XII intact and other (only oriented to person. no focal deficits); Absent oriented X3 or motor sensory deficit Psychiatric Psychiatric exam: Present normal affect and normal mood Skin Skin exam: Present warm and dry Medical Decision Making <Mae N Darian, DO - Last Filed: 08/03/23 06:57> Medical Records Medical records reviewed: Yes I reviewed the patient's medical records. Khalif Inquiry Pt receiving controlled substance: No Vital Signs: 08/03/23 06:22 08/03/23 06:32 08/03/23 07:01 Temperature 101.0 F H Temperature Source Oral Oral Pulse Rate 81 Pulse Rate [Right Radial] 89 Respiratory Rate 18 22 Blood Pressure 80/31 L Blood Pressure [Right Arm] 110/55 L Blood Pressure Mean Blood Pressure Mean [Right Arm] 73 Blood Pressure Source Blood Pressure Source [Right Arm] Automatic Cuff Blood Pressure Position [Right Arm] Supine 02 Sat by Pulse Oximetry 97 96 Oxygen Delivery Method Nasal Cannula Nasal Cannula Oxygen Flow Rate (LPM) 3 4 08/03/23 07:03 08/03/23 07:03 08/03/23 07:09 Temperature Temperature Source Pulse Rate 82 80 82 Pulse Rate [Right Radial] Respiratory Rate 20 13 Blood Pressure 72/35 L 76/45 L 85/44 L Blood Pressure [Right Arm] Blood Pressure Mean 46 Blood Pressure Mean [Right Arm] Blood Pressure Source Manual Cuff/ Auscultation Blood Pressure Source [Right Arm] Blood Pressure Position [Right Arm] 02 Sat by Pulse Oximetry 97 96 95 Oxygen Delivery Method Nasal Cannula Nasal Cannula Nasal Cannula Oxygen Flow Rate (LPM) 4 4 4 08/03/23 07:15 08/03/23 07:22 08/03/23 07:22 Temperature Temperature Source Pulse Rate 79 80 75 Pulse Rate [Right Radial] Respiratory Rate 14 15 15 Blood Pressure 81/43 L 81/46 L 78/42 L Blood Pressure [Right Arm] Blood Pressure Mean 56 Blood Pressure Mean [Right Arm] Blood Pressure Source Blood Pressure Source [Right Arm] Blood Pressure Position [Right Arm] 02 Sat by Pulse Oximetry 95 96 96 Oxygen Delivery Method Nasal Cannula Nasal Cannula Nasal Cannula Oxygen Flow Rate (LPM) 6 6 6 08/03/23 07:30 08/03/23 07:40 08/03/23 07:48 Temperature Temperature Source Pulse Rate 78 73 74 Pulse Rate [Right Radial] Respiratory Rate 13 16 17 Blood Pressure 81/45 L 81/44 L 102/56 L Blood Pressure [Right Arm] Blood Pressure Mean Blood Pressure Mean [Right Arm] Blood Pressure Source Blood Pressure Source [Right Arm] Blood Pressure Position [Right Arm] 02 Sat by Pulse Oximetry 97 97 96 Oxygen Delivery Method Nasal Cannula Nasal Cannula Nasal Cannula Oxygen Flow Rate (LPM) 6 6 6 08/03/23 07:50 08/03/23 08:08 08/03/23 08:10 Temperature Temperature Source Pulse Rate 74 78 73 Pulse Rate [Right Radial] Respiratory Rate 23 19 24 Blood Pressure 99/49 L 107/49 L 113/56 L Blood Pressure [Right Arm] Blood Pressure Mean Blood Pressure Mean [Right Arm] Blood Pressure Source Blood Pressure Source [Right Arm] Blood Pressure Position [Right Arm] 02 Sat by Pulse Oximetry 100 97 99 Oxygen Delivery Method Nasal Cannula Nasal Cannula Nasal Cannula Oxygen Flow Rate (LPM) 6 6 6 08/03/23 08:21 08/03/23 08:30 08/03/23 08:40 Temperature Temperature Source Pulse Rate 70 67 Pulse Rate [Right Radial] Respiratory Rate 21 21 19 Blood Pressure 86/44 L 88/47 L 89/49 L Blood Pressure [Right Arm] Blood Pressure Mean Blood Pressure Mean [Right Arm] Blood Pressure Source Blood Pressure Source [Right Arm] Blood Pressure Position [Right Arm] 02 Sat by Pulse Oximetry 98 98 97 Oxygen Delivery Method Nasal Cannula Nasal Cannula Nasal Cannula Oxygen Flow Rate (LPM) 6 6 6 08/03/23 08:50 08/03/23 08:55 08/03/23 09:01 Temperature Temperature Source Pulse Rate 75 76 76 Pulse Rate [Right Radial] Respiratory Rate 20 17 13 Blood Pressure 83/46 L 82/35 L 102/51 L Blood Pressure [Right Arm] Blood Pressure Mean Blood Pressure Mean [Right Arm] Blood Pressure Source Blood Pressure Source [Right Arm] Blood Pressure Position [Right Arm] 02 Sat by Pulse Oximetry 97 96 98 Oxygen Delivery Method Nasal Cannula Nasal Cannula Nasal Cannula Oxygen Flow Rate (LPM) 6 6 6 08/03/23 09:11 08/03/23 09:20 08/03/23 09:30 Temperature Temperature Source Pulse Rate 73 80 77 Pulse Rate [Right Radial] Respiratory Rate 20 18 21 Blood Pressure 116/58 L 124/54 L 103/54 L Blood Pressure [Right Arm] Blood Pressure Mean Blood Pressure Mean [Right Arm] Blood Pressure Source Blood Pressure Source [Right Arm] Blood Pressure Position [Right Arm] 02 Sat by Pulse Oximetry 96 97 94 L Oxygen Delivery Method Nasal Cannula Nasal Cannula Nasal Cannula Oxygen Flow Rate (LPM) 6 6 6 08/03/23 10:10 08/03/23 10:20 08/03/23 10:30 Temperature Temperature Source Pulse Rate 78 67 64 Pulse Rate [Right Radial] Respiratory Rate 18 19 17 Blood Pressure 117/55 L 99/47 L 97/47 L Blood Pressure [Right Arm] Blood Pressure Mean Blood Pressure Mean [Right Arm] Blood Pressure Source Blood Pressure Source [Right Arm] Blood Pressure Position [Right Arm] 02 Sat by Pulse Oximetry 100 100 100 Oxygen Delivery Method Nasal Cannula Nasal Cannula Nasal Cannula Oxygen Flow Rate (LPM) 6 6 6 Lab Data Lab results reviewed: Yes I reviewed the patient's lab results. Lab Results 08/03/23 06:27: SARS-CoV-2 (PCR) Not detected, Influenza A Untype (PCR) Detected A, Influenza Type B (PCR) Not detected 08/03/23 06:30: WBC 4.9, RBC 3.97 L, Hgb 11.3 L, Hct 35.5 L, MCV 89.5, MCH 28.4, MCHC 31.7 L, RDW 19.0 H, Plt Count 248, MPV 8.2, Neut % (Auto) 77.2, Lymph % (Auto) 12.7, [place] % (Auto) 9.4 H, Eos % (Auto) 0.0 L, Baso % (Auto) 0.7, Neut # (Auto) 3.8, Lymph # (Auto) 0.6 L, [place] # (Auto) 0.5, Eos # (Auto) 0.0, Baso # (Auto) 0.0, PT 11.6, INR 1.08, APTT 33.0 H, Sodium 130 L, Potassium 4.6, Chlor wilfrido 93 L, Carbon Dioxide 35 H, Anion Gap 6.6, BUN 19 H, Creatinine 1.40 H, Estimated Creat Clear 30, Estimated GFR 37 L, Est GFR ( Amer) 45 L, Glucose 103 H, Lactate 0.8, Calcium 8.1 L, Total Bilirubin 0.5, AST 41 H, ALT 20, Alkaline Phosphatase 73, Troponin I < 0.01, NT-Pro-B Natriuret Pep 328 H, Total Protein 6.8, Albumin 3.6, Globulin 3.2, Albumin/Globulin Ratio 1.1, TSH 1.57, Thyroxine (T4) 5.3 L 08/03/23 06:42: VBG pH 7.32, VBG pCO2 61.1 H, VBG pO2 32.6, VBG HCO3 30.5 H, VBG Total CO2 32.4 H, VBG O2 Saturation 56.8, VBG Base Excess 4.3 H 08/03/23 07:28: Urine Color Yellow, Urine Appearance Clear, Urine pH 6.0, Ur Specific Brutus 1.020, Urine Protein Negative, Urine Glucose (UA) Negative, Urine Ketones Negative, Urine Blood Negative, Urine Nitrate Negative, Urine Bilirubin Negative, Urine Urobilinogen 0.2, Ur Leukocyte Esterase Negative, Urine RBC None, Urine WBC Occasional, Ur Squamous Epith Cells 3-5, Urine Bacteria Trace 08/03/23 06:30 08/03/23 06:30 Orders (Tests/Meds): ED MEDICATIONS Generic Name Dose Route Start Last Admin Trade Name Freq PRN Reason Stop Dose Admin Norepinephrine/Dextrose 8 mg in 250 mls @ 3.75 mls/hr 08/03/23 07:26 08/03/23 08:34 Norepinephrine 8mg/250ml-D5w Premix IV 09/02/23 07:25 8 mcg/min .Q24H WILLY 15 mls/hr Infusion Protocol 2 MCG/MIN Piperacillin Sod/Tazobactam 50 mls @ 100 mls/hr 08/03/23 08:00 08/03/23 08:11 Sod 3.375 gm/ Sodium Chloride IV 08/13/23 07:59 100 mls/hr Q8H WILLY Administration Miscellaneous 1 each 08/03/23 07:30 08/03/23 07:35 Vancomycin Consult Request NOTAPPLIC 09/02/23 07:29 1 each CONSULT PHARMACY WILLY Administration Sodium Chloride 10 ml 08/03/23 07:30 Sodium Chloride 0.9% 10ml Flush Syringe IV 09/02/23 07:29 NEEDED PRN Maintain IV Site Discontinued Medications Generic Name Dose Route Start Last Admin Trade Name Freq PRN Reason Stop Dose Admin Acetaminophen 1,000 mg 08/03/23 06:32 08/03/23 06:38 Acetaminophen 1,000mg/100ml Vial IV 08/03/23 06:33 1,000 mg ONCE ONE Administration Vancomycin HCl 2,000 mg/ 250 mls @ 125 mls/hr 08/03/23 08:30 08/03/23 08:33 Sodium Chloride IV 08/03/23 10:29 125 mls/hr ONCE ONE Administration Iopamidol 100 ml 08/03/23 09:43 08/03/23 09:52 Iopamidol-370 (76%);100ml Bottle IV 08/03/23 09:44 100 ml ONCE ONE Administration Ketorolac Tromethamine 15 mg 08/03/23 06:32 08/03/23 06:38 Ketorolac 30mg/Ml Vial IV 08/03/23 06:33 15 mg ONCE ONE Administration Sodium Chloride 50 ml 08/03/23 09:43 08/03/23 09:52 0.9 % Sodium Chloride 50 Ml Vial IV 08/03/23 09:44 50 ml ONCE ONE Administration Sodium Chloride 10 ml 08/03/23 09:43 08/03/23 09:52 Sodium Chloride 0.9% 10ml Syr (Rad Only) IV 08/03/23 09:44 10 ml ONCE ONE Administration ORDERS Category Date Time Status CT angio chest PE protocol Stat Cat Scan 08/03/23 08:[address] head/brain wo con Stat Cat Scan 08/03/23 06:45 Completed XR chest portable Stat Exams 08/03/23 06:25 Completed Activated Partial Thrombo Time Stat Lab 08/03/23 06:30 Completed Brain Natriuretic Peptide Stat Lab 08/03/23 06:30 Completed Complete Blood Count Auto Diff Stat Lab 08/03/23 06:30 Completed Comprehensive Metabolic Panel Stat Lab 08/03/23 06:30 Completed Lactic Acid Stat Lab 08/03/23 06:30 Completed Prothrombin Time INR Stat Lab 08/03/23 06:30 Completed Rapid PCR Covid and Flu A/B Stat Lab 08/03/23 06:27 Completed T4 (Thyroxine) Stat Lab 08/03/23 06:30 Completed Thyroid Stimulating Hormone Stat Lab 08/03/23 06:30 Completed Troponin I Q3H Lab 08/03/23 10:09 Received Troponin I Q3H Lab 08/03/23 12:30 Ordered Troponin I Stat Lab 08/03/23 06:30 Completed Urinalysis and Microscopic Stat Lab 08/03/23 07:28 Completed Blood Culture Stat Micro 08/03/23 06:35 Received Urine Culture Stat Micro 08/03/23 07:28 Received Venous Blood Gas Stat RT 08/03/23 06:42 Completed ECG initial Besson Routine Y 08/03/23 06:51 Completed ECG Data Tracing #1: I reviewed this ECG and interpreted as documented below: Normal sinus rhythm with a ventricular rate of 86 bpm. Motion artifact noted. No obvious acute ST changes concerning for ischemia. ECG initial impression date: 08/03/23 ECG initial impression time: 06:53 Medical Decision Narrative: In summary, this patient is a 67-year-old female presenting to the Emergency Department for evaluation of fever, altered mental status, and low blood press [facility]. Differential diagnoses considered include but are not limited to sepsis, pneumonia, viral syndrome, urinary tract infection, septic shock. Ruling out the most morbid conditions drove assessment. It should be noted patient's history includes obesity, ELIANA, hypertension, hyperlipidemia, CHF, COPD, and chronic respiratory failure on home oxygen which may or may not be at goal therapy. This complicates all aspects of care by increasing patient's risk for morbidity. I reviewed patient's past medical records and noted multiple previous evaluations over the last several months for altered mental status, most often related to urinary tract infection, respiratory failure, and BiPAP noncompliance. On exam, the patient is in no acute distress. Vitals are reassuring on cardiac telemetry with the exception of fever noted. She does have some rhonchi bilaterally but has no increased work of breathing. Workup included broad workup including infectious, metabolic, and cardiac workup. CT head, CXR, and EKG ordered. Given patient's fever, she was given IV acetaminophen and Toradol. Sepsis bolus was not given, as the patient has history of CHF with chronic vol ume overload and I feel the risk would outweigh the benefit. Patient care was signed out to the oncoming resident, Dr. Rashid, pending labs, imaging, and disposition. <Chetan Rashid, DO - Last Filed: 08/03/23 10:51> Vital Signs: 08/03/23 06:22 08/03/23 06:32 08/03/23 07:01 Temperature 101.0 F H Temperature Source Oral Oral Pulse Rate 81 Pulse Rate [Right Radial] 89 Respiratory Rate 18 22 Blood Pressure 80/31 L Blood Pressure [Right Arm] 110/55 L Blood Pressure Mean Blood Pressure Mean [Right Arm] 73 Blood Pressure Source Blood Pressure Source [Right Arm] Automatic Cuff Blood Pressure Position [Right Arm] Supine 02 Sat by Pulse Oximetry 97 96 Oxygen Delivery Method Nasal Cannula Nasal Cannula Oxygen Flow Rate (LPM) 3 4 08/03/23 07:03 08/03/23 07:03 08/03/23 07:09 Temperature Temperature Source Pulse Rate 82 80 82 Pulse Rate [Right Radial] Respiratory Rate 20 13 Blood Pressure 72/35 L 76/45 L 85/44 L Blood Pressure [Right Arm] Blood Pressure Mean 46 Blood Pressure Mean [Right Arm] Blood Pressure Source Manual Cuff/ Auscultation Blood Pressure Source [Right Arm] Blood Pressure Position [Right Arm] 02 Sat by Pulse Oximetry 97 96 95 Oxygen Delivery Method Nasal Cannula Nasal Cannula Nasal Cannula Oxygen Flow Rate (LPM) 4 4 4 08/03/23 07:15 08/03/23 07:22 08/03/23 07:22 Temperature Temperature Source Pulse Rate 79 80 75 Pulse Rate [Right Radial] Respiratory Rate 14 15 15 Blood Pressure 81/43 L 81/46 L 78/42 L Blood Pressure [Right Arm] Blood Pressure Mean 56 Blood Pressure Mean [Right Arm] Blood Pressure Source Blood Pressure Source [Right Arm] Blood Pressure Position [Right Arm] 02 Sat by Pulse Oximetry 95 96 96 Oxygen Delivery Method Nasal Cannula Nasal Cannula Nasal Cannula Oxygen Flow Rate (LPM) 6 6 6 08/03/23 07:30 08/03/23 07:40 08/03/23 07:48 Temperature Temperature Source Pulse Rate 78 73 74 Pulse Rate [Right Radial] Respiratory Rate 13 16 17 Blood Pressure 81/45 L 81/44 L 102/56 L Blood Pressure [Right Arm] Blood Pressure Mean Blood Pressure Mean [Right Arm] Blood Pressure Source Blood Pressure Source [Right Arm] Blood Pressure Position [Right Arm] 02 Sat by Pulse Oximetry 97 97 96 Oxygen Delivery Method Nasal Cannula Nasal Cannula Nasal Cannula Oxygen Flow Rate (LPM) 6 6 6 08/03/23 07:50 08/03/23 08:08 08/03/23 08:10 Temperature Temperature Source Pulse Rate 74 78 73 Pulse Rate [Right Radial] Respiratory Rate 23 19 24 Blood Pressure 99/49 L 107/49 L 113/56 L Blood Pressure [Right Arm] Blood Pressure Mean Blood Pressure Mean [Right Arm] Blood Pressure Source Blood Pressure Source [Right Arm] Blood Pressure Position [Right Arm] 02 Sat by Pulse Oximetry 100 97 99 Oxygen Delivery Method Nasal Cannula Nasal Cannula Nasal Cannula Oxygen Flow Rate (LPM) 6 6 6 08/03/23 08:21 08/03/23 08:30 08/03/23 08:40 Temperature Temperature Source Pulse Rate 70 67 Pulse Rate [Right Radial] Respiratory Rate 21 21 19 Blood Pressure 86/44 L 88/47 L 89/49 L Blood Pressure [Right Arm] Blood Pressure Mean Blood Pressure Mean [Right Arm] Blood Pressure Source Blood Pressure Source [Right Arm] Blood Pressure Position [Right Arm] 02 Sat by Pulse Oximetry 98 98 97 Oxygen Delivery Method Nasal Cannula Nasal Cannula Nasal Cannula Oxygen Flow Rate (LPM) 6 6 6 08/03/23 08:50 08/03/23 08:55 08/03/23 09:01 Temperature Temperature Source Pulse Rate 75 76 76 Pulse Rate [Right Radial] Respiratory Rate 20 17 13 Blood Pressure 83/46 L 82/35 L 102/51 L Blood Pressure [Right Arm] Blood Pressure Mean Blood Pressure Mean [Right Arm] Blood Pressure Source Blood Pressure Source [Right Arm] Blood Pressure Position [Right Arm] 02 Sat by Pulse Oximetry 97 96 98 Oxygen Delivery Method Nasal Cannula Nasal Cannula Nasal Cannula Oxygen Flow Rate (LPM) 6 6 6 08/03/23 09:11 08/03/23 09:20 08/03/23 09:30 Temperature Temperature Source Pulse Rate 73 80 77 Pulse Rate [Right Radial] Respiratory Rate 20 18 21 Blood Pressure 116/58 L 124/54 L 103/54 L Blood Pressure [Right Arm] Blood Pressure Mean Blood Pressure Mean [Right Arm] Blood Pressure Source Blood Pressure Source [Right Arm] Blood Pressure Position [Right Arm] 02 Sat by Pulse Oximetry 96 97 94 L Oxygen Delivery Method Nasal Cannula Nasal Cannula Nasal Cannula Oxygen Flow Rate (LPM) 6 6 6 08/03/23 10:10 08/03/23 10:20 08/03/23 10:30 Temperature Temperature Source Pulse Rate 78 67 64 Pulse Rate [Right Radial] Respiratory Rate 18 19 17 Blood Pressure 117/55 L 99/47 L 97/47 L Blood Pressure [Right Arm] Blood Pressure Mean Blood Pressure Mean [Right Arm] Blood Pressure Source Blood Pressure Source [Right Arm] Blood Pressure Position [Right Arm] 02 Sat by Pulse Oximetry 100 100 100 Oxygen Delivery Method Nasal Cannula Nasal Cannula Nasal Cannula Oxygen Flow Rate (LPM) 6 6 6 Lab Data Lab Results 08/03/23 06:27: SARS-CoV-2 (PCR) Not detected, Influenza A Untype (PCR) Detected A, Influenza Type B (PCR) Not detected 08/03/23 06:30: WBC 4.9, RBC 3.97 L, Hgb 11.3 L, Hct 35.5 L, MCV 89.5, MCH 28.4, MCHC 31.7 L, RDW 19.0 H, Plt Count 248, MPV 8.2, Neut % (Auto) 77.2, Lymph % (Auto) 12.7, [place] % (Auto) 9.4 H, Eos % (Auto) 0.0 L, Baso % (Auto) 0.7, Neut # (Auto) 3.8, Lymph # (Auto) 0.6 L, [place] # (Auto) 0.5, Eos # (Auto) 0.0, Baso # (Auto) 0.0, PT 11.6, INR 1.08, APTT 33.0 H, Sodium 130 L, Potassium 4.6, Chlor wilfrido 93 L, Carbon Dioxide 35 H, Anion Gap 6.6, BUN 19 H, Creatinine 1.40 H, Estimated Creat Clear 30, Estimated GFR 37 L, Est GFR ( Amer) 45 L, Glucose 103 H, Lactate 0.8, Calcium 8.1 L, Total Bilirubin 0.5, AST 41 H, ALT 20, Alkaline Phosphatase 73, Troponin I < 0.01, NT-Pro-B Natriuret Pep 328 H, Total Protein 6.8, Albumin 3.6, Globulin 3.2, Albumin/Globulin Ratio 1.1, TSH 1.57, Thyroxine (T4) 5.3 L 08/03/23 06:42: VBG pH 7.32, VBG pCO2 61.1 H, VBG pO2 32.6, VBG HCO3 30.5 H, VBG Total CO2 32.4 H, VBG O2 Saturation 56.8, VBG Base Excess 4.3 H 08/03/23 07:28: Urine Color Yellow, Urine Appearance Clear, Urine pH 6.0, Ur Specific Brutus 1.020, Urine Protein Negative, Urine Glucose (UA) Negative, Urine Ketones Negative, Urine Blood Negative, Urine Nitrate Negative, Urine Bilirubin Negative, Urine Urobilinogen 0.2, Ur Leukocyte Esterase Negative, Urine RBC None, Urine WBC Occasional, Ur Squamous Epith Cells 3-5, Urine Bacteria Trace Orders (Tests/Meds): ED MEDICATIONS Generic Name Dose Route Start Last Admin Trade Name Freq PRN Reason Stop Dose Admin Norepinephrine/Dextrose 8 mg in 250 mls @ 3.75 mls/hr 08/03/23 07:26 08/03/23 08:34 Norepinephrine 8mg/250ml-D5w Premix IV 09/02/23 07:25 8 mcg/min .Q24H WILLY 15 mls/hr Infusion Protocol 2 MCG/MIN Piperacillin Sod/Tazobactam 50 mls @ 100 mls/hr 08/03/23 08:00 08/03/23 08:11 Sod 3.375 gm/ Sodium Chloride IV 08/13/23 07:59 100 mls/hr Q8H WILLY Administration Miscellaneous 1 each 08/03/23 07:30 08/03/23 07:35 Vancomycin Consult Request NOTAPPLIC 09/02/23 07:29 1 each CONSULT PHARMACY WILLY Administration Sodium Chloride 10 ml 08/03/23 07:30 Sodium Chloride 0.9% 10ml Flush Syringe IV 09/02/23 07:29 NEEDED PRN Maintain IV Site Discontinued Medications Generic Name Dose Route Start Last Admin Trade Name Freq PRN Reason Stop Dose Admin Acetaminophen 1,000 mg 08/03/23 06:32 08/03/23 06:38 Acetaminophen 1,000mg/100ml Vial IV 08/03/23 06:33 1,000 mg ONCE ONE Administration Vancomycin HCl 2,000 mg/ 250 mls @ 125 mls/hr 08/03/23 08:30 08/03/23 08:33 Sodium Chloride IV 08/03/23 10:29 125 mls/hr ONCE ONE Administration Iopamidol 100 ml 08/03/23 09:43 08/03/23 09:52 Iopamidol-370 (76%);100ml Bottle IV 08/03/23 09:44 100 ml ONCE ONE Administration Ketorolac Tromethamine 15 mg 08/03/23 06:32 08/03/23 06:38 Ketorolac 30mg/Ml Vial IV 08/03/23 06:33 15 mg ONCE ONE Administration Sodium Chloride 50 ml 08/03/23 09:43 08/03/23 09:52 0.9 % Sodium Chloride 50 Ml Vial IV 08/03/23 09:44 50 ml ONCE ONE Administration Sodium Chloride 10 ml 08/03/23 09:43 08/03/23 09:52 Sodium Chloride 0.9% 10ml Syr (Rad Only) IV 08/03/23 09:44 10 ml ONCE ONE Administration ORDERS Category Date Time Status CT angio chest PE protocol Stat Cat Scan 08/03/23 08:[address] head/brain wo con Stat Cat Scan 08/03/23 06:45 Completed XR chest portable Stat Exams 08/03/23 06:25 Completed Activated Partial Thrombo Time Stat Lab 08/03/23 06:30 Completed Brain Natriuretic Peptide Stat Lab 08/03/23 06:30 Completed Complete Blood Count Auto Diff Stat Lab 08/03/23 06:30 Completed Comprehensive Metabolic Panel Stat Lab 08/03/23 06:30 Completed Lactic Acid Stat Lab 08/03/23 06:30 Completed Prothrombin Time INR Stat Lab 08/03/23 06:30 Completed Rapid PCR Covid and Flu A/B Stat Lab 08/03/23 06:27 Completed T4 (Thyroxine) Stat Lab 08/03/23 06:30 Completed Thyroid Stimulating Hormone Stat Lab 08/03/23 06:30 Completed Troponin I Q3H Lab 08/03/23 10:09 Received Troponin I Q3H Lab 08/03/23 12:30 Ordered Troponin I Stat Lab 08/03/23 06:30 Completed Urinalysis and Microscopic Stat Lab 08/03/23 07:28 Completed Blood Culture Stat Micro 08/03/23 06:35 Received Urine Culture Stat Micro 08/03/23 07:28 Received Venous Blood Gas Stat RT 08/03/23 06:42 Completed ECG initial Besson Routine Y 08/03/23 06:51 Completed Medical Decision Narrative: In summary, this patient is a 67-year-old female presenting to the Emergency Department for evaluation of fever, altered mental status, and [facility] Differential diagnoses considered include but are not limited to sepsis, pneumonia, viral syndrome, urinary tract infection, septic shock. Ruling out the most morbid conditions drove assessment. It should be noted patient's history includes obesity, ELIANA, hypertension, hyperlipidemia, CHF, COPD, and chronic respiratory failure on home oxygen which may or may not be at goal therapy. This complicates all aspects of care by increasing patient's risk for morbidity. I reviewed patient's past medical records and noted multiple previous evaluations over the last several months for altered mental status, most often related to urinary tract infection, respiratory failure, and BiPAP noncompliance . On exam, the patient is in no acute distress. Vitals are reassuring on cardiac telemetry with the exception of fever noted. She does have some rhonchi bilaterally but has no increased work of breathing. Workup included broad workup including infectious, metabolic, and cardiac workup. CT head, CXR, and EKG ordered. Given patient's fever, she was given IV acetaminophen and Toradol. Sepsis bolus was not given, as the patient has history of CHF with chronic volume overload and I feel the risk would outweigh the benefit. Patient care was signed out to the oncoming resident, Dr. Rashid, pending labs, imaging, and disposition. Dr. Rashid: WBC of 4.9. Stable anemia with hemoglobin of 11.3. Hematocrit 35.5. VBG showed a pCO2 of 61.1. No acidosis. Sodium of 130. Creatinine 1.4. Troponin less than 0.01. No signs of UTI on urinalysis. She is influenza A positive on swab which likely contributes to patient's symptoms. Chest x-ray with concerns for pneumonia. Patient had multiple hypotensive readings while in the ED with systolics in the 70s and low 80s and maps in the 50s. 500 cc bolus was pressure bagged however patient remained hypotensive. Patient was started on Levophed for blood pressure support. She was also given broad-spectrum antibiotics vancomycin and Zosyn. She is currently requiring oxygen and has gone from 2 L to 6 L. Given her increasing oxygen requirements and concerns for pneumonia on chest x-ray, I did order for CT PE. No large pulmonary embolisms identified on my informal interpretation. CT head did not show any acute intracranial bleeds. I did consult with hospital medicine and discussed management and hospital medicine and has agreed to admit patient to their service. Critical Care <Mae Farmer, DO - Last Filed: 08/03/23 06:57> Critical Care Time Critical Care Time: No
[2023-08-03 06:35] LABS: Coronavirus 19, PCR Not Detected (NotDetected); Influenza B, PCR Not Detected (NotDetected)
[2023-08-03] MEDS: KETOROLAC 30MG/ML VIAL 15 MG IV (06:38)
[2023-08-03] MEDS: ACETAMINOPHEN 1,000MG/100ML VIAL 1000 MG IV (06:38)
--- NOTE | 2023-08-03 06:45 | CT_ITS ---
FINAL REPORT CLINICAL HISTORY: [facility] COMPARISON: 02/22/2022 FINDINGS: Axial images of the head were obtained without contrast. Coronal and sagittal reformatted images were also obtained. This study was performed with techniques to keep radiation doses as low as reasonably achievable (ALARA). Individualized dose reduction techniques using automated exposure control or adjustment of mA and/or kV according to the patient's size were employed. There is generalized age appropriate atrophy. There is no evidence of intracranial hemorrhage or mass. The ventricular size is within normal limits. There is no evidence of shift of the midline structures. There is opacification of multiple right mastoid air cells, with questionable erosion of the superior aspect of the petrous portion of the right temporal bone. IMPRESSION: Age-appropriate atrophy. Opacification of multiple right mastoid air cells, and there may be erosion of the superior aspect of the petrous portion of the right temporal bone. If indicated would recommend dedicated temporal bone CT for further evaluation. Reviewed, Interpreted and Dictated by Chemo Forrest III, MD Transcribed by Estefany Paulino Authenticated and [facility]
[2023-08-03 06:49] LABS: VBG Base Excess 4.3 mmol/L (-2.4-2.3); VBG HCO3 30.5 mmol/L (23-30); VBG Oxygen Saturation 56.8 % (50-70); VBG PCO2 61.1 mmol/L (35-51); VBG PH 7.32 mmol/L (7.31-7.41); VBG PO2 32.6 mmol/L (28-40); VBG Total CO2 32.4 mmol/L (23-27)
--- NOTE | 2023-08-03 06:51 | ECG_ITS ---
APPROVED REPORT Exam: Resting ECG HR:86 bpm ECG Measurements Heart Rate [address] 157 P 58 QRSd 92 QRS 93 QT 348 T 38 QTc 392 Conclusion SINUS RHYTHM BORDERLINE RIGHT AXIS DEVIATION [QRS AXIS > 90] BORDERLINE ECG UNCONFIRMED REPORT Electronically signed by : Mikal Valentine MD 08/03/2023 20:58:36
[2023-08-03 06:59] LABS: Basophils % 0.7 % (0.1-2.0); Hematocrit 35.5 % (37.0-47.0); Hemoglobin 11.3 g/dL (12.2-16.2); Lymphocytes # 0.6 K/mm3 (0.7-4.5); Lymphocytes % 12.7 % (10-50); Mean Corpuscular HGB Conc 31.7 g/dL (31.8-35.4); Mean Corpuscular Hemoglobin 28.4 pg (27.0-31.2); Mean Corpuscular Volume 89.5 fl (81-99); Mean Platelet Volume 8.2 fl (7.4-10.4); Monocytes # 0.5 K/mm3 (0.1-1.0); Monocytes % 9.4 % (1.7-9.3); Neutrophils # 3.8 K/mm3 (1.8-7.8); Neutrophils % 77.2 % (37.0-80.0); Platelet Count 248 K/mm3 (142-424); Red Blood Count 3.97 M/mm3 (4.20-5.40); White Blood Count 4.9 K/mm3 (4.8-10.8)
[2023-08-03 07:05] LABS: Chloride 93 mmol/L (98-107); Potassium 4.6 mmoL/L (3.5-5.1); Sodium 130 mmol/L (136-145)
[2023-08-03 07:08] LABS: Alanine Aminotransferase 20 U/L (12-78); Albumin Level 3.6 g/dl (3.5-5.0); Albumin/Globulin Ratio 1.1 (1.1-1.8); Alkaline Phosphatase 73 U/L (38-126); Anion Gap 6.6 mEq/L (5-15); Aspartate Amino Transferase 41 U/L (14-36); Bilirubin,Total 0.5 mg/dl (0.2-1.3); Blood Urea Nitrogen 19 mg/dl (7-17); Calcium 8.1 mg/dl (8.4-10.2); Carbon Dioxide 35 mmol/L (22.0-30.0); Creatinine Clearance Estimated 30 mL/min (50-200); Estimated Glomerular Filt Rate 37 ml/min (>60); GFR (African American) 45 ML/MIN (>60); Globulin 3.2 g/dL (1.3-3.2); Glucose 103 mg/dl (74-100); Lactic Acid 0.8 mmol/L (0.7-2.1); Total Protein,Serum 6.8 g/dl (6.3-8.2)
[2023-08-03 07:10] LABS: INR 1.08 (0.9-1.1); Prothrombin Time 11.6 seconds (10.1-12.5)
[2023-08-03 07:14] LABS: Influenza A, PCR Detected (NotDetected)
--- NOTE | 2023-08-03 07:16 | PC.NURSE ---
Dr. Rashid at BS for pt eval
--- NOTE | 2023-08-03 07:17 | HMH.ITSTN ---
PT HYPOTENSIVE UNABLE TO GO TO CT AT THIS TIME, ER WILL CALL WHEN READY.
[2023-08-03 07:26] LABS: T4 (Thyroxine) 5.3 ug/dl (5.53-11.0)
[2023-08-03] MEDS: NOREPINEPHRINE BITARTRATE/D5W 8 MG/250 ML PLAST..BAG 3.75 MG IV (07:34)
[2023-08-03 07:35] LABS: Microscopic, Urine URINE MICROSCOPIC (MICROSCOPIC)
[2023-08-03] MEDS: VANCOMYCIN CONSULT REQUEST 1 EACH NOTAPPLIC (07:35)
[2023-08-03 07:39] LABS: Thyroid Stimulating Hormone 1.57 uIU/mL (0.465-4.68)
[2023-08-03 07:49] LABS: Troponin I < 0.01 ng/ml (0.00-0.034)
--- NOTE | 2023-08-03 07:59 | PC.NURSE ---
PT TO CT
[2023-08-03 08:04] LABS: Appearance,Urine CLEAR (Clear); Bilirubin,Urine Negative (Negative); Blood, Urine Negative (Negative); Color,Urine YELLOW (Yellow); Glucose,Urine (UA) Negative (Negative); Ketones,Urine Negative (Negative); Leukocyte Esterase,Urine Negative (Negative); Nitrate,Urine Negative (Negative); Protein,Urine Negative (Negative); Urobilinogen,Urine 0.2 EU/dl (0.2)
--- NOTE | 2023-08-03 08:07 | PC.NURSE ---
PT RETURNED FROM CT
[2023-08-03] MEDS: PIPERCILLIN/TAZO 3.375 GM in 0.9 % SODIUM CHLORIDE 50 ML IV ×2 (08:11→17:34)
--- NOTE | 2023-08-03 08:22 | PC.NURSE ---
pts POA, NU GEORGE, called to check on pt. 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 updated nu on POC, states that she will call back late for any further updates.
[2023-08-03 08:33] LABS: Bacteria,Urine Trace /lpf; WBC,Urine Occasional #/hpf (0-3)
[2023-08-03] MEDS: VANCOMYCIN HCL 2,000 MG in 0.9 % SODIUM CHLORIDE 250 ML 125 MG IV (08:33)
[2023-08-03 08:51] LABS: NT Pro Brain Natriuretic Pep. 328 pg/mL (0-125)
--- NOTE | 2023-08-03 08:56 | CT_ITS ---
FINAL REPORT CLINICAL HISTORY: hypoxia, concern for PNA on CXR COMPARISON: 05/08/2023 FINDINGS: Thin section axial CT images of the chest were obtained with contrast. 3D reformatted images were also obtained. This study was performed with techniques to keep radiation doses as low as reasonably achievable (ALARA). Individualized dose reduction techniques using automated exposure control or adjustment of mA and/or kV according to the patients size were employed. Images are suboptimal secondary to patient's body habitus. There is no evidence of pulmonary embolism. 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 Moderate hiatal hernia is identified. There is no evidence of thoracic aortic aneurysm or dissection. There is no evidence of mediastinal or hilar mass or adenopathy. There are right upper lobe and bilateral lower lobe opacities, favor atelectasis over pneumonia. Limited images of the upper abdomen are unremarkable. IMPRESSION: No evidence of pulmonary embolism. Favor atelectasis over pneumonia. Reviewed, Interpreted and Dictated by Chemo Forrest III, MD Transcribed by Lulu Castaneda Authenticated and [facility]
--- NOTE | 2023-08-03 09:04 | PC.NURSE ---
at bs placing art line, nurse Zamzam and Luis Armando at bs assisting md
--- NOTE | 2023-08-03 09:38 | PC.NURSE ---
Pt gone to CT via stretcher
[2023-08-03] MEDS: IOPAMIDOL-370 (76%);100ML BOTTLE 100 ML IV (09:52)
[2023-08-03] MEDS: 0.9 % SODIUM CHLORIDE 50 ML VIAL IV (09:52)
[2023-08-03] MEDS: SODIUM CHLORIDE 0.9% 10ML SYR (RAD ONLY) 10 ML IV (09:52)
--- NOTE | 2023-08-03 10:07 | PC.NURSE ---
Pt back from CT
--- NOTE | 2023-08-03 10:22 | PC.NURSE ---
DR BORJA SPOKE WITH DR BROWNE, STATES HE WILL CALL BACK
--- NOTE | 2023-08-03 10:35 | PC.NURSE ---
Called Dr. Wall to have Dr. Rashid speak with him about pt admission. Advised he was rounding and asked to call back.
--- NOTE | 2023-08-03 10:46 | PC.NURSE ---
Dr. Rashid speaking with Dr. Wall about pt admission
--- NOTE | 2023-08-03 10:50 | PC.NURSE ---
updated sister on POC who is at bedside
--- NOTE | 2023-08-03 10:51 | PC.NURSE ---
CM notified of pt admission
--- NOTE | 2023-08-03 11:14 | PC.NURSE ---
report called to [facility]wood on second floor
[2023-08-03 11:24] LABS: Troponin I < 0.01 ng/ml (0.00-0.034)
--- NOTE | 2023-08-03 11:39 | PC.NURSE ---
arrived to floor from ED by stretcher
--- NOTE | 2023-08-03 11:47 | SW/DCPLANNER ---
Addendum entered by Jessy Centeno 08/05/23 11:12: I have updated Mae w/ [facility] that the plan for this patient is to return later today or tomorrow. Addendum entered by Jessy Centeno 08/04/23 11:04: Updated patient information has been faxed to [facility]. Original Note: This patient currently resides at [facility] level of care. I will continue to follow up w/ Mae at [facility] until patient is medically stable for discharge.
--- NOTE | 2023-08-03 12:37 | PC.NURSE ---
Addendum entered by Monet Mendoza RN 08/03/23 13:19: o2 decreased to 3lpm r/t sats 97 Original Note: 1150 pt o2 noted to be 100% on 6lpm. o2 decreased to 4lpm (pt baseline requirement is 2-3lpm)
[2023-08-03 13:04] LABS: Troponin I < 0.01 ng/ml (0.00-0.034)
--- NOTE | 2023-08-03 13:34 | P.CONPHA_ITS ---
Pharmacy Intervention Comments: MEDICATION RECONCILIATION COMPLETED ON PATIENT USING MAR FROM SNF. -ELMA NUNEZ, ENRIQUED
--- NOTE | 2023-08-03 13:34 | HMH.PHAINT1 ---
Pharmacy Intervention Comments: MEDICATION RECONCILIATION COMPLETED ON PATIENT USING MAR FROM [facility]. -ELMA NUNEZ, ENRIQUED
[2023-08-03 13:41] LABS: ABG Base Excess 2.5 mmol/L (-2.4-2.3); ABG HCO3 28.5 mmhg (22.0-26.0); ABG Oxygen Saturation 94 % (90-100); ABG PH 7.33 mmol/L (7.35-7.45); ABG PO2 73.9 mmhg (80-100); ABG TCO2 30.2 mmhg (23-27)
[2023-08-03 13:55] LABS: Allen's Test ACCEPTABLE; Oxygen 3LPM %; Source R RADIAL
[2023-08-03 13:56] LABS: ABG PCO2 55.6 mmhg (35.0-45.0)
[2023-08-03] MEDS: HEPARIN SODIUM 5,000 UNIT/ML VIAL 5000 UNIT SQ ×2 (14:06→21:06)
[2023-08-03] MEDS: ACETAMINOPHEN 325MG TAB 650 MG PO (14:11)
[2023-08-03] MEDS: PANTOPRAZOLE 40MG TABLET 40 MG PO ×2 (14:11→21:07)
--- NOTE | 2023-08-03 14:11 | P.CONS_ITS ---
History of Present Illness History of present illness: Ms. Dickson is a 67-year-old female with history of morbid obesity, CHF, ELIANA presented to the hospital complaining worsening respiratory distress and febrile episodes and Pulmonary was called for further evaluation and management. Patient today stated that she is a never smoker. [facility] Disclaimer: The information contained in this section may have been updated after the patient was seen, as this information can be updated by other users. 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 Review of Systems Constitutional Constitutional: Reports body ache(s) Eyes Eyes: Denies eye discharge, Denies dry eyes, Denies irritation and Denies itchy eyes ENT Ears, Nose, Mouth, and Throat: Denies epistaxis, Denies facial pain, Denies lip swelling and Denies throat swelling *Cardiovascular Cardiovascular: Reports dyspnea, Reports dyspnea on exertion and Reports orthopnea *Respiratory Respiratory: Reports chest congestion, Reports cough, Reports dyspnea, Reports dyspnea on exertion, Denies excessive phlegm production and Denies wheezing *Gastrointestinal Gastrointestinal: Denies abdominal pain, Denies belching and Denies cramping *Musculoskeletal Musculoskeletal: Reports back pain, Reports myalgias and Reports other (No small joint swelling or Pain) Psychiatric Psychiatric: Denies homicidal ideation and Denies suicidal ideation Endocrine Endocrine: Denies heat intolerance Hematologic/Lymphatic Hematologic/Lymphatic: Denies easy bleeding and Denies lymphadenopathy Allergic/Immunologic Allergic/Immunologic: Denies itchy eyes, Denies lip swelling, Denies throat swelling and Denies wheezing Pulmonology Exam Inpatient Vital signs and Labs for Last 24 Hours: Temp Pulse Resp BP Pulse Ox O2 Del Method O2 Flow Rate 98.8 F 79 20 126/39 L 97 Nasal Cannula 4 08/03/23 11:55 08/03/23 13:00 08/03/23 13:00 08/03/23 13:00 08/03/23 13:00 08/03/23 13:00 08/03/23 13:00 Laboratory Results - last 24 hr 08/03/23 06:27: SARS-CoV-2 (PCR) Not detected, Influenza A Untype (PCR) Detected A, Influenza Type B (PCR) Not detected 08/03/23 06:30: WBC 4.9, RBC 3.97 L, Hgb 11.3 L, Hct 35.5 L, MCV 89.5, MCH 28.4, MCHC 31.7 L, RDW 19.0 H, Plt Count 248, MPV 8.2, Neut % (Auto) 77.2, Lymph % (Auto) 12.7, [place] % (Auto) 9.4 H, Eos % (Auto) 0.0 L, Baso % (Auto) 0.7, Neut # (Auto) 3.8, Lymph # (Auto) 0.6 L, [place] # (Auto) 0.5, Eos # (Auto) 0.0, Baso # (Auto) 0.0, PT 11.6, INR 1.08, APTT 33.0 H, Sodium 130 L, Potassium 4.6, Chloride 93 L, Carbon Dioxide 35 H, Anion Gap 6.6, BUN 19 H, Creatinine 1.40 H, Estimated Creat Clear 30, Estimated GFR 37 L, Est GFR ( Amer) 45 L, Glucose 103 H, Lactate 0.8, Calcium 8.1 L, Total Bilirubin 0.5, AST 41 H, ALT 20, Alkaline Phosphatase 73, Troponin I < 0.01, NT-Pro-B Natriuret Pep 328 H, Total Protein 6.8, Albumin 3.6, Globulin 3.2, Albumin/Globulin Ratio 1.1, TSH 1.57, Thyroxine (T4) 5.3 L 08/03/23 06:42: VBG pH 7.32, VBG pCO2 61.1 H, VBG pO2 32.6, VBG HCO3 30.5 H, VBG Total CO2 32.4 H, VBG O2 Saturation 56.8, VBG Base Excess 4.3 H 08/03/23 07:28: Urine Color Yellow, Urine Appearance Clear, Urine pH 6.0, Ur Specific [place] 1.020, Urine Protein Negative, Urine Glucose (UA) Negative, Urine Ketones Negative, Urine Blood Negative, Urine Nitrate Negative, Urine Bilirubin Negative, Urine Urobilinogen 0.2, Ur Leukocyte Esterase Negative, Uri ne RBC None, Urine WBC Occasional, Ur Squamous Epith Cells 3-5, Urine Bacteria Trace 08/03/23 10:09: Troponin I < 0.01 08/03/23 12:32: Troponin I < 0.01 08/03/23 12:59: Specimen Source R radial, O2 % 3lpm, ABG pH 7.33 L, ABG pCO2 55.6 H, ABG pO2 73.9 L, ABG HCO3 28.5 H, ABG Total CO2 30.2 H, ABG O2 Saturation 94, ABG Base Excess 2.5 H, Juan J Test Acceptable I & O for Labs for Last 24 Hours: Intake & Output 07/31/23 08/01/23 08/02/23 08/03/23 23:59 23:59 23:59 23:59 Intake Total 84.533 / 84.533 Output Total 350 / 350 Balance -265.467 / -265.467 Weight 257 lb 4 oz Constitutional: Present moderate distress Head: Present normocephalic and atraumatic ENT: Present normal exam, normal oropharynx and mucous membranes moist Neck: Present normal inspection and full ROM Respiratory: Present able to speak in complete sentences; Absent respiratory distress or wheezes Cardiac: Present S1/S2, Tachycardia and radial pulses present GI: Present soft and distention; Absent tenderness or guarding Rectal (female): Present deferred (female): Present deferred Skin: Present intact; Absent cyanosis or jaundice Neuro: Present alert and awake; Absent oriented x 3 Extremities: Present normal inspection; Absent clubbing or cyanosis Psychiatric: Present normal affect and cooperative Meds Home Medications and Allergies Home Medications Medication Instructions Recorded Confirmed Type omeprazole 20 mg capsule,delayed 20 mg PO DAILY acid reflux 01/21/21 08/03/23 History release aspirin 81 mg tablet,delayed 81 mg PO DAILY Heart Health 01/22/21 08/03/23 History release acetaminophen 500 mg tablet 500 mg PO Q8HP PRN Mild Pain 08/23/21 08/03/23 History (Scale Score 1-4) calcium carbonate 600 mg-vitamin 1 tab PO DAILY Supplement 08/23/21 08/03/23 History D3 20 mcg (800 unit) chewable tablet multivitamin 1 tab PO DAILY Supplement 04/07/22 08/03/23 History sodium chloride 1 gram tablet 2,000 mg PO BID hyponatremia 04/07/22 08/03/23 History bisoprolol fumarate 10 mg tablet 10 mg PO DAILY High Blood Pressure 04/20/22 08/03/23 History doxazosin 4 mg tablet 4 mg PO HS Urinary retention 05/08/23 08/03/23 History cetirizine 10 mg tablet 10 mg PO DAILY Allergy Symptoms 05/09/23 08/03/23 History sennosides 8.6 mg tablet (senna) 8.6 mg PO DAILY Constipation 05/09/23 08/03/23 History potassium chloride 20 mEq 20 meq PO BID 30 days #60 tabs 05/11/23 08/03/23 Rx tablet,extended release(part/cryst) (Klor-Con M) quetiapine 100 mg tablet 100 mg PO BID 30 days #60 tabs 05/11/23 08/03/23 Rx spironolactone 25 mg tablet 25 mg PO DAILY 30 days #30 tabs 05/11/23 08/03/23 Rx bumetanide 2 mg tablet 2 mg PO DAILY 08/03/23 08/03/23 History cephalexin 500 mg tablet 500 mg PO TID ingrown toenail 08/03/23 08/03/23 History lisinopril 2.5 mg tablet 2.5 mg PO BID High Blood Pressure 08/03/23 08/03/23 History lorazepam 1 mg tablet 0.5 mg PO TID Anxiety 08/03/23 08/03/23 History magnesium oxide 400 mg (241.3 mg 400 mg PO DAILY Supplement 08/03/23 08/03/23 History magnesium) tablet (MagOx) New Prescriptions to Start Prescriptions: Allergies Allergy/AdvReac Type Severity Reaction Status Date / Time bupropion Allergy Verified 05/08/23 17:29 prednisone Allergy Verified 05/08/23 17:29 rosuvastatin [From Crestor] Allergy Verified 05/08/23 17:29 Results Laboratory Findings 08/03/23 06:30 08/03/23 06:30 ABG ABG pH 7.33 mmol/L (7.35-7.45) L 08/03/23 12:59 ABG pCO2 55.6 mmhg (35.0-45.0) H 08/03/23 12:59 ABG pO2 73.9 mmhg (80-100) L 08/03/23 12:59 ABG O2 Saturation 94 % (90-100) 08/03/23 12:59 PT/INR, D-dimer PT 11.6 seconds (10.1-12.5) 08/03/23 06:30 INR 1.08 (0.9-1.1) 08/03/23 06:30 Abnormal lab findings: Abnormal Labs 08/03/23 08/03/23 08/03/23 06:27 06:30 06:42 RBC 3.97 L Hgb 11.3 L Hct 35.5 L MCHC 31.7 L RDW 19.0 H [place] % (Auto) 9.4 H Eos % (Auto) 0.0 L Lymph # (Auto) 0.6 L APTT 33.0 H ABG pH ABG pCO2 ABG pO2 ABG HCO3 ABG Total CO2 ABG Base Excess VBG pCO2 61.1 H VBG HCO3 30.5 H VBG Total CO2 32.4 H VBG Base Excess 4.3 H Sodium 130 L Chloride 93 L Carbon Dioxide 35 H BUN 19 H Creatinine 1.40 H Estimated GFR 37 L Est GFR ( Amer) 45 L Glucose 103 H Calcium 8.1 L AST 41 H NT-Pro-B Natriuret Pep 328 H Thyroxine (T4) 5.3 L Influenza A Untype (PCR) Detected A 08/03/23 12:59 RBC Hgb Hct MCHC RDW [place] % (Auto) Eos % (Auto) Lymph # (Auto) APTT ABG pH 7.33 L ABG pCO2 55.6 H ABG pO2 73.9 L ABG HCO3 28.5 H ABG Total CO2 30.2 H ABG Base Excess 2.5 H VBG pCO2 VBG HCO3 VBG Total CO2 VBG Base Excess Sodium Chloride Carbon Dioxide BUN Creatinine Estimated GFR Est GFR ( Amer) Glucose Calcium AST NT-Pro-B Natriuret Pep Thyroxine (T4) Influenza A Untype (PCR) Assessment and Plan *Assessment and plan (1) ELIANA (obstructive sleep apnea): Status: Acute Category: Medical Code(s): G47.33 - Obstructive sleep apnea (adult) (pediatric) (2) Chronic respiratory failure: Status: Acute Category: Medical Code(s): J96.10 - Chronic respiratory failure, unspecified whether with hypoxia or hypercapnia Plan Ms. Dickson is a 67-year-old female with history of morbid obesity, CHF, ELIANA presented to the hospital complaining worsening respiratory distress and febrile episodes and Pulmonary was called for further evaluation and management. Patient today stated that she is a never smoker. CTA on admission significant motion artifact, no evidence of large pulmonary embolism noted. No dense consolidations or airspace disease noted. Mild left lower lobe airspace disease noted. The right based fissure atelectasis appears to be stable from prior. No evidence of leukocytosis. Hemodynamically unstable on pressors at 2 mcg of Levophed. Plan: Continue Tamiflu Continue nasal oxygen supplementation to maintain O2 saturation goal of 90 to 95%. BiPAP therapy while asleep 20/14 with a rate of 18 FiO2 25% DuoNebs every 6 hours on as-needed basis With respect antibiotics awaiting blood culture results to de-escalate antibiotics. Patient CT did not have any significant evidence of pneumonia to support that as a source of her currently noted shock. # Thank you for involving pulmonary in this patient care will continue to venkatesh corbett.
--- NOTE | 2023-08-03 15:56 | P.CONPHA_ITS ---
Pharmacy Consult Date: 08/03/23 Time: 15:56 Referring provider: DR. BROWNE Reason for Consult:: VANCOMYCIN DOSING Allergies Allergy/AdvReac Type Severity Reaction Status Date / Time bupropion Allergy Verified 05/08/23 17:29 prednisone Allergy Verified 05/08/23 17:29 rosuvastatin [From Crestor] Allergy Verified 05/08/23 17:29 Home Medications Medication Instructions Recorded Confirmed Type omeprazole 20 mg capsule,delayed 20 mg PO DAILY acid reflux 01/21/21 08/03/23 History release aspirin 81 mg tablet,delayed 81 mg PO DAILY Heart Health 01/22/21 08/03/23 History release acetaminophen 500 mg tablet 500 mg PO Q8HP PRN Mild Pain 08/23/21 08/03/23 History (Scale Score 1-4) calcium carbonate 600 mg-vitamin 1 tab PO DAILY Supplement 08/23/21 08/03/23 History D3 20 mcg (800 unit) chewable tablet multivitamin 1 tab PO DAILY Supplement 04/07/22 08/03/23 History sodium chloride 1 gram tablet 2,000 mg PO BID hyponatremia 04/07/22 08/03/23 History bisoprolol fumarate 10 mg tablet 10 mg PO DAILY High Blood Pressure 04/20/22 08/03/23 History doxazosin 4 mg tablet 4 mg PO HS Urinary retention 05/08/23 08/03/23 History cetirizine 10 mg tablet 10 mg PO DAILY Allergy Symptoms 05/09/23 08/03/23 History sennosides 8.6 mg tablet (senna) 8.6 mg PO DAILY Constipation 05/09/23 08/03/23 History potassium chloride 20 mEq 20 meq PO BID 30 days #60 tabs 05/11/23 08/03/23 Rx tablet,extended release(part/cryst) (Klor-Con M) quetiapine 100 mg tablet 100 mg PO BID 30 days #60 tabs 05/11/23 08/03/23 Rx spironolactone 25 mg tablet 25 mg PO DAILY 30 days #30 tabs 05/11/23 08/03/23 Rx bumetanide 2 mg tablet 2 mg PO DAILY 08/03/23 08/03/23 History cephalexin 500 mg tablet 500 mg PO TID ingrown toenail 08/03/23 08/03/23 History lisinopril 2.5 mg tablet 2.5 mg PO BID High Blood Pressure 08/03/23 08/03/23 History lorazepam 1 mg tablet 0.5 mg PO TID Anxiety 08/03/23 08/03/23 History magnesium oxide 400 mg (241.3 mg 400 mg PO DAILY Supplement 08/03/23 08/03/23 History magnesium) tablet (MagOx) New Prescriptions to Start Prescriptions: Height: 1.65 m Weight: 116.687 kg Laboratory Results:: Laboratory Results - last 24 hr 08/03/23 06:27: SARS-CoV-2 (PCR) Not detected, Influenza A Untype (PCR) Detected A, Influenza Type B (PCR) Not detected 08/03/23 06:30: WBC 4.9, RBC 3.97 L, Hgb 11.3 L, Hct 35.5 L, MCV 89.5, MCH 28.4, MCHC 31.7 L, RDW 19.0 H, Plt Count 248, MPV 8.2, Neut % (Auto) 77.2, Lymph % (Auto) 12.7, [place] % (Auto) 9.4 H, Eos % (Auto) 0.0 L, Baso % (Auto) 0.7, Neut # (Auto) 3.8, Lymph # (Auto) 0.6 L, [place] # (Auto) 0.5, Eos # (Auto) 0.0, Baso # (Auto) 0.0, PT 11.6, INR 1.08, APTT 33.0 H, Sodium 130 L, Potassium 4.6, Chloride 93 L, Carbon Dioxide 35 H, Anion Gap 6.6, BUN 19 H, Creatinine 1.40 H, Estimated Creat Clear 30, Estimated GFR 37 L, Est GFR ( Amer) 45 L, Glucose 103 H, Lactate 0.8, Calcium 8.1 L, Total Bilirubin 0.5, AST 41 H, ALT 20, Alkaline Phosphatase 73, Troponin I < 0.01, NT-Pro-B Natriuret Pep 328 H, Total Protein 6.8, Albumin 3.6, Globulin 3.2, Albumin/Globulin Ratio 1.1, TSH 1.57, Thyroxine (T4) 5.3 L 08/03/23 06:42: VBG pH 7.32, VBG pCO2 61.1 H, VBG pO2 32.6, VBG HCO3 30.5 H, VBG Total CO2 32.4 H, VBG O2 Saturation 56.8, VBG Base Excess 4.3 H 08/03/23 07:28: Urine Color Yellow, Urine Appearance Clear, Urine pH 6.0, Ur Specific [place] 1.020, Urine Protein Negative, Urine Glucose (UA) Negative, Urine Ketones Negative, Urine Blood Negative, Urine Nitrate Negative, Urine Bilirubin Negative, Urine Urobilinogen 0.2, Ur Leukocyte Esterase Negative, Urine RBC None, Urine WBC Occasional, Ur Squamous Epith Cells 3-5, Urine Bacteria Trace 08/03/23 10:09: Troponin I < 0.01 08/03/23 12:32: Troponin I < 0.01 08/03/23 12:59: Specimen Source R radial, O2 % 3lpm, ABG pH 7.33 L, ABG pCO2 55.6 H, ABG pO2 73.9 L, ABG HCO3 28.5 H, ABG Total CO2 30.2 H, ABG O2 Saturation 94, ABG Base Excess 2.5 H, Juan J Test Acceptable Medical History: Medical History (Updated 08/03/23 @ 15:17 by Britney Delaney MD) Anxiety Chronic respiratory failure Dementia Depressive disorder GERD (gastroesophageal reflux disease) Heart failure History of SIADH Hyperlipidemia Hypertension Hyponatremia ELIANA (obstructive sleep apnea) Osteoporosis Pneumonia Sleep apnea Assessment and Plan Assessment and plan all Dx Assessment and Plan for all problems:: Pharmacokinetic dosing service Objective: Patient: Floor: Age: 67 yo Serum creatinine: 1.40 mg/dL Height: 65.0 Inches Weight (kg): 116.7 Assessment: IBW (kg): 57.00 Dosing wt(kg): 116.7 Estimated Creatinine clearance (ml/min): 34.6 CRCL method: Cockcroft and Gault using ibw(default). Drug selected: Vancomycin Loading dose (mg): Vd (liters): 93.4 (factor used: 0.8 L/kg) Chris (hr-1): 0.033 Half life (hrs): 21.00 CLvanco=?? 3.082 L/hr Recommended dose: 1750 mg Interval: 24 hrs Infusion time (hrs): 2.0 Predicted peak (mcg/mL): 33.1 Predicted trough (mcg/mL): 16.02 Total body weight is being used for vancomycin dosing. Recommendations: Give Vancomycin 1750 mg q 24 hrs with an expected Cpeak of 33.1 mcg/ml and an expected Ctrough of 16.02 mcg/ml AUC 0-24 /VIRIDIANA Data: VIRIDIANA 0.5 mcg/mL:?? AUC/VIRIDIANA:? 1135.6 VIRIDIANA 1.0 mcg/mL:?? AUC/VIRIDIANA:? 567.8 --------- VIRIDIANA 1.5 mcg/mL:?? AUC/VIRIDIANA:? 378.5 VIRIDIANA 2.0 mcg/mL:?? AUC/VIRIDIANA:? 283.9 Thank you for the consult, will continue to follow. -ENRIQUE SIDDIQID
--- NOTE | 2023-08-03 16:04 | PC.NURSE ---
Since arrival to the unit pt has remained in bed. pt is alert to self and is aware she is in a hospital, but she thinks the hospital is [facility] (where she is in a nursing facility). pt was able to be weaned to 3 lpm nc which is her baseline. pt levo was weaned to 2mcg at this time. nad noted. pt has hx of dementia and needs frequent reorienting and reminding of situations and conversations. pt has jane cath in place draining clear yellow urine. pt is dnr status. pt has had a temp of 100.2 since arrival on unit and was medicated as needed.
--- NOTE | 2023-08-03 16:09 | PC.NURSE ---
[address] Delaney notifying this RN that pt is to wear bipap at bedtime. per Md settings documented in progress note, asked that RT be notified of bipap order. 1523 notified Meera in RT of orders from Dr Delaney
--- NOTE | 2023-08-03 17:37 | EXP.HP ---
History of Present Illness *Admission Date: 08/03/23 *Reason for visit:: SOB *History of present illness: Patient is a 67-year-old female with past medical history of CHF COPD morbid obesity chronic hypercapnic respiratory failure hypertension hyperlipidemia who presents to the hospital for fever for about 2 days. She has nonproductive cough. According to the patient she also has shortness of breath. Patient otherwise denied chest pain diarrhea constipation dysuria sick contacts. She does not smoke. In the emergency department patient was noted to have low BP, patient was started on Levophed. [facility] Disclaimer: The information contained in this section may have been updated after the patient was seen, as this information can be updated by other users. Medical History (Updated 08/03/23 @ 15:17 by Britney Delaney MD) Anxiety Chronic respiratory failure Dementia Depressive disorder GERD (gastroesophageal reflux disease) Heart failure History of SIADH Hyperlipidemia Hypertension Hyponatremia ELIANA (obstructive sleep apnea) Osteoporosis Pneumonia Sleep apnea Family History Other No significant family history Social History (Updated 08/03/23 @ 12:36 by Kalani Ponce RN) Smoking Status: Never smoker alcohol intake: never current occupational status: disabled Travel in the last 8 weeks: None household members: other housing: [facility] 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 Review of Systems Review of Systems Review of systems (narrative): as per [facility] Meds Home Medications and Allergies Home Medications Medication Instructions Recorded Confirmed Type omeprazole 20 mg capsule,delayed 20 mg PO DAILY acid reflux 01/21/21 08/03/23 History release aspirin 81 mg tablet,delayed 81 mg PO DAILY Heart Health 01/22/21 08/03/23 History release acetaminophen 500 mg tablet 500 mg PO Q8HP PRN Mild Pain 08/23/21 08/03/23 History (Scale Score 1-4) calcium carbonate 600 mg-vitamin 1 tab PO DAILY Supplement 08/23/21 08/03/23 History D3 20 mcg (800 unit) chewable tablet multivitamin 1 tab PO DAILY Supplement 04/07/22 08/03/23 History sodium chloride 1 gram tablet 2,000 mg PO BID hyponatremia 04/07/22 08/03/23 History bisoprolol fumarate 10 mg tablet 10 mg PO DAILY High Blood Pressure 04/20/22 08/03/23 History doxazosin 4 mg tablet 4 mg PO HS Urinary retention 05/08/23 08/03/23 History cetirizine 10 mg tablet 10 mg PO DAILY Allergy Symptoms 05/09/23 08/03/23 History sennosides 8.6 mg tablet (senna) 8.6 mg PO DAILY Constipation 05/09/23 08/03/23 History potassium chloride 20 mEq 20 meq PO BID 30 days #60 tabs 05/11/23 08/03/23 Rx tablet,extended release(part/cryst) (Klor-Con M) quetiapine 100 mg tablet 100 mg PO BID 30 days #60 tabs 05/11/23 08/03/23 Rx spironolactone 25 mg tablet 25 mg PO DAILY 30 days #30 tabs 05/11/23 08/03/23 Rx bumetanide 2 mg tablet 2 mg PO DAILY 08/03/23 08/03/23 History cephalexin 500 mg tablet 500 mg PO TID ingrown toenail 08/03/23 08/03/23 History lisinopril 2.5 mg tablet 2.5 mg PO BID High Blood Pressure 08/03/23 08/03/23 History lorazepam 1 mg tablet 0.5 mg PO TID Anxiety 08/03/23 08/03/23 History magnesium oxide 400 mg (241.3 mg 400 mg PO DAILY Supplement 08/03/23 08/03/23 History magnesium) tablet (MagOx) New Prescriptions to Start Prescriptions: Allergies Allergy/AdvReac Type Severity Reaction Status Date / Time bupropion Allergy Verified 05/08/23 17:29 prednisone Allergy Verified 05/08/23 17:29 rosuvastatin [From Crestor] Allergy Verified 05/08/23 17:29 Exam Data for Last 24 hours Vital signs and Labs for Last 24 Hours: Temp Pulse Resp BP Pulse Ox O2 Del Method O2 Flow Rate 98.8 F 86 20 106/54 L 95 Nasal Cannula 3 08/03/23 15:45 08/03/23 16:00 08/03/23 16:00 08/03/23 16:00 08/03/23 16:00 08/03/23 16:00 08/03/23 16:00 Laboratory Results - last 24 hr 08/03/23 06:27: SARS-CoV-2 (PCR) Not detected, Influenza A Untype (PCR) Detected A, Influenza Type B (PCR) Not detected 08/03/23 06:30: WBC 4.9, RBC 3.97 L, Hgb 11.3 L, Hct 35.5 L, MCV 89.5, MCH 28.4, MCHC 31.7 L, RDW 19.0 H, Plt Count 248, MPV 8.2, Neut % (Auto) 77.2, Lymph % (Auto) 12.7, [place] % (Auto) 9.4 H, Eos % (Auto) 0.0 L, Baso % (Auto) 0.7, Neut # (Auto) 3.8, Lymph # (Auto) 0.6 L, [place] # (Auto) 0.5, Eos # (Auto) 0.0, Baso # (Auto) 0.0, PT 11.6, INR 1.08, APTT 33.0 H, Sodium 130 L, Potassium 4.6, Chloride 93 L, Carbon Dioxide 35 H, Anion Gap 6.6, BUN 19 H, Creatinine 1.40 H, Estimated Creat Clear 30, Estimated GFR 37 L, Est GFR ( Amer) 45 L, Glucose 103 H, Lactate 0.8, Calcium 8.1 L, Total Bilirubin 0.5, AST 41 H, ALT 20, Alkaline Phosphatase 73, Troponin I < 0.01, NT-Pro-B Natriuret Pep 328 H, Total Protein 6.8, Albumin 3.6, Globulin 3.2, Albumin/Globulin Ratio 1.1, TSH 1.57, Thyroxine (T4) 5.3 L 08/03/23 06:42: VBG pH 7.32, VBG pCO2 61.1 H, VBG pO2 32.6, VBG HCO3 30.5 H, VBG Total CO2 32.4 H, VBG O2 Saturation 56.8, VBG Base Excess 4.3 H 08/03/23 07:28: Urine Color Yellow, Urine Appearance Clear, Urine pH 6.0, Ur Specific [place] 1.020, Urine Protein Negative, Urine Glucose (UA) Negative, Urine Ketones Negative, Urine Blood Negative, Urine Nitrate Negative, Urine Bilirubin Negative, Urine Urobilinogen 0.2, Ur Leukocyte Esterase Negative, Urine RBC None, Urine WBC Occasional, Ur Squamous Epith Cells 3-5, Urine Bacteria Trace 08/03/23 10:09: Troponin I < 0.01 08/03/23 12:32: Troponin I < 0.01 08/03/23 12:59: Specimen Source R radial, O2 % 3lpm, ABG pH 7.33 L, ABG pCO2 55.6 H, ABG pO2 73.9 L, ABG HCO3 28.5 H, ABG Total CO2 30.2 H, ABG O2 Saturation 94, ABG Base Excess 2.5 H, Juan J Test Acceptable I & O for Last 24 hours: Intake & Output 07/31/23 08/01/23 08/02/23 08/03/23 23:59 23:59 23:59 23:59 Intake Total 103.595 / 103.595 Output Total 945 / 945 Balance -841.405 / -841.405 Weight 116.687 kg Constitutional Constitutional: no acute distress *Routine HEENT Exam Head: Present normocephalic Eye: Present EOMI and PERRL ENT: Present mucous membranes moist *Routine Neck Exam Neck: Present supple; Absent lymphadenopathy *Routine Respiratory Exam Respiratory: Present decreased breath sounds and distant breath sounds *Routine Cardiovascular Exam Cardiovascular: Present RRR *Routine Abdominal Exam Abdominal: Present soft and normoactive bowel sounds; Absent tenderness *Routine Rectal Exam Rectal:: deferred *Routine Genitalia Exam Genitalia:: deferred *Routine Extremities Exam Extremities: Absent cyanosis, clubbing or edema *Routine Skin Exam Skin: Present warm; Absent rash *Routine Neurological Exam Neurological: Present alert and oriented X3 Assessment and Plan *Assessment and plan (1) Hypercapnic respiratory failure: Status: Resolved Qualifiers: Chronicity: acute on chronic Qualified Code(s): J96.22 - Acute and chronic respiratory failure with hypercapnia Category: Medical Code(s): J96.92 - Respiratory failure, unspecified with hypercapnia (2) CHF (congestive heart failure): Status: Acute Qualifiers: Heart failure chronicity: unspecified Heart failure type: unspecified Qualified Code(s): I50.9 - Heart failure, unspecified Category: Medical Code(s): I50.9 - Heart failure, unspecified (3) Acute hypoxemic respiratory failure: Status: Acute Category: Medical Code(s): J96.01 - Acute respiratory failure with hypoxia (4) Hyperlipidemia: Status: Chronic Qualifiers: Hyperlipidemia type: unspecified Qualified Code(s): E78.5 - Hyperlipidemia, unspecified Category: Medical Code(s): E78.5 - Hyperlipidemia, unspecified (5) Hypertension: Status: Chronic Qualifiers: Hypertension type: unspecified Qualified Code(s): I10 - Essential (primary) hypertension Category: Medical Code(s): I10 - Essential (primary) hypertension (6) Peripheral edema: Status: Chronic Category: Medical Code(s): R60.9 - Edema, unspecified (7) Morbid obesity with BMI of 45.0-49.9, adult: Status: Acute Category: Medical Code(s): E66.01 - Morbid (severe) obesity due to excess calories; Z68.42 - Body mass index [BMI] 45.0-49.9, adult Plan Patient is a 67-year-old female with past medical history of CHF COPD morbid obesity chronic hypercapnic respiratory failure hypertension hyperlipidemia who presents to the hospital for fever for about 2 days. She has nonproductive cough. According to the patient she also has shortness of breath. Patient otherwise denied chest pain diarrhea constipation dysuria sick contacts. She does not smoke. In the emergency department patient was noted to have low BP, patient was started on Levophed. Assessment and plan Shock suspect septic shock likely source pulmonary Suspect pneumonia, likely gram-positive organism Influenza type A Start vancomycin, Zosyn Check PCT Continue oxygen support, wean as tolerated Pulmonary consulted, appreciate their recommendations Continue Tamiflu Continue Levophed, wean as tolerated UA checked, not suggestive of UTI CTA chest reviewed-negative for PE does show atelectasis Acute kidney injury Monitor BMP Hold nephrotoxic medications DVT prophylaxis-heparin
[2023-08-03 18:01] LABS: Adenovirus F 40/41, stool Not Detected (NotDetected); Astrovirus Not Detected (NotDetected); Campylobacter Not Detected (NotDetected); Clostridium Difficile A/B, PCR Not Detected (NotDetected); Cryptosporidium Not Detected (NotDetected); Cyclospora Cayetanesis Not Detected (NotDetected); Entamoeba histolytica Not Detected (NotDetected); Enteroaggregative E coli Not Detected (NotDetected); Enteropathogenic E coli Not Detected (NotDetected); Enterotoxigenic E coli Not Detected (NotDetected); Giardia lamblia Not Detected (NotDetected); Norovirus Not Detected (NotDetected); Plesimonas Shigalloides, PCR Not Detected (NotDetected); Rotavirus A Not Detected (NotDetected); Salmonella, PCR Not Detected (NotDetected); Sapovirus Not Detected (NotDetected); Shiga-like toxin E coli Not Detected (NotDetected); Shigella Enterovasive E coli Not Detected (NotDetected); Vibrio Cholerae Not Detected (NotDetected); Vibrio, PCR Not Detected (NotDetected); Yersinia Entercolitica, PCR Not Detected (NotDetected)
[2023-08-03] MEDS: ASPIRIN EC 81MG TABLET 81 MG PO (18:15)
[2023-08-03] MEDS: QUETIAPINE 100MG TABLET 100 MG PO (21:07)
[2023-08-04] VITALS (27 sets, daily range): BP systolic 91–147; BP diastolic 42–60; PULSE 73–105; RESP 16–32; TEMP 36.9–38.3; O2SAT 90–100; BMI 43.8
[2023-08-04] MEDS: PIPERCILLIN/TAZO 3.375 GM in 0.9 % SODIUM CHLORIDE 50 ML IV ×3 (00:01→17:07)
[2023-08-04 01:08] LABS: ABG HCO3 29.5 mmhg (22.0-26.0); ABG Oxygen Saturation 91 % (90-100); ABG PH 7.36 mmol/L (7.35-7.45); ABG PO2 61.1 mmhg (80-100); ABG TCO2 31.2 mmhg (23-27); Oxygen 30 %; PEEP 20/14; Vent Rate 18
[2023-08-04 01:09] LABS: Basophils % 0.2 % (0.1-2.0); Eosinophils % 0.3 % (0.1-12.0); Hematocrit 33.5 % (37.0-47.0); Hemoglobin 10.9 g/dL (12.2-16.2); Lymphocytes # 0.9 K/mm3 (0.7-4.5); Lymphocytes % 11.2 % (10-50); Mean Corpuscular HGB Conc 32.5 g/dL (31.8-35.4); Mean Corpuscular Hemoglobin 28.3 pg (27.0-31.2); Mean Platelet Volume 8.2 fl (7.4-10.4); Monocytes # 0.4 K/mm3 (0.1-1.0); Monocytes % 4.9 % (1.7-9.3); Neutrophils # 6.9 K/mm3 (1.8-7.8); Neutrophils % 83.4 % (37.0-80.0); Platelet Count 242 K/mm3 (142-424); Red Blood Count 3.85 M/mm3 (4.20-5.40); Red Cell Distribution Width 18.5 % (11.5-17.5); White Blood Count 8.3 K/mm3 (4.8-10.8)
[2023-08-04 01:09] LABS: Allen's Test Patient Unable; Pressure Support 6; Source Left Radial
[2023-08-04 01:15] LABS: Alanine Aminotransferase 18 U/L (12-78); Albumin Level 3.1 g/dl (3.5-5.0); Alkaline Phosphatase 68 U/L (38-126); Anion Gap 6.3 mEq/L (5-15); Aspartate Amino Transferase 44 U/L (14-36); Bilirubin,Total 0.4 mg/dl (0.2-1.3); Blood Urea Nitrogen 18 mg/dl (7-17); Carbon Dioxide 33 mmol/L (22.0-30.0); Chloride 95 mmol/L (98-107); Creatinine Clearance Estimated 48 mL/min (50-200); Estimated Glomerular Filt Rate 62 ml/min (>60); GFR (African American) 75 ML/MIN (>60); Glucose 120 mg/dl (74-100); Potassium 4.3 mmoL/L (3.5-5.1); Sodium 130 mmol/L (136-145); Total Protein,Serum 6.1 g/dl (6.3-8.2)
[2023-08-04] MEDS: HEPARIN SODIUM 5,000 UNIT/ML VIAL 5000 UNIT SQ ×3 (04:28→20:16)
[2023-08-04] MEDS: ACETAMINOPHEN 325MG TAB 650 MG PO ×2 (06:00→18:28)
[2023-08-04 06:03] LABS: Basophils % 0.2 % (0.1-2.0); Eosinophils % 0.2 % (0.1-12.0); Hematocrit 32.1 % (37.0-47.0); Hemoglobin 11.1 g/dL (12.2-16.2); Lymphocytes # 1.2 K/mm3 (0.7-4.5); Lymphocytes % 18.1 % (10-50); Mean Corpuscular HGB Conc 34.6 g/dL (31.8-35.4); Mean Corpuscular Hemoglobin 30.2 pg (27.0-31.2); Mean Corpuscular Volume 87.2 fl (81-99); Mean Platelet Volume 8.3 fl (7.4-10.4); Monocytes # 0.5 K/mm3 (0.1-1.0); Monocytes % 7.1 % (1.7-9.3); Neutrophils % 74.5 % (37.0-80.0); Platelet Count 220 K/mm3 (142-424); Red Blood Count 3.68 M/mm3 (4.20-5.40); Red Cell Distribution Width 18.6 % (11.5-17.5); White Blood Count 6.8 K/mm3 (4.8-10.8)
[2023-08-04 06:13] LABS: Chloride 96 mmol/L (98-107); Sodium 129 mmol/L (136-145)
[2023-08-04 06:14] LABS: Potassium 4.2 mmoL/L (3.5-5.1)
[2023-08-04 06:16] LABS: Blood Urea Nitrogen 16 mg/dl (7-17); Creatinine Clearance Estimated 46 mL/min (50-200); Estimated Glomerular Filt Rate 71 ml/min (>60); GFR (African American) 86 ML/MIN (>60)
[2023-08-04 06:17] LABS: Anion Gap 4.2 mEq/L (5-15); Calcium 7.9 mg/dl (8.4-10.2); Carbon Dioxide 33 mmol/L (22.0-30.0); Glucose 107 mg/dl (74-100)
[2023-08-04] MEDS: NOREPINEPHRINE BITARTRATE/D5W 8 MG/250 ML PLAST..BAG 11.25 MG IV (08:02)
[2023-08-04] MEDS: QUETIAPINE 25MG TABLET 50 MG PO ×2 (08:51→20:17)
[2023-08-04] MEDS: VANCOMYCIN/WATER FOR INJ (PEG) 1.75 GM/350 ML PIGGYBACK IV (08:51)
[2023-08-04] MEDS: LORazepam 0.5MG TABLET 0.5 MG PO ×3 (08:52→20:16)
[2023-08-04] MEDS: SODIUM CHLORIDE 1,000MG TABLET 2000 MG PO ×2 (08:52→20:16)
[2023-08-04] MEDS: ASPIRIN EC 81MG TABLET 81 MG PO (09:06)
--- NOTE | 2023-08-04 10:00 | EXP.PULM.PN ---
Subjective *Date: 08/04/23 *Time: 12:13 Interval history: No acute respiratory vents overnight. Patient denies any new respiratory complaints. Pulmonology Exam Inpatient Vital signs and Labs for Last 24 Hours: Temp Pulse Resp BP Pulse Ox O2 Del Method O2 Flow Rate 98.7 F 83 18 99/56 L 99 Nasal Cannula 2 08/04/23 07:56 08/04/23 09:00 08/04/23 09:00 08/04/23 09:00 08/04/23 09:00 08/04/23 09:00 08/04/23 09:00 FiO2 35 08/04/23 05:00 Laboratory Results - last 24 hr 08/03/23 10:09: Troponin I < 0.01 08/03/23 12:32: Troponin I < 0.01 08/03/23 12:59: Specimen Source R radial, O2 % 3lpm, ABG pH 7.33 L, ABG pCO2 55.6 H, ABG pO2 73.9 L, ABG HCO3 28.5 H, ABG Total CO2 30.2 H, ABG O2 Saturation 94, ABG Base Excess 2.5 H, Juan J Test Acceptable 08/04/23 00:50: Specimen Source Left radial, O2 % 30, ABG pH 7.36, ABG pCO2 54.0 H, ABG pO2 61.1 L, ABG HCO3 29.5 H, ABG Total CO2 31.2 H, ABG O2 Saturation 91, ABG Base Excess 4.0 H, Juan J Test Patient unable, Vent Rate 18, PEEP 20/14 08/04/23 01:03: WBC 8.3 D, RBC 3.85 L, Hgb 10.9 L, Hct 33.5 L, MCV 87.0, MCH 28.3, MCHC 32.5, RDW 18.5 H, Plt Count 242, MPV 8.2, Neut % (Auto) 83.4 H, Lymph % (Auto) 11.2, [place] % (Auto) 4.9, Eos % (Auto) 0.3, Baso % (Auto) 0.2, Neut # (Auto) 6.9, Lymph # (Auto) 0.9, [place] # (Auto) 0.4, Eos # (Auto) 0.0, Baso # (Auto) 0.0, Sodium 130 L, Potassium 4.3, Chloride 95 L, Carbon Dioxide 33 H, Anion Gap 6.3, BUN 18 H, Creatinine 0.90 D, Estimated Creat Clear 48, Estimated GFR 62, Est GFR ( Amer) 75 D, Glucose 120 H, Calcium 8.0 L, Total Bilirubin 0.4, AST 44 H, ALT 18, Alkaline Phosphatase 68, Total Protein 6.1 L, Albumin 3.1 L D, Globulin 3.0, Albumin/Globulin Ratio 1.0 L 08/04/23 05:33: WBC 6.8, RBC 3.68 L, Hgb 11.1 L, Hct 32.1 L, MCV 87.2, MCH 30.2, MCHC 34.6, RDW 18.6 H, Plt Count 220, MPV 8.3, Neut % (Auto) 74.5, Lymph % (Auto) 18.1, [place] % (Auto) 7.1, Eos % (Auto) 0.2, Baso % (Auto) 0.2, Neut # (Auto) 5.0, Lymph # (Auto) 1.2, [place] # (Auto) 0.5, Eos # (Auto) 0.0, Baso # (Auto) 0.0, Sodium 129 L, Potassium 4.2, Chloride 96 L, Carbon Dioxide 33 H, Anion Gap 4.2 L, BUN 16, Creatinine 0.80, Estimated Creat Clear 46, Estimated GFR 71, Est GFR ( Amer) 86, Glucose 107 H, Calcium 7.9 L I & O for Labs for Last 24 Hours: Intake & Output 08/01/23 08/02/23 08/03/23 08/04/23 23:59 23:59 23:59 23:59 Intake Total 448.595 / 448.595 669.562 / 669.562 Output Total 1330 / 1415 435 / 435 Balance -881.405 / -966.405 234.562 / 234.562 Weight 257 lb 4 oz 263 lb 1.6 oz Constitutional: Present moderate distress Head: Present normocephalic and atraumatic ENT: Present normal exam, normal oropharynx and mucous membranes moist Neck: Present normal inspection and full ROM Respiratory: Present able to speak in complete sentences; Absent respiratory distress or wheezes Cardiac: Present S1/S2, Tachycardia and radial pulses present GI: Present soft and distention; Absent tenderness or guarding Rectal (female): Present deferred (female): Present deferred Skin: Present intact; Absent cyanosis or jaundice Neuro: Present alert and awake; Absent oriented x 3 Extremities: Present normal inspection; Absent clubbing or cyanosis Psychiatric: Present normal affect and cooperative Assessment and Plan *Assessment and plan (1) ELIANA (obstructive sleep apnea): Status: Acute Category: Medical Code(s): G47.33 - Obstructive sleep apnea (adult) (pediatric) (2) Chronic respiratory failure: Status: Acute Category: Medical Code(s): J96.10 - Chronic respiratory failure, unspecified whether with hypoxia or hypercapnia Plan Ms. Dickson is a 67-year-old female with history of morbid obesity, CHF, ELIANA presented to the hospital complaining worsening respiratory distress and febrile episodes and Pulmonary was called for further evaluation and management. Patient today stated that she is a never smoker. CTA on admission significant motion artifact, no evidence of large pulmonary embolism noted. No dense consolidations or airspace disease noted. Mild left lower lobe airspace disease noted. The right based fissure atelectasis appears to be stable from prior. No evidence of leukocytosis. On initial examination hemodynamically unstable on pressors at 2 mcg of Levophed. Interval update: No acute respiratory events overnight. Used BiPAP overnight. Blood gas overnight did not show any evidence of hypercarbic respiratory failure, pH is 7.37 pCO2 54.4. pO2 slightly declined at 61.1. Continue to receive broad-spectrum antibiotics predictable. Afebrile. No evidence of worsening leukocytosis. Cultures pending. Chest x-ray this morning no significant change. Stable. Plan: Continue Tamiflu x 5 days Continue nasal oxygen supplementation to maintain O2 saturation goal of 90 to 95%. On 1 L this morning saturating 95%. BiPAP therapy while asleep 20/14 with a rate of 18 FiO2 30% DuoNebs every 6 hours on as-needed basis With respect antibiotics awaiting blood culture results to de-escalate antibiotics. Patient CT did not have any significant evidence of pneumonia to support that as a source of her currently noted shock. # Thank you for involving pulmonary in this patient care will continue to follow.
--- NOTE | 2023-08-04 10:01 | XR_ITS ---
FINAL REPORT CLINICAL HISTORY: PNM COMPARISON: 08/03/2023 FINDINGS: A single portable view of the chest was obtained. The heart size and pulmonary vascularity are within normal limits. The mediastinum is within normal limits. Persistent left base opacities are likely pneumonia or atelectasis. The bony thorax is intact. There is a chronic fracture of the proximal humerus. There is postoperative changes in the left clavicle. IMPRESSION: Persistent left base opacities, likely pneumonia or atelectasis. Reviewed, Interpreted and Dictated by Chemo Forrest III, MD Transcribed by Janna Paredes Authenticated and [facility]
--- NOTE | 2023-08-04 17:16 | EXP.PN ---
Subjective *Date: 08/04/23 *Time: 17:16 Interval history: patient was seen and evaluated at the bedside. No reported acute events overnight, denies chest pain, shortness of breath, nausea, vomiting, abdominal pain. Exam Data for Last 24 hours Vital signs and Labs for Last 24 Hours: Temp Pulse Resp BP Pulse Ox O2 Del Method O2 Flow Rate 98.4 F 75 16 116/52 L 100 BiPAP 3 08/04/23 11:28 08/04/23 16:00 08/04/23 16:00 08/04/23 16:00 08/04/23 16:00 08/04/23 16:51 08/04/23 14:00 FiO2 35 08/04/23 05:00 Laboratory Results - last 24 hr 08/04/23 00:50: Specimen Source Left radial, O2 % 30, ABG pH 7.36, ABG pCO2 54.0 H, ABG pO2 61.1 L, ABG HCO3 29.5 H, ABG Total CO2 31.2 H, ABG O2 Saturation 91, ABG Base Excess 4.0 H, Juan J Test Patient unable, Vent Rate 18, PEEP 20/14 08/04/23 01:03: WBC 8.3 D, RBC 3.85 L, Hgb 10.9 L, Hct 33.5 L, MCV 87.0, MCH 28.3, MCHC 32.5, RDW 18.5 H, Plt Count 242, MPV 8.2, Neut % (Auto) 83.4 H, Lymph % (Auto) 11.2, [place] % (Auto) 4.9, Eos % (Auto) 0.3, Baso % (Auto) 0.2, Neut # (Auto) 6.9, Lymph # (Auto) 0.9, [place] # (Auto) 0.4, Eos # (Auto) 0.0, Baso # (Auto) 0.0, Sodium 130 L, Potassium 4.3, Chloride 95 L, Carbon Dioxide 33 H, Anion Gap 6.3, BUN 18 H, Creatinine 0.90 D, Estimated Creat Clear 48, Estimated GFR 62, Est GFR ( Amer) 75 D, Glucose 120 H, Calcium 8.0 L, Total Bilirubin 0.4, AST 44 H, ALT 18, Alkaline Phosphatase 68, Total Protein 6.1 L, Albumin 3.1 L D, Globulin 3.0, Albumin/Globulin Ratio 1.0 L 08/04/23 05:33: WBC 6.8, RBC 3.68 L, Hgb 11.1 L, Hct 32.1 L, MCV 87.2, MCH 30.2, MCHC 34.6, RDW 18.6 H, Plt Count 220, MPV 8.3, Neut % (Auto) 74.5, Lymph % (Auto) 18.1, [place] % (Auto) 7.1, Eos % (Auto) 0.2, Baso % (Auto) 0.2, Neut # (Auto) 5.0, Lymph # (Auto) 1.2, [place] # (Auto) 0.5, Eos # (Auto) 0.0, Baso # (Auto) 0.0, Sodium 129 L, Potassium 4.2, Chloride 96 L, Carbon Dioxide 33 H, Anion Gap 4.2 L, BUN 16, Creatinine 0.80, Estimated Creat Clear 46, Estimated GFR 71, Est GFR ( Amer) 86, Glucose 107 H, Calcium 7.9 L I & O for Last 24 hours: Intake & Output 08/01/23 08/02/23 08/03/23 08/04/23 23:59 23:59 23:59 23:59 Intake Total 448.595 / 521.983 1966.562 / 1629.562 Output Total 1330 / 1415 1235 / 1235 Balance -881.405 / -966.405 394.562 / 394.562 Weight 116.687 kg 119.34 kg Constitutional Constitutional: no acute distress *Routine HEENT Exam Head: Present normocephalic Eye: Present EOMI and PERRL ENT: Present mucous membranes moist *Routine Neck Exam Neck: Present supple; Absent lymphadenopathy *Routine Respiratory Exam Respiratory: Present CTA bilaterally *Routine Cardiovascular Exam Cardiovascular: Present RRR *Routine Abdominal Exam Abdominal: Present soft and normoactive bowel sounds; Absent tenderness *Routine Extremities Exam Extremities: Absent cyanosis, clubbing or edema *Routine Skin Exam Skin: Present warm; Absent rash *Routine Neurological Exam Neurological: Present alert and oriented X3 Assessment and Plan *Assessment and plan (1) Hypercapnic respiratory failure: Status: Resolved Qualifiers: Chronicity: acute on chronic Qualified Code(s): J96.22 - Acute and chronic respiratory failure with hypercapnia Category: Medical Code(s): J96.92 - Respiratory failure, unspecified with hypercapnia (2) CHF (congestive heart failure): Status: Acute Qualifiers: Heart failure chronicity: unspecified Heart failure type: unspecified Qualified Code(s): I50.9 - Heart failure, unspecified Category: Medical Code(s): I50.9 - Heart failure, unspecified (3) Acute hypoxemic respiratory failure: Status: Acute Category: Medical Code(s): J96.01 - Acute respiratory failure with hypoxia (4) Hyperlipidemia: Status: Chronic Qualifiers: Hyperlipidemia type: unspecified Qualified Code(s): E78.5 - Hyperlipidemia, unspecified Category: Medical Code(s): E78.5 - Hyperlipidemia, unspecified (5) Hypertension: Status: Chronic Qualifiers: Hypertension type: unspecified Qualified Code(s): I10 - Essential (primary) hypertension Category: Medical Code(s): I10 - Essential (primary) hypertension (6) Peripheral edema: Status: Chronic Category: Medical Code(s): R60.9 - Edema, unspecified (7) Morbid obesity with BMI of 45.0-49.9, adult: Status: Acute Category: Medical Code(s): E66.01 - Morbid (severe) obesity due to excess calories; Z68.42 - Body mass index [BMI] 45.0-49.9, adult Plan Patient is a 67-year-old female with past medical history of CHF COPD morbid obesity chronic hypercapnic respiratory failure hypertension hyperlipidemia who presents to the hospital for fever for about 2 days. She has nonproductive cough. According to the patient she also has shortness of breath. Patient otherwise denied chest pain diarrhea constipation dysuria sick contacts. She does not smoke. In the emergency department patient was noted to have low BP, patient was started on Levophed. Assessment and plan Shock suspect septic shock likely source pulmonary - improving Suspect pneumonia, likely gram-positive organism Influenza type A Started on vancomycin, Zosyn Continue oxygen support, wean as tolerated Pulmonary consulted, appreciate their recommendations Continue Tamiflu Continue Levophed, wean as tolerated UA checked, not suggestive of UTI CTA chest reviewed-negative for PE does show atelectasis Acute kidney injury - improving Monitor BMP Hold nephrotoxic medications DVT prophylaxis-heparin
[2023-08-04] MEDS: PANTOPRAZOLE 40MG TABLET 40 MG PO (20:16)
[2023-08-05] VITALS (8 sets, daily range): BP systolic 102–160; BP diastolic 58–83; PULSE 64–92; RESP 18–22; TEMP 36.4–37.2; O2SAT 94–100; BMI 43.7
[2023-08-05] MEDS: PIPERCILLIN/TAZO 3.375 GM in 0.9 % SODIUM CHLORIDE 50 ML IV ×4 (00:04→23:41)
--- NOTE | 2023-08-05 04:40 | PC.NURSE ---
pt has rested well throughout the shift, tolerating BiPap well with 02 sats 98%-100%, pt can ambulate to and from bathroom with a walker and assistance, no complaints from patient this shift
[2023-08-05] MEDS: HEPARIN SODIUM 5,000 UNIT/ML VIAL 5000 UNIT SQ ×3 (06:25→21:58)
--- NOTE | 2023-08-05 07:40 | P.PN_ITS ---
Subjective *Date: 08/05/23 *Time: 09:03 Interval history: No acute respiratory events overnight. Patient denies any new respiratory complaints. Pulmonology Exam Inpatient Vital signs and Labs for Last 24 Hours: Temp Pulse Resp BP Pulse Ox O2 Del Method O2 Flow Rate 97.6 F 66 20 135/61 100 Nasal Cannula 3 08/05/23 04:00 08/05/23 04:00 08/05/23 04:00 08/05/23 04:00 08/05/23 04:00 08/05/23 06:44 08/04/23 20:00 FiO2 30 08/05/23 02:32 I & O for Labs for Last 24 Hours: Intake & Output 08/02/23 08/03/23 08/04/23 08/05/23 23:59 23:59 23:59 23:59 Intake Total 448.595 / 348.020 4443.562 / 2509.562 Output Total 1330 / 1415 2235 / 2235 350 / 350 Balance -881.405 / -966.405 274.562 / 274.562 -350 / -350 Weight 257 lb 4 oz 263 lb 1.6 oz 262 lb 5.601 oz Microbiology Reports for the Last 24 Hours: Microbiology 08/03/23 07:28 Urine,Catheterized Urine Culture - Final Constitutional: Present mild distress Head: Present normocephalic and atraumatic ENT: Present normal exam, normal oropharynx and mucous membranes moist Neck: Present normal inspection and full ROM Respiratory: Present able to speak in complete sentences; Absent respiratory distress or wheezes Cardiac: Present S1/S2, Tachycardia and radial pulses present GI: Present soft and distention; Absent tenderness or guarding Rectal (female): Present deferred (female): Present deferred Skin: Present intact; Absent cyanosis or jaundice Neuro: Present alert, awake and oriented x 3 Extremities: Present normal inspection; Absent clubbing or cyanosis Psychiatric: Present normal affect and cooperative Assessment and Plan *Assessment and plan (1) ELIANA (obstructive sleep apnea): Status: Acute Category: Medical Code(s): G47.33 - Obstructive sleep apnea (adult) (pediatric) (2) Chronic respiratory failure: Status: Acute Category: Medical Code(s): J96.10 - Chronic respiratory failure, unspecified whether with hypoxia or hypercapnia Plan Ms. Dickson is a 67-year-old female with history of morbid obesity, CHF, ELIANA presented to the hospital complaining worsening respiratory distress and febrile episodes and Pulmonary was called for further evaluation and management. Marixa mendoza today stated that she is a never smoker. CTA on admission significant motion artifact, no evidence of large pulmonary embolism noted. No dense consolidations or airspace disease noted. Mild left lower lobe airspace disease noted. The right based fissure atelectasis appears to be stable from prior. No evidence of leukocytosis. On initial examination hemodynamically unstable on pressors at 2 mcg of Levophed. ABG 08/04/23 - t did not show any evidence of hypercarbic respiratory failure, pH is 7.37 pCO2 54.4. pO2 slightly declined at 61.1. CXR 08/04/23 -stable with no worsening/significant airspace disease. Interval update: Continue to receive vancomycin and cefepime and Tamiflu. No new respiratory complaints. Weaned to room air this morning. Awaiting blood cultures to de-escalate antibiotics. g. Plan: Continue Tamiflu x 5 days Continue nasal oxygen supplementation as needed to maintain O2 saturation goal of 90 to 95%. Weaned to room air this morning. BiPAP therapy while asleep 20/14 with a rate of 18 FiO2 25% DuoNebs every 6 hours on as-needed basis With respect antibiotics awaiting blood culture results to de-escalate antibiotics. Patient CT did not have any significant evidence of pneumonia to support that as a source of her currently noted shock. If blood cultures were negative patient antibiotics can be weaned to levofloxacin to complete a total of 7-day course. # Thank you for involving pulmonary in this patient care will continue to follow.
[2023-08-05] MEDS: QUETIAPINE 25MG TABLET 50 MG PO ×2 (08:45→21:59)
[2023-08-05] MEDS: LORazepam 0.5MG TABLET 0.5 MG PO ×3 (08:45→22:09)
[2023-08-05] MEDS: ASPIRIN EC 81MG TABLET 81 MG PO (08:45)
[2023-08-05] MEDS: ACETAMINOPHEN 325MG TAB 650 MG PO ×3 (08:46→23:41)
[2023-08-05] MEDS: SODIUM CHLORIDE 1,000MG TABLET 2000 MG PO ×2 (08:46→21:59)
[2023-08-05 09:37] LABS: Basophils % 0.3 % (0.1-2.0); Eosinophils % 0.4 % (0.1-12.0); Hematocrit 35.4 % (37.0-47.0); Hemoglobin 11.2 g/dL (12.2-16.2); Lymphocytes # 1.1 K/mm3 (0.7-4.5); Lymphocytes % 21.6 % (10-50); Mean Corpuscular HGB Conc 31.7 g/dL (31.8-35.4); Mean Corpuscular Hemoglobin 28.1 pg (27.0-31.2); Mean Corpuscular Volume 88.6 fl (81-99); Mean Platelet Volume 8.4 fl (7.4-10.4); Monocytes # 0.3 K/mm3 (0.1-1.0); Monocytes % 5.5 % (1.7-9.3); Neutrophils # 3.7 K/mm3 (1.8-7.8); Neutrophils % 72.1 % (37.0-80.0); Platelet Count 236 K/mm3 (142-424); Red Blood Count 3.99 M/mm3 (4.20-5.40); Red Cell Distribution Width 18.6 % (11.5-17.5); White Blood Count 5.1 K/mm3 (4.8-10.8)
[2023-08-05 09:39] LABS: Chloride 96 mmol/L (98-107); Sodium 129 mmol/L (136-145)
[2023-08-05 09:40] LABS: Potassium 4.1 mmoL/L (3.5-5.1)
[2023-08-05 09:43] LABS: Anion Gap 6.1 mEq/L (5-15); Blood Urea Nitrogen 13 mg/dl (7-17); Calcium 8.6 mg/dl (8.4-10.2); Carbon Dioxide 31 mmol/L (22.0-30.0); Creatinine Clearance Estimated 46 mL/min (50-200); Estimated Glomerular Filt Rate 71 ml/min (>60); GFR (African American) 86 ML/MIN (>60); Glucose 96 mg/dl (74-100)
[2023-08-05] MEDS: VANCOMYCIN/WATER FOR INJ (PEG) 1.75 GM/350 ML PIGGYBACK IV (10:25)
--- NOTE | 2023-08-05 10:48 | P.PN_ITS ---
Subjective *Date: 08/05/23 *Time: 10:48 Interval history: patient was seen and evaluated at the bedside. No reported acute events overnight, denies chest pain, shortness of breath, nausea, vomiting, abdominal pain. Exam Data for Last 24 hours Vital signs and Labs for Last 24 Hours: Temp Pulse Resp BP Pulse Ox O2 Del Method O2 Flow Rate 98.3 F 92 H 20 160/81 H 96 Room Air 3 08/05/23 08:00 08/05/23 08:00 08/05/23 08:00 08/05/23 08:00 08/05/23 08:00 08/05/23 08:00 08/04/23 20:00 FiO2 30 08/05/23 02:32 Laboratory Results - last 24 hr 08/05/23 09:22: WBC 5.1, RBC 3.99 L, Hgb 11.2 L, Hct 35.4 L, MCV 88.6, MCH 28.1, MCHC 31.7 L, RDW 18.6 H, Plt Count 236, MPV 8.4, Neut % (Auto) 72.1, Lymph % (Auto) 21.6, [place] % (Auto) 5.5, Eos % (Auto) 0.4, Baso % (Auto) 0.3, Neut # ( Auto) 3.7, Lymph # (Auto) 1.1, [place] # (Auto) 0.3, Eos # (Auto) 0.0, Baso # (Auto) 0.0, Sodium 129 L, Potassium 4.1, Chloride 96 L, Carbon Dioxide 31 H, Anion Gap 6.1, BUN 13, Creatinine 0.80, Estimated Creat Clear 46, Estimated GFR 71, Est GFR ( Amer) 86, Glucose 96, Calcium 8.6 I & O for Last 24 hours: Intake & Output 08/02/23 08/03/23 08/04/23 08/05/23 23:59 23:59 23:59 23:59 Intake Total 448.595 / 701.981 8095.562 / 2509.562 600 / 600 Output Total 1330 / 1415 2235 / 2235 350 / 350 Balance -881.405 / -966.405 274.562 / 274.562 250 / 250 Weight 116.687 kg 119.34 kg 119 kg Microbiology Reports for the Last 24 Hours: Microbiology 08/03/23 07:28 Urine,Catheterized Urine Culture - Final Constitutional Constitutional: no acute distress *Routine HEENT Exam Head: Present normocephalic Eye: Present EOMI and PERRL ENT: Present mucous membranes moist *Routine Neck Exam Neck: Present supple; Absent lymphadenopathy *Routine Respiratory Exam Respiratory: Present CTA bilaterally *Routine Cardiovascular Exam Cardiovascular: Present RRR *Routine Abdominal Exam Abdominal: Present soft and normoactive bowel sounds; Absent tenderness *Routine Extremities Exam Extremities: Absent cyanosis, clubbing or edema *Routine Skin Exam Skin: Present warm; Absent rash *Routine Neurological Exam Neurological: Present alert and oriented X3 Assessment and Plan *Assessment and plan (1) Hypercapnic respiratory failure: Status: Resolved Qualifiers: Chronicity: acute on chronic Qualified Code(s): J96.22 - Acute and chronic respiratory failure with hypercapnia Category: Medical Code(s): J96.92 - Respiratory failure, unspecified with hypercapnia (2) CHF (congestive heart failure): Status: Acute Qualifiers: Heart failure chronicity: unspecified Heart failure type: unspecified Qualified Code(s): I50.9 - Heart failure, unspecified Category: Medical Code(s): I50.9 - Heart failure, unspecified (3) Acute hypoxemic respiratory failure: Status: Acute Category: Medical Code(s): J96.01 - Acute respiratory failure with hypoxia (4) Hyperlipidemia: Status: Chronic Qualifiers: Hyperlipidemia type: unspecified Qualified Code(s): E78.5 - Hyperlipidemia, unspecified Category: Medical Code(s): E78.5 - Hyperlipidemia, unspecified (5) Hypertension: Status: Chronic Qualifiers: Hypertension type: unspecified Qualified Code(s): I10 - Essential (primary) hypertension Category: Medical Code(s): I10 - Essential (primary) hypertension (6) Peripheral edema: Status: Chronic Category: Medical Code(s): R60.9 - Edema, unspecified (7) Morbid obesity with BMI of 45.0-49.9, adult: Status: Acute Category: Medical Code(s): E66.01 - Morbid (severe) obesity due to excess calories; Z68.42 - Body mass index [BMI] 45.0-49.9, adult Plan Patient is a 67-year-old female with past medical history of CHF COPD morbid obesity chronic hypercapnic respiratory failure hypertension hyperlipidemia who presents to the hospital for fever for about 2 days. She has nonproductive cough. According to the patient she also has shortness of breath. Patient otherwise denied chest pain diarrhea constipation dysuria sick contacts. She does not smoke. In the emergency department patient was noted to have low BP, patient was started on Levophed. Assessment and plan Shock suspect septic shock likely source pulmonary - improving Suspect pneumonia, likely gram-positive organism Influenza type A Continue on vancomycin, Zosyn Continue oxygen support, wean as tolerated Pulmonary consulted, appreciate their recommendations Continue Tamiflu Continue Levophed, wean as tolerated UA checked, not suggestive of UTI CTA chest reviewed-negative for PE does show atelectasis Acute kidney injury - improving Monitor BMP Hold nephrotoxic medications DVT prophylaxis-heparin Await culture results today, likely DC tomorrow on Levofloxacin
--- NOTE | 2023-08-05 18:00 | PC.NURSE ---
Patient is confused and has been reoriented to call light multiple times throughout shift. Patient oriented to self and place. Patient is very confused.
[2023-08-05] MEDS: PANTOPRAZOLE 40MG TABLET 40 MG PO (21:59)
[2023-08-06] VITALS (11 sets, daily range): BP systolic 126–182; BP diastolic 73–95; PULSE 79–111; RESP 16–24; TEMP 36.6–38.8; O2SAT 95–97
--- NOTE | 2023-08-06 03:53 | PC.NURSE ---
patient resting in recliner. Febrile >101.0; administered Tylenol, removed blankets, socks & added fan to help reduce fever. Patient temp back to WNL.
[2023-08-06] MEDS: HEPARIN SODIUM 5,000 UNIT/ML VIAL 5000 UNIT SQ ×3 (05:16→20:22)
[2023-08-06 07:05] LABS: Basophils % 0.2 % (0.1-2.0); Eosinophils % 0.1 % (0.1-12.0); Hematocrit 33.4 % (37.0-47.0); Hemoglobin 10.8 g/dL (12.2-16.2); Lymphocytes % 29.5 % (10-50); Mean Corpuscular HGB Conc 32.2 g/dL (31.8-35.4); Mean Corpuscular Hemoglobin 28.5 pg (27.0-31.2); Mean Corpuscular Volume 88.6 fl (81-99); Mean Platelet Volume 8.3 fl (7.4-10.4); Monocytes # 0.2 K/mm3 (0.1-1.0); Monocytes % 7.2 % (1.7-9.3); Neutrophils # 2.1 K/mm3 (1.8-7.8); Platelet Count 231 K/mm3 (142-424); Red Blood Count 3.77 M/mm3 (4.20-5.40); Red Cell Distribution Width 18.7 % (11.5-17.5); White Blood Count 3.4 K/mm3 (4.8-10.8)
[2023-08-06 07:12] LABS: Chloride 96 mmol/L (98-107); Potassium 3.9 mmoL/L (3.5-5.1); Sodium 128 mmol/L (136-145)
[2023-08-06 07:15] LABS: Blood Urea Nitrogen 9 mg/dl (7-17); Creatinine Clearance Estimated 46 mL/min (50-200); Estimated Glomerular Filt Rate 83 ml/min (>60); GFR (African American) 101 ML/MIN (>60)
[2023-08-06 07:16] LABS: Anion Gap 1.9 mEq/L (5-15); Calcium 8.5 mg/dl (8.4-10.2); Carbon Dioxide 34 mmol/L (22.0-30.0); Glucose 100 mg/dl (74-100)
[2023-08-06] MEDS: PIPERCILLIN/TAZO 3.375 GM in 0.9 % SODIUM CHLORIDE 50 ML IV ×3 (08:19→23:03)
[2023-08-06] MEDS: QUETIAPINE 25MG TABLET 50 MG PO ×2 (08:20→20:22)
[2023-08-06] MEDS: SODIUM CHLORIDE 1,000MG TABLET 2000 MG PO ×2 (08:20→20:23)
[2023-08-06] MEDS: LORazepam 0.5MG TABLET 0.5 MG PO ×2 (08:20→20:23)
[2023-08-06] MEDS: ASPIRIN EC 81MG TABLET 81 MG PO (08:20)
--- NOTE | 2023-08-06 08:27 | PC.NURSE ---
pt is alert and oriented this am. [place]. gets up to br with assist.
[2023-08-06] MEDS: ACETAMINOPHEN 325MG TAB 650 MG PO ×2 (08:30→20:23)
[2023-08-06 09:43] LABS: Vancomycin,Trough 9.5 ug/mL (5.0-10.0)
--- NOTE | 2023-08-06 09:46 | EXP.PN ---
Subjective *Date: 08/06/23 *Time: 09:46 Interval history: patient was seen and evaluated at the bedside. No reported acute events overnight, denies chest pain, shortness of breath, nausea, vomiting, abdominal pain. sitting in chair, no complains today Exam Data for Last 24 hours Vital signs and Labs for Last 24 Hours: Temp Pulse Resp BP Pulse Ox O2 Del Method O2 Flow Rate 99.6 F 103 H 22 179/95 H 97 Room Air 3 08/06/23 08:29 08/06/23 08:00 08/06/23 08:00 08/06/23 08:00 08/06/23 08:24 08/06/23 08:24 08/04/23 20:00 FiO2 25 08/06/23 02:09 Laboratory Results - last 24 hr 08/05/23 09:22: WBC 5.1, RBC 3.99 L, Hgb 11.2 L, Hct 35.4 L, MCV 88.6, MCH 28.1, MCHC 31.7 L, RDW 18.6 H, Plt Count 236, MPV 8.4, Neut % (Auto) 72.1, Lymph % (Auto) 21.6, [place] % (Auto) 5.5, Eos % (Auto) 0.4, Baso % (Auto) 0.3, Neut # (Auto) 3.7, Lymph # (Auto) 1.1, [place] # (Auto) 0.3, Eos # (Auto) 0.0, Baso # (Auto) 0.0 08/06/23 06:24: WBC 3.4 L D, RBC 3.77 L, Hgb 10.8 L, Hct 33.4 L, MCV 88.6, MCH 28.5, MCHC 32.2, RDW 18.7 H, Plt Count 231, MPV 8.3, Neut % (Auto) 63.0, Lymph % (Auto) 29.5, [place] % (Auto) 7.2, Eos % (Auto) 0.1, Baso % (Auto) 0.2, Neut # (Auto) 2.1, Lymph # (Auto) 1.0, [place] # (Auto) 0.2, Eos # (Auto) 0.0, Baso # (Auto) 0.0, Sodium 128 L, Potassium 3.9, Chloride 96 L, Carbon Dioxide 34 H, Anion Gap 1.9 L, BUN 9 D, Creatinine 0.70, Estimated Creat Clear 46, Estimated GFR 83, Est GFR ( Amer) 101, Glucose 100, Calcium 8.5 08/06/23 07:45: Vancomycin Trough 9.5 I & O for Last 24 hours: Intake & Output 08/03/23 08/04/23 08/05/23 08/06/23 23:59 23:59 23:59 23:59 Intake Total 448.595 / 632.647 1863.562 / 2509.562 1440 / 1490 530 / 530 Output Total 1330 / 1415 2235 / 2235 350 / 350 0 / 0 Balance -881.405 / -966.405 274.562 / 370.350 2966 / 1140 530 / 530 Weight 116.687 kg 119.34 kg 119 kg Constitutional Constitutional: no acute distress *Routine HEENT Exam Head: Present normocephalic Eye: Present EOMI and PERRL ENT: Present mucous membranes moist *Routine Neck Exam Neck: Present supple; Absent lymphadenopathy *Routine Respiratory Exam Respiratory: Present CTA bilaterally *Routine Cardiovascular Exam Cardiovascular: Present RRR *Routine Abdominal Exam Abdominal: Present soft and normoactive bowel sounds; Absent tenderness *Routine Extremities Exam Extremities: Absent cyanosis, clubbing or edema *Routine Skin Exam Skin: Present warm; Absent rash *Routine Neurological Exam Neurological: Present alert and oriented X3 Assessment and Plan *Assessment and plan (1) Hypercapnic respiratory failure: Status: Resolved Qualifiers: Chronicity: acute on chronic Qualified Code(s): J96.22 - Acute and chronic respiratory failure with hypercapnia Category: Medical Code(s): J96.92 - Respiratory failure, unspecified with hypercapnia (2) CHF (congestive heart failure): Status: Acute Qualifiers: Heart failure chronicity: unspecified Heart failure type: unspecified Qualified Code(s): I50.9 - Heart failure, unspecified Category: Medical Code(s): I50.9 - Heart failure, unspecified (3) Acute hypoxemic respiratory failure: Status: Acute Category: Medical Code(s): J96.01 - Acute respiratory failure with hypoxia (4) Hyperlipidemia: Status: Chronic Qualifiers: Hyperlipidemia type: unspecified Qualified Code(s): E78.5 - Hyperlipidemia, unspecified Category: Medical Code(s): E78.5 - Hyperlipidemia, unspecified (5) Hypertension: Status: Chronic Qualifiers: Hypertension type: unspecified Qualified Code(s): I10 - Essential (primary) hypertension Category: Medical Code(s): I10 - Essential (primary) hypertension (6) Peripheral edema: Status: Chronic Category: Medical Code(s): R60.9 - Edema, unspecified (7) Morbid obesity with BMI of 45.0-49.9, adult: Status: Acute Category: Medical Code(s): E66.01 - Morbid (severe) obesity due to excess calories; Z68.42 - Body mass index [BMI] 45.0-49.9, adult Plan Patient is a 67-year-old female with past medical history of CHF COPD morbid obesity chronic hypercapnic respiratory failure hypertension hyperlipidemia who presents to the hospital for fever for about 2 days. She has nonproductive cough. According to the patient she also has shortness of breath. Patient otherwise denied chest pain diarrhea constipation dysuria sick contacts. She does not smoke. In the emergency department patient was noted to have low BP, patient was started on Levophed. Assessment and plan Shock suspect septic shock likely source pulmonary - improving Suspect pneumonia, likely gram-positive organism Influenza type A Continue on vancomycin, Zosyn Continue oxygen support, wean as tolerated Pulmonary consulted, appreciate their recommendations Continue Tamiflu Continue Levophed, wean as tolerated UA checked, not suggestive of UTI CTA chest reviewed-negative for PE does show atelectasis Acute kidney injury - improving Monitor BMP Hold nephrotoxic medications DVT prophylaxis-heparin Await culture results, likely DC on Levofloxacin, Tamiflu, await culture results, will call lab today
--- NOTE | 2023-08-06 10:33 | EXP.PHA.PN ---
Subjective *Date: 08/06/23 *Time: 10:33 Medical Exam Vital signs and Labs for Last 24 Hours: Vital Signs Temp Pulse Resp BP Pulse Ox O2 Del Method FiO2 08/06/23 08:29 99.6 F 08/06/23 08:24 97 Room Air 08/06/23 08:00 98.7 F 103 H 22 179/95 H 97 Room Air 08/06/23 06:39 Room Air 08/06/23 05:00 Room Air 08/06/23 04:00 99.0 F 86 18 126/73 96 BiPAP 08/06/23 03:00 BiPAP 08/06/23 02:09 25 08/06/23 01:30 100.3 F H 08/06/23 01:00 BiPAP 08/05/23 23:00 BiPAP 08/05/23 21:00 Room Air 08/05/23 20:00 96 Room Air 08/06/23 00:00 101.9 F H 103 H 18 179/81 H 97 BiPAP 08/05/23 21:33 25 08/05/23 20:00 98.4 F 91 H 22 147/72 H 96 Room Air 08/05/23 16:00 98.2 F 77 19 148/83 H 95 Room Air 08/05/23 12:00 97.8 F 76 18 159/78 H 94 L Room Air Intake and Output 08/05/23 08/06/23 08/06/23 23:59 07:59 15:59 Intake Total 360 / 1490 50 / 530 480 / 530 Output Total 0 / 350 0 / 0 0 / 0 Balance 360 / 1140 50 / 530 480 / 530 Intake: Intake, Oral Amount 360 / 1440 480 / 480 Intake, Total IV Amount 50 / 50 Pipercillin/Tazo 3.375 gm In 0. 50 / 50 9 % Sodium Chloride 50 ml @ 100 mls/hr IV Q8H [facility] Rx#:[id number] Output: Output, Urine Amount 0 / 0 0 / 0 0 / 0 Other: Number of Unmeasured Voids 1 1 1 Number of Bowel Movements 1 1 Laboratory Results - last 24 hr 08/06/23 06:24: WBC 3.4 L D, RBC 3.77 L, Hgb 10.8 L, Hct 33.4 L, MCV 88.6, MCH 28.5, MCHC 32.2, RDW 18.7 H, Plt Count 231, MPV 8.3, Neut % (Auto) 63.0, Lymph % (Auto) 29.5, [place] % (Auto) 7.2, Eos % (Auto) 0.1, Baso % (Auto) 0.2, Neut # (Auto) 2.1, Lymph # (Auto) 1.0, [place] # (Auto) 0.2, Eos # (Auto) 0.0, Baso # (Auto) 0.0, Sodium 128 L, Potassium 3.9, Chloride 96 L, Carbon Dioxide 34 H, Anion Gap 1.9 L, BUN 9 D, Creatinine 0.70, Estimated Creat Clear 46, Estimated GFR 83, Est GFR ( Amer) 101, Glucose 100, Calcium 8.5 08/06/23 07:45: Vancomycin Trough 9.5 I & O for Labs for Last 24 Hours: Intake & Output 08/03/23 08/04/23 08/05/23 08/06/23 23:59 23:59 23:59 23:59 Intake Total 448.595 / 803.825 4983.562 / 2509.562 1440 / 1490 530 / 530 Output Total 1330 / 1415 2235 / 2235 350 / 350 0 / 0 Balance -881.405 / -966.405 274.562 / 306.589 4875 / 1140 530 / 530 Weight 116.687 kg 119.34 kg 119 kg The patient's infection will respond to the chosen ABx?: Yes Is the patient receiving the right drug, dose, and route?: Yes Could a more targeted ABx be ordered?: No ( CONTINUING ABX, POSSIBLE DC ON LEVAQUIN.)
[2023-08-06] MEDS: VANCOMYCIN/WATER FOR INJ (PEG) 1.75 GM/350 ML PIGGYBACK IV (10:54)
[2023-08-06] MEDS: OSELTAMIVIR 75MG CAPSULE 75 MG PO ×2 (11:10→20:22)
--- NOTE | 2023-08-06 11:30 | P.DS_ITS ---
General Admission date:: 08/03/23 Discharge date: 08/06/23 HPI HPI HPI: Patient is a 67-year-old female with past medical history of CHF COPD morbid obesity chronic hypercapnic respiratory failure hypertension hyperlipidemia who presents to the hospital for fever for about 2 days. She has nonproductive cough. According to the patient she also has shortness of breath. Patient otherwise denied chest pain diarrhea constipation dysuria sick contacts. She does not smoke. In the emergency department patient was noted to have low BP, patient was started on Levophed. Hospital Course Hospital Course Hospital Course: Patient was seen and evaluated at the bedside on the day of discharge. Patient wishes to be discharged. All patient questions were answered and patient was given time to ask questions. Patient was discharged in stable condition. Patient understands that she can return to ER in case of any sudden changes in health. Total time spent on DC - 38 mins Patient is a 67-year-old female with past medical history of CHF COPD morbid obesity chronic hypercapnic respiratory failure hypertension hyperlipidemia who presents to the hospital for fever for about 2 days. She has nonproductive cough. According to the patient she also has shortness of breath. Patient otherwise denied chest pain diarrhea constipation dysuria sick contacts. She does not smoke. In the emergency department patient was noted to have low BP, patient was started on Levophed. Assessment and plan Shock suspect septic shock likely source pulmonary - improved Suspect pneumonia, likely gram-positive organism - dc on oral levofloxacin Influenza type A - dc on tamiflue Acute kidney injury - improved DVT prophylaxis-heparin Await culture results, likely DC on Levofloxacin, Tamiflu, called lab, and primliminary results are negative, discussed with pulmonary and stable for dc Exam Data for Last 24 hours Vital signs and Labs for Last 24 Hours: Temp Pulse Resp BP Pulse Ox O2 Del Method O2 Flow Rate 99.2 F 79 22 150/75 H 95 BiPAP 3 08/06/23 11:13 08/06/23 11:13 08/06/23 11:13 08/06/23 11:13 08/06/23 11:13 08/06/23 11:13 08/04/23 20:00 FiO2 25 08/06/23 02:09 Laboratory Results - last 24 hr 08/06/23 06:24: WBC 3.4 L D, RBC 3.77 L, Hgb 10.8 L, Hct 33.4 L, MCV 88.6, MCH 28.5, MCHC 32.2, RDW 18.7 H, Plt Count 231, MPV 8.3, Neut % (Auto) 63.0, Lymph % (Auto) 29.5, [place] % (Auto) 7.2, Eos % (Auto) 0.1, Baso % (Auto) 0.2, Neut # (Auto) 2.1, Lymph # (Auto) 1.0, [place] # (Auto) 0.2, Eos # (Auto) 0.0, Baso # (Auto) 0.0, Sodium 128 L, Potassium 3.9, Chloride 96 L, Carbon Dioxide 34 H, Anion Gap 1.9 L, BUN 9 D, Creatinine 0.70, Estimated Creat Clear 46, Estimated GFR 83, Est GFR ( Amer) 101, Glucose 100, Calcium 8.5 08/06/23 07:45: Vancomycin Trough 9.5 I & O for Last 24 hours: Intake & Output 08/03/23 08/04/23 08/05/23 08/06/23 23:59 23:59 23:59 23:59 Intake Total 448.595 / 185.441 4679.562 / 2509.562 1440 / 1490 530 / 530 Output Total 1330 / 1415 2235 / 2235 350 / 350 0 / 0 Balance -881.405 / -966.405 274.562 / 011.819 3145 / 1140 530 / 530 Weight 116.687 kg 119.34 kg 119 kg Constitutional Constitutional: no acute distress *Routine HEENT Exam Head: Present normocephalic Eye: Present EOMI and PERRL ENT: Present mucous membranes moist *Routine Neck Exam Neck: Present supple; Absent lymphadenopathy *Routine Respiratory Exam Respiratory: Present CTA bilaterally *Routine Cardiovascular Exam Cardiovascular: Present RRR *Routine Abdominal Exam Abdominal: Present soft and normoactive bowel sounds; Absent tenderness *Routine Extremities Exam Extremities: Absent cyanosis, clubbing or edema *Routine Skin Exam Skin: Present warm; Absent rash *Routine Neurological Exam Neurological: Present alert and oriented X3 Results Data Completed and Pending Labs on day of discharge: Labs from last 24 hours 08/06/23 08/06/23 07:45 06:24 WBC 3.4 L D RBC 3.77 L Hgb 10.8 L Hct 33.4 L MCV 88.6 MCH 28.5 MCHC 32.2 RDW 18.7 H Plt Count 231 MPV 8.3 Neut % (Auto) 63.0 Lymph % (Auto) 29.5 [place] % (Auto) 7.2 Eos % (Auto) 0.1 Baso % (Auto) 0.2 Neut # (Auto) 2.1 Lymph # (Auto) 1.0 [place] # (Auto) 0.2 Eos # (Auto) 0.0 Baso # (Auto) 0.0 Sodium 128 L Potassium 3.9 Chloride 96 L Carbon Dioxide 34 H Anion Gap 1.9 L BUN 9 D Creatinine 0.70 Estimated Creat Clear 46 Estimated GFR 83 Est GFR ( Amer) 101 Glucose 100 Calcium 8.5 Vancomycin Trough 9.5 DS: Diagnosis Discharge Diagnosis (1) Hypercapnic respiratory failure: Status: Resolved Code(s): J96.92 - Respiratory failure, unspecified with hypercapnia Qualifiers: Chronicity: acute on chronic Qualified Code(s): J96.22 - Acute and chronic respiratory failure with hypercapnia (2) CHF (congestive heart failure): Status: Acute Code(s): I50.9 - Heart failure, unspecified Qualifiers: Heart failure chronicity: unspecified Heart failure type: unspecified Qualified Code(s): I50.9 - Heart failure, unspecified (3) Acute hypoxemic respiratory failure: Status: Acute Code(s): J96.01 - Acute respiratory failure with hypoxia (4) Hyperlipidemia: Status: Chronic Code(s): E78.5 - Hyperlipidemia, unspecified Qualifiers: Hyperlipidemia type: unspecified Qualified Code(s): E78.5 - Hyperlipidemia, unspecified (5) Hypertension: Status: Chronic Code(s): I10 - Essential (primary) hypertension Qualifiers: Hypertension type: unspecified Qualified Code(s): I10 - Essential (primary) hypertension (6) Peripheral edema: Status: Chronic Code(s): R60.9 - Edema, unspecified (7) Morbid obesity with BMI of 45.0-49.9, adult: Status: Acute Code(s): E66.01 - Morbid (severe) obesity due to excess calories; Z68.42 - Body mass index [BMI] 45.0-49.9, adult Meds Home Medications and Allergies Home Medications Medication Instructions Recorded Confirmed Type omeprazole 20 mg capsule,delayed 20 mg PO DAILY acid reflux 01/21/21 08/03/23 History release aspirin 81 mg tablet,delayed 81 mg PO DAILY Heart Health 01/22/21 08/03/23 History release acetaminophen 500 mg tablet 500 mg PO Q8HP PRN Mild Pain 08/23/21 08/03/23 History (Scale Score 1-4) calcium carbonate 600 mg-vitamin 1 tab PO DAILY Supplement 08/23/21 08/03/23 History D3 20 mcg (800 unit) chewable tablet multivitamin 1 tab PO DAILY Supplement 04/07/22 08/03/23 History sodium chloride 1 gram tablet 2,000 mg PO BID hyponatremia 04/07/22 08/03/23 History bisoprolol fumarate 10 mg tablet 10 mg PO DAILY High Blood Pressure 04/20/22 08/03/23 History doxazosin 4 mg tablet 4 mg PO HS Urinary retention 05/08/23 08/03/23 History cetirizine 10 mg tablet 10 mg PO DAILY Allergy Symptoms 05/09/23 08/03/23 History sennosides 8.6 mg tablet (senna) 8.6 mg PO DAILY Constipation 05/09/23 08/03/23 History potassium chloride 20 mEq 20 meq PO BID 30 days #60 tabs 05/11/23 08/03/23 Rx tablet,extended release(part/cryst) (Klor-Con M) quetiapine 100 mg tablet 100 mg PO BID 30 days #60 tabs 05/11/23 08/03/23 Rx spironolactone 25 mg tablet 25 mg PO DAILY 30 days #30 tabs 05/11/23 08/03/23 Rx bumetanide 2 mg tablet 2 mg PO DAILY 08/03/23 08/03/23 History lisinopril 2.5 mg tablet 2.5 mg PO BID High Blood Pressure 08/03/23 08/03/23 History lorazepam 1 mg tablet 0.5 mg PO TID Anxiety 08/03/23 08/03/23 History magnesium oxide 400 mg (241.3 mg 400 mg PO DAILY Supplement 08/03/23 08/03/23 History magnesium) tablet (MagOx) levofloxacin 750 mg tablet 750 mg PO DAILY 5 days #5 tabs 08/06/23 Rx oseltamivir 75 mg capsule (Tamiflu) 75 mg PO BID 2 days #4 caps 08/06/23 Rx New Prescriptions to Start Prescriptions: levofloxacin Blessing Wall oseltamivir [Tamiflu] [facility]ing Wall Allergies Allergy/AdvReac Type Severity Reaction Status Date / Time bupropion Allergy Verified 05/08/23 17:29 prednisone Allergy Verified 05/08/23 17:29 rosuvastatin [From Crestor] Allergy Verified 05/08/23 17:29 Discharge Plan Disposition Patient Disposition: er [facility] Condition: Fair Discharge Order Discharge Orders: Discharge Order (Routine); Ordered 08/06/23 Ordered By: Blessing Wall Follow up Plan Follow up with: Britney Delaney MD [Physician] - 08/23/23 1:15 pm Prescriptions/Medication Reconciliation: New oseltamivir [Tamiflu] 75 mg Capsule 75 mg PO BID 2 Days Qty: 4 0RF levofloxacin 750 mg tablet 750 mg PO DAILY 5 Days Qty: 5 0RF Continued multivitamin Tablet 1 tab PO DAILY sodium chloride 1 gram Tablet 2,000 mg PO BID bisoprolol fumarate 10 mg tablet 10 mg PO DAILY lorazepam 1 mg tablet 0.5 mg PO TID magnesium oxide [MagOx] 400 mg (241.3 mg magnesium) Tablet 400 mg PO DAILY bumetanide 2 mg tablet 2 mg PO DAILY lisinopril 2.5 mg tablet 2.5 mg PO BID omeprazole 20 MG capsule,delayed release(DR/EC) 20 mg PO DAILY aspirin 81 MG tablet,delayed release (DR/EC) 81 mg PO DAILY calcium carbonate-vitamin D3 1 EACH tablet,chewable 1 tab PO DAILY acetaminophen 500 MG tablet 500 mg PO Q8HP PRN (Reason: Mild Pain (Scale Score 1-4)) doxazosin 4 mg tablet 4 mg PO HS sennosides [senna] 8.6 mg Tablet 8.6 mg PO DAILY cetirizine 10 mg Tablet 10 mg PO DAILY quetiapine 100 mg Tablet 100 mg PO BID 30 Days Qty: 60 0RF spironolactone 25 mg Tablet 25 mg PO DAILY 30 Days Qty: 30 0RF potassium chloride [Klor-Con M20] 20 mEq Tablet,Er Particles/Crystals 20 meq PO BID 30 Days Qty: 60 0RF Discontinued cephalexin 500 mg Tablet 500 mg PO TID Problem Reconciliation Problems Reviewed?: Yes Patient Discharge Instructions ACTIVITY: Ambulate as tolerated DIET: advance to your usual diet Patient Instructions: DI for Pneumonia -- Adult, DI for Urinary Tract Infection (UTI), DI for Influenza -- Adult, DI for Sepsis -- Adult, Catheter-Associated Urinary Tract Infection Providers Primary Care Provider: Raji Varghese Provider: Blessing Wall Attending Provider: Blessing Wall
--- NOTE | 2023-08-06 11:40 | PC.NURSE ---
spoke with hospitalist regarding pt elevated temp this am.
[2023-08-06] MEDS: PANTOPRAZOLE 40MG TABLET 40 MG PO (20:22)
[2023-08-07] VITALS: BP 109/65; PULSE 70; RESP 22; TEMP 37.1; O2SAT 97
[2023-08-07 04:00] VITALS: BP 167/83; PULSE 79; RESP 20; TEMP 36.6; O2SAT 100
[2023-08-07] MEDS: VANCOMYCIN/WATER FOR INJ (PEG) 1.75 GM/350 ML PIGGYBACK IV (04:00)
[2023-08-07] MEDS: HEPARIN SODIUM 5,000 UNIT/ML VIAL 5000 UNIT SQ ×2 (04:00→12:32)
--- NOTE | 2023-08-07 05:35 | PC.NURSE ---
VITAL SIGNS STABLE, AFEBRILE. REFUSES TO USE CALL [facility]JA PREFERS TO YELL AND SCREECH OUT LOUD SHE CAN. INSTRUCTED HER NUMEROUS TIMES TO USE CALL [facility]JA AND EVEN DEMONSTRATED USE FOR HER AND SHE SAYS SHE KNOWS HOW TO USE IT (BUT WONT). PATIENT IS A/O. REMAINS ON DROPLET PRECAUTIONS FOR FLU. PATIENT HAS DRY HACKING NONPRODUCTIVE COUGH. HAS USED HER BIPAP THROUGH THE NIGHT.
--- NOTE | 2023-08-07 06:37 | PC.NURSE ---
LALA Leung NP NOTIFIED RE FREQUENT BOUTS OF SMALL SLIMY STOOLS . TO PLACE AN ORDER FOR STOOL FOR C.DIFF.
[2023-08-07 07:17] LABS: Basophils % 0.5 % (0.1-2.0); Eosinophils % 1.2 % (0.1-12.0); Hematocrit 33.2 % (37.0-47.0); Hemoglobin 10.9 g/dL (12.2-16.2); Lymphocytes # 1.3 K/mm3 (0.7-4.5); Lymphocytes % 37.5 % (10-50); Mean Corpuscular HGB Conc 32.8 g/dL (31.8-35.4); Mean Corpuscular Hemoglobin 28.7 pg (27.0-31.2); Mean Corpuscular Volume 87.6 fl (81-99); Mean Platelet Volume 8.4 fl (7.4-10.4); Monocytes # 0.2 K/mm3 (0.1-1.0); Neutrophils # 1.8 K/mm3 (1.8-7.8); Neutrophils % 53.8 % (37.0-80.0); Platelet Count 219 K/mm3 (142-424); Red Blood Count 3.79 M/mm3 (4.20-5.40); Red Cell Distribution Width 18.7 % (11.5-17.5); White Blood Count 3.3 K/mm3 (4.8-10.8)
[2023-08-07 07:24] LABS: Chloride 99 mmol/L (98-107)
[2023-08-07 07:25] LABS: Potassium 3.5 mmoL/L (3.5-5.1); Sodium 133 mmol/L (136-145)
[2023-08-07 07:27] LABS: Blood Urea Nitrogen 10 mg/dl (7-17); Creatinine Clearance Estimated 46 mL/min (50-200); Estimated Glomerular Filt Rate 71 ml/min (>60); GFR (African American) 86 ML/MIN (>60)
[2023-08-07 07:28] LABS: Anion Gap 5.5 mEq/L (5-15); Calcium 8.4 mg/dl (8.4-10.2); Carbon Dioxide 32 mmol/L (22.0-30.0); Glucose 99 mg/dl (74-100)
[2023-08-07 07:40] VITALS: BP 179/83; PULSE 71; RESP 18; TEMP 36.6; O2SAT 95
--- NOTE | 2023-08-07 09:42 | CA_ITS ---
FINAL REPORT TECHNIQUE: Bilateral lower extremity venous duplex was performed with augmentation and compression. CLINICAL HISTORY: Bilateral lower extremity edema Morbid obesity, CHF, COPD, HTN, HLD, SOB, ELIANA, pneumonia, sepsis, edema. 81 mg ASA daily. Heparin prophylaxis since 08/03. Limited scan due to patient compliance and body habitus. COMPARISON: None FINDINGS: Proper flow is seen throughout the deep venous systems bilaterally. There is no evidence of deep venous thrombosis. IMPRESSION: No evidence of deep venous thrombosis. Reviewed, Interpreted and Dictated by Arsenio Aguilar MD Transcribed by Janna Paredes Authenticated and [facility]
[2023-08-07] MEDS: PIPERCILLIN/TAZO 3.375 GM in 0.9 % SODIUM CHLORIDE 50 ML IV (09:44)
[2023-08-07] MEDS: ASPIRIN EC 81MG TABLET 81 MG PO (09:45)
[2023-08-07] MEDS: SODIUM CHLORIDE 1,000MG TABLET 2000 MG PO (09:45)
[2023-08-07] MEDS: LORazepam 0.5MG TABLET 0.5 MG PO ×2 (09:45→12:33)
[2023-08-07] MEDS: QUETIAPINE 25MG TABLET 50 MG PO (09:45)
[2023-08-07] MEDS: OSELTAMIVIR PHOSPHATE 6MG/ML ORAL SUSP 60ML 30 MG PO (11:03)
[2023-08-07] MEDS: ACETAMINOPHEN 325MG TAB 650 MG PO (11:32)
[2023-08-07 11:49] VITALS: BP 168/80; PULSE 73; RESP 18; TEMP 36.6; O2SAT 96
--- NOTE | 2023-08-07 13:18 | P.DS_ITS ---
General Admission date:: 08/03/23 Discharge date: 08/07/23 HPI HPI HPI: Patient is a 67-year-old female with past medical history of CHF COPD morbid obesity chronic hypercapnic respiratory failure hypertension hyperlipidemia who presents to the hospital for fever for about 2 days. She has nonproductive cough. According to the patient she also has shortness of breath. Patient otherwise denied chest pain diarrhea constipation dysuria sick contacts. She does not smoke. In the emergency department patient was noted to have low BP, patient was started on Levophed. Hospital Course Hospital Course Hospital Course: Patient was seen and evaluated at the bedside on the day of discharge. Patient wishes to be discharged. All patient questions were answered and patient was given time to ask questions. Patient was discharged in stable condition. Patient understands that she can return to ER in case of any sudden changes in health. Total time spent on DC - 38 mins Patient is a 67-year-old female with past medical history of CHF COPD morbid obesity chronic hypercapnic respiratory failure hypertension hyperlipidemia who presents to the hospital for fever for about 2 days. She has nonproductive cough. According to the patient she also has shortness of breath. Patient otherwise denied chest pain diarrhea constipation dysuria sick contacts. She does not smoke. In the emergency department patient was noted to have low BP, patient was started on Levophed. Assessment and plan Shock suspect septic shock likely source pulmonary - improved Suspect pneumonia, likely gram-positive organism - dc on oral levofloxacin Influenza type A - dc on tamiflue patient had loose bowels today which were negative for Stool pathogens Patient also had DVT US - that was also found negative Acute kidney injury - improved DVT prophylaxis-heparin Await culture results, likely DC on Levofloxacin, Tamiflu, called lab, and primliminary results are negative, discussed with pulmonary and stable for dc Exam Data for Last 24 hours Vital signs and Labs for Last 24 Hours: Temp Pulse Resp BP Pulse Ox O2 Del Method O2 Flow Rate 97.9 F 73 18 168/80 H 96 Room Air 3 08/07/23 11:49 08/07/23 11:49 08/07/23 11:49 08/07/23 11:49 08/07/23 11:49 08/07/23 11:49 08/04/23 20:00 FiO2 25 08/06/23 23:19 Laboratory Results - last 24 hr 08/03/23 15:00: Stl Aeromonas (PCR) Not detected, Stl C. cayetanensis PCR Not detected, Stool Rotavirus (PCR) Not detected, Stl Adenov F 40/41 PCR Not detected, Stool Astrovirus (PCR) Not detected, Stool Campylobacter PCR Not detected, Stl C.difficile Tox PCR Not detected, Stool Cryptosporidium PCR Not detected, Stl E.coli Shiga Tox PCR Not detected, Stool E coli O157 PCR TNP, Stl Enterotoxigenic E PCR Not detected, Stool EPEC (PCR) Not detected, Stool EAEC (PCR) Not detected, Stl E. histolytica PCR Not detected, Stool Giardia Lamblia PCR Not detected, Stool Salmonella PCR Not detected, Stool Sapovirus (PCR) Not detected, Stl P. shigelloides PCR Not detected, Stl Shigella/EIEC PCR Not detected, St Y.enterocolitica PCR Not detected, Stool Vibrio (PCR) Not detected, Stl Vibrio cholerae PCR Not detected, Stl Norovirus GI/GII PCR Not detected 08/07/23 06:57: WBC 3.3 L, RBC 3.79 L, Hgb 10.9 L, Hct 33.2 L, MCV 87.6, MCH 28.7, MCHC 32.8, RDW 18.7 H, Plt Count 219, MPV 8.4, Neut % (Auto) 53.8, Lymph % (Auto) 37.5, [place] % (Auto) 7.0, Eos % (Auto) 1.2, Baso % (Auto) 0.5, Neut # (Auto) 1.8, Lymph # (Auto) 1.3, [place] # (Auto) 0.2, Eos # (Auto) 0.0, Baso # (Auto) 0.0, Sodium 133 L, Potassium 3.5, Chloride 99, Carbon Dioxide 32 H, Anion Gap 5.5, BUN 10, Creatinine 0.80, Estimated Creat Clear 46, Estimated GFR 71, Est GFR ( Amer) 86, Glucose 99, Calcium 8.4 I & O for Last 24 hours: Intake & Output 08/04/23 08/05/23 08/06/23 08/07/23 23:59 23:59 23:59 23:59 Intake Total 2509.562 / 2509.562 1440 / 1490 1040 / 1090 930 / 930 Output Total 2235 / 2235 350 / 350 0 / 0 302 / 302 Balance 274.562 / 417.055 2013 / 1140 1040 / 1090 628 / 628 Weight 119.34 kg 119 kg 119 kg Microbiology Reports for the Last 24 Hours: Microbiology 08/03/23 06:35 Blood Blood Culture - Preliminary 08/03/23 06:30 Blood Blood Culture - Preliminary 08/03/23 15:01 Nose MRSA Culture - Final Constitutional Constitutional: no acute distress *Routine HEENT Exam Head: Present normocephalic Eye: Present EOMI and PERRL ENT: Present mucous membranes moist *Routine Neck Exam Neck: Present supple; Absent lymphadenopathy *Routine Respiratory Exam Respiratory: Present CTA bilaterally *Routine Cardiovascular Exam Cardiovascular: Present RRR *Routine Abdominal Exam Abdominal: Present soft and normoactive bowel sounds; Absent tenderness *Routine Extremities Exam Extremities: Absent cyanosis, clubbing or edema *Routine Skin Exam Skin: Present warm; Absent rash *Routine Neurological Exam Neurological: Present alert and oriented X3 Results Data Completed and Pending Labs on day of discharge: Labs from last 24 hours 08/07/23 08/03/23 06:57 15:00 WBC 3.3 L RBC 3.79 L Hgb 10.9 L Hct 33.2 L MCV 87.6 MCH 28.7 MCHC 32.8 RDW 18.7 H Plt Count 219 MPV 8.4 Neut % (Auto) 53.8 Lymph % (Auto) 37.5 [place] % (Auto) 7.0 Eos % (Auto) 1.2 Baso % (Auto) 0.5 Neut # (Auto) 1.8 Lymph # (Auto) 1.3 [place] # (Auto) 0.2 Eos # (Auto) 0.0 Baso # (Auto) 0.0 Sodium 133 L Potassium 3.5 Chloride 99 Carbon Dioxide 32 H Anion Gap 5.5 BUN 10 Creatinine 0.80 Estimated Creat Clear 46 Estimated GFR 71 Est GFR ( Amer) 86 Glucose 99 Calcium 8.4 Stl Aeromonas (PCR) Not detected Stl C. cayetanensis PCR Not detected Stool Rotavirus (PCR) Not detected Stl Adenov F 40/41 PCR Not detected Stool Astrovirus (PCR) Not detected Stool Campylobacter PCR Not detected Stl C.difficile Tox PCR Not detected Stool Cryptosporidium PCR Not detected Stl E.coli Shiga Tox PCR Not detected Stool E coli O157 PCR TNP Stl Enterotoxigenic E PCR Not detected Stool EPEC (PCR) Not detected Stool EAEC (PCR) Not detected Stl E. histolytica PCR Not detected Stool Giardia Lamblia PCR Not detected Stool Salmonella PCR Not detected Stool Sapovirus (PCR) Not detected Stl P. shigelloides PCR Not detected Stl Shigella/EIEC PCR Not detected St Y.enterocolitica PCR Not detected Stool Vibrio (PCR) Not detected Stl Vibrio cholerae PCR Not detected Stl Norovirus GI/GII PCR Not detected Preliminary micro results at discharge 08/03/23 06:35 Blood Culture - Preliminary Blood 08/03/23 06:30 Blood Culture - Preliminary Blood DS: Diagnosis Discharge Diagnosis (1) Hypercapnic respiratory failure: Status: Resolved Code(s): J96.92 - Respiratory failure, unspecified with hypercapnia Qualifiers: Chronicity: acute on chronic Qualified Code(s): J96.22 - Acute and chronic respiratory failure with hypercapnia (2) CHF (congestive heart failure): Status: Acute Code(s): I50.9 - Heart failure, unspecified Qualifiers: Heart failure chronicity: unspecified Heart failure type: unspecified Qualified Code(s): I50.9 - Heart failure, unspecified (3) Acute hypoxemic respiratory failure: Status: Acute Code(s): J96.01 - Acute respiratory failure with hypoxia (4) Hyperlipidemia: Status: Chronic Code(s): E78.5 - Hyperlipidemia, unspecified Qualifiers: Hyperlipidemia type: unspecified Qualified Code(s): E78.5 - Hyperlipidemia, unspecified (5) Hypertension: Status: Chronic Code(s): I10 - Essential (primary) hypertension Qualifiers: Hypertension type: unspecified Qualified Code(s): I10 - Essential (primary) hypertension (6) Peripheral edema: Status: Chronic Code(s): R60.9 - Edema, unspecified (7) Morbid obesity with BMI of 45.0-49.9, adult: Status: Acute Code(s): E66.01 - Morbid (severe) obesity due to excess calories; Z68.42 - Body mass index [BMI] 45.0-49.9, adult Meds Home Medications and Allergies Home Medications Medication Instructions Recorded Confirmed Type omeprazole 20 mg capsule,delayed 20 mg PO DAILY acid reflux 01/21/21 08/03/23 History release aspirin 81 mg tablet,delayed 81 mg PO DAILY Heart Health 01/22/21 08/03/23 History release acetaminophen 500 mg tablet 500 mg PO Q8HP PRN Mild Pain 08/23/21 08/03/23 History (Scale Score 1-4) calcium carbonate 600 mg-vitamin 1 tab PO DAILY Supplement 08/23/21 08/03/23 History D3 20 mcg (800 unit) chewable tablet multivitamin 1 tab PO DAILY Supplement 04/07/22 08/03/23 History sodium chloride 1 gram tablet 2,000 mg PO BID hyponatremia 04/07/22 08/03/23 History bisoprolol fumarate 10 mg tablet 10 mg PO DAILY High Blood Pressure 04/20/22 08/03/23 History doxazosin 4 mg tablet 4 mg PO HS Urinary retention 05/08/23 08/03/23 History cetirizine 10 mg tablet 10 mg PO DAILY Allergy Symptoms 05/09/23 08/03/23 History sennosides 8.6 mg tablet (senna) 8.6 mg PO DAILY Constipation 05/09/23 08/03/23 History potassium chloride 20 mEq 20 meq PO BID 30 days #60 tabs 05/11/23 08/03/23 Rx tablet,extended release(part/cryst) (Klor-Con M) quetiapine 100 mg tablet 100 mg PO BID 30 days #60 tabs 05/11/23 08/03/23 Rx spironolactone 25 mg tablet 25 mg PO DAILY 30 days #30 tabs 05/11/23 08/03/23 Rx bumetanide 2 mg tablet 2 mg PO DAILY 08/03/23 08/03/23 History lisinopril 2.5 mg tablet 2.5 mg PO BID High Blood Pressure 08/03/23 08/03/23 History lorazepam 1 mg tablet 0.5 mg PO TID Anxiety 08/03/23 08/03/23 History magnesium oxide 400 mg (241.3 mg 400 mg PO DAILY Supplement 08/03/23 08/03/23 History magnesium) tablet (MagOx) levofloxacin 750 mg tablet 750 mg PO DAILY 5 days #5 tabs 08/06/23 Rx oseltamivir 75 mg capsule (Tamiflu) 75 mg PO BID 2 days #4 caps 08/06/23 Rx New Prescriptions to Start Prescriptions: levofloxacin Blessing Wall oseltamivir [Tamiflu] [facility] Allergies Allergy/AdvReac Type Severity Reaction Status Date / Time bupropion Allergy Verified 05/08/23 17:29 prednisone Allergy Verified 05/08/23 17:29 rosuvastatin [From Crestor] Allergy Verified 05/08/23 17:29 Discharge Plan Disposition Patient Disposition: Xfer SNF Condition: Fair Discharge Order Discharge Orders: Discharge Order (Routine); Ordered 08/07/23 Ordered By: Blessing Wall Follow up Plan Follow up with: Britney Delaney MD [Physician] - 08/23/23 1:15 pm Prescriptions/Medication Reconciliation: New oseltamivir [Tamiflu] 75 mg Capsule 75 mg PO BID 2 Days Qty: 4 0RF levofloxacin 750 mg tablet 750 mg PO DAILY 5 Days Qty: 5 0RF Continued multivitamin Tablet 1 tab PO DAILY sodium chloride 1 gram Tablet 2,000 mg PO BID bisoprolol fumarate 10 mg tablet 10 mg PO DAILY lorazepam 1 mg tablet 0.5 mg PO TID magnesium oxide [MagOx] 400 mg (241.3 mg magnesium) Tablet 400 mg PO DAILY bumetanide 2 mg tablet 2 mg PO DAILY lisinopril 2.5 mg tablet 2.5 mg PO BID omeprazole 20 MG capsule,delayed release(DR/EC) 20 mg PO DAILY aspirin 81 MG tablet,delayed release (DR/EC) 81 mg PO DAILY calcium carbonate-vitamin D3 1 EACH tablet,chewable 1 tab PO DAILY acetaminophen 500 MG tablet 500 mg PO Q8HP PRN (Reason: Mild Pain (Scale Score 1-4)) doxazosin 4 mg tablet 4 mg PO HS sennosides [senna] 8.6 mg Tablet 8.6 mg PO DAILY cetirizine 10 mg Tablet 10 mg PO DAILY quetiapine 100 mg Tablet 100 mg PO BID 30 Days Qty: 60 0RF spironolactone 25 mg Tablet 25 mg PO DAILY 30 Days Qty: 30 0RF potassium chloride [Klor-Con M20] 20 mEq Tablet,Er Particles/Crystals 20 meq PO BID 30 Days Qty: 60 0RF Discontinued cephalexin 500 mg Tablet 500 mg PO TID Problem Reconciliation Problems Reviewed?: Yes Patient Discharge Instructions ACTIVITY: Ambulate as tolerated DIET: advance to your usual diet Patient Instructions: DI for Pneumonia -- Adult, DI for Urinary Tract Infection (UTI), DI for Influenza -- Adult, DI for Sepsis -- Adult, Catheter-Associated Urinary Tract Infection Providers Primary Care Provider: Raji Varghese Provider: Blessing Wall Attending Provider: Blessing Wall
--- NOTE | 2023-08-07 14:00 | PC.NURSE ---
report called to [place] @ [facility]
== END 2023-08-07 15:56 | DRG 871 ==
LOC: ER 10:50 → 2ND 10:58
PROVIDERS: Internal Medicine Pulmonary Disease; Nurse Practitioner Critical Care Medicine; Nurse Practitioner Family; Admitting Provider Internal Medicine; Emergency Provider Emergency Medicine; PCP Family Medicine; Visit Provider Internal Medicine
DX: A41.9 Sepsis, unspecified organism (principal); J96.01 Acute respiratory failure with hypoxia; J96.22 Acute and chronic respiratory failure with hypercapnia; R65.21 Severe sepsis with septic shock; Z68.41 Body mass index [BMI] 40.0-44.9, adult; J11.1 Influenza due to unidentified influenza virus with other respiratory manifestations; E66.01 Morbid (severe) obesity due to excess calories; J44.9 Chronic obstructive pulmonary disease, unspecified; I11.0 Hypertensive heart disease with heart failure; I50.9 Heart failure, unspecified; G47.33 Obstructive sleep apnea (adult) (pediatric); Z91.199 Patient's noncompliance with other medical treatment and regimen due to unspecified reason; Z99.81 Dependence on supplemental oxygen; F03.90 Unspecified dementia, unspecified severity, without behavioral disturbance, psychotic disturbance, mood disturbance, and anxiety; K21.9 Gastro-esophageal reflux disease without esophagitis; M81.0 Age-related osteoporosis without current pathological fracture
CPT/HCPCS: 36415; 51702; 70450; 71045; 71275; 80048; 80053; 80202; 81001; 82803; 83605; 83880; 84436; 84443; 84484; 85025; 85610; 85730; 87040; 87081; 87086; 87493; 87506; 87636; 93005; 93970; 94660; 99285; J0131; J2543; J3370; Q9967

== ENCOUNTER 2024-05-22 08:31 | Emergency (ER) | payer MEDICARE, SELFPAY ==
[2024-05-22] VITALS (8 sets, daily range): BP systolic 116–151; BP diastolic 59–109; PULSE 69–77; RESP 16–19; TEMP 36.7–37; O2SAT 90–94; BMI 41.5
[2024-05-22 08:56] LABS: Basophils # 0.1 K/mm3 (0-0.2); Eosinophils # 0.1 K/mm3 (0.0-0.4); Eosinophils % 0.8 % (0.1-12.0); Hematocrit 39.9 % (37.0-47.0); Hemoglobin 12.3 g/dL (12.2-16.2); Lymphocytes # 1.5 K/mm3 (0.7-4.5); Lymphocytes % 20.2 % (10-50); Mean Corpuscular HGB Conc 30.9 g/dL (31.8-35.4); Mean Corpuscular Hemoglobin 29.2 pg (27.0-31.2); Mean Corpuscular Volume 94.3 fl (81-99); Mean Platelet Volume 7.6 fl (7.4-10.4); Monocytes # 0.4 K/mm3 (0.1-1.0); Monocytes % 5.4 % (1.7-9.3); Neutrophils # 5.2 K/mm3 (1.8-7.8); Neutrophils % 72.6 % (37.0-80.0); Platelet Count 327 K/mm3 (142-424); Red Blood Count 4.23 M/mm3 (4.20-5.40); Red Cell Distribution Width 13.7 % (11.5-17.5); White Blood Count 7.2 K/mm3 (4.8-10.8)
[2024-05-22 08:59] LABS: Albumin Level 3.8 g/dl (3.5-5.0); Chloride 88 mmol/L (98-107); Potassium 4.2 mmoL/L (3.5-5.1); Sodium 132 mmol/L (136-145)
[2024-05-22 09:02] LABS: Alanine Aminotransferase 16 U/L (12-78); Albumin/Globulin Ratio 1.2 (1.1-1.8); Alkaline Phosphatase 72 U/L (38-126); Aspartate Amino Transferase 31 U/L (14-36); Bilirubin,Total 0.5 mg/dl (0.2-1.3); Blood Urea Nitrogen 17 mg/dl (7-17); Creatinine Clearance Estimated 48 mL/min (50-200); Estimated Glomerular Filt Rate 71 ml/min (>60); GFR (African American) 86 ML/MIN (>60); Globulin 3.1 g/dL (1.3-3.2); Total Protein,Serum 6.9 g/dl (6.3-8.2)
[2024-05-22 09:03] LABS: Calcium 8.9 mg/dl (8.4-10.2); Glucose 101 mg/dl (74-100)
--- NOTE | 2024-05-22 09:06 | CT_ITS ---
FINAL REPORT TECHNIQUE: Pre-and postcontrast images of the abdomen and pelvis were performed by computed tomography. Extensive 3-D reconstruction images were performed. A CTA was performed. This study was performed with techniques to keep radiation doses as low as reasonably achievable (ALARA). Individualized dose reduction techniques using automated exposure control or adjustment of mA and/or kV according to the patient''s size were employed. CLINICAL HISTORY: BRBPR COMPARISON: 04/06/2022 FINDINGS: ABDOMEN/PELVIS: There is bilateral lower lobe atelectasis. Moderate hiatal hernia is identified. Precontrast images demonstrate no evidence of nephrolithiasis. No adrenal masses are identified. There is a probable cyst in the medial right hepatic lobe. The spleen and pancreas are unremarkable. Multiple diverticula are seen involving the descending and sigmoid colon. The appendix is normal. There is a moderate umbilical hernia containing fat. CTA: The abdominal aorta is proper caliber. There is moderate vascular calcification. 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 There is mild stenosis at the origin of the SMA. The ANTOINE is patent. The renal arteries are patent bilaterally. The iliac arteries are normal without evidence of stenosis or occlusion. There is no evidence of contrast extravasation to suggest active bleeding. IMPRESSION: No evidence to suggest active bleeding. 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 Mild stenosis at the origin of the SMA. Reviewed, Interpreted and Dictated by Chemo Forrest III, MD Transcribed by Lulu Castaneda Authenticated and [facility]
[2024-05-22 09:09] LABS: Anion Gap 11.2 mEq/L (5-15); Carbon Dioxide 37 mmol/L (22.0-30.0)
--- NOTE | 2024-05-22 09:18 | HMH.EDGENADL ---
Discharge Plan Disposition Patient Disposition: Home, Self-Care Chief Complaint: Abdominal Pain Prescriptions Prescriptions: No Action multivitamin Tablet 1 tab PO DAILY sodium chloride 1 gram Tablet 2,000 mg PO BID bisoprolol fumarate 10 mg tablet 10 mg PO DAILY lorazepam 1 mg tablet 0.5 mg PO TID magnesium oxide [MagOx] 400 mg (241.3 mg magnesium) Tablet 400 mg PO DAILY bumetanide 2 mg tablet 2 mg PO DAILY lisinopril 2.5 mg tablet 2.5 mg PO BID oseltamivir [Tamiflu] 75 mg Capsule 75 mg PO BID 2 Days Qty: 4 0RF levofloxacin 750 mg tablet 750 mg PO DAILY 5 Days Qty: 5 0RF omeprazole 20 MG capsule,delayed release(DR/EC) 20 mg PO DAILY aspirin 81 MG tablet,delayed release (DR/EC) 81 mg PO DAILY calcium carbonate-vitamin D3 1 EACH tablet,chewable 1 tab PO DAILY acetaminophen 500 MG tablet 500 mg PO Q8HP PRN (Reason: Mild Pain (Scale Score 1-4)) doxazosin 4 mg tablet 4 mg PO HS sennosides [senna] 8.6 mg Tablet 8.6 mg PO DAILY cetirizine 10 mg Tablet 10 mg PO DAILY quetiapine 100 mg Tablet 100 mg PO BID 30 Days Qty: 60 0RF spironolactone 25 mg Tablet 25 mg PO DAILY 30 Days Qty: 30 0RF potassium chloride [Klor-Con M20] 20 mEq Tablet,Er Particles/Crystals 20 meq PO BID 30 Days Qty: 60 0RF Referrals Follow up/Referrals: Yong Camarena II, MD [Staff Physician] - See instructions (history of polyps, BRBPR with normal workup 05/22) Activity Restrictions/Add. Instructions Additional Instructions/Restrictions: Call your family doctor to establish care for this visit to the emergency department and schedule follow-up within 48 hours to ensure improvement. If you have any worsening of your condition or any other concerning signs or symptoms, return to the emergency department or your primary care doctor for further evaluation. Call Dr. Camarena, financial sales consultant, to schedule follow-up colonoscopy in order to reevaluate bleeding, hemorrhoids, and other causes. Clinical Impressions Clinical Impression: Bright red rectal bleeding Instructions Patient Instructions: DI for Acute Abdominal Pain Print Language Print Language: Welsh Discharge ED Provider: Larry Green General Adult HPI General Chief complaint: Abdominal Pain Stated complaint: bloody stool Time Seen by Provider: 05/22/24 08:35 Mode of Arrival: EMS Source of Information: Patient and EMS Limitations: Physical Limitations Description of Symptoms (Recalled from ER Triage Doc. by RN): pt presents to ED from [facility]. pt reports that this weekend she began to notice blood in her stools. this am the toilet bowel was full of blood. pt does take 81 mg asa daily. pt reports associated abdominal pain. History of Present Illness HPI narrative: Please note that above description of symptoms, in this electronic medical record under categorization of recalled from ER triage doctor by RN are reflective of an initial nursing assessment, however, is not reflective of my full history and physical exam that was personally taken and clarified. Consequentially, this preceding description of symptoms, which may include the patient's categorized chief complaint in the EMR, do not reflect my personal clinical impression, and the ultimate description of history of present illness and patient stated complaints should be deferred to this section of the note. Unless stated otherwise or congruent with this section of the note, additional signs, symptoms, or incongruence should be interpreted as inaccurate with my clinical impression. Related Data Home Medications ?Medication ?Instructions ?Recorded ?Confirmed omeprazole 20 mg capsule,delayed 20 mg PO DAILY acid reflux 01/21/21 09/13/23 release aspirin 81 mg tablet,delayed 81 mg PO DAILY Heart Health 01/22/21 09/13/23 release acetaminophen 500 mg tablet 500 mg PO Q8HP PRN Mild Pain 08/23/21 09/13/23 (Scale Score 1-4) calcium 600 mg (as carbonate)-vit 1 tab PO DAILY Supplement 08/23/21 09/13/23 D3 20 mcg (800 unit) chewable tablet multivitamin 1 tab PO DAILY Supplement 04/07/22 09/13/23 sodium chloride 1 gram tablet 2,000 mg PO BID hyponatremia 04/07/22 09/13/23 bisoprolol fumarate 10 mg tablet 10 mg PO DAILY High Blood Pressure 04/20/22 09/13/23 doxazosin 4 mg tablet 4 mg PO HS Urinary retention 05/08/23 09/13/23 cetirizine 10 mg tablet 10 mg PO DAILY Allergy Symptoms 05/09/23 09/13/23 sennosides 8.6 mg tablet (senna) 8.6 mg PO DAILY Constipation 05/09/23 09/13/23 bumetanide 2 mg tablet 2 mg PO DAILY 08/03/23 09/13/23 lisinopril 2.5 mg tablet 2.5 mg PO BID High Blood Pressure 08/03/23 09/13/23 lorazepam 1 mg tablet 0.5 mg PO TID Anxiety 08/03/23 09/13/23 magnesium oxide 400 mg (241.3 mg 400 mg PO DAILY Supplement 08/03/23 09/13/23 magnesium) tablet (MagOx) Previous Rx's ?Medication ?Instructions ?Recorded potassium chloride 20 mEq 20 meq PO BID 30 days #60 tabs 05/11/23 tablet,extended release(part/cryst) (Klor-Con M) quetiapine 100 mg tablet 100 mg PO BID 30 days #60 tabs 05/11/23 spironolactone 25 mg tablet 25 mg PO DAILY 30 days #30 tabs 05/11/23 levofloxacin 750 mg tablet 750 mg PO DAILY 5 days #5 tabs 08/06/23 oseltamivir 75 mg capsule (Tamiflu) 75 mg PO BID 2 days #4 caps 08/06/23 Allergies Allergy/AdvReac Type Severity Reaction Status Date / Time bupropion Allergy Verified 09/13/23 14:16 prednisone Allergy Verified 09/13/23 14:16 rosuvastatin (From Crestor) Allergy Verified 09/13/23 14:16 [facility] Disclaimer: The information contained in this section may have been updated after the patient was seen, as this information can be updated by other users. Medical History (Updated 05/22/24 @ 12:49 by Larry Green MD) History of sleep apnea Chronic respiratory failure History of SIADH GERD (gastroesophageal reflux disease) Osteoporosis Heart failure Hypotension Influenza A Pneumonia Sepsis AMS (altered mental status) Fever Acute confusion Hypercarbia Chronic hypercapnic respiratory failure ELIANA (obstructive sleep apnea) ELIANA (obstructive sleep apnea) Morbid obesity with BMI of 45.0-49.9, adult Anxiety Depressive disorder Sleep apnea Pneumonia CHF (congestive heart failure) Peripheral edema Chronic anemia Dementia Hyperlipidemia Hypertension Hyponatremia Surgical History (Updated 09/13/23 @ 14:17 by Geraldine Sawant) No history of previous surgery Family History Other No significant family history Social History Smoking Status: Never smoker alcohol intake: never current occupational status: disabled Travel in the last 8 weeks: None household members: other housing: [facility] 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 Other Medical History Have you received the Flu Vaccine for this season: No Have you received the Pneumonia Vaccine: Yes ROS Obtained: Yes All systems reviewed & no additional complaints except as documented Physical Exam General General appearance: alert, in no apparent distress and obese Head Head exam: atraumatic and normocephalic Eye Eye exam: Present normal appearance, PERRL and EOMI Neck Neck exam: Present normal inspection, full ROM and trachea midline Respiratory Respiratory exam: Absent respiratory distress, wheezes, stridor, accessory muscle use or prolonged expiratory phase Cardiovascular Cardiovascular exam: Present regular rate, normal rhythm and other (Pulses equal symmetric in upper and lower extremities) Abdominal Exam Abdominal exam: Present soft; Absent distention, tenderness, guarding, rebound, rigidity, Harkins's sign, tenderness at McBurney's Point or pulsatile mass Extremities Exam Extremities exam: Absent edema Neurological Exam Neurological exam: Present alert, oriented X3 and CN II-XII intact; Absent motor sensory deficit Skin Skin exam: Present warm and dry; Absent diaphoresis or erythema Medical Decision Making Medical Records Medical records reviewed: Yes I reviewed the patient's medical records. Screening: Per USPSTF and CDC recommendations, given the prevalence of disease in our region, it is our hospital?s policy to screen for HIV and viral Hepatitis for all patients aged 18 and over and those with ongoing risk factors. Khalif Inquiry Pt receiving controlled substance: No Khalif was queried for this patient: No Vital Signs: 05/22/24 08:29 05/22/24 08:31 05/22/24 09:01 Temperature 98.6 F Temperature Source Oral Pulse Rate 71 71 Pulse Rate [Left Radial] 69 Respiratory Rate 19 Blood Pressure 151/60 H 123/59 L Blood Pressure [Right Arm] 116/69 Blood Pressure Mean [Right Arm] 84 02 Sat by Pulse Oximetry 94 L 93 L 94 L Oxygen Delivery Method Room Air Room Air Room Air 05/22/24 09:31 05/22/24 10:31 05/22/24 11:01 Temperature Temperature Source Pulse Rate 70 76 74 Pulse Rate [Left Radial] Respiratory Rate Blood Pressure 130/109 H 130/84 126/80 Blood Pressure [Right Arm] Blood Pressure Mean [Right Arm] 02 Sat by Pulse Oximetry 94 L 92 L 94 L Oxygen Delivery Method Room Air Room Air Room Air Lab Data Lab Results 05/22/24 08:40: WBC 7.2, RBC 4.23, Hgb 12.3, Hct 39.9, MCV 94.3, MCH 29.2, MCHC 30.9 L, RDW 13.7, Plt Count 327, MPV 7.6, Neut % (Auto) 72.6, Lymph % (Auto) 20.2, [place] % (Auto) 5.4, Eos % (Auto) 0.8, Baso % (Auto) 1.0, Neut # (Auto) 5.2, Lymph # (Auto) 1.5, [place] # (Auto) 0.4, Eos # (Auto) 0.1, Baso # (Auto) 0.1, PT 10.8, INR 0.96, APTT 27.4, Sodium 132 L, Potassium 4.2, Chloride 88 L, Carbon Dioxide 37 H, Anion Gap 11.2, BUN 17, Creatinine 0.80, Estimated Creat Clear 48, Estimated GFR 71, Est GFR ( Amer) 86, Glucose 101 H, Hemoglobin A1c 5.7, Calcium 8.9, Magnesium 1.8, Total Bilirubin 0.5, AST 31, ALT 16, Alkaline Phosphatase 72, Total Protein 6.9, Albumin 3.8, Globulin 3.1, Albumin/Globulin Ratio 1.2, Triglycerides 120, Cholesterol 179, LDL Cholesterol Direct 101.05, VLDL Cholesterol 24, HDL Cholesterol 41, Cholesterol/HDL Ratio 4.4 H, HIV 1&2 Antibody Rapid Nonreactive 05/22/24 09:15: Lactate 1.1 05/22/24 10:11: Urine Color Yellow, Urine Appearance Clear, Urine pH 8.0, Ur Specific [place] 1.010, Urine Protein Negative, Urine Glucose (UA) Negative, Urine Ketones Negative, Urine Blood Negative, Urine Nitrate Negative, Urine Bilirubin Negative, Urine Urobilinogen 0.2, Ur Leukocyte Esterase Negative, Urine RBC None, Urine WBC Occasional, Ur Squamous Epith Cells 3-5, Urine Bacteria None 05/22/24 08:40 05/22/24 08:40 Orders (Tests/Meds): ED MEDICATIONS Discontinued Medications Generic Name Dose Route Start Last Admin Trade Name Freq PRN Reason Stop Dose Admin Iopamidol 80 ml 05/22/24 10:07 05/22/24 10:08 Iopamidol-370 (76%);100ml Bottle IV 05/22/24 10:08 80 ml ONCE ONE Administration Sodium Chloride 10 ml 05/22/24 10:07 05/22/24 10:08 Sodium Chloride 0.9% 10ml Syr (Rad Only) IV 05/22/24 10:08 10 ml ONCE ONE Administration Sodium Chloride 50 ml 05/22/24 10:07 05/22/24 10:08 0.9 % Sodium Chloride 50 Ml Vial IV 05/22/24 10:08 50 ml ONCE ONE Administration ORDERS Category Date Time Status CT angio abdomen pelvis Stat Cat Scan 05/22/24 09:06 Completed CMP [Comprehensive Metabolic Panel] Stat Lab 05/22/24 08:40 Completed Complete Blood Count Auto Diff Stat Lab 05/22/24 08:40 Completed HIV (1&2) Antibody Rapid Stat Lab 05/22/24 08:40 Completed Hemoglobin A1C Stat Lab 05/22/24 08:40 Completed Hep C Ab with Reflex to RNA Stat Lab 05/22/24 08:40 Received Lactic Acid Stat Lab 05/22/24 09:15 Completed Lipid Panel Stat Lab 05/22/24 08:40 Completed Magnesium Stat Lab 05/22/24 08:40 Completed PT INR [Prothrombin Time INR] Stat Lab 05/22/24 08:40 Completed PTT [Activated Partial Thrombo Time] Stat Lab 05/22/24 08:40 Completed Urinalysis and Microscopic Stat Lab 05/22/24 10:11 Completed Medical Decision Narrative: 68-year-old female history of hypertension, hyperlipidemia, ELIANA, CAD, CHF presenting with bright red blood per rectum. Patient states that she has a hemorrhoid, used a little bit of blood. States that 3 days ago she started having a little bit of blood in her stool, did not think anything of it. States that her stool is now particularly constipated, she is not straining, no diarrhea. Today, 05/22, patient had large volume bright red bowel movement that filled up the commode, , so she came in for further evaluation. Patient denies being on anticoagulation. No abdominal pain, but she is feeling nauseated. Patient states that she had a colonoscopy in the past, has had polyps in the past that have blood. History was obtained via conversation with patient and family, EMS. On arrival, patient hemodynamically stable, alert, oriented x4, appropriate, GCS 15, moving all extremities spontaneously, pupils equal and reactive to light. Full physical exam performed and significant for obese female no acute distress. Abdomen soft, nontender, nondistended. No blood in vaginal vault. Nontachycardic, normotensive differential includes hemorrhoid, diverticulum, polyp, malignancy, among others. Patient placed on continuous cardiac monitoring and continuous pulse ox with initial blood pressure 116/69, heart rate 69, saturation 94% on room air. Patient was given Zofran For symptomatic management and correction of underlying abnormalities. Workup independently interpreted and significant for normal white blood cell count, hemoglobin 12.3, platelets normal at 327, coags normal as well. Patient's chemistry with mild hyponatremia, kidney function within normal limits. Lactate negative, BUN normal. Urinalysis without concern for UTI. On independent interpretation of imaging, no acute active bleed or other acute intra-abdominal abnormality to explain patient's symptoms. See radiology read for full review of final results. On reevaluation, patient resting comfortably. Given patient presentation, workup, history, this most likely represents polyp versus AVM versus hemorrhoid bleed, among others. I feel we have sufficiently ruled out life-threatening emergent pathology at this time. Given GI follow-up for outpatient. Because patient at baseline without signs or symptoms of clinical decompensation, deemed appropriate for discharge. Results were relayed to patient who voiced understanding and were agreeable to outpatient management and follow up. I discussed my clinical impression with patient and answered all questions. At this time, the evidence for any other entities in the differential is insufficient to warrant any further testing or ED observation. This was explained as well. Advisory was given that persistent or worsening symptoms require further evaluation. I confirmed the understanding of this discussion. [place] disclaimer Much of this encounter note is an electronic campground manager spoken language to printed text. Electronic campground manager of the spoken language may permit errors. Although I have reviewed the note, some errors may still exist. Critical Care Critical Care Time Critical Care Time: No
[2024-05-22 09:20] LABS: Cholesterol 179 mg/dl (140-200); Magnesium 1.8 mg/dl (1.6-2.3); Triglycerides 120 mg/dl (30-150); VLDL Cholesterol 24 mg/dL (0-40)
[2024-05-22 09:21] LABS: Chol/HDL Ratio 4.4 (1-3.5); HDL Cholesterol 41 mg/dl (40-60)
[2024-05-22 09:22] LABS: Activated Partial Thrombo Time 27.4 seconds (22.8-30.6); INR 0.96 (0.9-1.1); Prothrombin Time 10.8 seconds (10.1-12.5)
[2024-05-22 09:28] LABS: Hemoglobin A1C 5.7 % (4.0-6.0)
[2024-05-22 09:30] LABS: Lactic Acid 1.1 mmol/L (0.7-2.1)
[2024-05-22 09:31] LABS: Direct LDL Cholesterol 101.05 mg/dL (100-129)
[2024-05-22] MEDS: 0.9 % SODIUM CHLORIDE 50 ML VIAL IV (10:08)
[2024-05-22] MEDS: IOPAMIDOL-370 (76%);100ML BOTTLE 80 ML IV (10:08)
[2024-05-22] MEDS: SODIUM CHLORIDE 0.9% 10ML SYR (RAD ONLY) 10 ML IV (10:08)
[2024-05-22 10:17] LABS: Microscopic, Urine URINE MICROSCOPIC (MICROSCOPIC)
--- NOTE | 2024-05-22 10:22 | PC.NURSE ---
pt taken to the bathroom. no new complaints at this time. call cord in bathroom in reach.
[2024-05-22 10:24] LABS: Appearance,Urine CLEAR (Clear); Bilirubin,Urine Negative (Negative); Blood, Urine Negative (Negative); Color,Urine YELLOW (Yellow); Glucose,Urine (UA) Negative (Negative); Ketones,Urine Negative (Negative); Leukocyte Esterase,Urine Negative (Negative); Nitrate,Urine Negative (Negative); Protein,Urine Negative (Negative); Urobilinogen,Urine 0.2 EU/dl (0.2)
--- NOTE | 2024-05-22 10:29 | PC.NURSE ---
pt helped back to bed from the bathroom by myself and KASEY GARCIA. Sister bedside. call urbina in reach.
[2024-05-22 10:42] LABS: WBC,Urine Occasional #/hpf (0-3)
[2024-05-22 12:12] LABS: HIV (1&2) Antibody Rapid NONREACTIVE (NONREACTIVE)
--- NOTE | 2024-05-22 12:38 | PC.NURSE ---
I rounded on the pt and took her a warm blanket. no new complaints. call urbina in reach.
--- NOTE | 2024-05-22 12:39 | PC.NURSE ---
Addendum entered by Regla Baker RN 05/22/24 12:40: this occured at 0913 Original Note: I rounded on the pt and took her a warm blanket. no needs voiced. call urbina in reach.
--- NOTE | 2024-05-22 12:42 | PC.NURSE ---
pt visiting with her sister. call carlitos in reach.
--- NOTE | 2024-05-22 12:43 | PC.NURSE ---
called for meal tray for pt
--- NOTE | 2024-05-22 12:56 | PC.NURSE ---
call made to [facility] for pt transfer back to facility.
[2024-05-23 08:21] LABS: HCV Ab Non Reactive (Non Reactive)
== END 2024-05-22 13:40 | disposition home or self-care (01) ==
PROVIDERS: Emergency Provider Emergency Medicine; PCP Family Medicine
DX: K62.5 Hemorrhage of anus and rectum (principal); R10.9 Unspecified abdominal pain
CPT/HCPCS: 74174; 80053; 80061; 81001; 83036; 83605; 83735; 85025; 85610; 85730; 86803; 87389; 99285; Q9967